=== PATIENT | female | born 1955 | race Caucasian/White ===

== ENCOUNTER 2024-10-30 09:48 | Emergency (ER) | payer MEDICARE, MEDICAID, SELFPAY ==
[2024-10-30 10:05] VITALS: BP 133/75; PULSE 87; RESP 16; TEMP 36.1; O2SAT 98; BMI 33.7
[2024-10-30] MEDS: PROPARACAINE 0.5% OPHTH SOL 1 DROPS EYE-BOTH (11:29)
[2024-10-30] MEDS: FLUORESCEIN 1 MG STRIP EYE-RIGHT (11:29)
--- NOTE | 2024-10-30 11:46 | PC.NURSE ---
Addendum entered by Jennifer Arellano R.N. 10/30/24 11:49: Pt uses corrective lens for vision (glasses) Original Note: Pt reports having hx of eye ulcers in the 's which she took eye drops for and they resolved. Pt thinks she has eye ulcers again. Pt reports she is new to the area and has new insurance so she does not have an established eye doctor. Pt reports eye surgeries and hx of vision issues; states last eye surgery was 2.5 years ago for cataracts and denies any complications. Pt states over the past couple of days she noticed a white dot on right iris and now state she has 2 white eye dots. Pt states she has not had any vision changes to the affected eye but states it has started to water/weep and is getting red. Pt states she did not want her condition to worsen so she came to the ER. Pt denies any trauma or using any eye drops as of recently
--- NOTE | 2024-10-30 12:08 | ED_ITS ---
HPI - Eye Problem <Yasmin Jimenez PA-C - Last Filed: 10/30/24 19:18> General Chief complaint: Eye Problems Stated complaint: Poss corneal ulser Time Seen by Provider: 10/30/24 10:58 Source: patient Mode of arrival: Wheelchair History of Present Illness HPI Narrative: Ms. Martini is a very pleasant 69-year-old female with a past medical history of right eye retinopathy, cataract, narrow angle glaucoma, ischemic CVA, fibromyalgia, HTN, HLD, hypothyroidism who presents to the emergency department for concern of right eye ulcer x 3 days. Patient states she just recently moved from [place] to [facility] here in [place]. She noticed her right eye started to feel ?scratchy? on Thursday but denies any foreign body or injury to the eye. On Thursday 1 of her caregivers noticed a s mall white spot on her right iris and today she noticed a 2nd white spot on her iris which prompted her emergency department arrival. States that she had a corneal ulcer on her left eye about 30 years ago that required her to use eyedrops every hour. She denies contact lens use but she does use glasses and reports that her right eye is her ?bad eye? and that she has very poor vision/no vision besides blur in this eye to begin with. Her left eye is the eye she uses for her vision. Reports that she has had procedures on her right eye for glaucoma in the past and that the eye does not always move correctly and the muscles around the eye are much weaker. She denies headache, fevers, chills, trauma to the eye. Related Data Previous Rx's Medication Instructions Recorded moxifloxacin 0.5 % eye drops See Rx Instructions .Route 10/30/24 (Vigamox) .COMPLEX 5 days #6 mL Review of Systems <Yasmin Jimenez PA-C - Last Filed: 10/30/24 19:18> Review of Systems ROS Unobtainable: All systems reviewed & are unremarkable except as noted in HPI and below Patient History <Yasmin Jimenez PA-C - Last Filed: 10/30/24 19:18> Social History Smoking Status: Never smoker Smoking Status: Never smoker Exam <Yasmin Jimenez PA-C - Last Filed: 10/30/24 19:18> Narrative Exam Narrative: GENERAL: 69 year old patient appears stated age. Well-developed patient, in no acute distress. HEAD: Atraumatic. Normocephalic. EYES: Right eye has two approximately 1mm circular white/oh lesions on iris 7:00 position. Minimal amount of erythema on bottom most cornea. No drainage from the eye or foreign body. Left pupil is 3mm reactive, right pupil is 2mm reactive. Left cornea clear with no erythema or lesions. Right IOP 13, left IOP 16. There is circular fluorescein uptake on right eye exam overlying both lesions described above. Right eye with very minimal exotropia resting at baseline, extraocular motions intact. CARDIOVASCULAR: Regular rate RESPIRATORY: ?Nonlabored respirations. ?Speaking in clear, full sentences. NEURO: AOx3. ?Clear speech. ?Some weakness of lower extremities baseline, uses wheelchair. SKIN: No rash or erythema of visible areas Initial Vital Signs Initial Vital Signs: Vital Signs Temperature 97.0 F L 10/30/24 10:05 Pulse Rate 87 10/30/24 10:05 Respiratory Rate 16 10/30/24 10:05 Blood Pressure 133/75 10/30/24 10:05 Pulse Oximetry 98 10/30/24 10:05 Oxygen Delivery Method Room Air 10/30/24 10:05 <Earnest Mendoza MD - Last Filed: 10/30/24 20:54> Initial Vital Signs Initial Vital Signs: Vital Signs Temperature 97.0 F L 10/30/24 10:05 Pulse Rate 87 10/30/24 10:05 Respiratory Rate 16 10/30/24 10:05 Blood Pressure 133/75 10/30/24 10:05 Pulse Oximetry 98 10/30/24 10:05 Oxygen Delivery Method Room Air 10/30/24 10:05 Course <Yasmin Jimenez PA-C - Last Filed: 10/30/24 19:18> Orders Ordered: Discontinued Medications Fluorescein Sodium (Fluorescein 1 Mg Strip) 1 mg EYE-RIGHT NOW ONE Stop: 10/30/24 11:01 Last Admin: 10/30/24 11:29 Dose: 1 mg Documented By: GEO Ofloxacin (Ofloxacin 0.3% Ophth Prepack) 1 bottle MISC DIRECTED ONE Stop: 10/30/24 15:37 Last Admin: 10/30/24 15:47 Dose: 1 bottle Documented By: GEO Proparacaine HCl (Proparacaine 0.5% Ophth Josefina) 1 drops EYE-BOTH NOW ONE Stop: 10/30/24 11:01 Last Admin: 10/30/24 11:29 Dose: 1 drop Documented By: GEO Consultations Consultation #1: Consulted [facility] food and beverage operations manager acds block [address] Viera. For Right corneal ulcer she recommends Moxifloxacin 1 drop Q2 hours while the patient is awake today, followed by outpatient ophthalmology follow up tomorrow with likely decrease to moxifloxacin q.i.d. Time: 14:39 Vital Signs Vital signs: Vital Signs - 8 hr 10/30/24 15:45 10/30/24 15:48 Temperature 98.4 F Pulse Rate 87 Respiratory Rate 18 Blood Pressure 105/58 L Pulse Oximetry 97 Oxygen Delivery Method Room Air <Earnest Mendoza MD - Last Filed: 10/30/24 20:54> Orders Ordered: Discontinued Medications Fluorescein Sodium (Fluorescein 1 Mg Strip) 1 mg EYE-RIGHT NOW ONE Stop: 10/30/24 11:01 Last Admin: 10/30/24 11:29 Dose: 1 mg Documented By: GEO Ofloxacin (Ofloxacin 0.3% Ophth Prepack) 1 bottle MISC DIRECTED ONE Stop: 10/30/24 15:37 Last Admin: 10/30/24 15:47 Dose: 1 bottle Documented By: GEO Proparacaine HCl (Proparacaine 0.5% Ophth Josefina) 1 drops EYE-BOTH NOW ONE Stop: 10/30/24 11:01 Last Admin: 10/30/24 11:29 Dose: 1 drop Documented By: GEO Vital Signs Vital signs: Vital Signs - 8 hr 10/30/24 15:45 10/30/24 15:48 Temperature 98.4 F Pulse Rate 87 Respiratory Rate 18 Blood Pressure 105/58 L Pulse Oximetry 97 Oxygen Delivery Method Room Air MDM - Eye Problem <Yasmin Jimenez PA-C - Last Filed: 10/30/24 19:18> Medical Records Attestation: I reviewed the patient's medical records. MDM Narrative Medical decision making narrative: 69-year-old female with a past medical history of right eye retinopathy, cataract, narrow angle glaucoma, ischemic CVA, fibromyalgia, HTN, HLD, hypothyroidism who presents to the emergency department for concern of right eye ulcer x 3 days. Differential diagnosis includes but is not limited to corneal abrasion, corneal ulcer, conjunctivitis, glaucoma, dendritic lesion, foreign body, etc. On exam patient is in no acute distress, nontoxic appearing, vital signs lucas ropriate. Her visual acuity is baseline for her which involves only blurred vision of the right eye. Right pressure 13, left pressure 16. Fluorescein eye exam reveals uptake of 2 small ulcers on right iris. Discussed case with the attending ED physician, we will consult Ophthalmology at [facility] as we do not have local acds block 1 operator on-call this time. [place] Dr. Viera acds block 1 operator recommends moxifloxacin every 2 hours while awake today followed by ophthalmology follow up tomorrow with likely decrease dose to q.i.d. Called [facility] assisted living, unfortunately they can not get patient's prescription until tomorrow. We do not have moxifloxacin at this hospital. Consulted pharmacy, we do have ofloxacin ophthalmic solution 0.3% here, informed to instill 1-2 drops in affected eye every 30 minutes while awake followed by every 4-6 hours at night for the first two days or until patient can rock picker and switch over to moxifloxacin/is evaluated by ophthalmology. Patient verbalized understanding of all information and is agreeable to the plan. Discussed strict ED return precautions. She is stable for discharge back to [facility], transfer coming to pick her up. Discharge Plan Departure Patient Disposition: Home Clinical Impression: Corneal ulcer of right eye Instructions: DI for Corneal Ulcer Activity Restrictions/Additional Instructions: Dear Vini, Thank you for coming to the emergency department. Today your physical exam is concerning for 2 small corneal ulcers on the right eye. I discussed with [facility] acds block 1 operator on-call Dr. Viera. Because you were not able to get the prescribed eyedrops today, and we do not c arry these eyedrops at this hospital, you have been provided with an alternative eyedrops to use today called Ofloxacin. Please use 1-2 drops in the right eye every 30 minutes while awake today and every 4-6 hours at night for the 1st 2 days. Beginning on day 3 you can apply 1-2 drops every hour while awake for 4-6 additional days. However you should be evaluated by an eye doctor tomorrow who will change prescribed drops as needed. Tomorrow you need to call to schedule an appointment with local acds block 1 operator [facility] Dr. Louis Vega or Dr. Jazmine Lala at [phone] for an appointment as soon as possible, ideally tomorrow Thursday. Eyedrops can be decreased to 4 times a day tomorrow or as advised by the eye doctor. Please return to the emergency department for any new or worsening symptoms or other concerns. Please follow up with your primary care doctor within the next 2-3 days for ER follow-up. (If you do not have a PCP you can call [phone]. ?to schedule an appointment with an [facility] Primary Care Provider) IF YOU DEVELOP ANY NEW OR WORSENING SYMPTOMS, RETURN TO THE ER! Please read the attached instructions, they highlight more specific treatments and interventions for you at home. Thank you for letting me participate in your care, Yasmin Jimenez PA-C Prescriptions: New moxifloxacin [Vigamox] 0.5 % drops See Rx Instructions .ROUTE .COMPLEX 5 Days Qty: 6 0RF Rx Instructions: 1 drp into right eye every 2 hours while awake on day 1, followed by four times daily on day 2 or until dose changed by acds block 1 operator. Referrals: Melita Vega MD [Physician] - (corneal ulcer right eye) Raman Lala MD [Physician] - (corneal ulcer right eye) Stand Alone Forms: Patient Portal/API/Survey ED Sign-out <Earnest Mendoza MD - Last Filed: 10/30/24 20:54> Cosign ED Attending Cosignature Attestation: I was immediately available in the department for consultation. This document ation has been reviewed and I agree with assessment and plan. Supervised by Earnest Mendoza MD
[2024-10-30 15:45] VITALS: BP 105/58; PULSE 87; RESP 18; O2SAT 97
--- NOTE | 2024-10-30 15:45 | PC.NURSE ---
Reassess; no change
[2024-10-30] MEDS: OFLOXACIN 0.3% OPHTH PREPACK 1 BOTTLE MISC (15:47)
[2024-10-30 15:48] VITALS: TEMP 36.9
--- NOTE | 2024-10-30 16:06 | PC.NURSE ---
Pt taken home by [facility] staff ([place])
== END 2024-10-30 16:07 | disposition home or self-care (01) ==
PROVIDERS: Emergency Provider Physician Assistant
DX: H16.001 Unspecified corneal ulcer, right eye (principal); Z86.73 Personal history of transient ischemic attack (TIA), and cerebral infarction without residual deficits
CPT/HCPCS: 99282

== ENCOUNTER 2024-11-01 22:20 | Emergency (ER) | payer MEDICARE, MEDICAID, SELFPAY ==
[2024-11-01 22:21] VITALS: BP 122/61; PULSE 74; RESP 18; TEMP 36.4; O2SAT 99; BMI 34.0
--- NOTE | 2024-11-01 22:21 | DI.RAD.S_ITS ---
PROCEDURE: XR HIP W PEL IF DONE LT 2V INDICATIONS: sat hard, pain, now nonweight bearing TECHNIQUE: 2 views of the hip were acquired. COMPARISON: None. FINDINGS AND IMPRESSION: No acute displaced fracture is identified. No dislocation. Suspect calcific tendinopathy at the greater trochanters. Bryv-te-mrfsecok hip, lumbosacral, and pubic symphysis arthritic changes. If there is high concern for occult injury, consider repeat radiography or cross-sectional imaging. Increased fecal loading. Dystrophic calcifications seen adjacent to the left femur on lateral view. Dictated by: Harpreet Henderson M.D. on 11/01/2024 at 23:01 Approved by: Harpreet Henderson M.D. on 11/01/2024 at 23:02
[2024-11-02 00:55] VITALS: BP 120/66; RESP 20; O2SAT 97
[2024-11-02 01:21] VITALS: BP 120/56; PULSE 76; RESP 17; O2SAT 98
--- NOTE | 2024-11-02 04:02 | ED_ITS ---
HPI - Extremity Problem General Chief complaint: Extremity Problem,Nontraumatic Stated complaint: Hip Pain Time Seen by Provider: 11/02/24 03:52 Source: patient and EMS Mode of arrival: EMS History of Present Illness HPI Narrative: Patient is a 69-year-old female with history of arthritis presenting today with left hip pain. She reports that she lives at [facility] but is independent she does have a wheelchair as needed does use a walker walker as needed she was sitting and twisted around today and felt pain in her left hip. She has no radiation down her leg she did not fall. She has no change in bowel or bladder habits. She reports that it really only hurts when she is weight-bearing. She took tramadol which is her normal arthritis pain and did not really seem to help. Related Data Allergies Allergy/AdvReac Type Severity Reaction Status Date / Time No Known Drug Allergies Allergy Verified 11/01/24 22:24 Patient History Social History Smoking Status: Never smoker Smoking Status: Never smoker Exam Initial Vital Signs Initial Vital Signs: Vital Signs Temperature 97.5 F L 11/01/24 22:21 Pulse Rate 74 11/01/24 22:21 Respiratory Rate 18 11/01/24 22:21 Blood Pressure 122/61 11/01/24 22:21 Pulse Oximetry 99 11/01/24 22:21 Oxygen Delivery Method Room Air 11/01/24 22:21 GENERAL: Patient sleeping easily arousable CARDIOVASCULAR: peripheral pulses in tact, cap refill <2 sec RESPIRATORY: No respiratory distress, speaks in full sentences without difficulty ABDOMEN: Soft, nontender, no guarding or rebound EXTREMITIES: Normal range of motion, no clubbing or edema. Neurovascularly intact Pelvis stable no hip pain with internal or external rotation NEUROLOGICAL: Cranial nerves II through XII grossly intact. Normal gait and speech. SKIN: Warm, dry, no petechiae, no rashes or lesions. Course Orders Ordered: ED Orders 11/01/24 22:21 XR hip w pel if done LT 2V Stat Vital Signs Vital signs: Vital Signs - 8 hr 11/01/24 22:21 11/02/24 00:55 11/02/24 01:21 Temperature 97.5 F L Pulse Rate 74 76 Respiratory Rate 18 20 17 Blood Pressure 122/61 120/66 120/56 L Pulse Oximetry 99 97 98 Oxygen Delivery Method Room Air Room Air Room Air MDM - Extremity (Nontraumatic) Imaging Data Extremity x-ray #1: Radiologist's Impression: PROCEDURE: XR HIP W PEL IF DONE LT 2V INDICATIONS: sat hard, pain, now nonweight bearing TECHNIQUE: 2 views of the hip were acquired. COMPARISON: None. FINDINGS AND IMPRESSION: No acute displaced fracture is identified. No dislocation. Suspect calcific tendinopathy at the greater trochanters. Azct-of-bdlasiaq hip, lumbosacral, and pubic symphysis arthritic changes. If there is high concern for occult injury, consider repeat radiography or cross-sectional imaging. Increased fecal loading. Dystrophic calcifications seen adjacent to the left femur on lateral view. Dictated by: Harpreet Henderson M.D. on 11/01/2024 at 23:01 [facility] Narrative Medical decision making narrative: Patient is a 69-year-old female with history of arthritis presenting today with left hip pain. She twisted and had worsening pain. She did not fall no traumatic injury. X-ray today is negative does show arthritis. She took tramadol earlier she has been sleeping in the ED. I am freely able to move it without any sort of pain. She has available resources at home such as a walker and wheelchair if she needs it. She has no real back pain signs of cauda equina or other symptoms Patient was able to use wheelchair and walker transfer herself to the restroom. This time no need for any further workup Discharge Plan Departure Patient Disposition: Home Clinical Impression: Arthritis Instructions: DI for Osteoarthritis Activity Restrictions/Additional Instructions: *You have been diagnosed with arthritis *What to do: At this time increase activity as tolerated. Use walker and wheelchair as needed *Continue to take medications as directed *Follow up with your primary care provider in 2-3 days or call [phone] *Return to ER if you should have increasing pain weakness loss of urine or any new, worsening or concerning symptoms Stand Alone Forms: Patient Portal/API/Survey
--- NOTE | 2024-11-02 06:16 | PC.NURSE ---
This nurse spoke to [employer] at [facility] and she reports one of the staff will be coming to get her adter shift change so after 06:30 this morning
[2024-11-02 06:40] VITALS: BP 137/66; PULSE 75; RESP 16; O2SAT 100
== END 2024-11-02 08:01 | disposition home or self-care (01) ==
PROVIDERS: Emergency Provider Emergency Medicine
DX: M16.12 Unilateral primary osteoarthritis, left hip (principal)
CPT/HCPCS: 73502; 99281; 99283

== ENCOUNTER → 2024-11-09 06:12 | Outpatient (ROUT) | payer MEDICARE, MEDICAID, SELFPAY ==
[2024-11-09 07:56] LABS: Hematocrit 38.9 % (36-46); Hemoglobin 13.7 g/dL (12.0-16.0); Mean Corpuscular HGB Conc 35.2 % (30-36); Mean Corpuscular Hemoglobin 30.6 PG (26-34); Mean Corpuscular Volume 87.1 fL (80-100); Platelet Count 356 X10^3/uL (150-400); Red Blood Cell Count 4.46 X10^6/uL (4.0-5.2); Red Cell Distribution Width 13.2 % (11.6-14.8); White Blood Cell Count 7.8 X10^3/uL (4.5-11.0)
[2024-11-09 08:09] LABS: Alanine Aminotransferase 20 IU/L (<35); Albumin 4.5 g/dL (3.5-5.0); Albumin Globulin Ratio 1.5 (1.0-2.8); Alkaline Phosphatase 233 U/L (38-126); Aspartate Aminotransferase 33 IU/L (14-36); Bilirubin Total 0.5 mg/dL (0.2-1.3); Blood Urea Nitrogen 24 mg/dL (7-17); Carbon Dioxide 26 mmol/L (22-32); Chloride 100 mmol/L (98-107); Cholesterol 132 mg/dL (140-199); Estimated Glomerular Filt Rate > 60 mL/min (>60); Glucose 96 mg/dL (80-110); HDL Cholesterol 62 mg/dL (40-60); HEMOLYSIS < 15 (0-50); LDL Cholesterol Calculated 53 mg/dL (<100); Magnesium 1.6 mg/dL (1.6-2.3); Potassium 4.5 mmol/L (3.4-5.1); Sodium 138 mmol/L (137-145); Total Protein 7.5 g/dL (6.3-8.2); Triglycerides 86 mg/dL (35-150)
[2024-11-09 08:37] LABS: Thyroid Stimulating Hormone 2.36 uIU/mL (0.47-4.68)
== END ==
PROVIDERS: Visit Provider Registered Nurse
DX: Z13.9 Encounter for screening, unspecified (principal)
CPT/HCPCS: 36415; 80053; 80061; 83735; 84443; 85027

== ENCOUNTER 2024-11-30 13:29 | Inpatient (IN) | payer MEDICARE, MEDICAID, SELFPAY ==
[2024-11-30] VITALS (24 sets, daily range): BP systolic 97–135; BP diastolic 53–72; PULSE 70–96; RESP 11–20; TEMP 36.7–37; O2SAT 94–97; BMI 32.1; BMI 31.6
--- NOTE | 2024-11-30 15:56 | DI.RAD.S_ITS ---
PROCEDURE: XR CHEST 1V INDICATIONS: altered mental status TECHNIQUE: One view of the chest was acquired. COMPARISON: None. FINDINGS: Surgical changes and devices: None. Lungs and pleura: Lungs are clear. No pleural effusions or pneumothorax. Mediastinum: Mediastinal contours appear normal. Heart size is normal. Bones and chest wall: No suspicious bony lesions. Overlying soft tissues appear unremarkable. IMPRESSION: No acute cardiopulmonary pathology. Dictated by: Riccardo Ramirez M.D. on 11/30/2024 at 16:19 Approved by: Riccardo Ramirez M.D. on 11/30/2024 at 16:20
--- NOTE | 2024-11-30 15:56 | EKG_ITS ---
[address] [address] Test Date: 2024-11-30 Pat Name: Anne Martini Department: [facility] Room: Gender: Female Entry Level Marketing Assistant: ERIN : [id number] Requested By: Order Number: [id number] Reading MD: Matias Cheung Measurements Intervals Orick Rate: 78 P: 31 WI: 166 QRS: 3 QRSD: 84 T: 47 QT: 358 QTc: 408 Interpretive Statements Normal sinus rhythm Minimal voltage criteria for LVH, may be normal variant ( R in aVL ) Nonspecific T wave abnormality Electronically Signed On 12-03-2024 18:28:28 PDT by Matias Cheung
[2024-11-30 16:09] LABS: Appearance Urine UA CLEAR; Bilirubin Urine UA NEGATIVE (NEGATIVE); Color Urine UA YELLOW; Glucose Urine UA NEGATIVE (Negative); Ketones Urine UA NEGATIVE (NEGATIVE); Leukocyte Esterase Urine UA NEGATIVE (NEGATIVE); Nitrite Urine UA NEGATIVE (Negative); Occult Blood Urine UA NEGATIVE (Negative); Protein Urine UA NEGATIVE (Negative)
[2024-11-30 16:12] LABS: Add Manual Diff / Slide Review NO; Basophils Absolute Auto 0 /uL (0-100); Basophils Percent Auto 0.4 % (0-2); Eosinophils Absolute Auto 0 /uL (0-450); Eosinophils Percent Auto 0.2 % (2-4); Hematocrit 37.2 % (36-46); Hemoglobin 13.2 g/dL (12.0-16.0); Lymphocytes Absolute Auto 1200 /uL (1100-4500); Lymphocytes Percent Auto 12.3 % (25-40); Mean Corpuscular HGB Conc 35.5 % (30-36); Mean Corpuscular Hemoglobin 30.6 PG (26-34); Mean Corpuscular Volume 86.1 fL (80-100); Monocytes Absolute Auto 600 /uL (0-900); Monocytes Percent Auto 6.7 % (3-14); Neutrophils Absolute Auto 7700 /uL (1500-7000); Neutrophils Percent Auto 80.4 % (50-75); Platelet Count 317 X10^3/uL (150-400); Red Blood Cell Count 4.32 X10^6/uL (4.0-5.2); Red Cell Distribution Width 13.2 % (11.6-14.8); White Blood Cell Count 9.6 X10^3/uL (4.5-11.0)
[2024-11-30 17:08] LABS: Alanine Aminotransferase 22 IU/L (<35); Albumin 4.3 g/dL (3.5-5.0); Albumin Globulin Ratio 1.2 (1.0-2.8); Alkaline Phosphatase 283 U/L (38-126); Aspartate Aminotransferase 66 IU/L (14-36); BUN Creatinine Ratio 25.6 (6-22); Bilirubin Total 0.5 mg/dL (0.2-1.3); Blood Urea Nitrogen 31 mg/dL (7-17); Calcium 13.1 mg/dL (8.4-10.2); Carbon Dioxide 28 mmol/L (22-32); Chloride 99 mmol/L (98-107); Estimated Glomerular Filt Rate 48 mL/min (>60); Globulin 3.6 g/dL (1.7-4.1); Glucose 103 mg/dL (80-110); Potassium 4.8 mmol/L (3.4-5.1); Sodium 134 mmol/L (137-145); Total Protein 7.9 g/dL (6.3-8.2)
[2024-11-30 17:11] LABS: HEMOLYSIS < 15 (0-50)
[2024-11-30] MEDS: SODIUM CHLORIDE 0.9% 1,000 ML 1000 ML IV (18:17)
--- NOTE | 2024-11-30 18:17 | ED.EXTPRO ---
HPI - Extremity Problem General Chief complaint: Extremity Problem,Nontraumatic Stated complaint: hip and back pain Time Seen by Provider: 11/30/24 18:11 Source: patient and RN notes reviewed Mode of arrival: Ambulatory Limitations: no limitations History of Present Illness HPI Narrative: 69-year-old female history of arthritis, hypertension, hypothyroidism, dyslipidemia, atrial fibrillation with a reported history of stroke on Plavix and aspirin presents with complaint of bilateral hip pain that is been present for some time with pain shooting down her hips and back weakness, difficulty moving. Patient states no trauma or injuries. She states she has had increasing back and hip pain has been going on for a little bit denies any new trauma or falls. She denies weakness she was able to lift her legs it is more leaning forward or trying to walk. Patient denies any headaches no fevers or chills, no chest pain or shortness of breath. She had some nausea overnight. She has been constipated but had a bowel movement the last day or 2 she relates this probably to being to her tramadol that she takes regularly for her hip and back pain. Denies any dysuria urgency or frequency she has not appreciate any tremor but does note she has been more confused. She states she has been on the phone with her who told her over the phone she sounded more confused as well. Patient ended up at [facility] about a month and a half ago had moved from [place] where she had been in rehab for a stroke and then in a facility there. Patient states she has had prior cataract surgery. No known drug allergies, denies tobacco, alcohol or recreational drugs. States he does not have a primary care locally currently resides at [facility]. Related Data Allergies Allergy/AdvReac Type Severity Reaction Status Date / Time No Known Drug Allergies Allergy Verified 11/01/24 22:24 Review of Systems Review of Systems ROS Unobtainable: All systems reviewed & are unremarkable except as noted in HPI and below Patient History Social History Smoking Status: Never smoker Smoking Status: Never smoker Exam Narrative Exam Narrative: GENERAL: Alert and oriented, female in mild distress. Patient seems slightly confused able to give most history but does sometimes get stuck on questions about her medications. HEENT: Head normocephalic, atraumatic, EOMI, pupils reactive, face symmetric, moist mucous membranes NECK: Supple, full range of motion CARDIOVASCULAR: Regular rate and rhythm without murmurs, rubs or gallops. RESPIRATORY: Breath sounds equal bilaterally, no wheezes rales or rhonchi. ABDOMEN: Soft, nontender. Normoactive bowel sounds all 4 quadrants. No guarding or rebound, rigidity, no mass : No CVA tenderness EXTREMITIES: Normal range of motion. Neurovascularly intact. 5/5 muscle strength patient is able to lift both legs without issue. No increase in pain with straight leg raise. 2+ pulses bilateral lower extremities. No warmth erythema, cyanosis or clubbing. NEUROLOGICAL: Cranial nerves II through XII grossly intact. Moving all extremities SKIN: Warm, dry, no petechiae, no rashes or lesions. Initial Vital Signs Initial Vital Signs: Vital Signs Temperature 98.6 F 11/30/24 13:35 Pulse Rate 96 H 11/30/24 13:35 Respiratory Rate 20 11/30/24 13:35 Blood Pressure 105/53 L 11/30/24 13:35 Pulse Oximetry 97 11/30/24 13:35 Oxygen Delivery Method Room Air 11/30/24 13:35 Course Orders Ordered: ED Orders 11/30/24 15:50 Urinalysis Screen (Dip Only) Stat 11/30/24 15:56 XR chest 1V Stat Complete Blood Count AUTO DIFF Stat EKG-12 Lead Stat 11/30/24 16:48 Comprehensive Metabolic Panel Stat MAG [Magnesium] Stat PHOS [Phosphorous] Stat 11/30/24 21:23 Ionized Calcium Stat TSH [Thyroid Stimulating Hormone] Stat Vitamin D 25 Hydroxy (D3) Stat 11/30/24 21:26 CT head/brain wo con Stat PTT Partial Thromboplastin Kvng Stat Prothrombin Time INR Stat Acetaminophen (Acetaminophen 325 Mg Tablet) 650 mg PO Q6H PRN PRN Reason: Fever/Mild Pain (1-3) Enoxaparin Sodium (Enoxaparin 40 Mg/0.4 Ml Syringe) 40 mg SUBCUT DAILY VIVEK Sodium Chloride (Normal Saline 0.9%) 1,000 mls @ 100 mls/hr IV CONT VIVEK Sodium Chloride (Normal Saline 0.45%) 1,000 mls @ 100 mls/hr IV CONT VIVEK Naloxone HCl (Naloxone 0.4 Mg/Ml Vial) 0.2 mg IV Q2MIN PRN PRN Reason: Opiate Reversal Ondansetron HCl (Ondansetron 4 Mg/2 Ml Inj) 4 mg IV Q4HR VIVEK Oxycodone HCl (Oxycodone Ir 5 Mg Tablet) 5 mg PO Q3H PRN PRN Reason: Pain, Moderate (4-6) Sennosides (Sennosides 8.6 Mg Tablet) 17.2 mg PO BEDTIME VIVEK Discontinued Medications Sodium Chloride (Normal Saline 0.9%) 1,000 mls @ 1,000 mls/hr IV BOLUS ONE Stop: 11/30/24 19:10 Last Infusion: 11/30/24 19:24 Dose: Infused Documented By: Admin: 11/30/24 18:17 Dose: 1,000 mls/hr Documented By: REYNA Oxycodone HCl (Oxycodone Ir 5 Mg Tablet) 5 mg PO NOW ONE Stop: 11/30/24 18:45 Last Admin: 11/30/24 19:03 Dose: 5 mg Documented By: Vital Signs Vital signs: Vital Signs - 8 hr 11/30/24 14:39 11/30/24 14:40 11/30/24 14:40 Pulse Rate 87 Respiratory Rate Blood Pressure 128/62 Pulse Oximetry 96 96 Oxygen Delivery Method 11/30/24 15:00 11/30/24 15:30 11/30/24 15:30 Pulse Rate 80 84 Respiratory Rate 11 L 12 Blood Pressure 111/54 L Pulse Oximetry 95 96 Oxygen Delivery Method 11/30/24 16:00 11/30/24 16:00 11/30/24 16:30 Pulse Rate 82 Respiratory Rate 11 L Blood Pressure 104/57 L 117/56 L Pulse Oximetry 96 Oxygen Delivery Method Room Air 11/30/24 16:30 11/30/24 17:00 11/30/24 17:01 Pulse Rate 78 82 Respiratory Rate 15 17 Blood Pressure 122/57 L Pulse Oximetry 95 96 Oxygen Delivery Method 11/30/24 17:01 11/30/24 17:30 11/30/24 17:30 Pulse Rate 81 83 Respiratory Rate 18 13 Blood Pressure 114/56 L Pulse Oximetry 96 96 Oxygen Delivery Method 11/30/24 18:00 11/30/24 18:00 11/30/24 18:30 Pulse Rate 83 Respiratory Rate 14 Blood Pressure 112/58 L 118/56 L Pulse Oximetry 95 Oxygen Delivery Method 11/30/24 18:30 11/30/24 19:00 11/30/24 19:00 Pulse Rate 79 72 Respiratory Rate 11 L 16 Blood Pressure 123/61 Pulse Oximetry 95 94 Oxygen Delivery Method 11/30/24 19:30 11/30/24 19:31 11/30/24 19:31 Pulse Rate 74 76 Respiratory Rate 20 19 Blood Pressure 97/55 L Pulse Oximetry 97 97 Oxygen Delivery Method 11/30/24 20:00 11/30/24 20:00 11/30/24 20:30 Pulse Rate 72 Respiratory Rate 12 Blood Pressure 104/53 L 120/60 Pulse Oximetry 94 Oxygen Delivery Method 11/30/24 20:30 Pulse Rate 75 Respiratory Rate 11 L Blood Pressure Pulse Oximetry 95 Oxygen Delivery Method Room Air MDM - Extremity (Nontraumatic) Lab Data 11/30/24 15:56 11/30/24 16:48 Labs: Lab Results 11/30/24 11/30/24 11/30/24 Range/Units 15:50 15:56 16:48 WBC 9.6 (4.5-11.0) X10^3/uL RBC 4.32 (4.0-5.2) X10^6/uL Hgb 13.2 (12.0-16.0) g/dL Hct 37.2 (36-46) % MCV 86.1 (80-100) fL MCH 30.6 (26-34) PG MCHC 35.5 (30-36) % RDW 13.2 (11.6-14.8) % Plt Count 317 (150-400) X10^3/uL Neut % (Auto) 80.4 H (50-75) % Lymph % (Auto) 12.3 L (25-40) % [place] % (Auto) 6.7 (3-14) % Eos % (Auto) 0.2 L (2-4) % Baso % (Auto) 0.4 (0-2) % Neut # (Auto) 7700 H (4886-1022) /uL Lymph # (Auto) 1200 (2392-0365) /uL [place] # (Auto) 600 (0-900) /uL Eos # (Auto) 0 (0-450) /uL Baso # (Auto) 0 (0-100) /uL Sodium 134 L (137-145) mmol/L Potassium 4.8 (3.4-5.1) mmol/L Chloride 99 (98-107) mmol/L Carbon Dioxide 28 (22-32) mmol/L BUN 31 H (7-17) mg/dL Creatinine 1.21 H (0.52-1.04) mg/dL Estimated GFR 48 L (>60) mL/min BUN/Creatinine Ratio 25.6 H (6-22) Glucose 103 (80-110) mg/dL Calcium 13.1 H* (8.4-10.2) mg/dL Phosphorus 3.6 (2.8-4.1) mg/dL Magnesium 1.8 (1.6-2.3) mg/dL Total Bilirubin 0.5 (0.2-1.3) mg/dL AST 66 H (14-36) IU/L ALT 22 (<35) IU/L Alkaline Phosphatase 283 H (38-126) U/L Total Protein 7.9 (6.3-8.2) g/dL Albumin 4.3 (3.5-5.0) g/dL Globulin 3.6 (1.7-4.1) g/dL Albumin/Globulin Ratio 1.2 (1.0-2.8) Urine Color Yellow Urine Appearance Clear Urine pH 6.0 (4.5-8.0) Ur Specific [place] 1.020 (1.000-1.035) Urine Protein Negative (Negative) Urine Glucose (UA) Negative (Negative) g/dL Urine Ketones Negative (NEGATIVE) Urine Occult Blood Negative (Negative) Urine Nitrate Negative (Negative) Urine Bilirubin Negative (NEGATIVE) Urine Urobilinogen 1.0 (0.2) E.U./dL Ur Leukocyte Esterase Negative (NEGATIVE) ECG Data Attestation EKG: I personally reviewed and interpreted this ECG as follows: Interpretation: Sinus rhythm rate of 78 ID 166 QRS 84 QTC of 408, no acute ST elevation or depression. MDM Narrative Medical decision making narrative: Labs show white count of 9.6 hemoglobin of 13 platelets of 312 predominance of neutrophils. Chemistry shows sodium 134 creatinine is 1.21 BUN 31 electrolytes are otherwise appropriate calcium is 13.1 from 11 in October, AST 66 but ALT bilirubin are normal. Alk-phos is 283. Intact PTH ordered at request of Dr. Cheung. Urine dip is negative. Chest x-ray shows no acute change Head CT shows no acute change. Patient does have an old hip x-ray from 11/01/2024 for left hip with no fracture no dislocation had calcific tendinopathy of greater trochanters. Patient received fluids. Did receive a dose of oral pain medication. Call to hospitalist [phone] for observation or admission for hypercalcemia and mild MERCY. Spoke with Dr. Carlson tele hospitalist [phone]: Asked for Mag and phos, TSH, ionized calcium, head CTs patient has had some mild confusion. Asked that we continue with fluids at 100 mL NS. Reviewed patient's findings and workup thus far prior visits in October and labs from October. Also reviewed patient's medication list. She accepts but we will wait for head CT result before putting up stairs. Discharge Plan Departure Patient Disposition: Admitted As Inpatient Clinical Impression: Hypercalcemia, MERCY (acute kidney injury) Admit Date/Time: 11/30/24 22:16 Admit Provider: Avis Carlson
[2024-11-30] MEDS: OXYCODONE IR 5 MG TABLET PO ×2 (19:03→23:31)
--- NOTE | 2024-11-30 19:51 | PC.NURSE ---
Pt incontinent of urine. Cleaned yovany area thoroughly with JOSE Beckett. Pirwick placed.
--- NOTE | 2024-11-30 21:26 | DI.CT.S_ITS ---
PROCEDURE: CT HEAD/BRAIN WO CON INDICATIONS: confusion TECHNIQUE: Noncontrast 4.5 mm thick angled axial sections acquired from the foramen magnum to the vertex, with coronal and sagittal reformats. For radiation dose reduction, the following was used: automated exposure control, adjustment of mA and/or kV according to patient size. COMPARISON: None. FINDINGS: Image quality: Diagnostic CSF spaces: Basal cisterns are patent. Lateral ventricles are symmetric. Volume: Vascular calcifications. Periventricular white matter disease is commonly seen with chronic microangiopathy. Volume loss is present. These findings are [id number] Brain: No intracranial hemorrhage. Hurtado-white differentiation is grossly maintained. Craniofacial structures: Calvarial hyperostosis. No significant paranasal sinus opacity. Left lens replacement. IMPRESSION: No acute intracranial pathology. Dictated by: Harpreet Henderson M.D. on 11/30/2024 at 22:06 Approved by: Harpreet Henderson M.D. on 11/30/2024 at 22:07
[2024-11-30 21:39] LABS: Magnesium 1.8 mg/dL (1.6-2.3); Phosphorous 3.6 mg/dL (2.8-4.1)
[2024-11-30 23:09] LABS: INR 1.1 (0.9-1.3); Prothrombin Time 12.7 SECONDS (9.4-12.5)
[2024-11-30 23:11] LABS: PTT Partial Thromboplastin Tim 30 SECONDS (25.1-36.5)
[2024-11-30] MEDS: SENNOSIDES 8.6 MG TABLET 17.2 MG PO (23:34)
[2024-11-30] MEDS: SODIUM CHLORIDE 0.45% 1,000 ML 100 ML IV (23:34)
[2024-11-30 23:51] LABS: Vitamin D 25 Hydroxy (D3) 32.9 ng/mL (30.0-100.0)
[2024-12-01 00:04] LABS: Thyroid Stimulating Hormone 2.35 uIU/mL (0.47-4.68)
[2024-12-01] MEDS: SODIUM CHLORIDE 0.9% 1,000 ML 100 ML IV ×2 (01:42→20:27)
[2024-12-01 03:00] VITALS: BP 128/74; PULSE 88; RESP 19; TEMP 36.4; O2SAT 94
--- NOTE | 2024-12-01 04:37 | PC.NURSE ---
Admit/NOC Shift Note- Patient arrived to room via stretcher from ER at 2300. Patient alert oriented with some confusion noted. Patient able to answer moast admit questions. Admit questions done, physical assessment done, Patient oriiented to bed and bed controls, room, lights, menu, call saenz/tv remote. Pastient agreed to call for assistance. bed alarm activated. Call saenz and phone within reach. will continue to monitor. `````````````````````````````````````````````````````````````````````````````````````````````````````````````````````````````````````````````````````````````````````````````````````````````````````````````````````````````````````````````````````````` `````````````````````````````````````````````````````````````````````````````````````````````````````````````````````````````````````````````````````````````````````````````````````````````````````````````````````````
[2024-12-01 06:12] LABS: Add Manual Diff / Slide Review NO; Basophils Absolute Auto 0 /uL (0-100); Basophils Percent Auto 0.5 % (0-2); Eosinophils Absolute Auto 0 /uL (0-450); Eosinophils Percent Auto 0.5 % (2-4); Hematocrit 34.5 % (36-46); Lymphocytes Absolute Auto 1400 /uL (1100-4500); Lymphocytes Percent Auto 18.3 % (25-40); Mean Corpuscular HGB Conc 34.7 % (30-36); Mean Corpuscular Volume 86.4 fL (80-100); Monocytes Absolute Auto 700 /uL (0-900); Monocytes Percent Auto 8.7 % (3-14); Neutrophils Absolute Auto 5500 /uL (1500-7000); Platelet Count 272 X10^3/uL (150-400); Red Blood Cell Count 3.99 X10^6/uL (4.0-5.2); Red Cell Distribution Width 12.9 % (11.6-14.8); White Blood Cell Count 7.6 X10^3/uL (4.5-11.0)
[2024-12-01 06:34] LABS: Alanine Aminotransferase 19 IU/L (<35); Albumin 3.8 g/dL (3.5-5.0); Albumin Globulin Ratio 1.2 (1.0-2.8); Alkaline Phosphatase 268 U/L (38-126); Aspartate Aminotransferase 56 IU/L (14-36); BUN Creatinine Ratio 22.8 (6-22); Bilirubin Total 0.6 mg/dL (0.2-1.3); Blood Urea Nitrogen 26 mg/dL (7-17); Calcium 12.5 mg/dL (8.4-10.2); Carbon Dioxide 28 mmol/L (22-32); Chloride 100 mmol/L (98-107); Estimated Glomerular Filt Rate 52 mL/min (>60); Globulin 3.3 g/dL (1.7-4.1); Glucose 83 mg/dL (80-110); HEMOLYSIS < 15 (0-50); Potassium 4.4 mmol/L (3.4-5.1); Sodium 135 mmol/L (137-145); Total Protein 7.1 g/dL (6.3-8.2)
--- NOTE | 2024-12-01 06:55 | PM.HP.1 ---
History of Present Illness History of Present Illness Date Patient Seen: 12/01/24 Chief complaint: hip and back pain Narrative: 69 y/o Female, with multiple chronic medical problems, including h/o stroke a year ago, and residing in [facility], on ASA , Plavix, PAF , Hypothyroidism, OA, DJD, Chronic Bilat Hip and Low back pain, patient using a walker or wheel chair for mobility, which has been progressively getting limited, sec to increasing discomfort in her hips and low back, over last 2 months, not getting relieved with Trammadol. Also has been taking muscle relaxants, also not effective in giving her relief. Also has been taking Calcium supplements. Her low back pain has been sharp, and radiating down her bilat LE . She had been unable to get out of her wheel chair sec to this discomfort. Denies parasthesias , no weakness of her bilat LE. No Bowel or bladder control problem. Also has noted to be more constipated over last 2-3 weeks than her baseline which is a BM once to twice per week. Denies abd pain, Vomiting, F/C, cough, SOB, SAWANT, light headedness or Syncope. No CP or cough. She has noted mild Nausea over a day. Some decrease in apatite also. She had been seen in ED on 11/01 also for bilat hip and low back pain. At that time had a Hip XR : Suspected Calcific Tendinopathy, No fracture or dislocation seen. She came to ED for an evaluation. In ED, VSS Labs remarkabkle for Scott;cium up at 13,1 ( was 11 on 11/01) Creat at 1,21/ BUN 31 ( was 0.8/24 on 11/09) K 4,.8 Alk P : 283 , AST 66, Mag 1.6, Phosphate, Vit D 3, PTH and TSH WNL She was noted s transiently confused in ED , and a CT head obtained : negative for acute changes. Given NS 1 L , and continued on NS at 100 mls per hour. Ionized calcium ordered ( send out) She was referred to Hospitalist leydi for admission. [facility] Medical History (Updated 12/01/24 @ 07:43 by Avis Carlson MD) Acquired hypothyroidism H/O: stroke Chronic hip pain, bilateral Social History Smoking Status: Never smoker Meds Home Medications and Allergies Home Medications Medication Instructions Recorded Confirmed Type acetaminophen 325 mg tablet 650 mg PO Q4H PRN Pain, Mild 12/01/24 12/01/24 History (Tylenol) atorvastatin 40 mg tablet 40 mg PO BEDTIME primary HTN 12/01/24 12/01/24 History buspirone 5 mg tablet 5 mg PO TID anxiety 12/01/24 12/01/24 History clopidogrel 75 mg tablet 75 mg PO DAILY afib 12/01/24 12/01/24 History gabapentin 100 mg capsule 300 mg PO TID NEUROPATHY/PAIN 12/01/24 12/01/24 History hydrochlorothiazide 12.5 mg tablet 12.5 mg PO DAILY primary HTN 12/01/24 12/01/24 History levothyroxine 25 mcg tablet 25 mcg PO DAILY hypothyroidism 12/01/24 12/01/24 History losartan 100 mg tablet 100 mg PO DAILY HTN 12/01/24 12/01/24 History magnesium hydroxide 400 mg/5 mL 30 ml PO DAILY PRN No BM in 3 days 12/01/24 12/01/24 History oral suspension (Milk of Magnesia) omeprazole 20 mg capsule,delayed 20 mg PO DAILY GERD 12/01/24 12/01/24 History release potassium chloride 20 mEq 40 meq PO DAILY supplement 12/01/24 12/01/24 History tablet,extended release(part/cryst) spironolactone 25 mg tablet 25 mg PO DAILY primary HTN 12/01/24 12/01/24 History tizanidine 4 mg tablet 8 mg PO Q8H PRN Spasms 12/01/24 12/01/24 History tramadol 50 mg PO Q4H PRN Pain, Moderate 12/01/24 12/01/24 History trazodone 50 mg tablet 50 mg PO BEDTIME 12/01/24 12/01/24 History venlafaxine 150 mg 150 mg PO DAILY depression 12/01/24 12/01/24 History capsule,extended release 24 hr venlafaxine 75 mg capsule,extended 75 mg PO DAILY depression 12/01/24 12/01/24 History release 24 hr Allergies Allergy/AdvReac Type Severity Reaction Status Date / Time No Known Drug Allergies Allergy Verified 11/01/24 22:24 Review of Systems Review of Systems ROS: Yes All systems reviewed with the patient and are negative except as otherwise documented Exam Vital Signs (past 8 hours): - 11/30/24 23:30 12/01/24 00:26 12/01/24 03:00 Temperature 98.1 F 97.6 F Pulse Rate 70 88 Respiratory Rate 18 19 Blood Pressure 135/72 128/74 Pulse Oximetry 95 94 Oxygen Delivery Method Room Air Oxygen Flow Rate 0 0 Oxygen Delivery Method Room Air Oxygen Flow Rate 0 Narrative Exam Narrative: Patient is laying in bed and does not appear in any distress, She recd Oxycodone in ED , and Dilaudid IV , with relief from her bilat hip pain for now. HEENT: AT, NC head, EOMI PERRL, non icteric sclerae Neck supple, no TMG , No adenopatghy Chest CTA, BS present bilat and equal. Normal Resp effort. No Rales/ Rhonchi or Wheezing Heart: RRR , no M/G/R Abd : Soft NT, ND, No HSM. No Flank tenderness bilat. BSS present and WNL Ext : No edema, No Cyanosis. No Calf tenderness builat. pp 2 + in Bilat LE Skin: warm and dry, no rash or bruising . MSK/ Neuro : A and O x 4 , Decreased ROM at bilat hips. No Weakness or sensory deficits.No tremor Psyche : Normal judgement and insight. Mood Normal. Objective Labs 12/01/24 06:00 12/01/24 06:00 Labs: Laboratory Results - last 24 hr 11/30/24 11/30/24 11/30/24 15:50 15:56 16:48 WBC 9.6 RBC 4.32 Hgb 13.2 Hct 37.2 MCV 86.1 MCH 30.6 MCHC 35.5 RDW 13.2 Plt Count 317 Neut % (Auto) 80.4 H Lymph % (Auto) 12.3 L [place] % (Auto) 6.7 Eos % (Auto) 0.2 L Baso % (Auto) 0.4 Neut # (Auto) 7700 H Lymph # (Auto) 1200 [place] # (Auto) 600 Eos # (Auto) 0 Baso # (Auto) 0 PT INR APTT Sodium 134 L Potassium 4.8 Chloride 99 Carbon Dioxide 28 BUN 31 H Creatinine 1.21 H Estimated GFR 48 L BUN/Creatinine Ratio 25.6 H Glucose 103 Calcium 13.1 H* Phosphorus 3.6 Magnesium 1.8 Total Bilirubin 0.5 AST 66 H ALT 22 Alkaline Phosphatase 283 H Total Protein 7.9 Albumin 4.3 Globulin 3.6 Albumin/Globulin Ratio 1.2 25-OH Vitamin D Total TSH Urine Color Yellow Urine Appearance Clear Urine pH 6.0 Ur Specific [place] 1.020 Urine Protein Negative Urine Glucose (UA) Negative Urine Ketones Negative Urine Occult Blood Negative Urine Nitrate Negative Urine Bilirubin Negative Urine Urobilinogen 1.0 Ur Leukocyte Esterase Negative 11/30/24 12/01/24 22:53 06:00 WBC 7.6 RBC 3.99 L Hgb 12.0 Hct 34.5 L MCV 86.4 MCH 30.0 MCHC 34.7 RDW 12.9 Plt Count 272 Neut % (Auto) 72.0 Lymph % (Auto) 18.3 L [place] % (Auto) 8.7 Eos % (Auto) 0.5 L Baso % (Auto) 0.5 Neut # (Auto) 5500 Lymph # (Auto) 1400 [place] # (Auto) 700 Eos # (Auto) 0 Baso # (Auto) 0 PT 12.7 H INR 1.1 APTT 30 Sodium 135 L Potassium 4.4 Chloride 100 Carbon Dioxide 28 BUN 26 H Creatinine 1.14 H Estimated GFR 52 L BUN/Creatinine Ratio 22.8 H Glucose 83 Calcium 12.5 H Phosphorus Magnesium Total Bilirubin 0.6 AST 56 H ALT 19 Alkaline Phosphatase 268 H Total Protein 7.1 Albumin 3.8 Globulin 3.3 Albumin/Globulin Ratio 1.2 25-OH Vitamin D Total 32.9 TSH 2.35 Urine Color Urine Appearance Urine pH Ur Specific [place] Urine Protein Urine Glucose (UA) Urine Ketones Urine Occult Blood Urine Nitrate Urine Bilirubin Urine Urobilinogen Ur Leukocyte Esterase Assessment & Plan Assessment and plan (1) Chronic hip pain, bilateral: Problem details: OA / DJD On going , some relief with Oxycodone and prn IV dilaudid ( 0,5 mg). PT/ OT consult ordered Consider MRI of Bilat Hips and low back Status: Acute (2) Acquired hypothyroidism: Problem details: TSH WNL Cont Levothyroxine at 25 mcg per day Status: Acute Time-Based Coding :: [TOTAL MINUTES] spent with patient and on the chart (including review of chart, obtaining history, exam, reviewing outside data, placing orders, documenting exam and treatment plan, and counseling patient) on [DATE]. Quality VTE Deep Vein Thrombosis/Pulmonary Embolism Present on Admission: No
[2024-12-01 08:00] VITALS: BP 134/76; PULSE 76; RESP 18; TEMP 36.4; O2SAT 94
[2024-12-01] MEDS: ENOXAPARIN 40 MG/0.4 ML SYRINGE SUBCUT (08:48)
[2024-12-01] MEDS: GABAPENTIN 100 MG CAPSULE 300 MG PO ×3 (08:48→20:25)
[2024-12-01] MEDS: VENLAFAXINE ER 75 MG CAP 225 MG PO (08:48)
[2024-12-01] MEDS: BUSPIRONE 5 MG TABLET PO ×3 (08:49→20:25)
[2024-12-01] MEDS: OXYCODONE IR 5 MG TABLET PO ×3 (09:07→20:25)
[2024-12-01 12:00] VITALS: RESP 18
--- NOTE | 2024-12-01 12:03 | DI.RAD.S_ITS ---
PROCEDURE: XR PELVIS 1-2V INDICATIONS: b/l hip pain TECHNIQUE: 1 view(s) of the pelvis acquired. COMPARISON: None. FINDINGS: Bones: No fractures or dislocations. No suspicious bony lesions. Nonuniform joint space narrowing and osteophytic lipping of the acetabuli. Soft tissues: Visualized bowel gas pattern is normal. No suspicious soft tissue calcifications. IMPRESSION: Mild bilateral hip osteoarthritis. Dictated by: Oseas Almazan M.D. on 12/01/2024 at 12:53 Approved by: Oseas Almazan M.D. on 12/01/2024 at 13:00
--- NOTE | 2024-12-01 13:28 | P.HP_ITS ---
History of Present Illness History of Present Illness Date Patient Seen: 12/01/24 Time Patient Seen: 13:28 Chief complaint: hip and back pain Narrative: Per overnight provider, 69 y/o Female, with multiple chronic medical problems, including h/o stroke a year ago, and residing in [facility], on ASA , Plavix, PAF , Hypothyroidism, OA, DJD, Chronic Bilat Hip and Low back pain, patient using a walker or wheel chair for mobility, which has been progressively getting limited, sec to increasing discomfort in her hips and low back, over last 2 months, not getting relieved with Trammadol. Also has been taking muscle relaxants, also not effective in giving her relief. Also has been taking Calcium supplements. Her low back pain has been sharp, and radiating down her bilat LE . She had been unable to get out of her wheel chair sec to this discomfort. Denies parasthesias , no weakness of her bilat LE. No Bowel or bladder control problem. Also has noted to be more constipated over last 2-3 weeks than her baseline which is a BM once to twice per week. Denies abd pain, Vomiting, F/C, cough, SOB, SAWANT, light headedness or Syncope. No CP or cough. She has noted mild Nausea over a day. Some decrease in apatite also. She had been seen in ED on 11/01 also for bilat hip and low back pain. At that time had a Hip XR : Suspected Calcific Tendinopathy, No fracture or dislocation seen. She came to ED for an evaluation. In ED, [facility] for Scott;cium up at 13,1 ( was 11 on 11/01) Creat at 1,21/ BUN 31 ( was 0.8/24 on 11/09) K 4,.8 Alk P : 283 , AST 66, Mag 1.6, Phosphate, Vit D 3, PTH and TSH WNL She was noted s transiently confused in ED , and a CT head obtained : negative for acute changes. Given NS 1 L , and continued on NS at 100 mls per hour. Ionized calcium ordered ( send out) She was referred to Hospitalist leydi for admission. In brief, 69 year old female admitted with hypercalcemia after presenting with weakness and increasing bilateral hip pain. Today she has more relief with opiate therapy, which she states her provider is hesitant to start. Repeated hip XR which showed mild osteoarthritis without occult fracture. Calcium improved slightly to 12.5, she takes HCTZ. PTH ordered but is send out and still pending. [facility] Medical History (Updated 12/01/24 @ 07:43 by Avis Carlson MD) Acquired hypothyroidism H/O: stroke Chronic hip pain, bilateral Social History Smoking Status: Never smoker Meds Home Medications and Allergies Home Medications Medication Instructions Recorded Confirmed Type acetaminophen 325 mg tablet 650 mg PO Q4H PRN Pain, Mild 12/01/24 12/01/24 History (Tylenol) atorvastatin 40 mg tablet 40 mg PO BEDTIME primary HTN 12/01/24 12/01/24 History buspirone 5 mg tablet 5 mg PO TID anxiety 12/01/24 12/01/24 History clopidogrel 75 mg tablet 75 mg PO DAILY afib 12/01/24 12/01/24 History gabapentin 100 mg capsule 300 mg PO TID NEUROPATHY/PAIN 12/01/24 12/01/24 History hydrochlorothiazide 12.5 mg tablet 12.5 mg PO DAILY primary HTN 12/01/24 12/01/24 History levothyroxine 25 mcg tablet 25 mcg PO DAILY hypothyroidism 12/01/24 12/01/24 History losartan 100 mg tablet 100 mg PO DAILY HTN 12/01/24 12/01/24 History magnesium hydroxide 400 mg/5 mL 30 ml PO DAILY PRN No BM in 3 days 12/01/24 12/01/24 History oral suspension (Milk of Magnesia) omeprazole 20 mg capsule,delayed 20 mg PO DAILY GERD 12/01/24 12/01/24 History release potassium chloride 20 mEq 40 meq PO DAILY supplement 12/01/24 12/01/24 History tablet,extended release(part/cryst) spironolactone 25 mg tablet 25 mg PO DAILY primary HTN 12/01/24 12/01/24 History tizanidine 4 mg tablet 8 mg PO Q8H PRN Spasms 12/01/24 12/01/24 History tramadol 50 mg PO Q4H PRN Pain, Moderate 12/01/24 12/01/24 History trazodone 50 mg tablet 50 mg PO BEDTIME 12/01/24 12/01/24 History venlafaxine 150 mg 150 mg PO DAILY depression 12/01/24 12/01/24 History capsule,extended release 24 hr venlafaxine 75 mg capsule,extended 75 mg PO DAILY depression 12/01/24 12/01/24 History release 24 hr Allergies Allergy/AdvReac Type Severity Reaction Status Date / Time No Known Drug Allergies Allergy Verified 11/01/24 22:24 Review of Systems Review of Systems Narrative: All other systems reviewed with the patient and are negative unless otherwise stated. Exam Vital Signs (past 8 hours): - 12/01/24 08:00 12/01/24 12:00 Temperature 97.6 F Pulse Rate 76 Respiratory Rate 18 18 Blood Pressure 134/76 Pulse Oximetry 94 Oxygen Flow Rate 0 Oxygen Delivery Method Room Air Oxygen Flow Rate 0 Narrative Exam Narrative: General:? Patient is well developed and well nourished, in no distress at this time. HEENT:? Normocephalic, atraumatic, extraocular muscles intact, oral pharynx is clear and mucous membranes are moist. Chest:? Normal AP diameter and contour without kyphoscoliosis, no tachypnea, equal chest rise bilaterally. Lungs:? CTA b/l no wheezing rhonchi or rales. Cardio:?RRR no m/r/g. Abdomen: S NT ND. Musculoskeletal:? Muscle strength and tone are equal within normal limits, no deformity. Bilateral hip tenderness with minimal palpation, more laterally. Extremities: trace b/l LE edema, No joint effusions. No cyanosis or clubbing. Objective ECG Impression: Normal sinus rhythm no evidence for acute ischemia Labs 12/01/24 06:00 12/01/24 06:00 Labs: Laboratory Results - last 24 hr 11/30/24 11/30/24 11/30/24 15:50 15:56 16:48 WBC 9.6 RBC 4.32 Hgb 13.2 Hct 37.2 MCV 86.1 MCH 30.6 MCHC 35.5 RDW 13.2 Plt Count 317 Neut % (Auto) 80.4 H Lymph % (Auto) 12.3 L [place] % (Auto) 6.7 Eos % (Auto) 0.2 L Baso % (Auto) 0.4 Neut # (Auto) 7700 H Lymph # (Auto) 1200 [place] # (Auto) 600 Eos # (Auto) 0 Baso # (Auto) 0 PT INR APTT Sodium 134 L Potassium 4.8 Chloride 99 Carbon Dioxide 28 BUN 31 H Creatinine 1.21 H Estimated GFR 48 L BUN/Creatinine Ratio 25.6 H Glucose 103 Calcium 13.1 H* Phosphorus 3.6 Magnesium 1.8 Total Bilirubin 0.5 AST 66 H ALT 22 Alkaline Phosphatase 283 H Total Protein 7.9 Albumin 4.3 Globulin 3.6 Albumin/Globulin Ratio 1.2 25-OH Vitamin D Total TSH Urine Color Yellow Urine Appearance Clear Urine pH 6.0 Ur Specific [place] 1.020 Urine Protein Negative Urine Glucose (UA) Negative Urine Ketones Negative Urine Occult Blood Negative Urine Nitrate Negative Urine Bilirubin Negative Urine Urobilinogen 1.0 Ur Leukocyte Esterase Negative 11/30/24 12/01/24 22:53 06:00 WBC 7.6 RBC 3.99 L Hgb 12.0 Hct 34.5 L MCV 86.4 MCH 30.0 MCHC 34.7 RDW 12.9 Plt Count 272 Neut % (Auto) 72.0 Lymph % (Auto) 18.3 L [place] % (Auto) 8.7 Eos % (Auto) 0.5 L Baso % (Auto) 0.5 Neut # (Auto) 5500 Lymph # (Auto) 1400 [place] # (Auto) 700 Eos # (Auto) 0 Baso # (Auto) 0 PT 12.7 H INR 1.1 APTT 30 Sodium 135 L Potassium 4.4 Chloride 100 Carbon Dioxide 28 BUN 26 H Creatinine 1.14 H Estimated GFR 52 L BUN/Creatinine Ratio 22.8 H Glucose 83 Calcium 12.5 H Phosphorus Magnesium Total Bilirubin 0.6 AST 56 H ALT 19 Alkaline Phosphatase 268 H Total Protein 7.1 Albumin 3.8 Globulin 3.3 Albumin/Globulin Ratio 1.2 25-OH Vitamin D Total 32.9 TSH 2.35 Urine Color Urine Appearance Urine pH Ur Specific [place] Urine Protein Urine Glucose (UA) Urine Ketones Urine Occult Blood Urine Nitrate Urine Bilirubin Urine Urobilinogen Ur Leukocyte Esterase Assessment & Plan Assessment & Plan narrative: 1. Acute metabolic encephalopathy, POA, improving - presumed secondary to hypercalcemia - continue therapies noted below for hypercalcemia 2. Hypercalcemia - Calcium of 13 on admission, previously elevated at 11 on prior ER visit for hip pain last month. No prior records are available for review - PTH sent, pending result as it is a send out - stop HCTZ, continue IV fluids with NS - consider zolendronic acid depending on trend, calcium levels after fluids and holding HCTZ. 3. History of prior stroke - continue home plavix - continue home atorvastatin 40 mg 4. HTN - hold HCTZ - continue home losartan - hold spironolactone for now. 5. Bilateral hip pain, chronic, POA - radiographs negative for fracture - continue pain control, will add oxycodone today - PT/OT 6. [facility] - continue IV fluids. baseline Cr not known but Cr elevated >0.3 from ER visit a few weeks ago. 7. Fibromyalgia - continue home venlafaxine, tramadol, gabapentin. Code: Full, surrogate is patient's POA, Michael DVT: Lovenox daily I have utilized all available immediate resources to obtain, update, or review the patient's current medications. Dispo: patient admitted under inpatient status. Unclear if will be able to discharge to [facility] or possible SNF, will have PT/OT evaluations. Additional history obtained via discussions with the overnight provider. These discussions contributed to the creation of the above assessment and plan. I have reviewed patient's presenting documentation, labs, and imaging personally. Time-Based Coding :: [TOTAL MINUTES] spent with patient and on the chart (including review of chart, obtaining history, exam, reviewing outside data, placing orders, documenting exam and treatment plan, and counseling patient) on [DATE]. Quality VTE Deep Vein Thrombosis/Pulmonary Embolism Present on Admission: No
--- NOTE | 2024-12-01 14:25 | PT.IIE ---
Current Diagnoses Hypothyroidism, unspecified (11/30/24) Other chronic pain (11/30/24) Pain in right hip (11/30/24) Pain in left hip (11/30/24) Medical History (Last Updated 12/01/24 @ 07:43 by Avis Carlson MD) Acquired hypothyroidism Chronic hip pain, bilateral H/O: stroke Physical Therapy Inpatient Evaluation/Re-Eval M1 PT/OT-IP Prior Functional Status Start: 12/01/24 14:33 Freq: NEEDED Status: Active Protocol: Document 12/01/24 14:36 [facility] (Rec: 12/01/24 15:09 [facility] [id number]) Medical Review Prior Functional Status Communication I Mobility and Gait Pt states prior able to us the FWW to move but lately due to increased back and hip pain needing use of the WC. Activities of Daily Living and IADL's Pt states needing assist for socks, toileting, and bathing needs due to increased back pain. Social History Living Arrangements Assisted Living Home Equipment Front Wheel Walker,Manual Wheelchair,Grab Bars Near Toilet Additional Social History Comment Pt has an adjustable bed. Pt states in the past two weeks due to her increased back and hip pain needign more assist with mobility and ADL needs. M2 PT-IP Current Condition Start: 12/01/24 14:35 Freq: NEEDED Status: Active Protocol: Document 12/01/24 14:25 [facility] (Rec: 12/01/24 15:19 DL [id number]) Physical Therapy Current Condition Current Condition Evaluation Date 12/01/24 Treatment Diagnosis encephalopathy, back/hip pain, impaired mobility/gait Onset Date 11/30/24 M3 PT-IP Subjective Start: 12/01/24 14:35 Freq: NEEDED Status: Active Protocol: Document 12/01/24 14:25 [facility] (Rec: 12/01/24 15:19 DL [id number]) Subjective Physical Therapy Visit Type Type Initial Evaluation Visit Start Time 13:45 Visit Stop Time 14:25 Notes 40 min Co-evaluation with Occupational Therapy for pt safety and to manage her pain. Number of AGRICULTURAL CHEMIST Visits 0 Physical Therapy Visit Comments Patient Comments She reports having small episodes of back/hip pain while in SNF rehab in the past but nothing as bad as this time. In the past it resolved quickly. She reports 8/10 back /hip area pain with activity this visit. 7/10 pain at rest. Patient Goals feel better and be able to return to walking with the FWW Therapy Pain Assessment Pain When Pain Assessed During Mobility Pain Present Pain Present Pain Reported Location bilateral LE Intensity 8 Scale Used Numeric (0 - 10) Description Aching,Tender,Tightness,With Movement Pain Behaviors Facial Grimacing,Guarding, Wincing Pain Management Techniques Modification of Treatment,Re- positioning M4 PT-IP Mobility and Gait Start: 12/01/24 14:35 Freq: NEEDED Status: Active Protocol: Document 12/01/24 14:25 [facility] (Rec: 12/01/24 15:19 DLM [id number]) PT-Bed Mobility Assessment Rolling Type of Rolling Log Rolling,Roll to Left Level of Assist Minimal Assistance,Moderate Assistance Supine to Sit Supine to Sit Moderate Assistance Sit to Supine Sit to Supine Moderate Assistance,Maximum Assistance Scooting Scooting to Edge of Bed Contact Guard Assistance, Minimal Assistance Scooting Up and Down in Bed Dependent PT-Transfer Assessment Sit to and From Stand Sit to and from Stand Minimal Assistance,Moderate Assistance,Use of Upper Extremities Equipment Transfer Assistive Device Gait Belt,Front Wheeled Walker Comments Mobility Comments Head of bed elevated during bed mobility to simulate how she moves in her apt. She reports increased back pain with all activity. She startles when the bed is adjusted by therapist. She does better when she adjusts the bed herself. Pt sat on edge of bed with good balance. She has increased back/hip pain with any movement of her LE's in sitting and with trunk flexion. Straight leg raise test in supine is negative. Gait Assessment Gait Gait Assistance Required: Contact Guard Assist,Minimum Assistance Distance (Feet) 2 Assistive Devices Assistive Device Gait Belt,Front Wheeled Walker Gait Deviations General Gait Pattern Decreased Stride Length Factors Limiting Gait Function Factors Limiting Gait Function Decreased Activity Tolerance, Decreased Strength,Limited Range of Motion,Pain,Poor Balance Comments Gait Comments Pt stood edge of bed with FWW and took side-steps up towards pillow. PT-Balance Assessment Sitting Balance and Reactions Static Sitting Balance Ability Good Dynamic Sitting Balance Ability Good Standing Balance and Reactions Static Standing Balance Ability Good Dynamic Standing Balance Ability Fair Device Used FWW M5 PT-IP Objective Assessments Start: 12/01/24 14:35 Freq: NEEDED Status: Active Protocol: Document 12/01/24 14:25 [facility] (Rec: 12/01/24 15:19 [facility] [id number]) Orientation Orientation/Cognition Level of Alertness Alert Orientation Name,Age,Birthday,Month,Date, Year,Day of Week,Place, Situation Safety Awareness Understands Safety Issues Comments slow mental processing, mild to moderate word finding difficulty, disorganized in providing information she appears anxious at times, did well with reassurance. Gross Range of Motion Upper Extremity ROM Assessment Within Functional Limits Lower Extremity ROM Assessment Within Functional Limits Impairments back pain with bilateral LE movements Strength Upper Extremity Strength Assessment Within Functional Limits Lower Extremity Strength Assessment Bilaterally Impaired Hip Right: hip flex 3+/5, knee ext 3+/5, DF 4-/5. Left: hip flex 4/5, knee ext Knee Right flex and extension 3+/5, left ext and flex 4/5 Ankle Right DF 4-/5 and Left 4/5 Comments Strength Comments pain with all resisted movements bilateral LE's Pt reports hx of left LE more effected by CVA than right. Coordination Assessment Gross Coordination Gross Coordination Impaired Assessment Coordination Comments bradykinetic generalized stiffness throughout Sensation Assessment Sensation Gross Sensation WNL Comments Sensation Comments no sensory changes reported by pt Muscle Tone Muscle Tone WNL No Comments Muscle Tone Comments generalized rigidity M6 PT-IP Treatment Start: 12/01/24 14:35 Freq: NEEDED Status: Active Protocol: Document 12/01/24 14:25 [facility] (Rec: 12/01/24 15:19 [facility] [id number]) Physical Therapy Treatment Education Education Provided Safety M7 PT-IP Assessment and Plan Start: 12/01/24 14:35 Freq: NEEDED Status: Active Protocol: Document 12/01/24 14:25 [facility] (Rec: 12/01/24 15:19 [facility] [id number]) PT Summary Assessment and Plan Potential Rehabilitation Potential Good Status of Condition at Evaluation Evolving Summary Impairments Pain,ROM,Strength,Balance, Coordination,Tone,Cognition, Bed Mobility,Transfers,Gait, Activity Tolerance Assessment Summary Anne is alert and resting flat in bed. She reports recent onset of increased low back and hip area pain. She was admitted with hypercalemia and metabolic encephalopathy. She continues to report 8/10 with all mobility and 7/10 pain at rest. Active movements of her UE's and LE's increase her back/hip area pain as well as trunk movements. She was able to sit up on edge of bed, stand with the FWW and take a few side-steps at edge of bed before asking to return to supine. Pt educated to log roll and use sidelying technique to manage her pain better with bed mobility. She has a complex hx of CVA's with extensive therapy to assist with her recovery. She is below her baseline of being able to ambulate with the FWW and transfer with the FWW in/ out of her wheelchair. Recommend SNF rehab at discharge to assist with her functional recovery. Her current pain appears to be more centered in her low back this visit than her hips. Goals Bed Mobility Goal Standby Assistance Transfer Goal Standby Assistance,Front Wheeled Walker Gait Goal Standby Assistance,Front Wheel Walker Gait Distance 50 feet Other Goals Independent propeling her wheelchair 100 feet on level surface Days to Meet Goals 10 Frequency of Treatment Frequency Of Treatment Once a Day Treatment Plan Physical Therapy Treatment Plan Bed Mobility Training,Transfer Training,Gait Training, Therapeutic Exercise,Balance Retraining,Post Op Education, Discharge Planning,Hot or Cold Pack,Neuromuscular Re-ed Other Recommendations and Next Treatment also treatment for back pain Focus Precautions Other Precautions back/hip pain interferes with all mobility Recommendations To Nursing Amount of Assist Needed 2 Person Assist Discharge Recommendations PT Discharge Recommendations SNF Rehab Transportation Needs at Discharge Wheelchair/Cabulance - PT assist 1-2P
--- NOTE | 2024-12-01 14:33 | OT.IP.EVAL ---
Current Diagnoses Hypothyroidism, unspecified (11/30/24) Other chronic pain (11/30/24) Pain in right hip (11/30/24) Pain in left hip (11/30/24) Past Medical History (Last Updated 12/01/24 @ 07:43 by Avis Carlson MD) Acquired hypothyroidism Chronic hip pain, bilateral H/O: stroke Occupational Therapy Inpatient Evaluation/Re-Eval M1 PT/OT-IP Prior Functional Status Start: 12/01/24 14:33 Freq: NEEDED Status: Active Protocol: Document 12/01/24 14:36 [facility] (Rec: 12/01/24 15:09 [facility] [id number]) Medical Review Prior Functional Status Communication I Mobility and Gait Pt states prior able to use the FWW to move but lately due to increased back and hip pain needing use of the WC. Activities of Daily Living and IADL's Pt states needing assist for socks, toileting, and bathing needs due to increased back and hip pain. Social History Living Arrangements Assisted Living Home Equipment Front Wheel Walker,Manual Wheelchair,Grab Bars Near Toilet Additional Social History Comment Pt has an adjustable bed. Pt states in the past two weeks due to her increased back and hip pain needing more assist with mobility and ADL needs. M2 OT-IP Current Condition Start: 12/01/24 14:33 Freq: Status: Active Protocol: Document 12/01/24 14:36 [facility] (Rec: 12/01/24 15:09 [facility] [id number]) Occupational Therapy Current Condition Current Condition Evaluation Date 12/01/24 Treatment Diagnosis Altered Mental Status, back and hip pain. Diagnosis Onset Date 11/30/24 M3 OT- IP Subjective and Pain Start: 12/01/24 14:33 Freq: Status: Active Protocol: Document 12/01/24 14:36 [facility] (Rec: 12/01/24 15:09 [facility] [id number]) OT- Subjective Occupational Therapy Visit Type Type Initial Evaluation Visit Start Time 13:45 Visit Stop Time 14:33 Occupational Therapy Visit Comments Patient Comments Pt agreed to try to get up. Pt needing lots of reassurance and encouragement. PT also present for therapy eval. Patient/Caregiver Goals TO get better and do rehab. OT Pain Assessment Pain When Pain Assessed During Mobility Pain Present Pain Present Pain Reported Location bilateral LE Intensity 8 Scale Used Numeric (0 - 10) M4 OT- IP ADL's Start: 12/01/24 14:33 Freq: Status: Active Protocol: Document 12/01/24 14:36 [facility] (Rec: 12/01/24 15:09 [facility] [id number]) OT [id number] Comments OT Self-Feeding Comments Encourage pt to have HOB up higher so able to get in a better position to eat. Pt get startled when trying to increased the HOB up. Had pt use the controls and able to get her HOB up, notified nursing to check on pt for her needs. OT ADL-Grooming Comments OT Grooming Comments NOt performed. OT ADL-Oral Care Comments Oral Care Comments NOt performed. OT ADL-Dressing General Eval Lower Body Dressing Ability Total Assistance Areas Needing Assistance Socks OT ADL-Toileting General Evaluation Toileting Ability Total Assistance Comments OT Toileting Comments USe of aguila at this time. OT ADL-Bathing Comments OT Bathing Comments NOt performed. M5 OT- IP IADL's Start: 12/01/24 14:33 Freq: Status: Active Protocol: Document 12/01/24 14:36 [facility] (Rec: 12/01/24 15:09 [facility] [id number]) OT-Instrumental Activities of Daily Living Home Safety Awareness Awareness of Need for Assistance at Home Good Awareness Home Safety Comments Pt is a bit confused and having difficulty to get her words out. Medication Management Medication Management Caregiver Administers Money Management Money Management Caregiver Provides Assistance Meal Preparation Meal Preparation Caregiver Provides Assist Group Exercise Class Instructor Group Exercise Class Instructor Caregiver Provides Assist M6 OT- IP Functional Cognition Start: 12/01/24 14:33 Freq: Status: Active Protocol: Document 12/01/24 14:36 [facility] (Rec: 12/01/24 15:09 [facility] [id number]) Cognitive Factors Limiting Selfcare Function Cognitive Ability Level of Alertness Alert,Confusional State Patient Orientation Name Attention Span Ability Capable of Focused Attention, Capable of Sustained Attention ,Unable to Sustain Attention Ability to Follow Commands Able to Follow One Step Commands with Increased Time, Able to Follow One Step Commands with Repetition Cognitive Comments Cognitive Assessment Comments Pt a bit anxious and needing simple concrete cues to follow . Pt startles when the HOB in raised up even after letting pt know it will be raised up to allow for better positioning for eating needs. Pt needing vc and tactile cues to assist her for all needs at this time. OT- Vision and Hearing OT- Hearing Assessment OT- Hearing Assessment WFL OT- Vision Assessment Visual Acuity Glasses All The Time Vision Assessment Comments Pt states just able to see with her right eye. 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 Pt's left eye drift outward. M7 OT- IP Mobility and Balance Start: 12/01/24 14:33 Freq: Status: Active Protocol: Document 12/01/24 14:36 [facility] (Rec: 12/01/24 15:09 [facility] [id number]) OT- Bed Mobility Assessment Supine to Sit Supine to Sit Assist Moderate Assistance,Head of Bed Elevated,Bedrails Sit to Supine Sit to Supine Assist Moderate Assistance,Head of Bed Elevated OT-Transfer Assessment Sit to and From Stand Sit to and from Stand Moderate Assistance,1 Person Assistance Transfers Transfer Ability Moderate Assistance,1 Person Assistance Technique Transfer Destination Bed Transfer Technique Stand Step Pivot Devices Transfer Assistive Devices Gait Belt,Front Wheeled Walker Comments Mobility Comments MODA to assist to roll and reach for the bed rail so able to get up to the edge of the bed. MODA X 1 to stand to the FWW and able to take a few steps to the head of bed and another person for safety and reassurance. OT- Balance Assessment Sitting Balance and Reactions Static Sitting Balance Ability Good Standing Balance and Reactions Static Standing Balance Ability Fair Dynamic Standing Balance Ability Fair M8 OT- IP Objective Assessments Start: 12/01/24 14:33 Freq: Status: Active Protocol: Document 12/01/24 14:36 [facility] (Rec: 12/01/24 15:09 [facility] [id number]) OT Gross Range of Motion Upper Extremity Range of Motion ROM Impairments Pt just able to get her arm up approx to 90 before having back pain OT Strength Comments Strength Comments NT due to back pain M9 OT- IP Assessment and Plan Start: 12/01/24 14:33 Freq: Status: Active Protocol: Document 12/01/24 14:36 [facility] (Rec: 12/01/24 15:09 [facility] [id number]) OT Summary Assessment and Plan Potential Rehabilitation Potential Fair Analytic Complexity at Evaluation Moderate Summary OT Impairments Pain,Range of Motion,Strength, Balance,Functional Cognition, Functional Mobility,Self- Feeding,Grooming,Dressing, Toileting,Bathing,Toilet Transfers,Shower Transfers, Activity Tolerance Progress Towards Goals Slow Progress due to Pain,Slow Progress due to Medical Issues,Slow Progress due to Cognition Assessment Summary Pt MOD complexity and main barriers are pain which limits her mobility, needing reassurance, encouragement and more assist for ADL and mobility needs. Pt will benefit from SLUMS when more appropriate. Pt to go to skilled rehab when medically stable. Goals Self-Feeding Goal Independent Grooming Goal Independent Dressing Goal Minimal Assistance Toileting Goal Standby Assistance Bathing Goal Minimal Assistance Toilet Transfer Goal Standby Assistance Shower Transfer Goal Contact Guard Assistance Days to Meet Goals 15 Frequency of Treatment Other frequency 5x/week Treatment Plan OT Treatment Plan ADL Training,Functional Cognition Training,Functional Mobility,Patient/Family Education,Discharge Planning Discharge Recommendations OT Discharge Recommendations SNF Rehab Transportation Needs at Discharge Wheelchair/Cabulance
--- NOTE | 2024-12-01 14:58 | CM.DANOTE ---
Patient is a 69 yo female who was admitted INPT Status on 11/30/24 for Encephalopathy/Pain mngmt/ and labs. Patient has MCR and [employer] for insurance and her PCP is facility provider. EMR was reviewed. Per MD, pt with hx of stroke and chronic back pain and admitted for acute encephalopathy and to have MRI and fluids and adjust her medications. PT/OT currently recommending SNF before return to [facility] pending progress. SW met bedside with pt and explained role and pt confirms that she moved from [place] about a year ago and initially was at [facility] and then transitioned to [facility]. Pt states she mostly uses FWW for mobility and then w/c for longer distances. Her PCP is Daxa Batres at the facility. Pt states her Sig Other Michael is her first DPOA and he lives in [place] and then her step Dtr who is her second POA. Pt states she has been working with facility to get in-house PT/OT but it has not yet started or been set up. Preference would be to return to her room at [facility] but aware that they will need to review to confirm they can accept her at d/c. Pt agreeable with backup of SNF referral and [facility] referral made and reviewing. PASRR done but will need MD signature for exempted hospital discharge for depression/anxiety. SW faxed H&P (PT/OT eval note not yet available) to [facility] and spoke to Mariama at [facility] and updated on possible d/c in 1-2 days and unsure if SNF vs return. She will review. Plan: SW to follow closely for further PT/OT in the AM to determine SNF vs return to [facility]. If pt ready for d/c over the weekend, [facility] acceptance could be a barrier as they typically do not have the staff to accept over the weekend. KARLIE Garcia Discharge Planning/Care Management CM Discharge Assessment Start: 12/01/24 14:56 Freq: Status: Active Protocol: Document 12/01/24 14:56 BF (Rec: 12/01/24 14:58 BF [id number]) Discharge Planning Assessment Assigned Field Evidence Technician KARLIE Millard DPOA/Assigned Designee Name sig other Michael Advance Directives? No Advance Directives on File Yes History Provided By Patient,Medical Record Has Patient been admitted in last 30 No days? Prior Living Arrangements Assisted Living Household Members none Type of transporation used prior to Relies on Others admit Facility Name Admitted From: [facility] Willing to Return to Facility? Yes Independent with ADL's Yes: somewhat Is patient alert and oriented? Yes Needs Assistance With Meal Prep,Managing Medications ,Home Chores / Shopping Caregiver for Another No DME Already Rented / Owned Wheelchair,FWW / Walker Patient/Family Preference Halfway Facility Comment SNF vs return to [facility] pending further PT/OT Barriers to Discharge No Discharge Plan [facility] Facility Community [facility] Physical Therapy,Occupational Therapy Transportation Arrangement Facility van Referrals Initiated Halfway If patient plan is SNF: Has PASSR been Yes completed? Medicare Choice List Provided Yes Medicare choice list reviewed on patient electronic tablet with SNF/HH Preference [facility] if SNF needed Has Agency SNF been contacted Yes Whiteboard Updated in Patient Room with Yes name and ext. # of Field Evidence Technician Review Status In Process Please Provide Date Initial DC 12/01/24 Assessment Was Performed Next Review Type Continued Stay Review
[2024-12-01 15:57] VITALS: RESP 18
--- NOTE | 2024-12-01 17:29 | PC.NURSE ---
Pt A/O w/ slight confusion that clears quickly. SL LAC & RAC intact/ patent Many stool this morning. Tele show NSR per [employer] Call light w/in reach, bed alarm on for pt safety. Continue w/ plan of care
[2024-12-01 18:33] LABS: Calcium Urine Random 42.2 mg/dL
[2024-12-01 19:15] VITALS: BP 123/78; PULSE 78; RESP 19; TEMP 36.4; O2SAT 96
[2024-12-01] MEDS: TRAZODONE 50 MG TABLET PO (20:25)
[2024-12-01] MEDS: ATORVASTATIN 20 MG TABLET 40 MG PO (20:25)
[2024-12-01 23:15] VITALS: BP 132/83; PULSE 81; RESP 17; TEMP 36.5; O2SAT 95
[2024-12-02] VITALS (7 sets, daily range): BP systolic 112–141; BP diastolic 60–87; PULSE 71–83; RESP 16–20; TEMP 36.4–36.9; O2SAT 95–100
[2024-12-02] MEDS: SODIUM CHLORIDE 0.9% 1,000 ML 100 ML IV ×2 (05:37→15:18)
[2024-12-02] MEDS: LEVOTHYROXINE 25 MCG TABLET PO (05:37)
[2024-12-02 07:31] LABS: Add Manual Diff / Slide Review NO; Basophils Absolute Auto 0 /uL (0-100); Basophils Percent Auto 0.6 % (0-2); Eosinophils Absolute Auto 100 /uL (0-450); Eosinophils Percent Auto 0.8 % (2-4); Hematocrit 34.4 % (36-46); Hemoglobin 12.1 g/dL (12.0-16.0); Lymphocytes Absolute Auto 1300 /uL (1100-4500); Lymphocytes Percent Auto 17.8 % (25-40); Mean Corpuscular HGB Conc 35.1 % (30-36); Mean Corpuscular Hemoglobin 30.1 PG (26-34); Mean Corpuscular Volume 85.8 fL (80-100); Monocytes Absolute Auto 600 /uL (0-900); Monocytes Percent Auto 8.5 % (3-14); Neutrophils Absolute Auto 5200 /uL (1500-7000); Neutrophils Percent Auto 72.3 % (50-75); Platelet Count 271 X10^3/uL (150-400); Red Blood Cell Count 4.01 X10^6/uL (4.0-5.2); Red Cell Distribution Width 13.1 % (11.6-14.8); White Blood Cell Count 7.2 X10^3/uL (4.5-11.0)
[2024-12-02 07:46] LABS: Alanine Aminotransferase 19 IU/L (<35); Albumin 3.8 g/dL (3.5-5.0); Albumin Globulin Ratio 1.2 (1.0-2.8); Alkaline Phosphatase 250 U/L (38-126); Aspartate Aminotransferase 49 IU/L (14-36); BUN Creatinine Ratio 20.8 (6-22); Bilirubin Total 0.7 mg/dL (0.2-1.3); Blood Urea Nitrogen 22 mg/dL (7-17); Calcium 12.6 mg/dL (8.4-10.2); Carbon Dioxide 27 mmol/L (22-32); Chloride 101 mmol/L (98-107); Estimated Glomerular Filt Rate 57 mL/min (>60); Globulin 3.2 g/dL (1.7-4.1); Glucose 88 mg/dL (80-110); HEMOLYSIS < 15 (0-50); Magnesium 1.7 mg/dL (1.6-2.3); Potassium 4.3 mmol/L (3.4-5.1); Sodium 135 mmol/L (137-145)
[2024-12-02 08:36] LABS: Parathyroid Hormone Int 19 pg/mL (15-65)
[2024-12-02] MEDS: ZOLEDRONIC ACID 4 MG in SODIUM CHLORIDE 0.9% 100 ML 315 MG IV (08:42)
[2024-12-02] MEDS: BUSPIRONE 5 MG TABLET PO ×3 (08:42→21:00)
[2024-12-02] MEDS: CLOPIDOGREL 75 MG TABLET PO (08:42)
[2024-12-02] MEDS: VENLAFAXINE ER 75 MG CAP 225 MG PO (08:42)
[2024-12-02] MEDS: ASPIRIN EC 81 MG TABLET PO (08:50)
[2024-12-02] MEDS: OXYCODONE IR 5 MG TABLET PO ×2 (08:51→15:18)
[2024-12-02] MEDS: GABAPENTIN 100 MG CAPSULE 300 MG PO ×3 (08:51→20:59)
[2024-12-02] MEDS: TIZANIDINE 4 MG TABLET 8 MG PO (08:51)
[2024-12-02] MEDS: ENOXAPARIN 40 MG/0.4 ML SYRINGE SUBCUT (08:52)
--- NOTE | 2024-12-02 11:54 | OT.IP.TRT ---
Current Diagnoses Hypothyroidism, unspecified (11/30/24) Other chronic pain (11/30/24) Pain in right hip (11/30/24) Pain in left hip (11/30/24) Occupational Therapy Treatment Note M2 OT-IP Current Condition Start: 12/01/24 14:33 Freq: Status: Active Protocol: Document 12/01/24 14:36 [facility] (Rec: 12/01/24 15:09 [facility] [id number]) Occupational Therapy Current Condition Current Condition Evaluation Date 12/01/24 Treatment Diagnosis Altered Mental Status, back and hip pain. Diagnosis Onset Date 11/30/24 M3 OT- IP Subjective and Pain Start: 12/01/24 14:33 Freq: Status: Active Protocol: Document 12/02/24 12:26 [facility] (Rec: 12/02/24 12:35 [facility] [id number]) OT- Subjective Occupational Therapy Visit Type Type Treatment Note Visit Start Time 11:54 Visit Stop Time 12:15 Occupational Therapy Visit Comments Patient Comments Pt agreed to get up and try to get to the recliner if possible. Patient/Caregiver Goals TO go back to [facility] versus [facility] pending on whether she is able to go back to [facility] after [facility]. Pt is fearful that she will lose her bed if she does not go back to [facility]. Notified CM of her concerns. OT Pain Assessment Pain When Pain Assessed At Rest Location Back Pain Behaviors Facial Grimacing,Holding Area M4 OT- IP ADL's Start: 12/01/24 14:33 Freq: Status: Active Protocol: Document 12/01/24 14:36 [facility] (Rec: 12/01/24 15:09 [facility] [id number]) OT [id number] Comments OT Self-Feeding Comments Encourage pt to have HOB up higher so able to get in a better position to eat. Pt get startled when trying to increased the HOB up. Had pt use the controls and able to get her HOB up, notified nursing to check on pt for her needs. OT ADL-Grooming Comments OT Grooming Comments NOt performed. OT ADL-Oral Care Comments Oral Care Comments NOt performed. OT ADL-Dressing General Eval Lower Body Dressing Ability Total Assistance Areas Needing Assistance Socks OT ADL-Toileting General Evaluation Toileting Ability Total Assistance Comments OT Toileting Comments USe of aguila at this time. OT ADL-Bathing Comments OT Bathing Comments NOt performed. M5 OT- IP IADL's Start: 12/01/24 14:33 Freq: Status: Active Protocol: Document 12/01/24 14:36 [facility] (Rec: 12/01/24 15:09 [facility] [id number]) OT-Instrumental Activities of Daily Living Home Safety Awareness Awareness of Need for Assistance at Home Good Awareness Home Safety Comments Pt is a bit confused and having difficulty to get her words out. Medication Management Medication Management Caregiver Administers Money Management Money Management Caregiver Provides Assistance Meal Preparation Meal Preparation Caregiver Provides Assist Edge Blacker Edge Blacker Caregiver Provides Assist M6 OT- IP Functional Cognition Start: 12/01/24 14:33 Freq: Status: Active Protocol: Document 12/02/24 12:26 [facility] (Rec: 12/02/24 12:35 [facility] [id number]) Cognitive Factors Limiting Selfcare Function Cognitive Ability Level of Alertness Alert,Confusional State Patient Orientation Name,Place Attention Span Ability Capable of Focused Attention, Capable of Sustained Attention Ability to Follow Commands Able to Follow One Step Commands with Increased Time, Able to Follow One Step Commands with Repetition Memory Description Short Term Impaired Cognitive Comments Cognitive Assessment Comments Pt has difficulty with comprehension. Pt under the impression that if she goes to skilled rehab that she will lose her bed at [facility]. Pt able to move a little faster today for bed mobility needs. Pt still needing increased time to follow commands and initiate her movements. M7 OT- IP Mobility and Balance Start: 12/01/24 14:33 Freq: Status: Active Protocol: Document 12/02/24 12:26 [facility] (Rec: 12/02/24 12:35 [facility] [id number]) OT- Bed Mobility Assessment Supine to Sit Supine to Sit Assist Moderate Assistance,Head of Bed Elevated,Bedrails Sit to Supine Sit to Supine Assist Maximum Assistance,1 Person Assistance Scooting Scooting to Edge of Bed Moderate Assistance OT-Transfer Assessment Sit to and From Stand Sit to and from Stand Moderate Assistance,Maximum Assistance,1 Person Assistance Technique Transfer Destination Bed Transfer Technique Stand Step Pivot Devices Transfer Assistive Devices Gait Belt,Front Wheeled Walker Comments Mobility Comments MODA to hold onto therapist hand to get her trunk upright and assist to scoot to the edge of the bed. MODA 1 to stand to the FWW, on second attempt MAX AX 1 with FWW and able to take a few side steps to the head of the bed. Pt lean on her heels and needing vc to keep her weight over her feet. MA AX 1-2 to help get back into bed. OT- Balance Assessment Sitting Balance and Reactions Static Sitting Balance Ability Good Standing Balance and Reactions Static Standing Balance Ability Fair Dynamic Standing Balance Ability Poor M8 OT- IP Objective Assessments Start: 12/01/24 14:33 Freq: Status: Active Protocol: Document 12/01/24 14:36 [facility] (Rec: 12/01/24 15:09 [facility] [id number]) OT Gross Range of Motion Upper Extremity Range of Motion ROM Impairments Pt just able to get her arm up approx to 90 before having back pain OT Strength Comments Strength Comments NT due to back pain M9 OT- IP Assessment and Plan Start: 12/01/24 14:33 Freq: Status: Active Protocol: Document 12/02/24 12:26 [facility] (Rec: 12/02/24 12:35 [facility] [id number]) OT Summary Assessment and Plan Potential Rehabilitation Potential Fair Analytic Complexity at Evaluation Moderate Summary OT Impairments Pain,Range of Motion,Strength, Balance,Functional Cognition, Functional Mobility,Self- Feeding,Grooming,Dressing, Toileting,Bathing,Toilet Transfers,Shower Transfers, Activity Tolerance Progress Towards Goals Progressing Toward Goals Assessment Summary Pt able to get to the edge of the bed with MODA X1 and stand with MOD/MAX x1 with fww and able to take a few step to the head of the bed. Pt able to participate and still needing some encouragement, but motivated to get better. Pt to go to skilled rehab when medically stable. Goals Self-Feeding Goal Independent Grooming Goal Independent Dressing Goal Minimal Assistance Toileting Goal Standby Assistance Bathing Goal Minimal Assistance Toilet Transfer Goal Standby Assistance Shower Transfer Goal Contact Guard Assistance Days to Meet Goals 15 Frequency of Treatment Other frequency 5x/week Treatment Plan OT Treatment Plan ADL Training,Functional Cognition Training,Functional Mobility,Patient/Family Education,Discharge Planning Discharge Recommendations OT Discharge Recommendations SNF Rehab Transportation Needs at Discharge Wheelchair/Cabulance
[2024-12-02 12:36] LABS: Ionized Calcium 7.1 mg/dL (4.5-5.6)
--- NOTE | 2024-12-02 14:00 | CM.DPNOTE ---
DCP Continued: Reviewed EMR and team rounds for pt?s medical status. Per hospitalist, pt will need a few more days due to high calcium levels. DCP connected with [facility] Admissions, pt is still under review - DCP sent most recent PT/OT evaluations via secure email. It is reported that pt can possibly be accepted on Thursday, 12/04. DCP entered room, introduced self and role. Pt concerned about room at [facility] if she gets transferred to [facility]. DCP explained SNF placement and communications with both [facility] and [facility]. Pt stated she is agreeable with SNF plans at this time, provided pamphlet for visual reminder of referral to [facility] (it is reported has some slight confusion but easily redirectable). PASRR initiated and will need MD signature for hospital exempt discharge. Plan: Anticipating dc to SNF when medically cleared, possibly Thursday, 12/04 via [facility] transport. CM Team will continue to follow for coordination of discharge plans. DENNY Bo
[2024-12-02] MEDS: MAGNESIUM CHLORIDE 64 MG TABLET 128 MG PO (15:14)
--- NOTE | 2024-12-02 15:30 | PT.IPTN ---
Current Diagnoses Hypothyroidism, unspecified (11/30/24) Other chronic pain (11/30/24) Pain in right hip (11/30/24) Pain in left hip (11/30/24) Physical Therapy Treatment Note M2 PT-IP Current Condition Start: 12/01/24 14:35 Freq: NEEDED Status: Active Protocol: Document 12/01/24 14:25 DLM (Rec: 12/01/24 15:19 DLM [id number]) Physical Therapy Current Condition Current Condition Evaluation Date 12/01/24 Treatment Diagnosis encephalopathy, back/hip pain, impaired mobility/gait Onset Date 11/30/24 M3 PT-IP Subjective Start: 12/01/24 14:35 Freq: NEEDED Status: Active Protocol: Document 12/02/24 15:30 AB (Rec: 12/02/24 17:17 AB [id number]) Subjective Physical Therapy Visit Type Type Treatment Note Visit Start Time 15:30 Visit Stop Time 16:10 Number of BANQUET BARTENDER Visits 0 Physical Therapy Visit Comments Patient Comments agreeable to do PT Therapy Pain Assessment Pain When Pain Assessed At Rest Pain Present Pain Present Pain Reported Location Back Intensity 3 Scale Used increases with movement Pain Management Techniques Distraction,Modification of Treatment,Re-positioning M4 PT-IP Mobility and Gait Start: 12/01/24 14:35 Freq: NEEDED Status: Active Protocol: Document 12/02/24 15:30 AB (Rec: 12/02/24 17:17 AB [id number]) PT-Bed Mobility Assessment Rolling Type of Rolling Log Rolling Level of Assist Maximal Assistance Supine to Sit Supine to Sit Maximum Assistance,Bedrails PT-Transfer Assessment Sit to and From Stand Sit to and from Stand Maximum Assistance,1 Person Assistance,Use of Upper Extremities Equipment Transfer Assistive Device Gait Belt,Front Wheeled Walker Orthotic/Prosthetic Devices or Brace: No Transfers Transfer Destination Chair Transfer Technique ambulated Transfer Ability Level of Assist Moderate Assistance,Maximum Assistance,1 Person Assistance ,Use of Upper Extremities Comments Mobility Comments pt in bed and agreeable to do PT. completed log roll supine to sit x 2 attempts max A and max cues. pt used bed rail to assist. sat on EOB SBA. pt needed increase time to complete all tasks. able to scoot to EOB with several attempts. sit to stand from EOB max A and max cues. pt ambulated in room ~ 15 ft using fWW mod to max A and max cues. pt with retrolean and cued to use UE on FWW for support. pt sat on chair. educated pt on techniques for sit<>stand and use of FWW for support during standing. completed sit to stand from chair max A and max cues. positioned pt on chair. call light and table placed within reach. Gait Assessment Gait Gait Assistance Required: Moderate Assistance,Maximum Assistance Distance (Feet) 15 Able to Maintain Weight Bearing Status Yes During Gait Assistive Devices Assistive Device Gait Belt,Front Wheeled Walker Orthotic/Prosthetic Devices or Brace: No Gait Deviations General Gait Pattern Ataxic,Decreased Stride Length ,Decreased Feet Clearance Factors Limiting Gait Function Factors Limiting Gait Function Decreased Activity Tolerance, Decreased Sensation,Decreased Strength,Difficulty Following Directions,Limited Range of Motion,Pain,Poor Balance,Poor Safety Awareness M5 PT-IP Objective Assessments Start: 12/01/24 14:35 Freq: NEEDED Status: Active Protocol: Document 12/01/24 14:25 DLM (Rec: 12/01/24 15:19 DLM [id number]) Orientation Orientation/Cognition Level of Alertness Alert Orientation Name,Age,Birthday,Month,Date, Year,Day of Week,Place, Situation Safety Awareness Understands Safety Issues Comments slow mental processing, mild to moderate word finding difficulty, disorganized in providing information she appears anxious at times, did well with reassurance. Gross Range of Motion Upper Extremity ROM Assessment Within Functional Limits Lower Extremity ROM Assessment Within Functional Limits Impairments back pain with bilateral LE movements Strength Upper Extremity Strength Assessment Within Functional Limits Lower Extremity Strength Assessment Bilaterally Impaired Hip Right: hip flex 3+/5, knee ext 3+/5, DF 4-/5. Left: hip flex 4/5, knee ext Knee Right flex and extension 3+/5, left ext and flex 4/5 Ankle Right DF 4-/5 and Left 4/5 Comments Strength Comments pain with all resisted movements bilateral LE's Pt reports hx of left LE more effected by CVA than right. Coordination Assessment Gross Coordination Gross Coordination Impaired Assessment Coordination Comments bradykinetic generalized stiffness throughout Sensation Assessment Sensation Gross Sensation WNL Comments Sensation Comments no sensory changes reported by pt Muscle Tone Muscle Tone WNL No Comments Muscle Tone Comments generalized rigidity M6 PT-IP Treatment Start: 12/01/24 14:35 Freq: NEEDED Status: Active Protocol: Document 12/02/24 15:30 AB (Rec: 12/02/24 17:17 AB [id number]) Physical Therapy Treatment Education Education Provided Precautions,Safety M7 PT-IP Assessment and Plan Start: 12/01/24 14:35 Freq: NEEDED Status: Active Protocol: Document 12/02/24 15:30 AB (Rec: 12/02/24 17:17 AB [id number]) PT Summary Assessment and Plan Potential Rehabilitation Potential Fair Summary Impairments Pain,ROM,Strength,Balance, Coordination,Sensation,Tone, Cognition,Bed Mobility, Transfers,Gait,Activity Tolerance Progress Towards Goals Slow Progress due to Pain,Slow Progress due to Activity Tolerance Assessment Summary pt requiring max A with mobility using FWW and has decrease activity tolerance affecting mobility level. pt will benefit from SNF rehab to improve strength and function . Goals Bed Mobility Goal Standby Assistance Transfer Goal Standby Assistance,Front Wheeled Walker Gait Goal Standby Assistance,Front Wheel Walker Gait Distance 50 feet Other Goals Independent propeling her wheelchair 100 feet on level surface Days to Meet Goals 10 Frequency of Treatment Frequency Of Treatment Once a Day Treatment Plan Physical Therapy Treatment Plan Bed Mobility Training,Transfer Training,Gait Training, Therapeutic Exercise,Balance Retraining,Post Op Education, Discharge Planning,Hot or Cold Pack,Neuromuscular Re-ed Recommendations To Nursing Amount of Assist Needed 2 Person Assist Discharge Recommendations PT Discharge Recommendations SNF Rehab Transportation Needs at Discharge Wheelchair/Cabulance - PT assist 1-2P
--- NOTE | 2024-12-02 15:59 | PM.PN.1 ---
Subjective Subjective Interval history: 69 F admitted with hypercalcemia. Calcium increased today despite fluids and holding HCTZ. Corrected calcium is >13 as well given low albumin. She remains weak. Exam Vital Signs (past 8 hours): - 12/02/24 08:00 12/02/24 12:00 Temperature 97.7 F 97.6 F Pulse Rate 82 80 Respiratory Rate 18 Blood Pressure 130/82 130/82 Pulse Oximetry 97 Oxygen Flow Rate 0 Oxygen Delivery Method Room Air Oxygen Flow Rate 0 Narrative Exam Narrative: General:? Patient is well developed and well nourished, in no distress at this time. HEENT:? Normocephalic, atraumatic, extraocular muscles intact, oral pharynx is clear and mucous membranes are moist. Chest:? Normal AP diameter and contour without kyphoscoliosis, no tachypnea, equal chest rise bilaterally. Lungs:? CTA b/l no wheezing rhonchi or rales. Cardio:?RRR no m/r/g. Abdomen: S NT ND. Musculoskeletal:? Muscle strength and tone are equal within normal limits, no deformity. Bilateral hip tenderness with minimal palpation, more laterally. Extremities: trace b/l LE edema, No joint effusions. No cyanosis or clubbing. Objective Labs 12/02/24 06:40 12/02/24 06:40 Labs: Laboratory Results - last 24 hr 11/30/24 11/30/24 11/30/24 15:50 20:18 22:53 WBC RBC Hgb Hct MCV MCH MCHC RDW Plt Count Neut % (Auto) Lymph % (Auto) [place] % (Auto) Eos % (Auto) Baso % (Auto) Neut # (Auto) Lymph # (Auto) [place] # (Auto) Eos # (Auto) Baso # (Auto) Sodium Potassium Chloride Carbon Dioxide BUN Creatinine Estimated GFR BUN/Creatinine Ratio Glucose Calcium Ionized Calcium Raiza 7.1 H Magnesium Total Bilirubin AST ALT Alkaline Phosphatase Total Protein Albumin Globulin Albumin/Globulin Ratio PTH Intact 19 Ur Random Calcium 42.2 12/02/24 06:40 WBC 7.2 RBC 4.01 Hgb 12.1 Hct 34.4 L MCV 85.8 MCH 30.1 MCHC 35.1 RDW 13.1 Plt Count 271 Neut % (Auto) 72.3 Lymph % (Auto) 17.8 L [place] % (Auto) 8.5 Eos % (Auto) 0.8 L Baso % (Auto) 0.6 Neut # (Auto) 5200 Lymph # (Auto) 1300 [place] # (Auto) 600 Eos # (Auto) 100 Baso # (Auto) 0 Sodium 135 L Potassium 4.3 Chloride 101 Carbon Dioxide 27 BUN 22 H Creatinine 1.06 H Estimated GFR 57 L BUN/Creatinine Ratio 20.8 Glucose 88 Calcium 12.6 H Ionized Calcium Raiza Magnesium 1.7 Total Bilirubin 0.7 AST 49 H ALT 19 Alkaline Phosphatase 250 H Total Protein 7.0 Albumin 3.8 Globulin 3.2 Albumin/Globulin Ratio 1.2 PTH Intact Ur Random Calcium [facility] Medical History (Updated 12/01/24 @ 07:43 by Avis Carlson MD) Acquired hypothyroidism H/O: stroke Chronic hip pain, bilateral Social History household members: none Smoking Status: Never smoker Assessment & Plan Assessment & Plan narrative: 1. Acute metabolic encephalopathy, POA, improving - presumed secondary to hypercalcemia - continue therapies noted below for hypercalcemia 2. Hypercalcemia, POA, unkcnown chronicity presumed acute - Calcium of 13 on admission, previously elevated at 11 on prior ER visit for hip pain last month. No prior records are available for review - PTH is low-normal at 19. - Will send PTHrp with lab draw tomorrow, 10/15 vit D is low normal at 32. Will send 25 vit D as well tomorrow. If all normal then SPEP,UPEP and free light chain assay. - stopped HCTZ, continue IV fluids with NS. Still no improvement today with calcium of 12.6, corrected 13.1 with low albumin - Gave Zolendronic acid, 4mg today 12/02 - given stability and Ca <14, will not give calcitonin at this time. - will need follow up with PCP or endocrine referral after discharge for hypercalcemia management in the post acute setting. 3. History of prior stroke - continue home plavix - continue home atorvastatin 40 mg 4. HTN - hold HCTZ - continue home losartan - hold spironolactone for now. - She is normotensive today. 5. Bilateral hip pain, chronic, POA - radiographs negative for fracture - continue pain control, will add oxycodone today - PT/OT 6. [facility] - continue IV fluids. baseline Cr not known but Cr elevated >0.3 from ER visit a few weeks ago. Continues to improve today with IV fluids. 7. Fibromyalgia - continue home venlafaxine, tramadol, gabapentin. Code: Full, surrogate is patient's Michael BROWN DVT: Lovenox daily I have utilized all available immediate resources to obtain, update, or review the patient's current medications. Dispo: patient admitted under inpatient status. Likely SNF once calcium is improved based on therapy recommendations thus far. Additional history obtained via discussions with the overnight provider. These discussions contributed to the creation of the above assessment and plan. I have reviewed patient's presenting documentation, labs, and imaging personally. Time-Based Coding :: [TOTAL MINUTES] spent with patient and on the chart (including review of chart, obtaining history, exam, reviewing outside data, placing orders, documenting exam and treatment plan, and counseling patient) on [DATE]. Quality VTE Deep Vein Thrombosis/Pulmonary Embolism Present on Admission: No
[2024-12-02] MEDS: ATORVASTATIN 20 MG TABLET 40 MG PO (20:59)
[2024-12-02] MEDS: TRAZODONE 50 MG TABLET PO (21:00)
[2024-12-02] MEDS: TRAMADOL 50 MG TABLET PO (21:00)
--- NOTE | 2024-12-02 22:09 | PC.NURSE ---
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 RN explained the importance to avoid bed sores and complications associated with refusing [id number]. Patient verbalized understanding but did not want to be moved or bothered.
[2024-12-03 03:00] VITALS: BP 139/75; PULSE 78; RESP 18; TEMP 36.8; O2SAT 95
[2024-12-03] MEDS: ACETAMINOPHEN 325 MG TABLET 650 MG PO ×2 (06:11→20:39)
[2024-12-03] MEDS: LEVOTHYROXINE 25 MCG TABLET PO (06:11)
[2024-12-03 06:41] LABS: Add Manual Diff / Slide Review NO; Basophils Absolute Auto 0 /uL (0-100); Basophils Percent Auto 0.4 % (0-2); Eosinophils Absolute Auto 100 /uL (0-450); Hematocrit 31.5 % (36-46); Hemoglobin 11.3 g/dL (12.0-16.0); Lymphocytes Absolute Auto 900 /uL (1100-4500); Lymphocytes Percent Auto 12.9 % (25-40); Mean Corpuscular HGB Conc 35.8 % (30-36); Mean Corpuscular Hemoglobin 30.5 PG (26-34); Mean Corpuscular Volume 85.3 fL (80-100); Monocytes Absolute Auto 400 /uL (0-900); Monocytes Percent Auto 6.8 % (3-14); Neutrophils Absolute Auto 5200 /uL (1500-7000); Neutrophils Percent Auto 78.9 % (50-75); Platelet Count 252 X10^3/uL (150-400); Red Cell Distribution Width 13.2 % (11.6-14.8); White Blood Cell Count 6.6 X10^3/uL (4.5-11.0)
[2024-12-03 06:53] LABS: Alanine Aminotransferase 18 IU/L (<35); Albumin 3.4 g/dL (3.5-5.0); Albumin Globulin Ratio 1.1 (1.0-2.8); Alkaline Phosphatase 230 U/L (38-126); Aspartate Aminotransferase 41 IU/L (14-36); BUN Creatinine Ratio 18.4 (6-22); Bilirubin Total 0.5 mg/dL (0.2-1.3); Blood Urea Nitrogen 21 mg/dL (7-17); Calcium 11.5 mg/dL (8.4-10.2); Carbon Dioxide 25 mmol/L (22-32); Chloride 106 mmol/L (98-107); Estimated Glomerular Filt Rate 52 mL/min (>60); Globulin 3.1 g/dL (1.7-4.1); Glucose 95 mg/dL (80-110); HEMOLYSIS < 15 (0-50); Magnesium 1.7 mg/dL (1.6-2.3); Sodium 136 mmol/L (137-145); Total Protein 6.5 g/dL (6.3-8.2)
[2024-12-03 07:07] LABS: Vitamin D 25 Hydroxy (D3) 34.4 ng/mL (30.0-100.0)
[2024-12-03 08:00] VITALS: BP 134/75; PULSE 80; RESP 15; TEMP 37.1; O2SAT 93
[2024-12-03] MEDS: VENLAFAXINE ER 75 MG CAP 225 MG PO (08:26)
[2024-12-03] MEDS: ENOXAPARIN 40 MG/0.4 ML SYRINGE SUBCUT (08:26)
[2024-12-03] MEDS: GABAPENTIN 100 MG CAPSULE 300 MG PO ×3 (08:26→20:39)
[2024-12-03] MEDS: ASPIRIN EC 81 MG TABLET PO (08:27)
[2024-12-03] MEDS: CLOPIDOGREL 75 MG TABLET PO (08:27)
[2024-12-03] MEDS: OXYCODONE IR 5 MG TABLET PO ×2 (08:27→20:38)
[2024-12-03] MEDS: BUSPIRONE 5 MG TABLET PO ×3 (08:27→20:39)
--- NOTE | 2024-12-03 10:00 | PT.IPTN ---
Current Diagnoses Hypothyroidism, unspecified (11/30/24) Other chronic pain (11/30/24) Pain in right hip (11/30/24) Pain in left hip (11/30/24) Physical Therapy Treatment Note M2 PT-IP Current Condition Start: 12/01/24 14:35 Freq: NEEDED Status: Active Protocol: Document 12/01/24 14:25 DLM (Rec: 12/01/24 15:19 DLM [id number]) Physical Therapy Current Condition Current Condition Evaluation Date 12/01/24 Treatment Diagnosis encephalopathy, back/hip pain, impaired mobility/gait Onset Date 11/30/24 M3 PT-IP Subjective Start: 12/01/24 14:35 Freq: NEEDED Status: Active Protocol: Document 12/03/24 10:00 AB (Rec: 12/03/24 12:26 AB [id number]) Subjective Physical Therapy Visit Type Type Treatment Note Visit Start Time 10:00 Visit Stop Time 10:25 Number of TAP AND DIE MAKER TECHNICIAN Visits 0 Physical Therapy Visit Comments Patient Comments agreeable to do PT Therapy Pain Assessment Pain When Pain Assessed During Mobility Location Back Scale Used pain scale not stated Pain Management Techniques Distraction,Modification of Treatment,Re-positioning, Timing of Activity with Medications M4 PT-IP Mobility and Gait Start: 12/01/24 14:35 Freq: NEEDED Status: Active Protocol: Document 12/03/24 10:00 AB (Rec: 12/03/24 12:26 AB [id number]) PT-Bed Mobility Assessment Supine to Sit Supine to Sit Maximum Assistance,1 Person Assistance,Head of Bed Elevated,Bedrails PT-Transfer Assessment Sit to and From Stand Sit to and from Stand Maximum Assistance,1 Person Assistance,Use of Upper Extremities Equipment Transfer Assistive Device Gait Belt,Front Wheeled Walker Orthotic/Prosthetic Devices or Brace: No Transfers Transfer Destination Chair Transfer Technique ambulated Transfer Ability Level of Assist Moderate Assistance,Maximum Assistance,1 Person Assistance ,Use of Upper Extremities Comments Mobility Comments pt in bed and agreed to do PT. supine to sit max A and max cues for log roll bed mobility . sit to stand max A and max cues. increase retrolean and cued to correct and use FWW for support. pt ambulated in room using fWW ~ 12 ft mod to max A and max cues. pt sat on chair. pt needed to be cleaned up and brief change. NAC in room. pt completed sit to stand from chair max A and max cues. able to maintain standing using fWW for support mod to max A needed. NAC assist pt with hygiene care and brief change. pt sat back on chair. positioned pt on the chair. NAC needing to put purewick and clean up with pt . Left pt with NAC. Gait Assessment Gait Gait Assistance Required: Moderate Assistance,Maximum Assistance,1 Person Assist Distance (Feet) 12 Able to Maintain Weight Bearing Status Yes During Gait Assistive Devices Assistive Device Gait Belt,Front Wheeled Walker Orthotic/Prosthetic Devices or Brace: No Gait Deviations General Gait Pattern Decreased Stride Length, Decreased Feet Clearance,Step- to Gait Factors Limiting Gait Function Factors Limiting Gait Function Abnormal Tonal Influences, Decreased Strength,Limited Range of Motion,Pain,Poor Balance,Poor Safety Awareness M5 PT-IP Objective Assessments Start: 12/01/24 14:35 Freq: NEEDED Status: Active Protocol: Document 12/01/24 14:25 DLM (Rec: 12/01/24 15:19 DLM [id number]) Orientation Orientation/Cognition Level of Alertness Alert Orientation Name,Age,Birthday,Month,Date, Year,Day of Week,Place, Situation Safety Awareness Understands Safety Issues Comments slow mental processing, mild to moderate word finding difficulty, disorganized in providing information she appears anxious at times, did well with reassurance. Gross Range of Motion Upper Extremity ROM Assessment Within Functional Limits Lower Extremity ROM Assessment Within Functional Limits Impairments back pain with bilateral LE movements Strength Upper Extremity Strength Assessment Within Functional Limits Lower Extremity Strength Assessment Bilaterally Impaired Hip Right: hip flex 3+/5, knee ext 3+/5, DF 4-/5. Left: hip flex 4/5, knee ext Knee Right flex and extension 3+/5, left ext and flex 4/5 Ankle Right DF 4-/5 and Left 4/5 Comments Strength Comments pain with all resisted movements bilateral LE's Pt reports hx of left LE more effected by CVA than right. Coordination Assessment Gross Coordination Gross Coordination Impaired Assessment Coordination Comments bradykinetic generalized stiffness throughout Sensation Assessment Sensation Gross Sensation WNL Comments Sensation Comments no sensory changes reported by pt Muscle Tone Muscle Tone WNL No Comments Muscle Tone Comments generalized rigidity M6 PT-IP Treatment Start: 12/01/24 14:35 Freq: NEEDED Status: Active Protocol: Document 12/03/24 10:00 AB (Rec: 12/03/24 12:26 AB [id number]) Physical Therapy Treatment Education Education Provided Safety M7 PT-IP Assessment and Plan Start: 12/01/24 14:35 Freq: NEEDED Status: Active Protocol: Document 12/03/24 10:00 AB (Rec: 12/03/24 12:26 AB [id number]) PT Summary Assessment and Plan Potential Rehabilitation Potential Fair Summary Impairments Pain,ROM,Strength,Balance, Coordination,Sensation,Tone, Cognition,Bed Mobility, Transfers,Gait,Activity Tolerance Progress Towards Goals Slow Progress due to Pain,Slow Progress due to Medical Issues,Slow Progress due to Activity Tolerance Assessment Summary pt improving slowly with mobility and able to ambulate ~ 12 ft today using FWW mod to max A and max cues. pt continues to have unsteady gait and will require SNF rehab to improve overall mobility. Goals Bed Mobility Goal Standby Assistance Transfer Goal Standby Assistance,Front Wheeled Walker Gait Goal Standby Assistance,Front Wheel Walker Gait Distance 50 feet Other Goals Independent propeling her wheelchair 100 feet on level surface Days to Meet Goals 10 Frequency of Treatment Frequency Of Treatment Once a Day Treatment Plan Physical Therapy Treatment Plan Bed Mobility Training,Transfer Training,Gait Training, Therapeutic Exercise,Balance Retraining,Post Op Education, Discharge Planning,Hot or Cold Pack,Neuromuscular Re-ed Recommendations To Nursing Amount of Assist Needed 2 Person Assist Discharge Recommendations PT Discharge Recommendations SNF Rehab Transportation Needs at Discharge Wheelchair/Cabulance - PT assist 1-2P
[2024-12-03 12:00] VITALS: BP 120/93; PULSE 84; RESP 15; TEMP 36.9; O2SAT 98
[2024-12-03] MEDS: SODIUM CHLORIDE 0.9% 1,000 ML 100 ML IV ×2 (12:03→20:43)
--- NOTE | 2024-12-03 13:09 | PM.PN.1 ---
Subjective Subjective Interval history: 69 F admitted with hypercalcemia. Calcium improving today down to 11.5, remains on IV fluids for today. Still feels weak and her brain feels foggy. Exam Vital Signs (past 8 hours): - 12/03/24 07:35 12/03/24 08:00 Temperature 98.7 F Pulse Rate 80 Respiratory Rate 15 Blood Pressure 134/75 Pulse Oximetry 93 Oxygen Delivery Method Room Air Oxygen Delivery Method Room Air Oxygen Flow Rate 0 Narrative Exam Narrative: General:? Patient is well developed and well nourished, in no distress at this time. HEENT:? Normocephalic, atraumatic, extraocular muscles intact, oral pharynx is clear and mucous membranes are moist. Chest:? Normal AP diameter and contour without kyphoscoliosis, no tachypnea, equal chest rise bilaterally. Lungs:? CTA b/l no wheezing rhonchi or rales. Cardio:?RRR no m/r/g. Abdomen: S NT ND. Musculoskeletal:? Muscle strength and tone are equal within normal limits, no deformity. Bilateral hip tenderness with minimal palpation, more laterally. Extremities: trace b/l LE edema, No joint effusions. No cyanosis or clubbing. Objective Labs 12/03/24 06:20 12/03/24 06:20 Labs: Laboratory Results - last 24 hr 12/03/24 06:20 WBC 6.6 RBC 3.70 L Hgb 11.3 L Hct 31.5 L MCV 85.3 MCH 30.5 MCHC 35.8 RDW 13.2 Plt Count 252 Neut % (Auto) 78.9 H Lymph % (Auto) 12.9 L [place] % (Auto) 6.8 Eos % (Auto) 1.0 L Baso % (Auto) 0.4 Neut # (Auto) 5200 Lymph # (Auto) 900 L [place] # (Auto) 400 Eos # (Auto) 100 Baso # (Auto) 0 Sodium 136 L Potassium 4.0 Chloride 106 Carbon Dioxide 25 BUN 21 H Creatinine 1.14 H Estimated GFR 52 L BUN/Creatinine Ratio 18.4 Glucose 95 Calcium 11.5 H Magnesium 1.7 Total Bilirubin 0.5 AST 41 H ALT 18 Alkaline Phosphatase 230 H Total Protein 6.5 Albumin 3.4 L Globulin 3.1 Albumin/Globulin Ratio 1.1 25-OH Vitamin D Total 34.4 [facility] Medical History (Updated 12/01/24 @ 07:43 by Avis Carlson MD) Acquired hypothyroidism H/O: stroke Chronic hip pain, bilateral Social History household members: none Smoking Status: Never smoker Assessment & Plan Assessment & Plan narrative: 1. Acute metabolic encephalopathy, POA, improving - presumed secondary to hypercalcemia - continue therapies noted below for hypercalcemia 2. Hypercalcemia, POA, unkcnown chronicity presumed acute - Calcium of 13 on admission, previously elevated at 11 on prior ER visit for hip pain last month. No prior records are available for review - PTH is low-normal at 19. - Sent PTHrp today, 25 vit D is low normal at 32. Sent 1,25 vit D as well. If all normal then SPEP,UPEP and free light chain assay. - stopped HCTZ, continue IV fluids with NS today, if further improvement from 11.5 tomorrow can likely stop IV fluids. - Gave Zolendronic acid, 4mg on 12/02 - given stability and Ca <14, will not give calcitonin at this time. - will need follow up with PCP or endocrine referral after discharge for hypercalcemia management in the post acute setting. 3. History of prior stroke - continue home plavix - continue home atorvastatin 40 mg 4. HTN - hold HCTZ - continue home losartan - hold spironolactone for now. - She is normotensive today. 5. Bilateral hip pain, chronic, POA - radiographs negative for fracture - continue pain control, will add oxycodone today - PT/OT 6. [facility] - continue IV fluids. baseline Cr not known but Cr elevated >0.3 from ER visit a few weeks ago. Continues to improve today with IV fluids. 7. Fibromyalgia - continue home venlafaxine, tramadol, gabapentin. Code: Full, surrogate is patient's POA, Michael DVT: Lovenox daily I have utilized all available immediate resources to obtain, update, or review the patient's current medications. Dispo: patient admitted under inpatient status. Likely SNF once calcium is improved based on therapy recommendations thus far. Additional history obtained via discussions with the overnight provider. These discussions contributed to the creation of the above assessment and plan. I have reviewed patient's presenting documentation, labs, and imaging personally. Time-Based Coding :: [TOTAL MINUTES] spent with patient and on the chart (including review of chart, obtaining history, exam, reviewing outside data, placing orders, documenting exam and treatment plan, and counseling patient) on [DATE]. Quality VTE Deep Vein Thrombosis/Pulmonary Embolism Present on Admission: No
--- NOTE | 2024-12-03 13:42 | PC.NURSE ---
Assumed patient care at @ 1300. [facility] nurse called at 1340 for update on patient and plan for d/c. Informed of no set date of d/c as of yet, but pending for Calcium levels to improve to baseline. This nurse did ask how patient's mentation is at the facility on most days and facility nurse states patient is A&Ox3. Per previous nurse's reported to this nurse that she believes patient has baseline dementia per her visitor.
[2024-12-03 16:00] VITALS: BP 139/76; PULSE 74; RESP 18; TEMP 37.2; O2SAT 96
[2024-12-03 20:00] VITALS: BP 135/84; PULSE 68; RESP 18; TEMP 36.9; O2SAT 96
[2024-12-03] MEDS: SENNOSIDES 8.6 MG TABLET 17.2 MG PO (20:38)
[2024-12-03] MEDS: ATORVASTATIN 20 MG TABLET 40 MG PO (20:38)
[2024-12-03] MEDS: TRAZODONE 50 MG TABLET PO (20:39)
[2024-12-03] MEDS: TRAMADOL 50 MG TABLET PO (20:39)
[2024-12-04] VITALS: BP 118/67; PULSE 71; RESP 16; TEMP 36.6; O2SAT 96
[2024-12-04 04:00] VITALS: BP 123/61; PULSE 69; RESP 18; TEMP 36.2; O2SAT 97
[2024-12-04] MEDS: ACETAMINOPHEN 325 MG TABLET 650 MG PO (05:33)
[2024-12-04] MEDS: LEVOTHYROXINE 25 MCG TABLET PO (05:33)
[2024-12-04] MEDS: OXYCODONE IR 5 MG TABLET PO ×3 (05:37→12:33)
[2024-12-04 06:06] LABS: Add Manual Diff / Slide Review NO; Basophils Absolute Auto 0 /uL (0-100); Basophils Percent Auto 0.5 % (0-2); Eosinophils Absolute Auto 100 /uL (0-450); Eosinophils Percent Auto 0.9 % (2-4); Hematocrit 29.4 % (36-46); Hemoglobin 10.6 g/dL (12.0-16.0); Lymphocytes Absolute Auto 1100 /uL (1100-4500); Lymphocytes Percent Auto 17.9 % (25-40); Mean Corpuscular Hemoglobin 30.8 PG (26-34); Mean Corpuscular Volume 85.7 fL (80-100); Monocytes Absolute Auto 500 /uL (0-900); Monocytes Percent Auto 8.1 % (3-14); Neutrophils Absolute Auto 4400 /uL (1500-7000); Neutrophils Percent Auto 72.6 % (50-75); Platelet Count 212 X10^3/uL (150-400); Red Blood Cell Count 3.43 X10^6/uL (4.0-5.2); Red Cell Distribution Width 13.2 % (11.6-14.8); White Blood Cell Count 6.1 X10^3/uL (4.5-11.0)
[2024-12-04] MEDS: SODIUM CHLORIDE 0.9% 1,000 ML 100 ML IV (06:16)
[2024-12-04 06:18] LABS: Albumin 3.2 g/dL (3.5-5.0); Albumin Globulin Ratio 1.1 (1.0-2.8); Alkaline Phosphatase 207 U/L (38-126); BUN Creatinine Ratio 17.9 (6-22); Bilirubin Total 0.5 mg/dL (0.2-1.3); Blood Urea Nitrogen 21 mg/dL (7-17); Calcium 9.8 mg/dL (8.4-10.2); Carbon Dioxide 22 mmol/L (22-32); Chloride 107 mmol/L (98-107); Estimated Glomerular Filt Rate 50 mL/min (>60); Globulin 2.9 g/dL (1.7-4.1); Glucose 88 mg/dL (80-110); HEMOLYSIS < 15 (0-50); Magnesium 1.6 mg/dL (1.6-2.3); Potassium 3.6 mmol/L (3.4-5.1); Sodium 137 mmol/L (137-145); Total Protein 6.1 g/dL (6.3-8.2)
[2024-12-04 06:19] LABS: Alanine Aminotransferase 22 IU/L (<35); Aspartate Aminotransferase 44 IU/L (14-36)
[2024-12-04 08:00] VITALS: BP 121/95; PULSE 61; RESP 12; TEMP 36.3; O2SAT 98
[2024-12-04] MEDS: ENOXAPARIN 40 MG/0.4 ML SYRINGE SUBCUT (08:35)
[2024-12-04] MEDS: GABAPENTIN 100 MG CAPSULE 300 MG PO (08:35)
[2024-12-04] MEDS: CLOPIDOGREL 75 MG TABLET PO (08:35)
[2024-12-04] MEDS: VENLAFAXINE ER 75 MG CAP 225 MG PO (08:35)
[2024-12-04] MEDS: BUSPIRONE 5 MG TABLET PO (08:35)
[2024-12-04] MEDS: ASPIRIN EC 81 MG TABLET PO (08:35)
[2024-12-04] MEDS: MAGNESIUM CHLORIDE 64 MG TABLET 128 MG PO (09:47)
--- NOTE | 2024-12-04 10:41 | P.DS_ITS ---
History of Present Illness History of Present Illness Date Patient Seen: 12/04/24 Chief complaint: hip and back pain Narrative: Per overnight provider, 69 y/o Female, with multiple chronic medical problems, including h/o stroke a year ago, and residing in [facility], on ASA , Plavix, PAF , Hypothyroidism, OA, DJD, Chronic Bilat Hip and Low back pain, patient using a walker or wheel chair for mobility, which has been progressively getting limited, sec to increasing discomfort in her hips and low back, over last 2 months, not getting relieved with Trammadol. Also has been taking muscle relaxants, also not effective in giving her relief. Also has been taking Calcium supplements. Her low back pain has been sharp, and radiating down her bilat LE . She had been unable to get out of her wheel chair sec to this discomfort. Denies parasthesias , no weakness of her bilat LE. No Bowel or bladder control problem. Also has noted to be more constipated over last 2-3 weeks than her baseline which is a BM once to twice per week. Denies abd pain, Vomiting, F/C, cough, SOB, SAWANT, light headedness or Syncope. No CP or cough. She has noted mild Nausea over a day. Some decrease in apatite also. She had been seen in ED on 11/01 also for bilat hip and low back pain. At that time had a Hip XR : Suspected Calcific Tendinopathy, No fracture or dislocation seen. She came to ED for an evaluation. In ED, [facility]kle for Scott;cium up at 13,1 ( was 11 on 11/01) Creat at 1,21/ BUN 31 ( was 0.8/24 on 11/09) K 4,.8 Alk P : 283 , AST 66, Mag 1.6, Phosphate, Vit D 3, PTH and TSH WNL She was noted s transiently confused in ED , and a CT head obtained : negative for acute changes. Given NS 1 L , and continued on NS at 100 mls per hour. Ionized calcium ordered ( send out) She was referred to Hospitalist leydi for admission. In brief, 69 year old female admitted with hypercalcemia after presenting with weakness and increasing bilateral hip pain. Today she has more relief with opiate therapy, which she states her provider is hesitant to start. Repeated hip XR which showed mild osteoarthritis without occult fracture. Calcium improved slightly to 12.5, she takes HCTZ. PTH ordered but is send out and still pending. Discharge Providers Provider Date of admission: 11/30/24 22:16 Discharge Date: 12/04/24 Consults: 11/30/24 22:25 Consult to Occupational Therapy Evaluate & Treat Comment: Physician Instructions: Evaluate and treat Consult to Physical Therapy Evaluate & Treat Comment: Physician Instructions: Evaluate and Treat Discharge provider: Matias Cheung DO Summary Hospital Course Discharge Diagnosis: 1. Acute metabolic encephalopathy, POA, improving - presumed secondary to hypercalcemia - continue therapies noted below for hypercalcemia 2. Hypercalcemia, POA, unkcnown chronicity presumed acute - Calcium of 13 on admission, previously elevated at 11 on prior ER visit for hip pain last month. No prior records are available for review. But now improved to normal at the time of discharge. - PTH is low-normal at 19. - 25 vit D is low normal at 32. Sent 1,25 vit D as well as PTHrp which are pending at the time of discharge. If all normal then SPEP,UPEP and free light chain assay. - stopped HCTZ, continued IV fluids until normal. - Gave Zolendronic acid, 4mg on 12/02 - given stability and Ca <14, did not give calcitonin. - will need follow up with PCP or endocrine referral after discharge for hypercalcemia management in the post acute setting. 3. History of prior stroke - continue home plavix - continue home atorvastatin 40 mg 4. HTN - hold HCTZ - continue home losartan - hold spironolactone for now. - She is normotensive today. 5. Bilateral hip pain, chronic, POA - radiographs negative for fracture - continue pain control, will add oxycodone today - PT/OT 6. MERCY - continue IV fluids. baseline Cr not known but Cr elevated >0.3 from ER visit a few weeks ago. Continues to improve today with IV fluids. 7. Fibromyalgia - continue home venlafaxine, tramadol, gabapentin. Code: Full, surrogate is patient's POA, Michael DVT: Lovenox daily I have utilized all available immediate resources to obtain, update, or review the patient's current medications. Dispo: patient admitted under inpatient status. Likely SNF once calcium is improved based on therapy recommendations thus far. Additional history obtained via discussions with the overnight provider. These discussions contributed to the creation of the above assessment and plan. I have reviewed patient's presenting documentation, labs, and imaging personally. Hospital Course: This is a 69-year-old female with past medical history of prior stroke, hypertension, fibromyalgia who was admitted with an acute metabolic encephalopathy likely secondary to elevated calcium level at 13 on admission. Patient is taking a hydrochlorothiazide and appeared slightly dehydrated with an elevated creatinine compared to baseline. She was started on IV fluids without significant improvement at , and was given a dose of zoledronic acid on December 02. Two days after this her calcium had improved to normal. Her IV fluids have been stopped. She was seen by therapies and recommended for senior living facility for ongoing PT and OT due to her deconditioning. With regards to her hypercalcemia evaluation, her PTH was appropriately low normal, and her vitamin-D was also low normal at 32. Still pending at the time of discharge her PTH RP and 125 vitamin-D levels. Should these also be unremarkable next step in her evaluation should include an SPEP, UPEP, and urine free light chain assay. Recommend continued outpatient follow-up with primary care and or endocrinology referral for hypercalcemia. It very well may be that her calcium was due to dehydration and HCTZ use as well and took some time to finally start to improve, though she is still pending the above workup for her high calcium levels. Given no acute stroke symptoms and improvement in her symptoms with correction of her calcium, MRI was not pursued, and the patient is already on secondary prophylaxis with clopidogrel and atorvastatin therapy for her prior stroke and MRI would not change her acute management. She did complain of continued hip pain during the course of her admission, which has been ongoing for quite some time. She was started on oxycodone with improvement in her symptoms. Recommend continued outpatient follow-up for her chronic bilateral hip pain and ongoing PT/OT. Radiographs were obtained and showed mild bilateral osteoporosis, and no acute fractures. She was transferred to senior living facility once her calcium level improved to normal, on December 04, 2024. Some of her blood pressure medications were held and she remained normotensive during her say so these are recommended to continue to be held at senior living facility (HCTZ and spironolactone), but if hypertensive she can resume these except for the thiazide. Time Spent with Patient Time spent: Greater than 30 minutes Exam Vital Signs (past 8 hours): - 12/04/24 04:00 12/04/24 08:00 Temperature 97.2 F L 97.4 F L Pulse Rate 69 61 Respiratory Rate 18 12 Blood Pressure 123/61 121/95 H Pulse Oximetry 97 98 Oxygen Delivery Method Room Air Oxygen Flow Rate 0 Narrative Exam Narrative: General:? Patient is well developed and well nourished, in no distress at this time. HEENT:? Normocephalic, atraumatic, extraocular muscles intact, oral pharynx is clear and mucous membranes are moist. Chest:? Normal AP diameter and contour without kyphoscoliosis, no tachypnea, equal chest rise bilaterally. Lungs:? CTA b/l no wheezing rhonchi or rales. Cardio:?RRR no m/r/g. Abdomen: S NT ND. Musculoskeletal:? Muscle strength and tone are equal within normal limits, no deformity. Bilateral hip tenderness with minimal palpation, more laterally. Extremities: trace b/l LE edema, No joint effusions. No cyanosis or clubbing. Objective Labs 12/04/24 05:40 12/04/24 05:40 Labs: Laboratory Results - last 24 hr 12/04/24 05:40 WBC 6.1 RBC 3.43 L Hgb 10.6 L Hct 29.4 L MCV 85.7 MCH 30.8 MCHC 36.0 RDW 13.2 Plt Count 212 Neut % (Auto) 72.6 Lymph % (Auto) 17.9 L Bureau % (Auto) 8.1 Eos % (Auto) 0.9 L Baso % (Auto) 0.5 Neut # (Auto) 4400 Lymph # (Auto) 1100 Bureau # (Auto) 500 Eos # (Auto) 100 Baso # (Auto) 0 Sodium 137 Potassium 3.6 Chloride 107 Carbon Dioxide 22 BUN 21 H Creatinine 1.17 H Estimated GFR 50 L BUN/Creatinine Ratio 17.9 Glucose 88 Calcium 9.8 Magnesium 1.6 Total Bilirubin 0.5 AST 44 H ALT 22 Alkaline Phosphatase 207 H Total Protein 6.1 L Albumin 3.2 L Globulin 2.9 Albumin/Globulin Ratio 1.1 [facility] Medical History (Updated 12/01/24 @ 07:43 by Avis Carlson MD) Acquired hypothyroidism H/O: stroke Chronic hip pain, bilateral Social History household members: none Smoking Status: Never smoker Discharge Plan Discharge Plan Patient Disposition: SNF Transfer to: [facility] Provider Discharge Comment: 69 F admitted with hypercalcemia, which is now improved after Zolendronic Acid. Recommend continued outpatient hypercalcemia evaluation, repeat lab testing in a couple of weeks. Discharge orders & Medications Prescriptions: New acetaminophen 325 mg Tablet 650 mg PO Q6H PRN (Reason: Fever/Mild Pain (1-3)) Qty: 30 0RF venlafaxine 75 mg Capsule,Extended Release 24hr 225 mg PO DAILY Qty: 30 0RF tramadol 50 mg Tablet 50 mg PO QID PRN (Reason: Pain, Moderate (4-6)) 7 Days Qty: 20 0RF oxycodone 5 mg Tablet 5 mg PO Q3H PRN (Reason: Pain, Moderate (4-6)) 7 Days Qty: 20 0RF Continued buspirone 5 mg tablet 5 mg PO TID Patient Comments: [NO ORIGINAL SIG] magnesium hydroxide [Milk of Magnesia] 400 mg/5 mL suspension 30 ml PO DAILY PRN (Reason: No BM in 3 days) gabapentin 100 mg capsule 300 mg PO TID Patient Comments: [NO ORIGINAL SIG] losartan 100 mg tablet 100 mg PO DAILY clopidogrel 75 mg tablet 75 mg PO DAILY omeprazole 20 mg capsule,delayed release(DR/EC) 20 mg PO DAILY levothyroxine 25 mcg tablet 25 mcg PO DAILY trazodone 50 mg tablet 50 mg PO BEDTIME atorvastatin 40 mg tablet 40 mg PO BEDTIME tizanidine 4 mg tablet 8 mg PO Q8H PRN (Reason: Spasms) Patient Comments: [NO ORIGINAL SIG] acetaminophen [Tylenol] 325 mg Tablet 650 mg PO Q4H PRN (Reason: Pain, Mild) Discontinued potassium chloride 20 mEq tablet,ER particles/crystals 40 meq PO DAILY venlafaxine 150 mg capsule,extended release 24hr 150 mg PO DAILY venlafaxine 75 mg capsule,extended release 24hr 75 mg PO DAILY spironolactone 25 mg tablet 25 mg PO DAILY hydrochlorothiazide 12.5 mg tablet 12.5 mg PO DAILY tramadol 50 mg PO Q4H PRN (Reason: Pain, Moderate) Discharge Health Status Multidrug resistant organism: No MDRO Precautions: [place] Diet/Activity/Treatments Diet: Diet as Tolerated and Regular Liquid consistency: Normal/Thin Food texture: Regular Diet comment: No garlic per patient Activity: As tolerated [facility] Reason for rehabilitation: Recovery r/t decondition Rehab type: Physical therapy and Occupational therapy Visit Report/Discharge Packet Stand Alone Forms: Patient Portal/API Quality VTE Deep Vein Thrombosis/Pulmonary Embolism Present on Admission: No
--- NOTE | 2024-12-04 11:44 | PC.NURSE ---
Called report to Martina RAMOS at [facility] and answered all questions. Belongings all packed up and Pt ready for discharge with [facility] personnel when they arrive.
--- NOTE | 2024-12-04 12:50 | PC.NURSE ---
Pt out via her personal w/c by [facility] personnel with all belongings.
--- NOTE | 2024-12-04 15:06 | CM.DPNOTE ---
DC Note Discharge to [facility], patient remains aware and agreeable. 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 Coordinating with February at , updated clinical and SNF orders, hospital exempt PASRR all emailed. Faxed [facility] exempted PASRR to Dianna Figueroa, PASRR coordinator. IMM provided. JW
[2024-12-10 11:08] LABS: 1,25-Dihydroxy, Vitamin D-2 <10 pg/mL (.)
== END 2024-12-04 12:51 | DRG 640 ==
LOC: ED 22:15 → AC 22:17
PROVIDERS: Emergency Medicine; Internal Medicine; Admitting Provider Hospitalist; Emergency Provider Emergency Medicine; Referring Provider Emergency Medicine; Visit Provider Hospitalist
DX: E83.52 Hypercalcemia (principal); G93.41 Metabolic encephalopathy; N17.9 Acute kidney failure, unspecified; M16.0 Bilateral primary osteoarthritis of hip; E03.9 Hypothyroidism, unspecified; I10 Essential (primary) hypertension; M79.7 Fibromyalgia; E86.0 Dehydration; T50.2X5A Adverse effect of carbonic-anhydrase inhibitors, benzothiadiazides and other diuretics, initial encounter; Z86.73 Personal history of transient ischemic attack (TIA), and cerebral infarction without residual deficits; Z79.02 Long term (current) use of antithrombotics/antiplatelets; Z79.890 Hormone replacement therapy
CPT/HCPCS: 36415; 70450; 71045; 72170; 80053; 81003; 82306; 82330; 82340; 82397; 82652; 83735; 83970; 84100; 84443; 85025; 85610; 85730; 93005; 96360; 97116; 97162; 97166; 97530; 99284; 99285; J1650; J3489; J7050

== ENCOUNTER 2024-12-07 00:39 | Observation (INO) | payer MEDICARE, MEDICAID, SELFPAY ==
[2024-11-30 23:16] VITALS: BMI 31.6
[2024-12-07] VITALS (15 sets, daily range): BP systolic 97–154; BP diastolic 53–81; PULSE 68–85; RESP 10–26; TEMP 36.3–36.9; O2SAT 93–97; BMI 33.6
--- NOTE | 2024-12-07 00:48 | EKG_ITS ---
[address] [address] Test Date: 2024-12-07 Pat Name: Anne Martini Department: [facility] Room: Gender: Female Manager Action: : 1955 Requested By: Order Number: [id number] Reading MD: Mario Stiles MD Measurements Intervals [place] Rate: 80 P: 15 OH: 158 QRS: -5 QRSD: 72 T: 244 QT: 400 QTc: 461 Interpretive Statements Normal sinus rhythm Inferior infarct , age undetermined Cannot rule out Anterior infarct , age undetermined Electronically Signed On 12-07-2024 7:49:36 PDT by Mario Stiles MD
--- NOTE | 2024-12-07 00:48 | ED.CHESTPAIN ---
HPI - Chest Pain General Chief Complaint: Chest Pain Stated Complaint: CP Time Seen by Provider: 12/07/24 00:48 History of Present Illness HPI narrative: 69-year-old female with a past medical history of arthritis, hypertension, hypothyroidism, high dyslipidemia, CVA comes into the ED from home for evaluation of chest pain. Patient is from assisted living facility at [facility], she states that she was sleeping and the chest pain woke her up, patient did receive aspirin prior to arrival by facility. At time of evaluation patient not complaining of any chest pain denies any shortness of breath headache visual disturbances fever chills nausea vomiting abdominal pain or any other GI/ symptoms time. 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 Nonpleuritic in nature. Related Data Home Medications Medication Instructions Recorded Confirmed acetaminophen 325 mg tablet 650 mg PO Q4H PRN Pain, Mild 12/01/24 12/01/24 (Tylenol) atorvastatin 40 mg tablet 40 mg PO BEDTIME primary HTN 12/01/24 12/01/24 buspirone 5 mg tablet 5 mg PO TID anxiety 12/01/24 12/01/24 clopidogrel 75 mg tablet 75 mg PO DAILY afib 12/01/24 12/01/24 gabapentin 100 mg capsule 300 mg PO TID NEUROPATHY/PAIN 12/01/24 12/01/24 levothyroxine 25 mcg tablet 25 mcg PO DAILY hypothyroidism 12/01/24 12/01/24 losartan 100 mg tablet 100 mg PO DAILY HTN 12/01/24 12/01/24 magnesium hydroxide 400 mg/5 mL 30 ml PO DAILY PRN No BM in 3 days 12/01/24 12/01/24 oral suspension (Milk of Magnesia) omeprazole 20 mg capsule,delayed 20 mg PO DAILY GERD 12/01/24 12/01/24 release tizanidine 4 mg tablet 8 mg PO Q8H PRN Spasms 12/01/24 12/01/24 trazodone 50 mg tablet 50 mg PO BEDTIME 12/01/24 12/01/24 Previous Rx's Medication Instructions Recorded acetaminophen 325 mg tablet 650 mg (2 x 325 mg) PO Q6H PRN 12/04/24 Fever/Mild Pain (1-3) #30 tabs oxycodone 5 mg tablet 5 mg PO Q3H PRN Pain, Moderate 12/04/24 (4-6) 7 days #20 tabs tramadol 50 mg tablet 50 mg PO QID PRN Pain, Moderate 12/04/24 (4-6) 7 days #20 tabs venlafaxine 75 mg capsule,extended 225 mg (3 x 75 mg) PO DAILY #30 12/04/24 release 24 hr caps Allergies Allergy/AdvReac Type Severity Reaction Status Date / Time No Known Drug Allergies Allergy Verified 11/01/24 22:24 Review of Systems Review of Systems Narrative: General: Denies fever, chills, weight loss HEENT: Denies headache, eye drainage, eye irritation, head trauma, sore throat, voice change Cardiovascular: Positive chest pain, denies palpitations, tachycardia Respiratory: Denies any shortness of breath, cough, wheeze, stridor GI/: Denies any abdominal pain, nausea, vomiting, diarrhea, bright red blood per rectum, melanotic stools, urinary frequency, urinary retention, dysuria, hematuria MSK: Denies any joint pain, muscle pains, swelling Skin: Denies any rashes, lesions, discoloration Neuro: Denies any headache, lightheadedness, dizziness, fainting, weakness Psych: Denies SI/HI Patient History Medical History (Updated 12/07/24 @ 01:59 by Matias Duarte DO) Acquired hypothyroidism H/O: stroke Chronic hip pain, bilateral Social History household members: none Smoking Status: Never smoker Smoking Status: Never smoker Exam Narrative Exam Narrative: General: Cooperative, comfortable, well-developed, not in acute distress HEENT: Normocephalic, atraumatic, PERRLA, normal sclera, eyelids normal, Neck: Active full range of motion, atraumatic Chest: Normal to inspection, negative crepitus, no overlying erythema ecchymosis Respiratory: Normal respiratory effort, not in acute respiratory distress, clear to auscultation bilaterally negative cough, wheeze, tachypnea, rhonchi, rales Cardiology: Regular rate rhythm negative gallop, murmur, rubs GI/: Normal to inspection, soft, nonrigid, no tenderness to palpation, exam deferred MSK: Full range of active range of motion of all 4 extremities, atraumatic Skin: No rashes lesions noted Neuro: Alert awake oriented x3, moves all 4 extremities spontaneously, cranial nerves intact, able to answer all questions appropriately follows commands appropriately Psych: Cooperative, negative suicidal or homicidal ideations Initial Vital Signs Initial Vital Signs: Vital Signs Pulse Rate 85 12/07/24 00:42 Pulse Oximetry 95 12/07/24 00:42 Course Orders Ordered: ED Orders 12/07/24 00:43 EKG-12 Lead Stat 12/07/24 00:48 Complete Blood Count AUTO DIFF Stat Comprehensive Metabolic Panel Stat Lipase Stat MAG [Magnesium] Stat NT-proBNP (BNP-Adult 18+) Stat PT [Prothrombin Time INR] Stat PTT Partial Thromboplastin Kvng Stat Troponin & CK Cardiac Panel Stat 12/07/24 00:56 CXR [XR chest 1V] Stat 12/07/24 02:23 EKG-12 Lead Stat 12/07/24 02:30 Troponin I Stat Ondansetron HCl (Ondansetron 4 Mg/2 Ml Inj) 4 mg IV NOW PRN PRN Reason: Nausea And Vomiting Ondansetron HCl (Ondansetron 4 Mg Odt) 4 mg PO NOW PRN PRN Reason: Nausea And Vomiting Discontinued Medications Oxycodone HCl (Oxycodone Ir 5 Mg Tablet) 5 mg PO NOW ONE Stop: 12/07/24 01:32 Last Admin: 12/07/24 01:35 Dose: 5 mg Documented By: MR Vital Signs Vital signs: Vital Signs - 8 hr 12/07/24 00:42 12/07/24 00:43 12/07/24 00:43 Temperature Pulse Rate 85 84 Respiratory Rate Blood Pressure 124/58 L Pulse Oximetry 95 95 Oxygen Delivery Method 12/07/24 00:50 12/07/24 01:00 12/07/24 01:00 Temperature 97.7 F Pulse Rate 83 77 Respiratory Rate 18 14 Blood Pressure 124/58 L 110/53 L Pulse Oximetry 93 94 Oxygen Delivery Method Room Air 12/07/24 01:30 12/07/24 01:30 12/07/24 02:00 Temperature Pulse Rate 85 Respiratory Rate 22 Blood Pressure 113/58 L 108/53 L Pulse Oximetry 95 Oxygen Delivery Method 12/07/24 02:00 Temperature Pulse Rate 71 Respiratory Rate 20 Blood Pressure Pulse Oximetry 93 Oxygen Delivery Method MDM - Chest Pain Differential Diagnosis Differential diagnosis: Likely st elevation myocardial infarction, costochondritis, chest pain and other (Electrolyte abnormality, pneumonia,) Lab Data 12/07/24 00:48 12/07/24 00:48 Labs: Lab Results 12/07/24 12/07/24 Range/Units 00:48 02:30 WBC 7.9 (4.5-11.0) X10^3/uL RBC 3.61 L (4.0-5.2) X10^6/uL Hgb 11.0 L (12.0-16.0) g/dL Hct 30.4 L (36-46) % MCV 84.1 (80-100) fL MCH 30.4 (26-34) PG MCHC 36.2 H (30-36) % RDW 13.1 (11.6-14.8) % Plt Count 245 (150-400) X10^3/uL Neut % (Auto) 71.7 (50-75) % Lymph % (Auto) 18.7 L (25-40) % [place] % (Auto) 7.7 (3-14) % Eos % (Auto) 1.1 L (2-4) % Baso % (Auto) 0.8 (0-2) % Neut # (Auto) 5700 (5237-8655) /uL Lymph # (Auto) 1500 (8876-6264) /uL [place] # (Auto) 600 (0-900) /uL Eos # (Auto) 100 (0-450) /uL Baso # (Auto) 100 (0-100) /uL RBC Morphology See below Rouleaux 2+ H PT 12.8 H (9.4-12.5) SECONDS INR 1.1 (0.9-1.3) APTT 28 (25.1-36.5) SECONDS Sodium 135 L (137-145) mmol/L Potassium 3.9 (3.4-5.1) mmol/L Chloride 105 (98-107) mmol/L Carbon Dioxide 23 (22-32) mmol/L BUN 15 (7-17) mg/dL Creatinine 1.04 (0.52-1.04) mg/dL Estimated GFR 58 L (>60) mL/min BUN/Creatinine Ratio 14.4 (6-22) Glucose 105 (80-110) mg/dL Calcium 8.5 (8.4-10.2) mg/dL Magnesium 1.6 (1.6-2.3) mg/dL Total Bilirubin 0.5 (0.2-1.3) mg/dL AST 68 H (14-36) IU/L ALT 35 H (<35) IU/L Alkaline Phosphatase 220 H (38-126) U/L Total Creatine Kinase 193 H (30-135) U/L Troponin I < 0.012 < 0.012 (0.01-0.034) ng/mL NT-Pro-B Natriuret Pep 2070 H (<125) pg/mL Total Protein 6.5 (6.3-8.2) g/dL Albumin 3.3 L (3.5-5.0) g/dL Globulin 3.2 (1.7-4.1) g/dL Albumin/Globulin Ratio 1.0 (1.0-2.8) Lipase 62 (23-300) U/L Imaging Data Chest x-ray: Radiologist's Impression: [address] [address] XRay Report Signed Patient: Anne Martini MR#: [id number] : 1955 Acct:[id number] Age/Sex: 69 / F Date of Service: 12/07/24 Loc: ED Accession Number: [id number] Procedure: XR chest 1V Ordering Provider: Matias Duarte D.O. PROCEDURE: XR CHEST 1V INDICATIONS: chest pain TECHNIQUE: One view of the chest was acquired. COMPARISON: [facility], , XR CHEST 1V, 11/30/2024, 15:53. FINDINGS: Surgical changes and devices: None. Lungs and pleura: Lungs are clear. No pleural effusions or pneumothorax. Mediastinum: Mediastinal contours appear normal. Heart size is normal. Bones and chest wall: No suspicious bony lesions. Overlying soft tissues appear unremarkable. IMPRESSION: No acute cardiopulmonary abnormality is seen. ECG Data Interpretation: EKG interpreted ED physician sinus 80 beats per minute QTC 461 normal axis deviation nonspecific ST changes no STEMI Repeat EKG interpreted by ED physician sinus 77 beats per minute QTC [address] changes no STEMI MDM Narrative Medical decision making narrative: 69-year-old female with a past medical history of hyperlipidemia hypertension stroke hypothyroidism presenting to the emergency department from assisted living ([facility] for substernal chest pain. States it woke her up from sleep just prior to arrival. Patient did receive aspirin prior to arrival. Patient at time of evaluation not complaining of any chest pain shortness of breath. 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 Patient had EKG initially upon arrival without any ischemic changes. Lab work imaging performed here. Patient with chest x-ray without any acute cardiopulmonary abnormalities, lab work without any leukocytosis, Chem panel unremarkable, patient noted to have chronically elevated alk-phos at baseline. As well as elevated LFTs. Patient with mildly elevated BNP at 2070 however patient not requiring any supplemental oxygen x-ray without any pleural effusion no shortness of breath. Patient with EKG and troponin negative x2, Patient with heart score 4. Therefore will require admission for stress test echo, patient understands and agrees with this plan. The patient's management plan was discussed Dr. Carlson, who agrees to admit the patient to their service and assumes care of this patient at this time. Full admission orders will be placed by the primary team. She is requesting repeat troponin, we will place order and to have patient NPO at this time given the fact that patient will require NPO status 4 hours prior to stress test. Discharge Plan Departure Patient Disposition: Admitted as Observation Clinical Impression: Chest pain Admit Date/Time: 12/07/24 04:31
--- NOTE | 2024-12-07 00:56 | DI.RAD.S_ITS ---
PROCEDURE: XR CHEST 1V INDICATIONS: chest pain TECHNIQUE: One view of the chest was acquired. COMPARISON: [facility], CR, XR CHEST 1V, 11/30/2024, 15:53. FINDINGS: Surgical changes and devices: None. Lungs and pleura: Lungs are clear. No pleural effusions or pneumothorax. Mediastinum: Mediastinal contours appear normal. Heart size is normal. Bones and chest wall: No suspicious bony lesions. Overlying soft tissues appear unremarkable. IMPRESSION: No acute cardiopulmonary abnormality is seen. Approved by: Nupur Wilson M.D.,Ph.D. on 12/07/2024 at 1:49
[2024-12-07 01:03] LABS: Basophils Absolute Auto 100 /uL (0-100); Basophils Percent Auto 0.8 % (0-2); Eosinophils Absolute Auto 100 /uL (0-450); Eosinophils Percent Auto 1.1 % (2-4); Hematocrit 30.4 % (36-46); Lymphocytes Absolute Auto 1500 /uL (1100-4500); Lymphocytes Percent Auto 18.7 % (25-40); Mean Corpuscular HGB Conc 36.2 % (30-36); Mean Corpuscular Hemoglobin 30.4 PG (26-34); Mean Corpuscular Volume 84.1 fL (80-100); Monocytes Absolute Auto 600 /uL (0-900); Monocytes Percent Auto 7.7 % (3-14); Neutrophils Absolute Auto 5700 /uL (1500-7000); Neutrophils Percent Auto 71.7 % (50-75); Platelet Count 245 X10^3/uL (150-400); Red Blood Cell Count 3.61 X10^6/uL (4.0-5.2); Red Cell Distribution Width 13.1 % (11.6-14.8); White Blood Cell Count 7.9 X10^3/uL (4.5-11.0)
[2024-12-07 01:04] LABS: INR 1.1 (0.9-1.3); Prothrombin Time 12.8 SECONDS (9.4-12.5)
[2024-12-07 01:07] LABS: PTT Partial Thromboplastin Tim 28 SECONDS (25.1-36.5)
[2024-12-07 01:08] LABS: Alanine Aminotransferase 35 IU/L (<35); Albumin 3.3 g/dL (3.5-5.0); Alkaline Phosphatase 220 U/L (38-126); Aspartate Aminotransferase 68 IU/L (14-36); BUN Creatinine Ratio 14.4 (6-22); Bilirubin Total 0.5 mg/dL (0.2-1.3); Blood Urea Nitrogen 15 mg/dL (7-17); Calcium 8.5 mg/dL (8.4-10.2); Carbon Dioxide 23 mmol/L (22-32); Chloride 105 mmol/L (98-107); Creatine Kinase 193 U/L (30-135); Estimated Glomerular Filt Rate 58 mL/min (>60); Globulin 3.2 g/dL (1.7-4.1); Glucose 105 mg/dL (80-110); HEMOLYSIS 34 (0-50); Lipase 62 U/L (23-300); Potassium 3.9 mmol/L (3.4-5.1); Sodium 135 mmol/L (137-145); Total Protein 6.5 g/dL (6.3-8.2)
[2024-12-07 01:09] LABS: Magnesium 1.6 mg/dL (1.6-2.3)
[2024-12-07 01:18] LABS: NT-proBNP (BNP-Adult 18+) 2070 pg/mL (<125)
[2024-12-07 01:20] LABS: Troponin I < 0.012 ng/mL (0.01-0.034)
[2024-12-07 01:33] LABS: Add Manual Diff / Slide Review SLIDE REVIEW
[2024-12-07 01:35] LABS: Rouleaux 2+
[2024-12-07] MEDS: OXYCODONE IR 5 MG TABLET PO ×4 (01:35→23:11)
--- NOTE | 2024-12-07 02:38 | EKG_ITS ---
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
--- NOTE | 2024-12-07 02:52 | PC.NURSE ---
Patient no longer having chest pain
--- NOTE | 2024-12-07 02:53 | PC.NURSE ---
changed patients brief and placed a pur wick to obtain a urine sample
[2024-12-07 02:59] LABS: Troponin I < 0.012 ng/mL (0.01-0.034)
[2024-12-07 05:02] LABS: Ictotest Urine Negative (Negative)
[2024-12-07 05:03] LABS: Bacteria Urine Moderate (10-30); Culture Indicated Urine Specimen Cultured; RBC Urine None Seen (0-5/HPF); Squamous Epithelial Cell Urine 1-5 /HPF (0-5/HPF); Urine Volume 10mL (spun); WBC Urine 30-100/HPF (0-5/HPF)
[2024-12-07 05:09] LABS: Troponin I < 0.012 ng/mL (0.01-0.034)
[2024-12-07] MEDS: OXYCODONE/ACETAMINOPHEN 5/325 TABLET 1 TAB PO ×2 (05:49→09:34)
--- NOTE | 2024-12-07 07:38 | DI.ECHO.S_ITS ---
[place] [place] [facility] : : [address] : : [place] : : [id number] : : Phone: [phone] Echocardiogram Report + + :Name: ESTELA PAUL Study Date: 12/07/2024 Height: 69 in : :Hospital ReadingLocation: Weight: 228 lb : : Gender: Female BSA: 2.2 m2 : :: 1955 Age: 69 yrs BP: 151/81 mmHg: :Reason For Study: CHEST PAIN : :Ordering Physician: DILLON, : :HOWARD HOYOS Performed By: Tiffanie Glass : :Referring: HOWARD CARRANZAMD : + + Interpretation Summary 1) Normal left ventricular thickness, size, wall motion, and systolic function (EF 55-60%). 2) Mildly enlarged right ventricle with normal function. 3) No significant valvular abnormalities. 4) No prior Echo available for comparison. Procedure: A two-dimensional transthoracic echocardiogram with color flow and Doppler was performed. The study quality was technically adequate. There is no prior echocardiogram noted for this patient. The patient was in sinus rhythm with heart rates between 66-75 bpm during the exam. Left Ventricle: The left ventricle is normal in size and wall thickness. The ejection fraction is estimated to be 55-60%. Left ventricular systolic function appears normal without focal wall motion abnormalities. Diastolic parameters suggest a relaxation abnormality of the left ventricle, consistent with probable normal filling pressures. Right Ventricle: The right ventricle is mildly dilated. The right ventricular systolic function is normal. Atria: The left atrial size is normal. Right atrial size is normal. There is no Doppler evidence for an interatrial shunt. Mitral Valve: The mitral valve leaflets appear to open well. There is no mitral regurgitation noted. Aortic Valve: The aortic valve is trileaflet. The aortic valve opens well. There is no aortic valve stenosis. No aortic regurgitation is present. Tricuspid Valve: The tricuspid valve leaflets are thin and pliable. There is mild tricuspid regurgitation. The right ventricular systolic pressure is estimated to be at least 29 mmHg based on an estimated right atrial pressure of 3 mm Hg. Pulmonic Valve: The pulmonic valve leaflets are thin and pliable; valve motion is normal. There is trace pulmonic regurgitation. Great Vessels: The aortic root is normal size. The dimensions of the ascending aorta are normal. The IVC is of normal diameter and collapses greater than 50% with a sniff. This suggests a low right atrial pressure of 3 mm Hg. Pericardium/ Pleura There is no pericardial effusion. There is no pleural effusion. MMode/2D Measurements & Calculations LVIDd: 4.9 cm LVOT diam: 2.0 cm LVIDs: 3.2 cm Ao root diam: 3.4 cm FS: 35.1 % asc Aorta Diam: 3.4 cm EPSS: 0.77 cm Ao Arch Diam (Prox Trans): 3.0 cm IVSd: 0.67 cm LVPWd: 0.82 cm LV castellanos. diameter/BSA (cm/m^2): 2.2 LV sys. diameter/BSA (cm/m^2): 1.5 LA A2 area: 21.4 cm2 RA long axis: 5.7 cm LA A4 area: 20.4 cm2 RA area: 19.1 cm2 LA length (vol): 5.5 cm RA vol: 54.5 ml LA vol: 68.1 ml RA : 24.9 ml/m2 LA vol index: 31.2 ml/m2 IVC diam: 1.1 cm RVD1 (basal): 4.3 cm TAPSE: 2.4 cm Doppler Measurements & Calculations Ao V2 max: 139.0 cm/sec LVOT Max Wiliam: 97.9 cm/sec Ao V2 mean: 96.7 cm/sec LV V1 max P.8 mmHg Ao max P.7 mmHg LV V1 VTI: 20.0 cm Ao mean P.2 mmHg ROHAN(I,D): 2.3 cm2 Ao V2 VTI: 27.4 cm ROHAN(V,D): 2.3 cm2 sev ratio: 0.73 ROHAN indexed to BSA (cm^2/m^2): 1.1 MV E max wiliam: 61.0 cm/sec TR max wiliam: 258.5 cm/sec MV A max wiliam: 101.2 cm/sec TR max P.7 mmHg MV E/A: 0.60 PA V2 max: 91.2 cm/sec Med Peak E' Wiliam: 8.6 cm/sec PA V2 mean: 64.1 cm/sec E/E' med: 7.1 PA mean P.9 mmHg Lat Peak E' Wiliam: 11.6 cm/sec PA pr(Accel): 26.3 mmHg E/E' lat: 5.2 E/e' average: 6.2 MV dec time: 0.24 sec SV(LVOT): 64.3 ml Reading Physician:12:35 PM
[2024-12-07 08:25] LABS: Add Manual Diff / Slide Review NO; Basophils Absolute Auto 0 /uL (0-100); Basophils Percent Auto 0.5 % (0-2); Eosinophils Absolute Auto 100 /uL (0-450); Eosinophils Percent Auto 1.3 % (2-4); Hematocrit 29.7 % (36-46); Hemoglobin 10.6 g/dL (12.0-16.0); Lymphocytes Absolute Auto 1400 /uL (1100-4500); Lymphocytes Percent Auto 19.7 % (25-40); Mean Corpuscular HGB Conc 35.6 % (30-36); Mean Corpuscular Hemoglobin 30.1 PG (26-34); Mean Corpuscular Volume 84.4 fL (80-100); Monocytes Absolute Auto 600 /uL (0-900); Monocytes Percent Auto 8.6 % (3-14); Neutrophils Absolute Auto 5100 /uL (1500-7000); Neutrophils Percent Auto 69.9 % (50-75); Platelet Count 219 X10^3/uL (150-400); Red Blood Cell Count 3.52 X10^6/uL (4.0-5.2); Red Cell Distribution Width 13.6 % (11.6-14.8); White Blood Cell Count 7.3 X10^3/uL (4.5-11.0)
[2024-12-07] MEDS: HEPARIN 5,000 UNIT/ML VIAL 5000 UNIT SUBCUT ×2 (08:37→21:32)
[2024-12-07 08:38] LABS: BUN Creatinine Ratio 13.8 (6-22); Blood Urea Nitrogen 15 mg/dL (7-17); Calcium 8.7 mg/dL (8.4-10.2); Carbon Dioxide 24 mmol/L (22-32); Chloride 105 mmol/L (98-107); Estimated Glomerular Filt Rate 55 mL/min (>60); Glucose 86 mg/dL (80-110); HEMOLYSIS < 15 (0-50); Potassium 3.8 mmol/L (3.4-5.1); Sodium 136 mmol/L (137-145)
[2024-12-07] MEDS: SODIUM CHLORIDE 0.45% 1,000 ML 75 ML IV ×2 (08:39→21:31)
[2024-12-07] MEDS: MAGNESIUM HYDROXIDE 30 ML UDC PO (11:56)
[2024-12-07] MEDS: BUSPIRONE 5 MG TABLET PO ×2 (14:21→20:05)
[2024-12-07] MEDS: GABAPENTIN 100 MG CAPSULE 300 MG PO ×2 (14:21→20:06)
--- NOTE | 2024-12-07 18:47 | PM.HP.1 ---
History of Present Illness History of Present Illness Date Patient Seen: 12/07/24 Time Patient Seen: 09:50 Chief complaint: CP Narrative: Chief complaint: Substernal chest pain with no other significant symptoms specifically no shortness a breath diaphoresis referred pain dizziness anxiety or nausea History of present illness: 69-year-old female with a past medical history of arthritis, hypertension, hypothyroidism, high dyslipidemia, CVA comes into the ED from home for evaluation of chest pain. Patient is from assisted living facility at [facility], she states that she was sleeping and the chest pain woke her up, patient did receive aspirin prior to arrival by facility. At time of evaluation patient not complaining of any chest pain denies any shortness of breath headache visual disturbances fever chills nausea vomiting abdominal pain or any other GI/ symptoms time. 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 Nonpleuritic in nature. Patient woke up in the middle of the night with midsternal chest pain does have significant GERD. In the emergency department EKG and troponins were negative echocardiogram was unremarkable Atypical chest pain will rule out myocardial ischemia with pharmacologic nuclear medicine stress test Review of systems: No headache diplopia blurred vision No shortness a breath cough No abdominal pain nausea vomiting new line no urinary symptoms The paresthesia paresis Physical exam: Elderly female in no acute distress HEENT unremarkable Neck no carotid bruits no JVD Heart rate and rhythm regular no murmurs Lungs clear from apices to bases Abdomen nondistended bowel sounds present nontender Extremities no cyanosis clubbing edema Neurologic nonfocal alert and oriented [facility] Medical History (Updated 12/07/24 @ 01:59 by Matias Duarte DO) Acquired hypothyroidism H/O: stroke Chronic hip pain, bilateral Social History household members: none Smoking Status: Never smoker Meds Home Medications and Allergies Home Medications Medication Instructions Recorded Confirmed Type atorvastatin 40 mg tablet 40 mg PO BEDTIME primary HTN 12/01/24 12/07/24 History buspirone 5 mg tablet 5 mg PO TID anxiety 12/01/24 12/07/24 History clopidogrel 75 mg tablet 75 mg PO DAILY afib 12/01/24 12/07/24 History gabapentin 100 mg capsule 300 mg PO TID NEUROPATHY/PAIN 12/01/24 12/07/24 History levothyroxine 25 mcg tablet 25 mcg PO DAILY hypothyroidism 12/01/24 12/07/24 History losartan 100 mg tablet 100 mg PO DAILY HTN 12/01/24 12/07/24 History magnesium hydroxide 400 mg/5 mL 30 ml PO DAILY PRN No BM in 3 days 12/01/24 12/07/24 History oral suspension (Milk of Magnesia) omeprazole 20 mg capsule,delayed 20 mg PO DAILY GERD 12/01/24 12/07/24 History release tizanidine 4 mg tablet 8 mg PO Q8H PRN Spasms 12/01/24 12/07/24 History trazodone 50 mg tablet 50 mg PO BEDTIME 12/01/24 12/07/24 History acetaminophen 325 mg tablet 650 mg (2 x 325 mg) PO Q6H PRN 12/04/24 12/07/24 Rx Fever/Mild Pain (1-3) #30 tabs oxycodone 5 mg tablet 5 mg PO Q3H PRN Pain, Moderate 12/04/24 12/07/24 Rx (4-6) 7 days #20 tabs venlafaxine 75 mg capsule,extended 225 mg PO DAILY Depression 12/07/24 12/07/24 History release 24 hr Allergies Allergy/AdvReac Type Severity Reaction Status Date / Time No Known Drug Allergies Allergy Verified 11/01/24 22:24 Exam Vital Signs (past 8 hours): - 12/07/24 12:00 12/07/24 16:00 Temperature 97.3 F L 98 F Pulse Rate 77 72 Respiratory Rate 12 18 Blood Pressure 117/72 136/70 Pulse Oximetry 96 95 Oxygen Delivery Method Room Air Objective Labs 12/07/24 08:16 12/07/24 08:16 Labs: Laboratory Results - last 24 hr 12/07/24 12/07/24 12/07/24 00:48 02:30 04:30 WBC 7.9 RBC 3.61 L Hgb 11.0 L Hct 30.4 L MCV 84.1 MCH 30.4 MCHC 36.2 H RDW 13.1 Plt Count 245 Neut % (Auto) 71.7 Lymph % (Auto) 18.7 L [place] % (Auto) 7.7 Eos % (Auto) 1.1 L Baso % (Auto) 0.8 Neut # (Auto) 5700 Lymph # (Auto) 1500 [place] # (Auto) 600 Eos # (Auto) 100 Baso # (Auto) 100 RBC Morphology See below Rouleaux 2+ H PT 12.8 H INR 1.1 APTT 28 Sodium 135 L Potassium 3.9 Chloride 105 Carbon Dioxide 23 BUN 15 Creatinine 1.04 Estimated GFR 58 L BUN/Creatinine Ratio 14.4 Glucose 105 Calcium 8.5 Magnesium 1.6 Total Bilirubin 0.5 AST 68 H ALT 35 H Alkaline Phosphatase 220 H Total Creatine Kinase 193 H Troponin I < 0.012 < 0.012 NT-Pro-B Natriuret Pep 2070 H Total Protein 6.5 Albumin 3.3 L Globulin 3.2 Albumin/Globulin Ratio 1.0 Lipase 62 Ur Bilirubin Confirm Negative Urine RBC None seen Urine WBC 30-100/hpf H Ur Squamous Epith Cells 1-5 /hpf Urine Bacteria Moderate (10-30) H Ur Culture Indicated? Specimen cultured Vol Urine Centrifuged 10ml (spun) 12/07/24 12/07/24 04:38 08:16 WBC 7.3 RBC 3.52 L Hgb 10.6 L Hct 29.7 L MCV 84.4 MCH 30.1 MCHC 35.6 RDW 13.6 Plt Count 219 Neut % (Auto) 69.9 Lymph % (Auto) 19.7 L [place] % (Auto) 8.6 Eos % (Auto) 1.3 L Baso % (Auto) 0.5 Neut # (Auto) 5100 Lymph # (Auto) 1400 [place] # (Auto) 600 Eos # (Auto) 100 Baso # (Auto) 0 RBC Morphology Rouleaux PT INR APTT Sodium 136 L Potassium 3.8 Chloride 105 Carbon Dioxide 24 BUN 15 Creatinine 1.09 H Estimated GFR 55 L BUN/Creatinine Ratio 13.8 Glucose 86 Calcium 8.7 Magnesium Total Bilirubin AST ALT Alkaline Phosphatase Total Creatine Kinase Troponin I < 0.012 NT-Pro-B Natriuret Pep Total Protein Albumin Globulin Albumin/Globulin Ratio Lipase Ur Bilirubin Confirm Urine RBC Urine WBC Ur Squamous Epith Cells Urine Bacteria Ur Culture Indicated? Vol Urine Centrifuged Assessment & Plan Assessment & Plan narrative: Atypical chest pain and highly suggestive of nocturnal gastroesophageal reflux however we will rule out with stress testing -cardiac monitoring -anti-reflux measures DVT prophylaxis Lovenox Full code blue I spent 55 minutes at least 50% of this time was with the patient Time-Based Coding :: I spent 55 minutes at least 50% of this time was with the patient and on the chart (including review of chart, obtaining history, exam, reviewing outside data, placing orders, documenting exam and treatment plan, and counseling patient) . Quality VTE Deep Vein Thrombosis/Pulmonary Embolism Present on Admission: No
[2024-12-07] MEDS: TIZANIDINE 4 MG TABLET 8 MG PO (20:05)
[2024-12-07] MEDS: ACETAMINOPHEN 325 MG TABLET 650 MG PO (20:06)
[2024-12-07] MEDS: TRAZODONE 50 MG TABLET PO (21:31)
[2024-12-07] MEDS: ATORVASTATIN 20 MG TABLET 40 MG PO (21:31)
[2024-12-08] VITALS: BP 136/61; PULSE 77; RESP 18; TEMP 36.2; O2SAT 96
[2024-12-08] MEDS: ACETAMINOPHEN 325 MG TABLET 650 MG PO ×3 (04:51→23:12)
[2024-12-08] MEDS: OXYCODONE IR 5 MG TABLET PO ×3 (04:52→11:12)
[2024-12-08] MEDS: LEVOTHYROXINE 25 MCG TABLET PO (05:51)
[2024-12-08] MEDS: PANTOPRAZOLE DR 20 MG TABLET PO (05:51)
[2024-12-08 08:00] VITALS: BP 158/68; PULSE 68; RESP 17; TEMP 36.6; O2SAT 96
[2024-12-08] MEDS: VENLAFAXINE ER 75 MG CAP 225 MG PO (08:13)
[2024-12-08] MEDS: LOSARTAN 50 MG TABLET 100 MG PO (08:13)
[2024-12-08] MEDS: CLOPIDOGREL 75 MG TABLET PO (08:13)
[2024-12-08] MEDS: GABAPENTIN 100 MG CAPSULE 300 MG PO ×3 (08:13→20:25)
[2024-12-08] MEDS: HEPARIN 5,000 UNIT/ML VIAL 5000 UNIT SUBCUT ×2 (08:13→20:25)
[2024-12-08] MEDS: BUSPIRONE 5 MG TABLET PO ×3 (08:13→20:25)
[2024-12-08] MEDS: SODIUM CHLORIDE 0.9% FLUSH 10 ML IV ×2 (08:20→20:26)
[2024-12-08 12:00] VITALS: BP 144/64; PULSE 82; RESP 14; TEMP 35.9; O2SAT 96
--- NOTE | 2024-12-08 13:58 | CM.DANOTE ---
Initial DCP Assessment Visit Note Reviewed EMR and team rounds for pt's medical status and updates. FLATBED DRIVER went to meet pt in the room, however she was found to be working with PT at the time of this assessment. Pt resides modified independently at [facility]. She does have a DPOA identified: Kamaljit Correa . Once she's medically cleared for d/c, [facility] will send their facility van to transport her back, likely 12/08. Payor: Francesca PCP: Dr. Ribera Pt is a 69 year-old F who presented to the ED from [facility] with complaints of chest pain that actually was strong enough to wake her up from sleep. Pt was otherwise nonsymptomatic, did not require O2, and was no longer experiencing pain once she arrived to the ED. Decision was made to admit her to [facility] for further heart monitoring, ECHO, and stress test. Stress test is currently pending results being read, but if no abnormalities, pt will return to [facility] later this afternoon. DCP will continue to monitor and assist with any further evolving needs, as well as assist in coordination of her return transport. Discharge Planning/Care Management CM Discharge Assessment Start: 12/08/24 13:56 Freq: Status: Active Protocol: Document 12/08/24 13:56 DPL (Rec: 12/08/24 13:58 DPL [id number]) Discharge Planning Assessment Assigned Gravel Wheeler KARLIE Damon Advance Directives? No Advance Directives on File Yes History Provided By Medical Record Expected Length of Stay 2 Has Patient been admitted in last 30 No days? Prior Living Arrangements Assisted Living Household Members none Type of transporation used prior to Relies on Others admit Facility Name Admitted From: [facility] Willing to Return to Facility? Yes Independent with ADL's No: modified ind w/walker or wheelchair Is patient alert and oriented? Yes Needs Assistance With Bathing,Meal Prep,Managing Medications,Home Chores / Shopping Caregiver for Another No DME Already Rented / Owned Bath Bench,Wheelchair,Elevated Toilet Seat,FWW / Walker Comment Return to [facility] Barriers to Discharge No Discharge Plan Assisted Living Facility Transportation Arrangement Facility van Referrals Initiated None needed If patient plan is SNF: Has PASSR been Yes completed? Whiteboard Updated in Patient Room with Yes name and ext. # of Gravel Wheeler Review Status In Process Please Provide Date Initial DC 12/08/24 Assessment Was Performed
[2024-12-08] MEDS: OXYCODONE IR 10 MG TABLET PO ×4 (14:07→23:12)
[2024-12-08 16:00] VITALS: BP 141/60; PULSE 79; RESP 18; TEMP 36.1; O2SAT 97
--- NOTE | 2024-12-08 17:39 | DI.NM.S_ITS ---
DATE OF SERVICE: 12/08/2024 PHARMACY PHARMACOLOGICAL PERFUSION STUDY INDICATIONS: Chest pain with underlying hypertension, hyperlipidemia, history of CVA. RADIOPHARMACEUTICAL: 27.5 millicurie technetium-99m Myoview IV was injected at stress and 12.6 millicurie technetium-99m Myoview IV was injected at rest. CARDIAC STRESS: The patient underwent IV Lexiscan perfusion study under the supervision of an attending staff using standard Lexiscan as per protocol. The patient remained hemodynamically stable. Resting blood pressure 130/80. Baseline rhythm sinus. During stress no convincing ischemic changes. The patient has baseline nonspecific ST-T changes. No significant arrhythmias. No chest pain. Had minimal dyspnea during Lexiscan infusion. RAW DATA: There is a significant large breast shadow engulfing the entire heart. There is a gut shadow encroaching the inferior border of the heart as well. The patient's weight is 228 pounds. GATED STUDY: Resting LV ejection fraction 73% and stress LV ejection fraction 76% without any obvious wall motion abnormalities. Resting end- diastolic volume 90 mL. TID ratio 0.86 which is within normal limits. Lung/heart ratio 0.28, which is within normal limits. MYOCARDIAL PERFUSION SCAN: Please note this patient does not have any prone images. Stress supine and resting supine images were compared to each other. There appears to be predominantly fixed moderate size, moderately decreased perfusion of base to mid inferior wall extending into the distal inferolateral wall without any significant reversible ischemia. The stress supine pictures appear little bit better than resting supine images. No significant reversible ischemia. CONCLUSION: 1. No obvious reversible ischemia. 2. Predominantly fixed base to mid inferior wall defect extending into the distal inferolateral wall. On raw data, there is increased subdiaphragmatic activity and gut shadow encroaching the inferior border of the heart. On top of that, the patient has large breast shadow engulfing the entire heart. The patient's weight is 228 pounds. On gated study, preserved left ventricular function without any significant wall motion abnormalities. Hence, likely dealing with tissue attenuation artifact, however, cannot rule out nontransmural DE in those segments for sure. There is no prone images. In the absence of ischemia, preserved left ventricular function, no anginal discomfort or arrhythmias, overall not a high risk myocardial perfusion scan. Correlate clinically. Findings were reported to the hospitalist team. Anne Martini - YULIANA/raymon/PRISCILLA doc#: [id number]/job#: [id number] dd: 12/08/2024 16:51:00 dt: 12/08/2024 17:27:00 DICTATING /JORGE TO: Juan Sanders MD COPIES MNE: KEVIN;
[2024-12-08 20:00] VITALS: BP 128/58; PULSE 82; RESP 18; TEMP 36.6; O2SAT 98
[2024-12-08] MEDS: TRAZODONE 50 MG TABLET PO (20:25)
[2024-12-08] MEDS: ATORVASTATIN 20 MG TABLET 40 MG PO (20:25)
[2024-12-08] MEDS: TIZANIDINE 4 MG TABLET 8 MG PO (20:28)
[2024-12-09] VITALS: BP 98/46; PULSE 77; RESP 18; TEMP 36.6; O2SAT 95
[2024-12-09] MEDS: OXYCODONE IR 10 MG TABLET PO ×2 (04:43→08:16)
[2024-12-09] MEDS: ACETAMINOPHEN 325 MG TABLET 650 MG PO (04:44)
[2024-12-09] MEDS: PANTOPRAZOLE DR 20 MG TABLET PO (04:45)
[2024-12-09] MEDS: LEVOTHYROXINE 25 MCG TABLET PO (04:45)
[2024-12-09 05:00] VITALS: BP 102/69; PULSE 89; RESP 18; TEMP 36.3; O2SAT 98
--- NOTE | 2024-12-09 07:20 | PM.PN.1 ---
Subjective Subjective Date Patient Seen: 12/08/24 Time Patient Seen: 17:00 Interval history: [address] [address] History & Physical Report Patient: Anne Martini MR#: [id number] : 1955 Acct:[id number] Age/Sex: 69 / F Admit Date: 12/07/24 Provider: Edd Joshi MD History of Present Illness History of Present Illness Date Patient Seen: 12/07/24 Time Patient Seen: 09:50 Chief complaint: CP Narrative: Chief complaint: Substernal chest pain with no other significant symptoms specifically no shortness a breath diaphoresis referred pain dizziness anxiety or nausea History of present illness: 69-year-old female with a past medical history of arthritis, hypertension, hypothyroidism, high dyslipidemia, CVA comes into the ED from home for evaluation of chest pain. Patient is from assisted living facility at [facility], she states that she was sleeping and the chest pain woke her up, patient did receive aspirin prior to arrival by facility. At time of evaluation patient not complaining of any chest pain denies any shortness of breath headache visual disturbances fever chills nausea vomiting abdominal pain or any other GI/ symptoms time. 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 Nonpleuritic in nature. Patient woke up in the middle of the night with midsternal chest pain does have significant GERD. In the emergency department EKG and troponins were negative echocardiogram was unremarkable Atypical chest pain will rule out myocardial ischemia with pharmacologic nuclear medicine stress test Review of systems: No headache diplopia blurred vision No shortness a breath cough No abdominal pain nausea vomiting new line no urinary symptoms The paresthesia paresis Physical exam: Elderly female in no acute distress HEENT unremarkable Neck no carotid bruits no JVD Heart rate and rhythm regular no murmurs Lungs clear from apices to bases Abdomen nondistended bowel sounds present nontender Extremities no cyanosis clubbing edema Neurologic nonfocal alert and oriented Assessment & Plan Atypical chest pain and highly suggestive of nocturnal gastroesophageal reflux however we will rule out with stress testing -echocardiogram and stress testing unremarkable -anti-reflux measures DVT prophylaxis Lovenox Full code blue Time-Based Coding I spent 35 minutes at least 50% of this time was with the patient Exam Vital Signs (past 8 hours): - 12/09/24 00:00 12/09/24 05:00 Temperature 97.9 F 97.4 F L Pulse Rate 77 89 Respiratory Rate 18 18 Blood Pressure 98/46 L 102/69 Pulse Oximetry 95 98 Oxygen Flow Rate 0 0 Oxygen Delivery Method Room Air Oxygen Flow Rate 0 Objective Labs 12/07/24 08:16 12/07/24 08:16 [facility] Medical History (Updated 12/07/24 @ 01:59 by Matias Duarte DO) Acquired hypothyroidism H/O: stroke Chronic hip pain, bilateral Social History household members: none Smoking Status: Never smoker Assessment & Plan Time-Based Coding :: [TOTAL MINUTES] spent with patient and on the chart (including review of chart, obtaining history, exam, reviewing outside data, placing orders, documenting exam and treatment plan, and counseling patient) on [DATE]. Quality VTE Deep Vein Thrombosis/Pulmonary Embolism Present on Admission: No
--- NOTE | 2024-12-09 07:30 | P.DS_ITS ---
History of Present Illness History of Present Illness Chief complaint: CP Narrative: Chief complaint: Substernal chest pain with no other significant symptoms specifically no shortness a breath diaphoresis referred pain dizziness anxiety or nausea History of present illness: 69-year-old female with a past medical history of arthritis, hypertension, hypothyroidism, high dyslipidemia, CVA comes into the ED from home for evaluation of chest pain. Patient is from assisted living facility at [facility], she states that she was sleeping and the chest pain woke her up, patient did receive aspirin prior to arrival by facility. At time of evaluation patient not complaining of any chest pain denies any shortness of breath headache visual disturbances fever chills nausea vomiting abdominal pain or any other GI/ symptoms time. 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 Nonpleuritic in nature. Patient woke up in the middle of the night with midsternal chest pain does have significant GERD. In the emergency department EKG and troponins were negative echocardiogram was unremarkable Atypical chest pain will rule out myocardial ischemia with pharmacologic nuclear medicine stress test Review of systems: No headache diplopia blurred vision No shortness a breath cough No abdominal pain nausea vomiting new line no urinary symptoms The paresthesia paresis Physical exam: Elderly female in no acute distress HEENT unremarkable Neck no carotid bruits no JVD Heart rate and rhythm regular no murmurs Lungs clear from apices to bases Abdomen nondistended bowel sounds present nontender Extremities no cyanosis clubbing edema Neurologic nonfocal alert and oriented Discharge Providers Provider Date of admission: 12/07/24 04:31 Discharge Date: 12/09/24 Discharge provider: Edd Joshi MD Exam Vital Signs (past 8 hours): - 12/09/24 00:00 12/09/24 05:00 Temperature 97.9 F 97.4 F L Pulse Rate 77 89 Respiratory Rate 18 18 Blood Pressure 98/46 L 102/69 Pulse Oximetry 95 98 Oxygen Flow Rate 0 0 Oxygen Delivery Method Room Air Oxygen Flow Rate 0 Objective Labs 12/07/24 08:16 12/07/24 08:16 [facility] Medical History (Updated 12/07/24 @ 01:59 by Matias Duarte DO) Acquired hypothyroidism H/O: stroke Chronic hip pain, bilateral Social History household members: none Smoking Status: Never smoker Discharge Plan Discharge Plan Patient Disposition: Home Discharge orders & Medications Prescriptions: Continued venlafaxine 75 mg capsule,extended release 24hr 225 mg PO DAILY buspirone 5 mg tablet 5 mg PO TID Patient Comments: [NO ORIGINAL SIG] magnesium hydroxide [Milk of Magnesia] 400 mg/5 mL suspension 30 ml PO DAILY PRN (Reason: No BM in 3 days) gabapentin 100 mg capsule 300 mg PO TID Patient Comments: [NO ORIGINAL SIG] losartan 100 mg tablet 100 mg PO DAILY clopidogrel 75 mg tablet 75 mg PO DAILY omeprazole 20 mg capsule,delayed release(DR/EC) 20 mg PO DAILY levothyroxine 25 mcg tablet 25 mcg PO DAILY trazodone 50 mg tablet 50 mg PO BEDTIME atorvastatin 40 mg tablet 40 mg PO BEDTIME tizanidine 4 mg tablet 8 mg PO Q8H PRN (Reason: Spasms) Patient Comments: [NO ORIGINAL SIG] acetaminophen 325 mg Tablet 650 mg PO Q6H PRN (Reason: Fever/Mild Pain (1-3)) Qty: 30 0RF oxycodone 5 mg Tablet 5 mg PO Q3H PRN (Reason: Pain, Moderate (4-6)) 7 Days Qty: 20 0RF Visit Report/Discharge Packet Stand Alone Forms: Patient Portal/API, Stroke Signs & Symptoms Discharge Data Attending Provider: Avis Carlson Admit Date/Time: 12/07/24 04:31 Quality VTE Deep Vein Thrombosis/Pulmonary Embolism Present on Admission: No
--- NOTE | 2024-12-09 07:32 | PM.DS.1 ---
History of Present Illness History of Present Illness Date Patient Seen: 12/09/24 Time Patient Seen: 07:32 Date of Onset of Symptoms: 12/06/24 Chief complaint: CP Narrative: Admission diagnosis: Chest pain Discharge diagnosis: Chest pain with unremarkable echocardiogram and nonacute nuclear medicine stress test suspect gastroesophageal reflux Chief complaint: Substernal chest pain with no other significant symptoms specifically no shortness a breath diaphoresis referred pain dizziness anxiety or nausea History of present illness: 69-year-old female with a past medical history of arthritis, hypertension, hypothyroidism, high dyslipidemia, CVA comes into the ED from home for evaluation of chest pain. Patient is from assisted living facility at [facility], she states that she was sleeping and the chest pain woke her up, patient did receive aspirin prior to arrival by facility. At time of evaluation patient not complaining of any chest pain denies any shortness of breath headache visual disturbances fever chills nausea vomiting abdominal pain or any other GI/ symptoms time. 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 Nonpleuritic in nature. Patient woke up in the middle of the night with midsternal chest pain does have significant GERD. In the emergency department EKG and troponins were negative echocardiogram was unremarkable Atypical chest pain will rule out myocardial ischemia with pharmacologic nuclear medicine stress test Review of systems: No headache diplopia blurred vision No shortness a breath cough No abdominal pain nausea vomiting new line no urinary symptoms The paresthesia paresis Physical exam: Elderly female in no acute distress HEENT unremarkable Neck no carotid bruits no JVD Heart rate and rhythm regular no murmurs Lungs clear from apices to bases Abdomen nondistended bowel sounds present nontender Extremities no cyanosis clubbing edema Neurologic nonfocal alert and oriented Assessment & Plan Atypical chest pain and highly suggestive of nocturnal gastroesophageal reflux however we will rule out with stress testing -echocardiogram and stress testing unremarkable -anti-reflux measures -discharged home DVT prophylaxis Lovenox Full code blue Time-Based Coding I spent 35 minutes at least 50% of this time was with the patient Discharge Providers Provider Date of admission: 12/07/24 04:31 Discharge Date: 12/09/24 Discharge provider: Edd Joshi MD Exam Vital Signs (past 8 hours): - 12/09/24 00:00 12/09/24 05:00 Temperature 97.9 F 97.4 F L Pulse Rate 77 89 Respiratory Rate 18 18 Blood Pressure 98/46 L 102/69 Pulse Oximetry 95 98 Oxygen Flow Rate 0 0 Oxygen Delivery Method Room Air Oxygen Flow Rate 0 Objective Labs 12/07/24 08:16 12/07/24 08:16 PFSH Medical History (Updated 12/07/24 @ 01:59 by Matias Duarte DO) Acquired hypothyroidism H/O: stroke Chronic hip pain, bilateral Social History household members: none Smoking Status: Never smoker Discharge Plan Discharge Plan Patient Disposition: Home Discharge orders & Medications Prescriptions: Continued venlafaxine 75 mg capsule,extended release 24hr 225 mg PO DAILY buspirone 5 mg tablet 5 mg PO TID Patient Comments: [NO ORIGINAL SIG] magnesium hydroxide [Milk of Magnesia] 400 mg/5 mL suspension 30 ml PO DAILY PRN (Reason: No BM in 3 days) gabapentin 100 mg capsule 300 mg PO TID Patient Comments: [NO ORIGINAL SIG] losartan 100 mg tablet 100 mg PO DAILY clopidogrel 75 mg tablet 75 mg PO DAILY omeprazole 20 mg capsule,delayed release(DR/EC) 20 mg PO DAILY levothyroxine 25 mcg tablet 25 mcg PO DAILY trazodone 50 mg tablet 50 mg PO BEDTIME atorvastatin 40 mg tablet 40 mg PO BEDTIME tizanidine 4 mg tablet 8 mg PO Q8H PRN (Reason: Spasms) Patient Comments: [NO ORIGINAL SIG] acetaminophen 325 mg Tablet 650 mg PO Q6H PRN (Reason: Fever/Mild Pain (1-3)) Qty: 30 0RF oxycodone 5 mg Tablet 5 mg PO Q3H PRN (Reason: Pain, Moderate (4-6)) 7 Days Qty: 20 0RF Visit Report/Discharge Packet Stand Alone Forms: Patient Portal/API, Stroke Signs & Symptoms Discharge Data Attending Provider: Avis Carlson Admit Date/Time: 12/07/24 04:31 Quality VTE Deep Vein Thrombosis/Pulmonary Embolism Present on Admission: No
[2024-12-09 08:14] VITALS: BP 102/69; PULSE 89
[2024-12-09] MEDS: LOSARTAN 50 MG TABLET 100 MG PO (08:14)
[2024-12-09] MEDS: VENLAFAXINE ER 75 MG CAP 225 MG PO (08:15)
[2024-12-09] MEDS: HEPARIN 5,000 UNIT/ML VIAL 5000 UNIT SUBCUT (08:16)
[2024-12-09] MEDS: CLOPIDOGREL 75 MG TABLET PO (08:17)
[2024-12-09] MEDS: BUSPIRONE 5 MG TABLET PO (08:17)
[2024-12-09] MEDS: GABAPENTIN 100 MG CAPSULE 300 MG PO (08:18)
[2024-12-09] MEDS: SODIUM CHLORIDE 0.9% FLUSH 10 ML IV (08:18)
--- NOTE | 2024-12-09 09:12 | CM.DPNOTE ---
DCP Discharge SNF Per MD, pt's Echo results returned and pt stable for discharge back to SNF today. SW spoke to admissions at [facility] and they confirm they can still accept pt back today with transport around [id number] and no PASRR needed. SW met bedside with pt and RN and updated on above and pt remains agreeable to d/c plan and provided number to call report to RN. 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 Plan: Patient to d/c back to [facility] today via facility van around 0930 before safe return to [facility]. KARLIE Garcia
[2024-12-09 10:12] VITALS: BP 109/52; PULSE 91; RESP 16
== END 2024-12-09 10:15 ==
LOC: ED 03:09 → AC 04:32
PROVIDERS: Admitting Provider Hospitalist; Emergency Provider Student in an Organized Health Care Education/Training Program; Referring Provider Student in an Organized Health Care Education/Training Program; Visit Provider Hospitalist
DX: R07.9 Chest pain, unspecified (principal); I10 Essential (primary) hypertension; E78.5 Hyperlipidemia, unspecified; E03.9 Hypothyroidism, unspecified; Z86.73 Personal history of transient ischemic attack (TIA), and cerebral infarction without residual deficits; K21.9 Gastro-esophageal reflux disease without esophagitis
CPT/HCPCS: 71045; 78452; 80048; 80053; 81003; 81015; 82550; 83690; 83735; 83880; 84484; 85025; 85610; 85730; 87077; 87086; 87186; 93005; 93010; 93017; 93306; 96360; 96361; 96372; 99283; 99284; G0378; A9502; J1644; J2785; J7050

== ENCOUNTER 2025-01-12 07:20 | Emergency (ER) | payer MEDICARE, MEDICAID, SELFPAY ==
[2024-12-07 05:32] VITALS: BMI 33.6
[2025-01-12] VITALS (7 sets, daily range): BP systolic 117–145; BP diastolic 70–78; PULSE 82–107; RESP 14–16; TEMP 36.7–36.9; O2SAT 94–97; BMI 29.9
--- NOTE | 2025-01-12 08:04 | ED.BACK ---
HPI - Back Pain/Injury General Chief Complaint: Back Pain/Injury Stated Complaint: back pain Time Seen by Provider: 01/12/25 07:49 Source: patient History of Present Illness HPI Narrative: Patient brought here from [facility] across the street. Complains 2 weeks of constant mid back pain and low back pain. Does not radiate to the legs. No numbness tingling or weakness of the legs or feet. No saddle paresthesia. No changes in urination. No known injury or trauma. No prior history of back surgery or MRI or therapy. However, patient states her joints have been hurting more since her primary care has been weaning her off of oxycodone for the past 2 weeks. Patient recalls reaching for something 2 weeks ago had pain since then. Related Data Home Medications Medication Instructions Recorded Confirmed atorvastatin 40 mg tablet 40 mg PO BEDTIME primary HTN 12/01/24 12/07/24 buspirone 5 mg tablet 5 mg PO TID anxiety 12/01/24 12/07/24 clopidogrel 75 mg tablet 75 mg PO DAILY afib 12/01/24 12/07/24 gabapentin 100 mg capsule 300 mg PO TID NEUROPATHY/PAIN 12/01/24 12/07/24 levothyroxine 25 mcg tablet 25 mcg PO DAILY hypothyroidism 12/01/24 12/07/24 losartan 100 mg tablet 100 mg PO DAILY HTN 12/01/24 12/07/24 magnesium hydroxide 400 mg/5 mL 30 ml PO DAILY PRN No BM in 3 days 12/01/24 12/07/24 oral suspension (Milk of Magnesia) omeprazole 20 mg capsule,delayed 20 mg PO DAILY GERD 12/01/24 12/07/24 release tizanidine 4 mg tablet 8 mg PO Q8H PRN Spasms 12/01/24 12/07/24 trazodone 50 mg tablet 50 mg PO BEDTIME 12/01/24 12/07/24 venlafaxine 75 mg capsule,extended 225 mg PO DAILY Depression 12/07/24 12/07/24 release 24 hr Previous Rx's Medication Instructions Recorded acetaminophen 325 mg tablet 650 mg (2 x 325 mg) PO Q6H PRN 12/04/24 Fever/Mild Pain (1-3) #30 tabs baclofen 20 mg tablet 20 mg PO TID PRN pain (scale score 01/12/25 4-6) #20 tabs Allergies Allergy/AdvReac Type Severity Reaction Status Date / Time No Known Drug Allergies Allergy Verified 01/12/25 07:49 Review of Systems Review of Systems Narrative: GENERAL: Negative chills, fatigue, malaise, fever, sweats. HEENT: Negative sinus pain, ear pain, sore throat RESPIRATORY: Negative dyspnea, cough CARDIOVASCULAR: Negative chest pain, palpitations GASTROINTESTINAL: Negative vomiting, nausea, abdominal pain : Negative dysuria, frequency, hematuria MUSCULOSKELETAL: Positive back, muscle or bony pain SKIN: Negative rash, skin lesions NEUROLOGIC: Negative weakness, numbness ROS Unobtainable: All systems reviewed & are unremarkable except as noted in HPI and below Patient History Medical History (Updated 01/13/25 @ 11:31 by Ra Betts MD) Acquired hypothyroidism H/O: stroke Chronic hip pain, bilateral Social History household members: none Smoking Status: Never smoker Exam Narrative Exam Narrative: GENERAL: in no distress, not toxic not dyspneic HEAD: Normocephalic. EYES: Pupils equal round CARDIOVASCULAR: Regular rate and rhythm RESPIRATORY: Clear to auscultation. Breath sounds equal bilaterally. No wheezes, rales, or rhonchi. GASTROINTESTINAL: Abdomen soft, non-tender EXTREMITIES: No gross deformities. BACK: No flank tenderness. There is mild midline tenderness at the junction of thoracic spine and lumbar spine. Around T12 L1-L2. No step-off. No rash. Increased pain with leaning forward and back and trying to twist left and right. Also pain with side bending left and right. No pain with bilateral straight leg raises. NEURO: AOx4. Clear speech, light touch intact to bilateral feet and legs. Strong bilateral patellar reflexes. Strong bilateral ankle flexion and extension. SKIN: Warm and dry PSYCH: Not anxious, is cooperative Initial Vital Signs Initial Vital Signs: Vital Signs Pulse Rate 107 H 01/12/25 07:39 Blood Pressure 145/70 H 01/12/25 07:39 Pulse Oximetry 94 01/12/25 07:39 Course Orders Ordered: Discontinued Medications Ketorolac Tromethamine (Ketorolac 30 Mg/Ml Vial) 30 mg IM NOW ONE Stop: 01/12/25 08:04 Last Admin: 01/12/25 08:07 Dose: 30 mg Documented By: GEO Vital Signs Vital signs: Vital Signs - 8 hr 01/12/25 07:42 Temperature 98.4 F Pulse Rate 95 H Respiratory Rate 14 Blood Pressure 145/70 H Pulse Oximetry 94 Oxygen Delivery Method Room Air MDM - Back Pain/Injury Imaging Data Extremity x-ray #1: Radiologist's Impression: [address] [address] XRay Report Signed Patient: Anne Martini MR#: [id number] : 1955 Acct:[id number] Age/Sex: 69 / F Date of Service: 01/12/25 Loc: ED Accession Number: [id number] Procedure: XR thoracic spine 3V Ordering Provider: Ra Betts MD PROCEDURE: XR THORACIC SPINE 3V INDICATIONS: Pain TECHNIQUE: 3 views of the thoracic spine were acquired. COMPARISON: None. FINDINGS: Diffuse osseous demineralization. Twelve thoracic rib-bearing vertebrae. The vertebral body heights are preserved. Mildly exaggerated thoracic kyphosis. Mild multilevel intervertebral disc height loss. Anterior longitudinal ligament calcification at the midthoracic spine. Right upper quadrant surgical clips. Visualized chest and abdomen otherwise within normal limits. IMPRESSION: No acute radiographic abnormality of the thoracic spine. Dictated by: Nathaniel Neff M.D. on 01/12/2025 at 9:00 Approved by: Nathaniel Neff M.D. on 01/12/2025 at 9:01 Extremity x-ray #2: Radiologist's Impression: [address] [address] XRay Report Signed Patient: Anne Martini MR#: [id number] : 1955 Acct:[id number] Age/Sex: 69 / F Date of Service: 01/12/25 Loc: ED Accession Number: [id number] Procedure: XR lumbar spine 2-3V Ordering Provider: Ra Betts MD PROCEDURE: XR LUMBAR SPINE 2-3V INDICATIONS: Pain TECHNIQUE: 3 views of the lumbar spine were acquired. COMPARISON: None. FINDINGS: Diffuse osseous demineralization. Five non rib-bearing lumbar vertebrae. Age-indeterminate L1 superior endplate compression fracture with up to 10% height loss. No retropulsion. The other vertebral body heights are preserved. Mild intervertebral disc height loss at L4-L5. The other intervertebral disc heights are preserved. Multilevel hypertrophy of the spinous processes with moderate-severe facet arthropathy. Mild bilateral sacroiliac osteoarthritis, more conspicuous on the left side. Faint aortic vascular calcifications. IMPRESSION: 1. Age-indeterminate L1 superior endplate compression fracture with up to 10% height loss. 2. Multilevel lumbar osteoarthrosis with hypertrophy of the spinous processes and facet arthropathy, which can be seen with Baastrup's disease. Dictated by: Nathaniel Neff M.D. on 01/12/2025 at 8:58 Approved by: Nathaniel Neff M.D. on 01/12/2025 at 9:00 [facility] Narrative Medical decision making narrative: Patient brought here from [facility] across the street. Complains 2 weeks of constant mid back pain and low back pain. Does not radiate to the legs. No numbness tingling or weakness of the legs or feet. No saddle paresthesia. No changes in urination. No known injury or trauma. No prior history of back surgery or MRI or therapy. However, patient states her joints have been hurting more since her primary care has been weaning her off of oxycodone for the past 2 weeks., patient does recall reaching for something 2 weeks ago and having back pain since then. After history and exam, no blood work indicated this time. No urinary complaints. X-ray of thoracic and lumbar spine ordered. No CT or MRI indicated this time. No trauma and no neuro deficits. [facility] Medical records reviewed: No recent visit for this complaint Differential considered: Includes but not limited to compression fracture arthritis back strain Imaging studies independently reviewed: X-ray thoracic spine and lumbar spine, there is age indeterminate L1 superior endplate compression fracture 10% height loss. Consultations: None indicated this time. Re-evaluations: 9:43 a.m. Updated patient results. Pain is controlled. Prescription for baclofen will be provided as patient is being weaned off of oxycodone from her primary care. Age of the L1 compression fracture uncertain at this time. However will need outpatient MRI physical therapy and spine referral by primary care. She agrees with this. Pain is controlled. Precautions reviewed. She desires discharge home. No neuro deficits. Discussion: Appropriate for discharge home. No neuro deficits. Exam is reassuring. Appropriate for outpatient follow up with primary care for referral for physical therapy and ortho spine. Return precautions reviewed. Patient desires discharge home. Diagnosis: L1 compression fracture Discharge Plan Departure Patient Disposition: Home Clinical Impression: Compression fracture Instructions: Vertebral Compression Fracture Activity Restrictions/Additional Instructions: The x-rays do show compression fracture of lumbar vertebrae 1. At the endplate, however it is uncertain when this occurred whether recent or old. You will need to follow up with the family doctor for referral for physical therapy and spine specialty services for evaluation and treatment. Prescription for baclofen will be provided for you. Return if worse if any questions or concerns, you may need to schedule outpatient MRI of your back. With your family doctor Prescriptions: New baclofen 20 mg tablet 20 mg PO TID PRN (Reason: pain (scale score 4-6)) Qty: 20 0RF No Action venlafaxine 75 mg capsule,extended release 24hr 225 mg PO DAILY buspirone 5 mg tablet 5 mg PO TID Patient Comments: [NO ORIGINAL SIG] magnesium hydroxide [Milk of Magnesia] 400 mg/5 mL suspension 30 ml PO DAILY PRN (Reason: No BM in 3 days) gabapentin 100 mg capsule 300 mg PO TID Patient Comments: [NO ORIGINAL SIG] losartan 100 mg tablet 100 mg PO DAILY clopidogrel 75 mg tablet 75 mg PO DAILY omeprazole 20 mg capsule,delayed release(DR/EC) 20 mg PO DAILY levothyroxine 25 mcg tablet 25 mcg PO DAILY trazodone 50 mg tablet 50 mg PO BEDTIME atorvastatin 40 mg tablet 40 mg PO BEDTIME tizanidine 4 mg tablet 8 mg PO Q8H PRN (Reason: Spasms) Patient Comments: [NO ORIGINAL SIG] acetaminophen 325 mg Tablet 650 mg PO Q6H PRN (Reason: Fever/Mild Pain (1-3)) Qty: 30 0RF Stand Alone Forms: Patient Portal/API/Survey
[2025-01-12] MEDS: KETOROLAC 30 MG/ML VIAL IM (08:07)
== END 2025-01-12 10:00 | disposition home or self-care (01) ==
PROVIDERS: Emergency Provider Emergency Medicine
DX: S32.019A Unspecified fracture of first lumbar vertebra, initial encounter for closed fracture (principal)
CPT/HCPCS: 72072; 72100; 96372; 99283; J1885

== ENCOUNTER 2025-01-13 08:53 | Inpatient (IN) | payer MEDICARE, MEDICAID, SELFPAY ==
[2024-12-07 05:32] VITALS: BMI 33.6
[2025-01-13] VITALS (11 sets, daily range): BP systolic 123–170; BP diastolic 59–88; PULSE 82–97; RESP 12–21; TEMP 36.2–37.1; O2SAT 94–98; BMI 32.1; BMI 30.9
--- NOTE | 2025-01-13 08:59 | EKG_ITS ---
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
--- NOTE | 2025-01-13 09:06 | ED_ITS ---
HPI - Altered Mental Status General Chief Complaint: Neuro Symptoms/Deficit Stated Complaint: Dizziness Time Seen by Provider: 01/13/25 08:58 History of Present Illness HPI narrative: Blood sugar 103 by EMS. Patient brought in by ambulance from [facility] across the street. For complaints of dizziness and confusion/altered mental status. Patient seen here yesterday by me for back pain. She does recall being here for that. She recalls going to bed last night without any difficulties. However this morning she awoke with symptoms of confusion. She does have history of stroke in the past. Patient yesterday had no complaints of any fever chills urinary complaints. Continues today without any of these complaints either. No fall or injury. Related Data Home Medications Medication Instructions Recorded Confirmed atorvastatin 40 mg tablet 40 mg PO BEDTIME primary HTN 12/01/24 01/13/25 buspirone 5 mg tablet 5 mg PO TID anxiety 12/01/24 01/13/25 clopidogrel 75 mg tablet 75 mg PO DAILY afib 12/01/24 01/13/25 gabapentin 100 mg capsule 300 mg PO TID NEUROPATHY/PAIN 12/01/24 01/13/25 levothyroxine 25 mcg tablet 25 mcg PO DAILY hypothyroidism 12/01/24 01/13/25 losartan 100 mg tablet 100 mg PO DAILY HTN 12/01/24 01/13/25 magnesium hydroxide 400 mg/5 mL 30 ml PO DAILY PRN No BM in 3 days 12/01/24 01/13/25 oral suspension (Milk of Magnesia) omeprazole 20 mg capsule,delayed 20 mg PO DAILY GERD 12/01/24 01/13/25 release tizanidine 4 mg tablet 8 mg PO Q8H PRN Spasms 12/01/24 01/13/25 trazodone 50 mg tablet 50 mg PO BEDTIME 12/01/24 01/13/25 venlafaxine 75 mg capsule,extended 225 mg PO DAILY Depression 12/07/24 01/13/25 release 24 hr ondansetron 4 mg disintegrating 2 mg PO Q6-8H PRN Nausea And 01/13/25 01/13/25 tablet Vomiting pregabalin 50 mg capsule 50 mg PO 3XD 01/13/25 01/13/25 Previous Rx's Medication Instructions Recorded acetaminophen 325 mg tablet 650 mg (2 x 325 mg) PO Q6H PRN 12/04/24 Fever/Mild Pain (1-3) #30 tabs baclofen 20 mg tablet 20 mg PO TID PRN pain (scale score 01/12/25 4-6) #20 tabs Allergies Allergy/AdvReac Type Severity Reaction Status Date / Time No Known Drug Allergies Allergy Verified 01/12/25 07:49 Review of Systems Review of Systems Narrative: GENERAL: Negative chills, fatigue, malaise, fever, sweats. HEENT: Negative sinus pain, ear pain, sore throat RESPIRATORY: Negative dyspnea, cough CARDIOVASCULAR: Negative chest pain, palpitations GASTROINTESTINAL: Negative vomiting, nausea, abdominal pain : Negative dysuria, frequency, hematuria MUSCULOSKELETAL: Negative muscle or bony pain SKIN: Negative rash, skin lesions NEUROLOGIC: Negative weakness, numbness, positive confusion ROS Unobtainable: All systems reviewed & are unremarkable except as noted in HPI and below Patient History Medical History Acquired hypothyroidism H/O: stroke Chronic hip pain, bilateral Social History household members: none Smoking Status: Never smoker alcohol intake: current Exam Narrative Exam Narrative: GENERAL: in no distress, not toxic not dyspneic HEAD: Normocephalic. EYES: Pupils equal round ENT: Mucous membranes moist. NECK: Trachea midline. No carotid bruit CARDIOVASCULAR: Regular rate and rhythm RESPIRATORY: Clear to auscultation. Breath sounds equal bilaterally. No wheezes, rales, or rhonchi. GASTROINTESTINAL: Abdomen soft, non-tender EXTREMITIES: No gross deformities. BACK: No flank tenderness. NEURO: AOx3. Clear speech, no facial droop light touch intact bilateral face hands legs and feet. Negative pronator drift. Elevate each leg without drift. Fast exam is negative. SKIN: Warm and dry PSYCH: Not anxious, is cooperative Initial Vital Signs Initial Vital Signs: Vital Signs Temperature 98.7 F 01/13/25 09:00 Pulse Rate 95 H 01/13/25 09:00 Respiratory Rate 12 01/13/25 09:00 Blood Pressure 143/67 H 01/13/25 09:00 Pulse Oximetry 94 01/13/25 09:00 Oxygen Delivery Method Room Air 01/13/25 09:00 Course Orders Ordered: Acetaminophen (Acetaminophen 325 Mg Tablet) 650 mg PO Q6H PRN PRN Reason: Fever/Mild Pain (1-3) Last Admin: 01/18/25 02:19 Dose: 650 mg Documented By: Admin: 01/17/25 20:12 Dose: 650 mg Documented By: Admin: 01/17/25 08:51 Dose: 650 mg Documented By: Admin: 01/16/25 21:28 Dose: 650 mg Documented By: Admin: 01/16/25 11:44 Dose: 650 mg Documented By: Admin: 01/16/25 05:46 Dose: 650 mg Documented By: Admin: 01/15/25 23:35 Dose: 650 mg Documented By: MM Atorvastatin Calcium (Atorvastatin 20 Mg Tablet) 40 mg PO BEDTIME COUNTS INCLUDE 234 BEDS AT [facility] Last Admin: 01/17/25 20:12 Dose: 40 mg Documented By: Admin: 01/16/25 21:01 Dose: 40 mg Documented By: Admin: 01/15/25 22:27 Dose: Not Given Documented By: Admin: 01/14/25 20:40 Dose: 40 mg Documented By: Baclofen (Baclofen 10 Mg Tablet) 20 mg PO TID PRN PRN Reason: pain (scale score 4-6) Last Admin: 01/17/25 10:52 Dose: 20 mg Documented By: Admin: 01/14/25 20:40 Dose: 20 mg Documented By: Buspirone HCl (Buspirone 5 Mg Tablet) 5 mg PO TID COUNTS INCLUDE 234 BEDS AT [facility] Last Admin: 01/17/25 20:12 Dose: 5 mg Documented By: Admin: 01/17/25 15:19 Dose: 5 mg Documented By: Admin: 01/17/25 08:50 Dose: 5 mg Documented By: Admin: 01/16/25 21:02 Dose: 5 mg Documented By: Admin: 01/16/25 15:15 Dose: 5 mg Documented By: Admin: 01/16/25 09:20 Dose: 5 mg Documented By: REYNA Clopidogrel Bisulfate (Clopidogrel 75 Mg Tablet) 75 mg PO DAILY COUNTS INCLUDE 234 BEDS AT THE [facility] Last Admin: 01/17/25 08:51 Dose: 75 mg Documented By: Admin: 01/16/25 08:01 Dose: 75 mg Documented By: Admin: 01/15/25 10:02 Dose: 75 mg Documented By: REYNA Heparin Sodium (Porcine) (Heparin 5,000 Unit/Ml Vial) 5,000 unit SUBCUT BID VIVEK Last Admin: 01/17/25 20:13 Dose: 5,000 unit Documented By: Admin: 01/17/25 08:52 Dose: 5,000 unit Documented By: Admin: 01/16/25 21:02 Dose: 5,000 unit Documented By: Admin: 01/16/25 08:02 Dose: 5,000 unit Documented By: Admin: 01/15/25 22:20 Dose: 5,000 unit Documented By: Admin: 01/15/25 10:02 Dose: 5,000 unit Documented By: Admin: 01/14/25 20:39 Dose: 5,000 unit Documented By: Admin: 01/14/25 09:18 Dose: 5,000 unit Documented By: Admin: 01/13/25 20:28 Dose: 5,000 unit Documented By: HOLLI Sodium Chloride (Normal Saline 0.9%) 1,000 mls @ 70 mls/hr IV CONT COUNTS INCLUDE 234 BEDS AT THE [facility] Last Admin: 01/18/25 05:00 Dose: 70 mls/hr Documented By: Infusion: 01/18/25 05:00 Dose: Infused Documented By: Admin: 01/17/25 15:19 Dose: 70 mls/hr Documented By: Infusion: 01/17/25 15:15 Dose: Infused Documented By: Admin: 01/17/25 00:50 Dose: 70 mls/hr Documented By: Infusion: 01/17/25 00:50 Dose: Infused Documented By: Admin: 01/16/25 11:11 Dose: 70 mls/hr Documented By: Infusion: 01/16/25 11:03 Dose: Infused Documented By: Admin: 01/15/25 20:45 Dose: 70 mls/hr Documented By: Infusion: 01/15/25 17:55 Dose: Infused Documented By: Infusion: 01/15/25 17:30 Dose: 70 mls/hr Documented By: Admin: 01/15/25 07:47 Dose: 100 mls/hr Documented By: Infusion: 01/14/25 17:28 Dose: Infused Documented By: Admin: 01/14/25 07:28 Dose: 100 mls/hr Documented By: Infusion: 01/14/25 07:28 Dose: Infused Documented By: Admin: 01/13/25 22:15 Dose: 100 mls/hr Documented By: Infusion: 01/13/25 22:15 Dose: Infused Documented By: Admin: 01/13/25 14:33 Dose: 100 mls/hr Documented By: TATIANA Ceftriaxone Sodium 1,000 mg/ (Sodium Chloride) 100 mls @ 200 mls/hr IV Q24H COUNTS INCLUDE 234 BEDS AT THE [facility] Stop: 01/18/25 10:29 Last Infusion: 01/17/25 10:31 Dose: Infused Documented By: Admin: 01/17/25 09:38 Dose: 200 mls/hr Documented By: Infusion: 01/16/25 09:50 Dose: Infused Documented By: Admin: 01/16/25 09:20 Dose: 200 mls/hr Documented By: Infusion: 01/15/25 10:30 Dose: Infused Documented By: Admin: 01/15/25 09:57 Dose: 200 mls/hr Documented By: REYNA Levothyroxine Sodium (Levothyroxine 25 Mcg Tablet) 25 mcg PO DAILY COUNTS INCLUDE 234 BEDS AT [facility] Last Admin: 01/17/25 08:51 Dose: 25 mcg Documented By: Admin: 01/16/25 08:02 Dose: 25 mcg Documented By: Admin: 01/15/25 10:15 Dose: 25 mcg Documented By: REYNA Magnesium Hydroxide (Magnesium Hydroxide 30 Ml Udc) 30 ml PO DAILY PRN PRN Reason: No BM in 3 days Naloxone HCl (Naloxone 0.4 Mg/Ml Vial) 0.2 mg IV Q2MIN PRN PRN Reason: Opiate Reversal Last Admin: 01/15/25 16:38 Dose: 0.2 mg Documented By: CARMEN Ondansetron HCl (Ondansetron 4 Mg Odt) 4 mg SL Q6HR PRN PRN Reason: Nausea Ondansetron HCl (Ondansetron 4 Mg/2 Ml Inj) 4 mg IV Q6HR PRN PRN Reason: Nausea And Vomiting Last Admin: 01/15/25 12:55 Dose: 4 mg Documented By: REYNA Pantoprazole Sodium (Pantoprazole Dr 20 Mg Tablet) 20 mg PO 0700 COUNTS INCLUDE 234 BEDS AT [facility] Last Admin: 01/18/25 06:03 Dose: 20 mg Documented By: Admin: 01/17/25 05:58 Dose: 20 mg Documented By: Admin: 01/16/25 05:47 Dose: 20 mg Documented By: Admin: 01/15/25 06:18 Dose: 20 mg Documented By: MS Pregabalin (Pregabalin 50 Mg Capsule) 50 mg PO TID COUNTS INCLUDE 234 BEDS AT [facility] Last Admin: 01/17/25 20:12 Dose: 50 mg Documented By: Admin: 01/17/25 15:19 Dose: 50 mg Documented By: Admin: 01/17/25 08:51 Dose: 50 mg Documented By: Admin: 01/16/25 21:02 Dose: 50 mg Documented By: Admin: 01/16/25 15:15 Dose: 50 mg Documented By: Admin: 01/16/25 08:02 Dose: 50 mg Documented By: Admin: 01/15/25 22:27 Dose: Not Given Documented By: Admin: 01/15/25 16:45 Dose: 50 mg Documented By: Admin: 01/15/25 10:02 Dose: 50 mg Documented By: Admin: 01/14/25 20:41 Dose: 50 mg Documented By: MS Sennosides (Sennosides 8.6 Mg Tablet) 8.6 mg PO BID COUNTS INCLUDE 234 BEDS AT [facility] Last Admin: 01/17/25 20:12 Dose: 8.6 mg Documented By: Admin: 01/17/25 08:51 Dose: 8.6 mg Documented By: Admin: 01/16/25 21:02 Dose: 8.6 mg Documented By: Admin: 01/16/25 08:02 Dose: 8.6 mg Documented By: Admin: 01/15/25 22:27 Dose: Not Given Documented By: Admin: 01/15/25 10:02 Dose: 8.6 mg Documented By: Admin: 01/14/25 20:41 Dose: 8.6 mg Documented By: MS Tizanidine HCl (Tizanidine 4 Mg Tablet) 8 mg PO Q8H PRN PRN Reason: Spasms Last Admin: 01/17/25 22:43 Dose: 8 mg Documented By: Admin: 01/16/25 22:12 Dose: 8 mg Documented By: Admin: 01/14/25 20:40 Dose: 8 mg Documented By: Trazodone HCl (Trazodone 50 Mg Tablet) 50 mg PO BEDTIME COUNTS INCLUDE 234 BEDS AT [facility] Last Admin: 01/17/25 20:12 Dose: 50 mg Documented By: Admin: 01/16/25 21:02 Dose: 50 mg Documented By: Admin: 01/15/25 22:27 Dose: Not Given Documented By: Admin: 01/14/25 20:40 Dose: 50 mg Documented By: Venlafaxine HCl (Venlafaxine Er 75 Mg Cap) 225 mg PO DAILY COUNTS INCLUDE 234 BEDS AT [facility] Last Admin: 01/17/25 08:50 Dose: 225 mg Documented By: Admin: 01/16/25 08:02 Dose: 225 mg Documented By: Admin: 01/15/25 09:58 Dose: 225 mg Documented By: REYNA Vitamin D (Cholecalciferol (Vitamin D3) 1,000 Unit Tablet) 2,000 unit PO DAILY COUNTS INCLUDE 234 BEDS AT [facility] Last Admin: 01/17/25 08:50 Dose: 2,000 unit Documented By: Admin: 01/16/25 08:01 Dose: 2,000 unit Documented By: Admin: 01/15/25 10:02 Dose: 2,000 unit Documented By: Admin: 01/14/25 16:40 Dose: 2,000 unit Documented By: CARMEN Discontinued Medications Acetaminophen (Acetaminophen 325 Mg Tablet) 650 mg PO Q6H PRN PRN Reason: Fever/Mild Pain (1-3) Last Admin: 01/14/25 16:41 Dose: 650 mg Documented By: CARMEN Buspirone HCl (Buspirone 5 Mg Tablet) 5 mg PO TID COUNTS INCLUDE 234 BEDS AT [facility] Last Admin: 01/15/25 16:12 Dose: Not Given Documented By: Admin: 01/15/25 10:02 Dose: 5 mg Documented By: Admin: 01/14/25 20:41 Dose: 5 mg Documented By: Calcitonin Monroe (Calcitonin,Monroe 400 Units/2 Ml Mdv) 380 units SUBCUT NOW ONE Stop: 01/15/25 09:03 Last Admin: 01/15/25 10:15 Dose: 380 units Documented By: REYNA Sodium Chloride (Normal Saline 0.9%) 500 mls @ 1,000 mls/hr IV BOLUS ONE Stop: 01/13/25 09:34 Last Admin: 01/13/25 11:58 Dose: 1,000 mls/hr Documented By: DEBBIE Sodium Chloride (Normal Saline 0.9%) 1,000 mls @ 1,000 mls/hr IV BOLUS ONE Stop: 01/13/25 10:48 Last Infusion: 01/13/25 11:56 Dose: Infused Documented By: Infusion: 01/13/25 10:54 Dose: 1,000 mls/hr Documented By: Infusion: 01/13/25 10:00 Dose: 0 mls/hr Documented By: Admin: 01/13/25 10:00 Dose: 1,000 mls/hr Documented By: DEBBIE Pamidronate Disodium 60 mg/ (Sodium Chloride) 1,020 mls @ 500 mls/hr IV NOW ONE Stop: 01/14/25 18:31 Last Infusion: 01/14/25 17:34 Dose: 250 mls/hr Documented By: Admin: 01/14/25 16:42 Dose: 500 mls/hr Documented By: CARMEN Losartan Potassium (Losartan 50 Mg Tablet) 100 mg PO DAILY VIVEK Olanzapine (Olanzapine 10 Mg Vial) 10 mg IM NOW ONE Stop: 01/13/25 22:31 Last Admin: 01/13/25 23:15 Dose: 10 mg Documented By: Ondansetron HCl (Ondansetron 4 Mg Odt) 2 mg PO Q6H PRN PRN Reason: Nausea And Vomiting Last Admin: 01/15/25 09:38 Dose: 2 mg Documented By: REYNA Oxycodone HCl (Oxycodone Ir 5 Mg Tablet) 5 mg PO Q4HR PRN PRN Reason: Pain, Moderate (4-6) Last Admin: 01/15/25 10:15 Dose: 5 mg Documented By: Admin: 01/14/25 20:40 Dose: 5 mg Documented By: Oxycodone/Acetaminophen (Oxycodone/Acetaminophen 5/325 Tablet) 1 tab PO NOW ONE Stop: 01/13/25 22:56 Last Admin: 01/13/25 23:15 Dose: 1 tab Documented By: Vital Signs Vital signs: Vital Signs - 8 hr 01/13/25 09:00 01/13/25 09:00 01/13/25 09:30 Temperature 98.7 F Pulse Rate 95 H 97 H Respiratory Rate 12 16 Blood Pressure 143/67 H 135/59 L Pulse Oximetry 94 96 Oxygen Delivery Method Room Air 01/13/25 09:30 Temperature Pulse Rate 94 H Respiratory Rate 21 Blood Pressure Pulse Oximetry 96 Oxygen Delivery Method Room Air MDM - Altered Mental Status Lab Data 01/16/25 05:30 01/18/25 06:20 Labs: Lab Results 01/13/25 Range/Units 09:11 WBC 7.3 (4.5-11.0) X10^3/uL RBC 3.84 L (4.0-5.2) X10^6/uL Hgb 11.5 L (12.0-16.0) g/dL Hct 33.4 L (36-46) % MCV 86.9 (80-100) fL MCH 29.9 (26-34) PG MCHC 34.3 (30-36) % RDW 15.1 H (11.6-14.8) % Plt Count 211 (150-400) X10^3/uL Neut % (Auto) 66.2 (50-75) % Lymph % (Auto) 26.0 (25-40) % [place] % (Auto) 5.9 (3-14) % Eos % (Auto) 1.3 L (2-4) % Baso % (Auto) 0.6 (0-2) % Neut # (Auto) 4800 (7273-5394) /uL Lymph # (Auto) 1900 (6687-5577) /uL [place] # (Auto) 400 (0-900) /uL Eos # (Auto) 100 (0-450) /uL Baso # (Auto) 0 (0-100) /uL PT 12.4 (9.4-12.5) SECONDS INR 1.1 (0.9-1.3) APTT 32 (25.1-36.5) SECONDS Sodium 138 (137-145) mmol/L Potassium 5.2 H (3.4-5.1) mmol/L Chloride 104 (98-107) mmol/L Carbon Dioxide 22 (22-32) mmol/L BUN 47 H (7-17) mg/dL Creatinine 2.32 H (0.52-1.04) mg/dL Estimated GFR 22 L (>60) mL/min BUN/Creatinine Ratio 20.3 (6-22) Glucose 138 H (70-99) mg/dL Calcium 13.3 H* (8.4-10.2) mg/dL Total Bilirubin 0.7 (0.2-1.3) mg/dL AST 73 H (14-36) IU/L ALT 31 (<35) IU/L Alkaline Phosphatase 324 H (38-126) U/L Total Creatine Kinase 136 H (30-135) U/L Troponin I 0.036 H (0.01-0.034) ng/mL Total Protein 8.5 H (6.3-8.2) g/dL Albumin 4.4 (3.5-5.0) g/dL Globulin 4.1 (1.7-4.1) g/dL Albumin/Globulin Ratio 1.1 (1.0-2.8) Imaging Data MR brain stroke protocol: Radiologist's Impression: [address] [address] Magnetic Resonance Report Signed Patient: Anne Martini MR#: [id number] : 1955 Acct:[id number] Age/Sex: 69 / F Date of Service: 01/13/25 Loc: ED Accession Number: [id number] Procedure: MR stroke Ordering Provider: Ra Betts MD PROCEDURE: MR STROKE Pre- and post-contrast brain MRI, non-contrast brain MR angiogram, pre- and postcontrast neck MR angiogram INDICATIONS: Expressive aphasia. TECHNIQUE: Brain: Noncontrast axial T1 spin echo, axial T2 fast spin echo, sagittal and axial FLAIR, coronal T2 fast spin echo, axial gradient echo, axial diffusion and ADC through the brain. After the administration of contrast, axial 3D VIBE of the cranial vasculature and brain. Brain MRA: Non-contrast 3-D time of flight MR angiogram, with multiple xaipntj-cpbmcifgk-kwbwijkyxv (MIP) reformats performed. Neck MRA: Axial and sagittal TruFISP through the neck. Coronal dynamic MR angiogram during administration of contrast in the arterial and venous phases, with 3- dimenstional zkntmmf-ztmorzvyp-lyoombznmi (MIP) reformats constructed from subtraction images. COMPARISON: [facility], CT, CT HEAD/BRAIN WO CON, 01/13/2025, 9:56. FINDINGS: Image quality: Excellent. BRAIN: CSF spaces: Ventricles are normal in size and shape. Basal cisterns are patent. No extra-axial fluid collections. Brain: No intracranial bleeds or mass effects. Hurtado-white matter interface is normal. Diffusion weighted images show no acute infarct. Age-related volume loss and mild, age-appropriate small-vessel ischemic change. Brainstem appears normal. Normal intravascular flow voids are present. No abnormal intracranial enhancement. Skull and face: Calvarial marrow signal is normal. Orbits appear normal. Sinuses: Sinuses and mastoids are clear. BRAIN MR ANGIOGRAM: Anterior circulation: Intracranial internal carotid arteries are normal in size and enhancement. The flow within the paired anterior cerebral arteries is normal and symmetric. The flow within the middle cerebral arteries is normal and symmetric. The anterior communicating artery is seen. No stenoses, occlusions, or aneurysms. Posterior circulation: Normal variant diminutive distal right vertebral artery. Dominant widely patent left vertebral artery. They join to form a normal caliber basilar artery. The flow within the posterior cerebral arteries is normal and symmetric. No stenoses, occlusions, or aneurysms. NECK MR ANGIOGRAM: Carotids: Great vessels demonstrate a conventional anatomy as they arise from the aortic arch. The origins of the common carotid arteries appear patent. Question moderate multifocal proximal left common carotid artery stenotic disease. Right common carotid is widely patent. The bifurcation regions appear normal bilaterally. The internal carotid arteries demonstrate normal course and caliber. Posterior circulation: The origins of the vertebral arteries appear patent. Normal variant diminutive V4 segment of right vertebral artery. Left vertebral artery widely patent. They give rise to a normal caliber basilar artery. Miscellaneous: Subclavian arteries appear patent. Pre-contrast images through the neck show no soft tissue abnormalities. IMPRESSION: BRAIN MRI: 1. No acute intracranial abnormality. 2. Age-related volume loss and mild, age-appropriate small-vessel ischemic change. BRAIN MR ANGIOGRAM: Unremarkable NECK MR ANGIOGRAM: Question multifocal moderate proximal left common carotid stenotic disease. Otherwise negative, with widely patent internal carotids. Dictated by: Geo Rodriguez M.D. on 01/13/2025 at 10:54 Approved by: Geo Rodriguez M.D. on 01/13/2025 at 11:01 CT scan - head: Radiologist's Impression: [address] [address] [address] Scan Report Signed Patient: Anne Martini MR#: [id number] : 1955 Acct:[id number] Age/Sex: 69 / F Date of Service: 01/13/25 Loc: ED Accession Number: [id number] Procedure: CT head/brain wo con Ordering Provider: Ra Betts MD PROCEDURE: CT HEAD/BRAIN WO CON INDICATIONS: Altered mental status TECHNIQUE: Noncontrast 4.5 mm thick angled axial sections acquired from the foramen magnum to the vertex, with coronal and sagittal reformats. For radiation dose reduction, the following was used: automated exposure control, adjustment of mA and/or kV according to patient size. COMPARISON: [facility], CT, CT HEAD/BRAIN WO CON, 11/30/2024, 21:35. FINDINGS: Image quality: Diagnostic. CSF spaces: Basal cisterns are patent. No extra-axial fluid collections. The ventricles are symmetric in size and shape. Brain: No acute intracranial hemorrhage or mass effect. There is cerebral volume loss, with resultant ventricular and sulcal prominence. There are periventricular and deep white matter chronic small vessel ischemic changes. There is intracranial internal carotid artery atherosclerosis. Skull and face: Calvarium and visualized facial bones appear intact, without suspicious lesions. Sinuses: Visualized sinuses and mastoids are clear. IMPRESSION: No acute intracranial pathology. Approved by: Alfonso Villareal M.D. on 01/13/2025 at 10:07 [facility] Narrative Medical decision making narrative: Blood sugar 103 by EMS. Patient brought in by ambulance from [facility] across the street. For complaints of dizziness and confusion/altered mental status. Patient seen here yesterday by me for back pain. She does recall being here for that. She recalls going to bed last night without any difficulties. However this morning she awoke with symptoms of confusion. She does have history of stroke in the past. Patient yesterday had no complaints of any fever chills urinary complaints. Continues today without any of these complaints either. No fall or injury. After history and exam, CBC CMP EKG CT head CT angio head and neck [facility] Medical records reviewed: No recent visits for this complaint Differential considered: Includes but not limited to stroke TIA UTI dehydration Lab Test results independently reviewed as above. Pertinent findings: WBC 7.3 hemoglobin 11.5 INR 1.1 sodium 138 potassium 5.2 BUN 47 creatinine 2.32 GFR 22 glucose 138 calcium 13.3 troponin 0.036 likely due to renal function/clearance. Patient denies any chest pain. Independently reviewed EKG sinus rhythm rate [address] elevation or depression Imaging studies independently reviewed: CT head no acute finding MRI stroke protocol no acute finding Consultations: 11:[address] Manley, hospitalist, who will admit patient Re-evaluations: 11:45 a.m.. Patient doing well. No new issues. Reviewed with patient results and agrees for admission. Discussion: Appropriate for admission for acute kidney injury. Symptoms likely due to dehydration. Possibly new medication baclofen causing symptoms as well. Diagnosis: Acute kidney injury Discharge Plan Departure Patient Disposition: Admitted As Inpatient Clinical Impression: [facility] (acute kidney injury), Hypercalcemia Admit Date/Time: 01/13/25 11:28 Admit Provider: Jc Manley
--- NOTE | 2025-01-13 09:08 | DI.ECHO.S_ITS ---
[facility]+ [facility] : : [address] : : [place] : : [id number] : : Phone: [phone] Echocardiogram Report + + :Name: ESTELA PAUL Study Date: 01/13/2025 Height: 69 in : :Hospital ReadingLocation: Weight: 228 lb : : Gender: Female BSA: 2.2 m2 : :: 1955 Age: 69 yrs BP: 141/63 mmHg: :Reason For Study: STROKE : :Ordering Physician: ZAHEER, : :SCOT Performed By: Pranav Saha : :Referring: SCOT SCHWAB : + + Interpretation Summary The left ventricle is normal in size. No obvious LV thrombus. The ejection fraction is estimated to be 55-60%. There are no obvious focal wall motion abnormalities noted but poor endocardial definition reduces the sensitivity for the detection of such. There is no significant valvular heart disease. Procedure: A two-dimensional transthoracic echocardiogram with color flow and Doppler was performed in limited views only. A contrast injection of Definity was performed to improve assessment of LV function. The study quality was technically difficult. Comparison is made with the echocardiogram of 12/07/2024. The patient was in normal sinus rhythm during the exam. Left Ventricle: The left ventricle is normal in size. Left ventricular wall thickness is mildly increased. The ejection fraction is estimated to be 55- 60%. There are no obvious focal wall motion abnormalities noted but poor endocardial definition reduces the sensitivity for the detection of such. Mitral Valve: The mitral valve leaflets appear normal. There is no evidence of stenosis, fluttering, or prolapse. There is no mitral regurgitation noted. Aortic Valve: The aortic valve is trileaflet. The aortic valve opens well. No aortic regurgitation is present. Tricuspid Valve: The tricuspid valve is not well visualized. There is mild tricuspid regurgitation. Pulmonic Valve: The pulmonic valve is not well visualized. There is no pulmonic valvular regurgitation. There is no significant valvular heart disease. Great Vessels: The IVC is of normal diameter and collapses greater than 50% with a sniff. This suggests a low right atrial pressure of 3 mm Hg. MMode/2D Measurements & Calculations LVIDd: 3.9 cm LVIDs: 2.6 cm FS: 32.6 % IVSd: 1.1 cm LVPWd: 1.1 cm LV castellanos. diameter/BSA (cm/m^2): 1.8 LV sys. diameter/BSA (cm/m^2): 1.2 Doppler Measurements & Calculations TR max levon: 217.9 cm/sec TR max P.0 mmHg Reading Physician:01:27 PM
--- NOTE | 2025-01-13 09:10 | PC.NURSE ---
PT requires repeated stimulation to answer questions. She has expressive aphasia, bilateral hand ataxia, right sided vision deficit pt states My right eye is my bad eye. Pt unable to repeat words back for dysarthria exam.
[2025-01-13 09:27] LABS: INR 1.1 (0.9-1.3); Prothrombin Time 12.4 SECONDS (9.4-12.5)
[2025-01-13 09:29] LABS: PTT Partial Thromboplastin Tim 32 SECONDS (25.1-36.5)
[2025-01-13 09:30] LABS: Add Manual Diff / Slide Review NO; Basophils Absolute Auto 0 /uL (0-100); Basophils Percent Auto 0.6 % (0-2); Eosinophils Absolute Auto 100 /uL (0-450); Eosinophils Percent Auto 1.3 % (2-4); Hematocrit 33.4 % (36-46); Hemoglobin 11.5 g/dL (12.0-16.0); Lymphocytes Absolute Auto 1900 /uL (1100-4500); Mean Corpuscular HGB Conc 34.3 % (30-36); Mean Corpuscular Hemoglobin 29.9 PG (26-34); Mean Corpuscular Volume 86.9 fL (80-100); Monocytes Absolute Auto 400 /uL (0-900); Monocytes Percent Auto 5.9 % (3-14); Neutrophils Absolute Auto 4800 /uL (1500-7000); Neutrophils Percent Auto 66.2 % (50-75); Platelet Count 211 X10^3/uL (150-400); Red Blood Cell Count 3.84 X10^6/uL (4.0-5.2); Red Cell Distribution Width 15.1 % (11.6-14.8); White Blood Cell Count 7.3 X10^3/uL (4.5-11.0)
[2025-01-13 09:31] LABS: Alanine Aminotransferase 31 IU/L (<35); Albumin 4.4 g/dL (3.5-5.0); Albumin Globulin Ratio 1.1 (1.0-2.8); Alkaline Phosphatase 324 U/L (38-126); Aspartate Aminotransferase 73 IU/L (14-36); BUN Creatinine Ratio 20.3 (6-22); Bilirubin Total 0.7 mg/dL (0.2-1.3); Blood Urea Nitrogen 47 mg/dL (7-17); Carbon Dioxide 22 mmol/L (22-32); Chloride 104 mmol/L (98-107); Creatine Kinase 136 U/L (30-135); Estimated Glomerular Filt Rate 22 mL/min (>60); Globulin 4.1 g/dL (1.7-4.1); Glucose 138 mg/dL (70-99); Potassium 5.2 mmol/L (3.4-5.1); Sodium 138 mmol/L (137-145); Total Protein 8.5 g/dL (6.3-8.2)
[2025-01-13 09:33] LABS: HEMOLYSIS 86 (0-50)
[2025-01-13 09:35] LABS: Calcium 13.3 mg/dL (8.4-10.2)
[2025-01-13 09:43] LABS: Troponin I 0.036 ng/mL (0.01-0.034)
[2025-01-13] MEDS: SODIUM CHLORIDE 0.9% 1,000 ML 1000 ML IV (10:00)
--- NOTE | 2025-01-13 10:11 | DI.MRI.S_ITS ---
PROCEDURE: MR STROKE Pre- and post-contrast brain MRI, non-contrast brain MR angiogram, pre- and postcontrast neck MR angiogram INDICATIONS: Expressive aphasia. TECHNIQUE: Brain: Noncontrast axial T1 spin echo, axial T2 fast spin echo, sagittal and axial FLAIR, coronal T2 fast spin echo, axial gradient echo, axial diffusion and ADC through the brain. After the administration of contrast, axial 3D VIBE of the cranial vasculature and brain. Brain MRA: Non-contrast 3-D time of flight MR angiogram, with multiple bgesdeh-nicetxeno-jujytqbifn (MIP) reformats performed. Neck MRA: Axial and sagittal TruFISP through the neck. Coronal dynamic MR angiogram during administration of contrast in the arterial and venous phases, with 3-dimenstional vajmniy-dqvoghdgv-ckppjjpjny (MIP) reformats constructed from subtraction images. COMPARISON: [facility], CT, CT HEAD/BRAIN WO CON, 01/13/2025, 9:56. FINDINGS: Image quality: Excellent. BRAIN: CSF spaces: Ventricles are normal in size and shape. Basal cisterns are patent. No extra-axial fluid collections. Brain: No intracranial bleeds or mass effects. Hurtado-white matter interface is normal. Diffusion weighted images show no acute infarct. Age-related volume loss and mild, age-appropriate small-vessel ischemic change. Brainstem appears normal. Normal intravascular flow voids are present. No abnormal intracranial enhancement. Skull and face: Calvarial marrow signal is normal. Orbits appear normal. Sinuses: Sinuses and mastoids are clear. BRAIN MR ANGIOGRAM: Anterior circulation: Intracranial internal carotid arteries are normal in size and enhancement. The flow within the paired anterior cerebral arteries is normal and symmetric. The flow within the middle cerebral arteries is normal and symmetric. The anterior communicating artery is seen. No stenoses, occlusions, or aneurysms. Posterior circulation: Normal variant diminutive distal right vertebral artery. Dominant widely patent left vertebral artery. They join to form a normal caliber basilar artery. The flow within the posterior cerebral arteries is normal and symmetric. No stenoses, occlusions, or aneurysms. NECK MR ANGIOGRAM: Carotids: Great vessels demonstrate a conventional anatomy as they arise from the aortic arch. The origins of the common carotid arteries appear patent. Question moderate multifocal proximal left common carotid artery stenotic disease. Right common carotid is widely patent. The bifurcation regions appear normal bilaterally. The internal carotid arteries demonstrate normal course and caliber. Posterior circulation: The origins of the vertebral arteries appear patent. Normal variant diminutive V4 segment of right vertebral artery. Left vertebral artery widely patent. They give rise to a normal caliber basilar artery. Miscellaneous: Subclavian arteries appear patent. Pre-contrast images through the neck show no soft tissue abnormalities. IMPRESSION: BRAIN MRI: 1. No acute intracranial abnormality. 2. Age-related volume loss and mild, age-appropriate small-vessel ischemic change. BRAIN MR ANGIOGRAM: Unremarkable NECK MR ANGIOGRAM: Question multifocal moderate proximal left common carotid stenotic disease. Otherwise negative, with widely patent internal carotids. Dictated by: Geo Rodriguez M.D. on 01/13/2025 at 10:54 Approved by: Geo Rodriguez M.D. on 01/13/2025 at 11:01
[2025-01-13] MEDS: SODIUM CHLORIDE 0.9% 500 ML 1000 ML IV (11:58)
--- NOTE | 2025-01-13 12:41 | PM.HP.1 ---
History of Present Illness History of Present Illness Date Patient Seen: 01/13/25 Time Patient Seen: 12:00 Chief complaint: Dizziness Narrative: The patient is a 69-year-old female with history of arthritis, hypertension, hypothyroidism, dyslipidemia, and remote CVA who was recently discharged from the hospital after being evaluated for chest pain. She stays at [facility] and now presents with altered level of consciousness and weakness. She was seen yesterday in the emergency department for back pain. She notes that she has been on a oxycodone taper at her facility over the last 2 weeks. She was treated for pain and ultimately discharged with a diagnosis of possible compression fracture of the L1 vertebral body. She re-presented today and was found to be volume depleted, encephalopathic, and have a calcium of 13. The patient is comfortable, denies any pain, but really does not report any history of vomiting, anorexia, or diarrhea. No recent fevers, or chills. Her pain is improved today. Her ability to provide additional history is very limited due to her encephalopathy. She also has MERCY, mild hyperkalemia, and a mild elevation of her troponin. [facility] Medical History Acquired hypothyroidism H/O: stroke Chronic hip pain, bilateral Social History household members: none Smoking Status: Never smoker alcohol intake: current Meds Home Medications and Allergies Home Medications Medication Instructions Recorded Confirmed Type atorvastatin 40 mg tablet 40 mg PO BEDTIME primary HTN 12/01/24 01/13/25 History buspirone 5 mg tablet 5 mg PO TID anxiety 12/01/24 01/13/25 History clopidogrel 75 mg tablet 75 mg PO DAILY afib 12/01/24 01/13/25 History gabapentin 100 mg capsule 300 mg PO TID NEUROPATHY/PAIN 12/01/24 01/13/25 History levothyroxine 25 mcg tablet 25 mcg PO DAILY hypothyroidism 12/01/24 01/13/25 History losartan 100 mg tablet 100 mg PO DAILY HTN 12/01/24 01/13/25 History magnesium hydroxide 400 mg/5 mL 30 ml PO DAILY PRN No BM in 3 days 12/01/24 01/13/25 History oral suspension (Milk of Magnesia) omeprazole 20 mg capsule,delayed 20 mg PO DAILY GERD 12/01/24 01/13/25 History release tizanidine 4 mg tablet 8 mg PO Q8H PRN Spasms 12/01/24 01/13/25 History trazodone 50 mg tablet 50 mg PO BEDTIME 12/01/24 01/13/25 History acetaminophen 325 mg tablet 650 mg (2 x 325 mg) PO Q6H PRN 12/04/24 01/13/25 Rx Fever/Mild Pain (1-3) #30 tabs venlafaxine 75 mg capsule,extended 225 mg PO DAILY Depression 12/07/24 01/13/25 History release 24 hr baclofen 20 mg tablet 20 mg PO TID PRN pain (scale score 01/12/25 01/13/25 Rx 4-6) #20 tabs ondansetron 4 mg disintegrating 2 mg PO Q6-8H PRN Nausea And 01/13/25 01/13/25 History tablet Vomiting pregabalin 50 mg capsule 50 mg PO 3XD 01/13/25 01/13/25 History Allergies Allergy/AdvReac Type Severity Reaction Status Date / Time No Known Drug Allergies Allergy Verified 01/12/25 07:49 Review of Systems Review of Systems Narrative: All else reviewed and otherwise unremarkable except as noted in the history and physical. Exam Vital Signs (past 8 hours): - 01/13/25 09:00 01/13/25 09:00 01/13/25 09:30 Temperature 98.7 F Pulse Rate 95 H 97 H Respiratory Rate 12 16 Blood Pressure 143/67 H 135/59 L Pulse Oximetry 94 96 Oxygen Delivery Method Room Air 01/13/25 09:30 01/13/25 10:38 01/13/25 10:40 Temperature Pulse Rate 94 H 96 H Respiratory Rate 21 Blood Pressure 141/63 H Pulse Oximetry 96 96 Oxygen Delivery Method Room Air 01/13/25 10:40 01/13/25 11:00 01/13/25 11:00 Temperature Pulse Rate 91 H 82 Respiratory Rate Blood Pressure 123/63 Pulse Oximetry 95 97 Oxygen Delivery Method 01/13/25 11:30 01/13/25 11:31 01/13/25 11:31 Temperature Pulse Rate 84 83 Respiratory Rate 12 12 Blood Pressure 148/65 H Pulse Oximetry 98 98 Oxygen Delivery Method 01/13/25 12:00 01/13/25 12:00 Temperature Pulse Rate 82 Respiratory Rate Blood Pressure 166/71 H Pulse Oximetry 97 Oxygen Delivery Method Oxygen Delivery Method Room Air Narrative Exam Narrative: NAD, alert and oriented person and place, fluent but slow speech, calm. She was slow to answer questions. Normocephalic skull, EOMI, anicteric sclera, symmetric pupils. Oropharynx unremarkable, no droop. Her oropharynx is quite dry. Neck supple, midline trachea, no adenopathy. Lungs clear, normal rate and effort. Heart regular, no murmur gallop or rub. Abdomen is soft, non distended and non tender. Extremities are free of edema. Skin is free of rash or lesions. Joints are not swollen or deformed. Judgment appears to be normal. Objective Imaging MRI - head: Radiologist's impression: 1. No acute intracranial abnormality. 2. Age-related volume loss and mild, age-appropriate small-vessel ischemic change. BRAIN MR ANGIOGRAM: Unremarkable NECK MR ANGIOGRAM: Question multifocal moderate proximal left common carotid stenotic disease. Otherwise negative, with widely patent internal carotids. CT scan - head: Radiologist's impression: No acute intracranial pathology. Labs 01/13/25 09:11 01/13/25 09:11 Labs: Laboratory Results - last 24 hr 01/13/25 09:11 WBC 7.3 RBC 3.84 L Hgb 11.5 L Hct 33.4 L MCV 86.9 MCH 29.9 MCHC 34.3 RDW 15.1 H Plt Count 211 Neut % (Auto) 66.2 Lymph % (Auto) 26.0 [place] % (Auto) 5.9 Eos % (Auto) 1.3 L Baso % (Auto) 0.6 Neut # (Auto) 4800 Lymph # (Auto) 1900 [place] # (Auto) 400 Eos # (Auto) 100 Baso # (Auto) 0 PT 12.4 INR 1.1 APTT 32 Sodium 138 Potassium 5.2 H Chloride 104 Carbon Dioxide 22 BUN 47 H Creatinine 2.32 H Estimated GFR 22 L BUN/Creatinine Ratio 20.3 Glucose 138 H Calcium 13.3 H* Total Bilirubin 0.7 AST 73 H ALT 31 Alkaline Phosphatase 324 H Total Creatine Kinase 136 H Troponin I 0.036 H Total Protein 8.5 H Albumin 4.4 Globulin 4.1 Albumin/Globulin Ratio 1.1 Assessment & Plan Assessment & Plan narrative: 1. Volume depletion, present on admission and active. 2. Hypercalcemia, likely related to volume depletion. Present on admission and active. 3. Acute kidney injury likely related to volume depletion, present on admission and active. 4. Hyperkalemia, present on admission and active. 5. Elevated troponin consistent with demand ischemia, present on admission and active. A stress test on November of 2024 was read as low risk with no reversible ischemia and a fixed base defect which may be artifact. Echo on the same date reveals normal LV 6. EF with 55-60% function and no wall motion abnormalities. 7. Hypertension, present on admission and active. 8. L1 compression fracture, present on admission and active. 9. Chronic pain, present on admission and active. 10. Hyperlipidemia, present on admission and active. Plan: -IV fluids with saline 100 per hour. -monitor potassium and renal function with q.6 hours BNP. -monitor calcium with IV fluid resuscitation. Patient may require diuresis or other treatment measures if this fails to improve fairly rapidly with her volume repletion. -monitor mental status. -trend troponin. Monitor for symptoms of chest pain or dyspnea. Anticipate 2 midnights in the hospital, supports inpatient status. She has critical hypercalcemia, MERCY, and hyperkalemia. ISAI is 11/17/2027 if calcium corrects mental status normalizes. She was from [facility]. Time-Based Coding :: 40 min spent with patient and on the chart (including review of chart, obtaining history, exam, reviewing outside data, placing orders, documenting exam and treatment plan, and counseling patient) on 01/13. Quality VTE Deep Vein Thrombosis/Pulmonary Embolism Present on Admission: No MIPS - Admit The patient?s Advance Care plan is not present because I confirmed today that the patient does not wish or was not able to name a surrogate decision maker or provide an Advance Care Plan.: Yes MIPS - Meds 'Current medications' to include all prescriptions, [id number]-[id number] products, herbals, cannabis/cannabidiol products, and vitamin/mineral/dietary (nutritional) supplements. I have utilized all available resources to obtain, update, or review the patient?s current medications. [If Yes, STOP here]: Yes
[2025-01-13] MEDS: SODIUM CHLORIDE 0.9% 1,000 ML 100 ML IV ×2 (14:33→22:15)
[2025-01-13 15:01] LABS: BUN Creatinine Ratio 19.9 (6-22); Blood Urea Nitrogen 44 mg/dL (7-17); Carbon Dioxide 22 mmol/L (22-32); Chloride 107 mmol/L (98-107); Estimated Glomerular Filt Rate 23 mL/min (>60); Glucose 98 mg/dL (70-99); Sodium 141 mmol/L (137-145)
[2025-01-13 15:13] LABS: Troponin I 0.023 ng/mL (0.01-0.034)
[2025-01-13 15:15] LABS: HEMOLYSIS 91 (0-50)
[2025-01-13 15:17] LABS: Potassium 5.3 mmol/L (3.4-5.1)
--- NOTE | 2025-01-13 15:24 | PC.NURSE ---
Patient has been incontinent in brief x2, she has foul smelling urine. We will be getting a u/a for patient and have placed a purewick for her. She is alert and oriented x2, otherwise confused. She came into the ER yesterday and has recently had back pain, today she was more confused so they admitted her to room 207. Her calcium level has decreased to 13.0 from 13.3. She is asleep now, she can become restless and kick her blankets off of herself but she has not tried to get out of bed.
[2025-01-13] MEDS: HEPARIN 5,000 UNIT/ML VIAL 5000 UNIT SUBCUT (20:28)
[2025-01-13 21:15] LABS: Appearance Urine UA CLOUDY; Bilirubin Urine UA NEGATIVE (NEGATIVE); Color Urine UA YELLOW; Glucose Urine UA NEGATIVE (Negative); Ketones Urine UA NEGATIVE (NEGATIVE); Leukocyte Esterase Urine UA 2+ (NEGATIVE); Nitrite Urine UA POSITIVE (Negative); Occult Blood Urine UA 1+ (Negative); Protein Urine UA 2+ (Negative); Urobilinogen Urine UA 0.2 E.U./dL (0.2)
[2025-01-13 21:19] LABS: pH Urine UA 5.5 (4.5-8.0)
[2025-01-13 21:23] LABS: Bacteria Urine Many (>30); Culture Indicated Urine Specimen Cultured; RBC Urine 0-1/HPF (0-5/HPF); Squamous Epithelial Cell Urine 1-5 /HPF (0-5/HPF); Urine Volume 10mL (spun); WBC Urine 30-100/HPF (0-5/HPF)
[2025-01-13 21:52] LABS: Alanine Aminotransferase 26 IU/L (<35); Albumin 3.9 g/dL (3.5-5.0); Albumin Globulin Ratio 1.2 (1.0-2.8); Alkaline Phosphatase 318 U/L (38-126); Aspartate Aminotransferase 61 IU/L (14-36); Bilirubin Total 0.5 mg/dL (0.2-1.3); Blood Urea Nitrogen 41 mg/dL (7-17); Carbon Dioxide 23 mmol/L (22-32); Chloride 109 mmol/L (98-107); Estimated Glomerular Filt Rate 24 mL/min (>60); Globulin 3.2 g/dL (1.7-4.1); Glucose 90 mg/dL (70-99); HEMOLYSIS < 15 (0-50); Potassium 4.5 mmol/L (3.4-5.1); Sodium 142 mmol/L (137-145); Total Protein 7.1 g/dL (6.3-8.2)
[2025-01-13] MEDS: OXYCODONE/ACETAMINOPHEN 5/325 TABLET 1 TAB PO (23:15)
[2025-01-13] MEDS: OLANZapine 10 MG VIAL IM (23:15)
[2025-01-14 03:00] VITALS: BP 150/72; PULSE 80; RESP 16; TEMP 36.3; O2SAT 98
[2025-01-14 06:17] LABS: Add Manual Diff / Slide Review NO; Alanine Aminotransferase 25 IU/L (<35); Albumin 3.7 g/dL (3.5-5.0); Albumin Globulin Ratio 1.2 (1.0-2.8); Alkaline Phosphatase 280 U/L (38-126); Aspartate Aminotransferase 53 IU/L (14-36); BUN Creatinine Ratio 18.4 (6-22); Basophils Absolute Auto 0 /uL (0-100); Basophils Percent Auto 0.5 % (0-2); Bilirubin Total 0.4 mg/dL (0.2-1.3); Blood Urea Nitrogen 41 mg/dL (7-17); Carbon Dioxide 21 mmol/L (22-32); Chloride 111 mmol/L (98-107); Eosinophils Absolute Auto 100 /uL (0-450); Eosinophils Percent Auto 1.2 % (2-4); Estimated Glomerular Filt Rate 23 mL/min (>60); Globulin 3.1 g/dL (1.7-4.1); Glucose 79 mg/dL (70-99); HEMOLYSIS < 15 (0-50); Hemoglobin 9.8 g/dL (12.0-16.0); Lymphocytes Absolute Auto 2100 /uL (1100-4500); Lymphocytes Percent Auto 34.1 % (25-40); Mean Corpuscular HGB Conc 34.9 % (30-36); Monocytes Absolute Auto 500 /uL (0-900); Monocytes Percent Auto 7.6 % (3-14); Neutrophils Absolute Auto 3400 /uL (1500-7000); Neutrophils Percent Auto 56.6 % (50-75); Platelet Count 176 X10^3/uL (150-400); Potassium 4.6 mmol/L (3.4-5.1); Red Blood Cell Count 3.26 X10^6/uL (4.0-5.2); Red Cell Distribution Width 15.3 % (11.6-14.8); Sodium 141 mmol/L (137-145); Total Protein 6.8 g/dL (6.3-8.2); White Blood Cell Count 6.1 X10^3/uL (4.5-11.0)
[2025-01-14 06:42] LABS: Calcium 13.2 mg/dL (8.4-10.2)
[2025-01-14] MEDS: SODIUM CHLORIDE 0.9% 1,000 ML 100 ML IV (07:28)
[2025-01-14 09:00] VITALS: BP 143/78; PULSE 89; RESP 16; TEMP 36.8; O2SAT 99
[2025-01-14] MEDS: HEPARIN 5,000 UNIT/ML VIAL 5000 UNIT SUBCUT ×2 (09:18→20:39)
[2025-01-14 13:00] VITALS: BP 143/70; PULSE 85; RESP 21; TEMP 36.7; O2SAT 98
--- NOTE | 2025-01-14 16:27 | CM.DPNOTE ---
DCP note brief [employer] reviewed EMR unable to complete comprehensive DCP assessment today due to triaging needs. Per chart, pt lives at [facility]. per chart, pt more confused than her baseline. per provider in morning rounds, changing some meds. admitted with hypercalcemia, MERCY, hyperkalemia. CM team to complete DCP assessment/coordinate with SONIA as able/needed. per chart review, anticipate return to [facility]/transport with facility when medically stable. KARLIE Lambert
[2025-01-14] MEDS: CHOLECALCIFEROL (VITAMIN D3) 1,000 UNIT TABLET 2000 UNIT PO (16:40)
[2025-01-14] MEDS: ACETAMINOPHEN 325 MG TABLET 650 MG PO (16:41)
[2025-01-14] MEDS: PAMIDRONATE DISODIUM 60 MG in SODIUM CHLORIDE 0.9% 1,000 ML 500 MG IV (16:42)
[2025-01-14 17:00] VITALS: BP 110/64; PULSE 80; RESP 17; TEMP 36.7; O2SAT 99
--- NOTE | 2025-01-14 17:32 | PC.NURSE ---
Day shift: IV Pamidronate Disodium ordered form 500 ml/hr. Pt complains of mild pain at this IV site. Slowed to 250 mls/hr and no complaints of pain. Dr Baig aware and is ok with the rate. Will continue to monitor.
--- NOTE | 2025-01-14 17:46 | P.PN_ITS ---
Subjective Subjective Interval history: 69-year-old female with history of arthritis, hypertension, hypothyroidism, dyslipidemia, and remote CVA who was recently discharged from the hospital after being evaluated for chest pain. reports she was very confused earlier in the day but about 3 hours ago began to have some clearing of her mentation. However she still has intermittent confusion such as not knowing her birthday 20 minutes ago. She does get somewhat tangential during my conversation. They note she had been on oxycodone for pain previously, as she reportedly has had bad back pain for about 1 month. It occurred when she twisted after a near fall. X-rays were done in the emergency department on January 12 and revealed an age indeterminate L1 superior endplate compression fracture with up to 10% height loss. There is no retropulsion. They state that her nurse practitioner that follows her at [facility] stopped the oxycodone due to concerns that she would ?get addicted?. She has been subsequently on an alternative medication but has been an ongoing significant discomfort since that time. Exam Vital Signs (past 8 hours): - 01/13/25 11:00 01/13/25 11:00 01/13/25 11:30 Temperature Pulse Rate 82 84 Respiratory Rate 12 Blood Pressure 123/63 Pulse Oximetry 97 98 Oxygen Flow Rate 01/13/25 11:31 01/13/25 11:31 01/13/25 12:00 Temperature Pulse Rate 83 Respiratory Rate 12 Blood Pressure 148/65 H 166/71 H Pulse Oximetry 98 Oxygen Flow Rate 01/13/25 12:00 01/13/25 12:30 Temperature 97.1 F L Pulse Rate 82 91 H Respiratory Rate 14 Blood Pressure 165/88 H Pulse Oximetry 97 98 Oxygen Flow Rate 0 Oxygen Delivery Method Room Air Oxygen Flow Rate 0 Narrative Exam Narrative: GEN: Middle-aged female, Alert and oriented x 2-3, NAD HEENT:NC, Face symmetric CHEST: Respiratory excursions symmetric, CTAB CV: RRR, no M/R/G ABD: Soft, NT/ND, obese, BT present in all 4 quadrants, body habitus limits exam EXTR: warm, well perfused, no C/C/E SKIN: warm and dry, no rash NEURO: Alert and oriented x 2-3, nonfocal with the exception of her right eye appearing to have ptosis Objective Labs 01/14/25 05:30 01/14/25 05:30 Labs: Laboratory Results - last 24 hr 01/13/25 01/13/25 09:11 14:20 WBC 7.3 RBC 3.84 L Hgb 11.5 L Hct 33.4 L MCV 86.9 MCH 29.9 MCHC 34.3 RDW 15.1 H Plt Count 211 Neut % (Auto) 66.2 Lymph % (Auto) 26.0 [place] % (Auto) 5.9 Eos % (Auto) 1.3 L Baso % (Auto) 0.6 Neut # (Auto) 4800 Lymph # (Auto) 1900 [place] # (Auto) 400 Eos # (Auto) 100 Baso # (Auto) 0 PT 12.4 INR 1.1 APTT 32 Sodium 138 141 Potassium 5.2 H 5.3 H Chloride 104 107 Carbon Dioxide 22 22 BUN 47 H 44 H Creatinine 2.32 H 2.21 H Estimated GFR 22 L 23 L BUN/Creatinine Ratio 20.3 19.9 Glucose 138 H 98 Calcium 13.3 H* 13.0 H* Total Bilirubin 0.7 AST 73 H ALT 31 Alkaline Phosphatase 324 H Total Creatine Kinase 136 H Troponin I 0.036 H 0.023 Total Protein 8.5 H Albumin 4.4 Globulin 4.1 Albumin/Globulin Ratio 1.1 PFSH Medical History Acquired hypothyroidism H/O: stroke Chronic hip pain, bilateral Social History household members: none Smoking Status: Never smoker alcohol intake: current Assessment & Plan Assessment & Plan narrative: 1. Hypercalcemia In reviewing her previous records, she did have hypercalcemia back in November. She underwent workup which did reveal a borderline low 25 hydroxy vitamin-D level at 32, and a low 1, 25 dihydroxy vitamin-D. Her PTH and PTHrP were within normal limits. Hydration has not resulted in any significant improvement of her hypercalcemia. We will saline lock her fluids. We will give IV pamidronate. Will start vitamin-D replacement. Her albumin level is within normal limits as is her total protein. Will send an SPEP and a UPEP for completeness. 2. Volume depletion Suspect this is less likely to be the etiology of her hypercalcemia, as she did have hypercalcemia in November as well. Will DC IV fluids. 3. Acute kidney injury Unclear etiology over all. She has had increased pain with her vertebral fracture. Will hold her losartan. Creatinine was 1.09 on December 07 and is up to 2.32 on admission. It is 2.23 today. We will continue to monitor. 4. Hyperkalemia Resolved today. 5. Elevated troponin consistent with demand ischemia, Mild bump up to 0.036 which rapidly resolved on follow-up troponin checks. 6. Hypertension Blood pressures have been somewhat hypertensive but this evening are normalizing. We are holding losartan due to her MERCY. Will monitor. 7. L1 compression fracture Will add back oxycodone for pain. Will ensure she has bowel regimen as well. 8. Hyperlipidemia Chronic and stable Code status Full Prophylaxis On heparin Disposition Possible discharge tomorrow if her calcium level has normalized Time-Based Coding :: [TOTAL MINUTES] spent with patient and on the chart (including review of chart, obtaining history, exam, reviewing outside data, placing orders, documenting exam and treatment plan, and counseling patient) on [DATE]. Quality VTE Deep Vein Thrombosis/Pulmonary Embolism Present on Admission: No
[2025-01-14 20:00] VITALS: BP 127/71; PULSE 72; RESP 19; TEMP 36.7; O2SAT 99
[2025-01-14] MEDS: TRAZODONE 50 MG TABLET PO (20:40)
[2025-01-14] MEDS: TIZANIDINE 4 MG TABLET 8 MG PO (20:40)
[2025-01-14] MEDS: OXYCODONE IR 5 MG TABLET PO (20:40)
[2025-01-14] MEDS: ATORVASTATIN 20 MG TABLET 40 MG PO (20:40)
[2025-01-14] MEDS: BACLOFEN 10 MG TABLET 20 MG PO (20:40)
[2025-01-14] MEDS: SENNOSIDES 8.6 MG TABLET PO (20:41)
[2025-01-14] MEDS: BUSPIRONE 5 MG TABLET PO (20:41)
[2025-01-14] MEDS: PREGABALIN 50 MG CAPSULE PO (20:41)
[2025-01-15] VITALS: BP 130/76; PULSE 72; RESP 19; TEMP 36.7; O2SAT 96
[2025-01-15 04:00] VITALS: BP 130/78; PULSE 74; RESP 19; TEMP 37; O2SAT 96
[2025-01-15 05:33] LABS: Alanine Aminotransferase 23 IU/L (<35); Albumin 3.6 g/dL (3.5-5.0); Albumin Globulin Ratio 1.2 (1.0-2.8); Alkaline Phosphatase 262 U/L (38-126); Aspartate Aminotransferase 51 IU/L (14-36); BUN Creatinine Ratio 17.5 (6-22); Bilirubin Total 0.4 mg/dL (0.2-1.3); Blood Urea Nitrogen 40 mg/dL (7-17); Carbon Dioxide 21 mmol/L (22-32); Chloride 112 mmol/L (98-107); Estimated Glomerular Filt Rate 22 mL/min (>60); Globulin 3.1 g/dL (1.7-4.1); Glucose 88 mg/dL (70-99); HEMOLYSIS < 15 (0-50); Potassium 4.5 mmol/L (3.4-5.1); Sodium 142 mmol/L (137-145); Total Protein 6.7 g/dL (6.3-8.2)
[2025-01-15 05:38] LABS: Calcium 13.9 mg/dL (8.4-10.2)
[2025-01-15 05:42] LABS: Hematocrit 27.9 % (36-46); Hemoglobin 9.5 g/dL (12.0-16.0); Mean Corpuscular HGB Conc 34.1 % (30-36); Mean Corpuscular Hemoglobin 29.7 PG (26-34); Platelet Count 175 X10^3/uL (150-400); White Blood Cell Count 5.9 X10^3/uL (4.5-11.0)
[2025-01-15 05:43] LABS: Add Manual Diff / Slide Review YES
[2025-01-15 06:13] LABS: Neutrophils Absolute Manual 3245 /uL (3000-5900); Nucleated Red Blood Cells 2 #/Diff; Total Cells Counted 100
[2025-01-15 06:14] LABS: RBC Morphology Normal Morphology
[2025-01-15] MEDS: PANTOPRAZOLE DR 20 MG TABLET PO (06:18)
[2025-01-15] MEDS: SODIUM CHLORIDE 0.9% 1,000 ML 100 ML IV (07:47)
[2025-01-15] MEDS: ONDANSETRON 4 MG ODT 2 MG PO (09:38)
[2025-01-15] MEDS: cefTRIAXone 1,000 MG in SODIUM CHLORIDE 0.9% 100 ML 200 MG IV (09:57)
[2025-01-15] MEDS: VENLAFAXINE ER 75 MG CAP 225 MG PO (09:58)
[2025-01-15 10:00] VITALS: BP 154/80; PULSE 86; RESP 23; TEMP 36.6; O2SAT 97
[2025-01-15] MEDS: CLOPIDOGREL 75 MG TABLET PO (10:02)
[2025-01-15] MEDS: PREGABALIN 50 MG CAPSULE PO ×2 (10:02→16:45)
[2025-01-15] MEDS: BUSPIRONE 5 MG TABLET PO (10:02)
[2025-01-15] MEDS: HEPARIN 5,000 UNIT/ML VIAL 5000 UNIT SUBCUT ×2 (10:02→22:20)
[2025-01-15] MEDS: SENNOSIDES 8.6 MG TABLET PO (10:02)
[2025-01-15] MEDS: CHOLECALCIFEROL (VITAMIN D3) 1,000 UNIT TABLET 2000 UNIT PO (10:02)
[2025-01-15] MEDS: CALCITONIN,SALMON 400 UNITS/2 ML MDV 380 UNITS SUBCUT (10:15)
[2025-01-15] MEDS: LEVOTHYROXINE 25 MCG TABLET PO (10:15)
[2025-01-15] MEDS: OXYCODONE IR 5 MG TABLET PO (10:15)
--- NOTE | 2025-01-15 12:00 | PT.IIE ---
Current Diagnoses Volume depletion, unspecified (01/13/25) Medical History (Last Reviewed 01/13/25 @ 13:44 by Jc Manley MD) Acquired hypothyroidism Chronic hip pain, bilateral H/O: stroke Physical Therapy Inpatient Evaluation/Re-Eval M1 PT/OT-IP Prior Functional Status Start: 01/15/25 10:47 Freq: NEEDED Status: Active Protocol: Document 01/15/25 11:15 MB (Rec: 01/15/25 12:00 MB Desktop) Medical Review Prior Functional Status Medical History Reviewed Yes Communication Unsure baseline communication, pt presents with confusion today and states that she is usually clearer at [facility] Mobility and Gait Mod I to light assistance with rollator at [facility] with recent fall and L1 compression fracture and increased pain Activities of Daily Living and IADL's Assistance for ADLs like showering per and he states that she could get up and go to the BR by herself at [facility] before fall and L1 compression fracture and pain (this was seen on x-ray ) Social History Household Members none Living Arrangements Assisted Living Number of Floors (Floors) One Floor Number of Stairs To Enter/Railing? Accessible entrance Home Equipment Four Wheel Walker Additional Social History Comment Accessible living including BR in [facility], adjustable bed M2 PT-IP Current Condition Start: 01/15/25 10:47 Freq: NEEDED Status: Active Protocol: Document 01/15/25 11:15 MB (Rec: 01/15/25 12:00 MB Desktop) Physical Therapy Current Condition Current Condition Evaluation Date 01/15/25 Treatment Diagnosis Increased Ca2+, N/V, confusion M3 PT-IP Subjective Start: 01/15/25 10:47 Freq: NEEDED Status: Active Protocol: Document 01/15/25 11:15 MB (Rec: 01/15/25 12:00 MB Desktop) Subjective Physical Therapy Visit Type Type Initial Evaluation Visit Start Time 11:15 Visit Stop Time 11:48 Number of DESIGN DIRECTOR Visits 0 Physical Therapy Visit Comments Patient Comments What are we doing? Why? pt con't to ask during evaluation Therapy Pain Assessment Pain When Pain Assessed At Rest Pain Present Pain Present Pain Reported Location Back Scale Used Unable to give a number M4 PT-IP Mobility and Gait Start: 01/15/25 10:47 Freq: NEEDED Status: Active Protocol: Document 01/15/25 11:15 MB (Rec: 01/15/25 12:00 MB Desktop) PT-Bed Mobility Assessment Rolling Type of Rolling Roll to Right Level of Assist Minimal Assistance,1 Person Assistance Supine to Sit Supine to Sit Minimal Assistance,1 Person Assistance,Head of Bed Elevated,Bedrails Scooting Scooting to Edge of Bed Maximum Assistance PT-Transfer Assessment Sit to and From Stand Sit to and from Stand Maximum Assistance,2 Person Assistance,Use of Upper Extremities Equipment Transfer Assistive Device Gait Belt,Front Wheeled Walker Orthotic/Prosthetic Devices or Brace: No Transfers Transfer Destination Chair Transfer Technique Scooting steps Transfer Ability Level of Assist Maximum Assistance,2 Person Assistance,Use of Upper Extremities Comments Mobility Comments BP and HR in RUE: supine 159/ 82, 91; sitting EOB 160/71, 111 Gait Assessment Gait Gait Assistance Required: Maximum Assistance,2 Person Assist Distance (Feet) 1 Assistive Devices Assistive Device Gait Belt,Front Wheeled Walker Gait Deviations General Gait Pattern Antalgic,Decreased Stride Length,Decreased Feet Clearance,Flexed Trunk,Lateral Trunk Lean,Step-to Gait,Wide Based Gait Factors Limiting Gait Function Factors Limiting Gait Function Abnormal Tonal Influences, Decreased Activity Tolerance, Decreased Sensation,Decreased Strength,Difficulty Following Directions,Incoordination, Limited Range of Motion,Pain, Poor Balance,Poor Safety Awareness PT-Balance Assessment Sitting Balance and Reactions Static Sitting Balance Ability Poor Dynamic Sitting Balance Ability Poor Standing Balance and Reactions Static Standing Balance Ability Poor Dynamic Standing Balance Ability Poor Device Used RW M5 PT-IP Objective Assessments Start: 01/15/25 10:47 Freq: NEEDED Status: Active Protocol: Document 01/15/25 11:15 MB (Rec: 01/15/25 12:00 MB Desktop) Orientation Orientation/Cognition Level of Alertness Confusional State Orientation Name Safety Awareness Decreased Safety Awareness Memory Description Short Term Impaired,Long-Term Impaired Gross Range of Motion Upper Extremity ROM Impairments Unable to follow commands and functionally weak left sales representative girls' apparel today Lower Extremity ROM Impairments Unable to follow commands, left lean today and functionally weak on the left when observed, reports old CVA affected right side Strength Upper Extremity Strength Assessment Bilaterally Impaired Lower Extremity Strength Assessment Bilaterally Impaired Comments Strength Comments Weak B and unable follow commands some tone changes in right ankle noted in supine with some clonic type movement Coordination Assessment Gross Coordination Gross Coordination Impaired Sensation Assessment Comments Sensation Comments Unable to test M6 PT-IP Treatment Start: 01/15/25 10:47 Freq: NEEDED Status: Active Protocol: Document 01/15/25 11:15 MB (Rec: 01/15/25 12:00 MB Desktop) Physical Therapy Treatment Other Treatments Other Treatment Performed Max A to manage emesis bag and dependent to wash up and change gown, left lateral lean with sitting in chair with back supported today and when sitting EOB without back support with up to max A to maintain sitting balance M7 PT-IP Assessment and Plan Start: 01/15/25 10:47 Freq: NEEDED Status: Active Protocol: Document 01/15/25 11:15 MB (Rec: 01/15/25 12:00 MB Desktop) PT Summary Assessment and Plan Potential Rehabilitation Potential Fair Status of Condition at Evaluation Unstable Summary Impairments Pain,ROM,Strength,Balance, Coordination,Sensation,Tone, Cognition,Bed Mobility, Transfers,Gait,Activity Tolerance Assessment Summary Pt is a 69 y/o female presenting to hospital with increased Ca2+, N/V and confusion. Ca2+ is increasing slightly as of early a.m. and Hgb is mildly decreasing. Pt is feeling okay at rest in bed and nsg clears to try orthostatic and chair mobility today given two days in bed and hopes to improve cognition , skin care and GI motility. Pt with increasing confusion with question asking and mobility and noteable L sales representative girls' apparel weakness today. She is hypertensive and once up to chair, has projectile vomiting that is brown and liquidy. PT speaks with nsg about IV anti -emetic. She will require mechanical lift to get back to bed. reports that previous stroke affected right side and so will want to further assess left extremities when pt tolerates therapy better. Currently recommend SNF before return to [facility]. Goals Bed Mobility Goal Standby Assistance Transfer Goal Contact Guard Assistance Gait Goal Contact Guard Assistance Gait Distance 50 Days to Meet Goals 5 Frequency of Treatment Frequency Of Treatment Once a Day Treatment Plan Physical Therapy Treatment Plan Bed Mobility Training,Transfer Training,Gait Training, Therapeutic Exercise,Balance Retraining,Discharge Planning, Hot or Cold Pack,Neuromuscular Re-ed,Coordination Retraining ,Manual Therapy Precautions Other Precautions Fall risk, vomiting Recommendations To Nursing Amount of Assist Needed Mechanical Lift Discharge Recommendations PT Discharge Recommendations SNF Rehab Transportation Needs at Discharge Wheelchair/Cabulance - PT assist x2
[2025-01-15] MEDS: ONDANSETRON 4 MG/2 ML INJ IV (12:55)
[2025-01-15 15:00] VITALS: BP 139/70; PULSE 67; RESP 15; TEMP 36.2; O2SAT 97
--- NOTE | 2025-01-15 16:26 | CM.DANOTE ---
Initial DCP Assessment Note Pt is a 69 yo female, resident of [facility] in [place], admitted INPT for management of Hypercalcemia, Volume depletion, Acute kidney injury. Recent fall and compreesion fx per notes. PCP: Facility senior medical transcriptionist Payer: [employer] Reviewed chart, pt discussed in multidisciplinary rounds this morning. ISAI 01/16. Patient lives at [facility] where staff assist with most ADLs due to patient's dementia. Therapies recommending SNF stay before return to [facility]. Discuss with spouse/DPOA Tuesday 01/16. Plan: Discharge back to [facility] vs SNF stay dpendeing on patient's functional progress, discussion with spouse, and availability of SNF bed/acceptance. CM team will plan to follow clinical course closely. KARLIE Elder Discharge Planning/Care Management CM Discharge Assessment Start: 01/15/25 16:24 Freq: Status: Active Protocol: Document 01/15/25 16:24 SHYLA (Rec: 01/15/25 16:26 SHYLA Desktop) Discharge Planning Assessment Assigned Ground Support Equipment Assembler KARLIE Mcgarry DPJUAN/Assigned Designee Name QUYEN Banks Contact Information [phone] Advance Directives? No Advance Directives on File Yes History Provided By Family Member,Medical Record Has Patient been admitted in last 30 No days? Prior Living Arrangements Assisted Living Household Members none Type of transporation used prior to Relies on Others admit Independent with ADL's No Is patient alert and oriented? No Needs Assistance With Bathing,Grooming,Meal Prep, Toileting,Managing Medications ,Home Chores / Shopping Barriers to Discharge Yes Comment PT=SNF Transportation Arrangement [place] likely Additional Comment MARY vs SNF depending on progress in mobility status If patient plan is SNF: Has PASSR been Yes completed?
[2025-01-15] MEDS: NALOXONE 0.4 MG/ML VIAL 0.2 MG IV (16:38)
[2025-01-15 16:55] LABS: Hematocrit 32.2 % (36-46); Hemoglobin 10.9 g/dL (12.0-16.0); Mean Corpuscular HGB Conc 33.9 % (30-36); Mean Corpuscular Hemoglobin 29.5 PG (26-34); Mean Corpuscular Volume 87.1 fL (80-100); Platelet Count 153 X10^3/uL (150-400); Red Blood Cell Count 3.69 X10^6/uL (4.0-5.2); Red Cell Distribution Width 15.1 % (11.6-14.8); White Blood Cell Count 7.3 X10^3/uL (4.5-11.0)
[2025-01-15 16:58] LABS: BUN Creatinine Ratio 18.2 (6-22); Blood Urea Nitrogen 37 mg/dL (7-17); Calcium 12.6 mg/dL (8.4-10.2); Carbon Dioxide 19 mmol/L (22-32); Chloride 116 mmol/L (98-107); Estimated Glomerular Filt Rate 26 mL/min (>60); Glucose 114 mg/dL (70-99); HEMOLYSIS 30 (0-50); Potassium 4.8 mmol/L (3.4-5.1); Sodium 146 mmol/L (137-145)
[2025-01-15 17:08] LABS: Add Manual Diff / Slide Review YES
[2025-01-15 17:10] LABS: Neutrophils Absolute Manual 5256 /uL (3000-5900); Nucleated Red Blood Cells 1 #/Diff; Total Cells Counted 100
[2025-01-15 17:12] LABS: Acanthocytes 1+; Ovalocytes 1+; Rouleaux 1+
--- NOTE | 2025-01-15 17:12 | P.PN_ITS ---
Subjective Subjective Interval history: 69-year-old female with history of arthritis, hypertension, hypothyroidism, dyslipidemia, and remote CVA who was recently discharged from the hospital after being evaluated for chest pain. Patient's spouse reports that she is much more confused and agitated today. The only change we made since yesterday was the addition of oxycodone. He did not tell me this yesterday but does report today that when she takes oxycodone she does get confused. He states it is typically like she is ?drunk. He notes she has been very perseverative today. He states he was treated for most of the day than were herself out and has been sleeping for the last several hours. She did receive 1 oxycodone last evening at 8:40 p.m.. He states she slept for 10 hours. She got another oxycodone at 10:15 this morning. Her calcium level this morning was up to 13.9 despite receiving pamidronate yesterday and ongoing IV fluids. I did order calcitonin 380 mg subQ. Currently, patient is somnolent, but breathing regularly and comfortably. Exam Vital Signs (past 8 hours): - 01/15/25 10:00 01/15/25 15:00 Temperature 97.8 F 97.2 F L Pulse Rate 86 67 Respiratory Rate 23 15 Blood Pressure 154/80 H 139/70 Pulse Oximetry 97 97 Oxygen Flow Rate 0 0 Oxygen Delivery Method Room Air Oxygen Flow Rate 0 Narrative Exam Narrative: GEN: Middle-aged female, somnolent NAD HEENT:NC, Face symmetric CHEST: Respiratory excursions symmetric, diminished but CTAB CV: RRR, no M/R/G ABD: Soft, NT/ND, obese, BT present in all 4 quadrants, body habitus limits exam EXTR: warm, well perfused, no C/C/E SKIN: warm and dry, no rash NEURO: As above Objective Labs 01/15/25 16:40 01/15/25 16:40 Labs: Laboratory Results - last 24 hr 01/15/25 01/15/25 04:50 16:40 WBC 5.9 7.3 RBC 3.20 L 3.69 L Hgb 9.5 L 10.9 L Hct 27.9 L 32.2 L MCV 87.0 87.1 MCH 29.7 29.5 MCHC 34.1 33.9 RDW 15.0 H 15.1 H Plt Count 175 153 Neut % (Auto) Not Reportable Not Reportable Lymph % (Auto) Not Reportable Not Reportable [place] % (Auto) Not Reportable Not Reportable Eos % (Auto) Not Reportable Not Reportable Baso % (Auto) Not Reportable Not Reportable Lymph # (Auto) Not Reportable Not Reportable [place] # (Auto) Not Reportable Not Reportable Baso # (Auto) Not Reportable Not Reportable Total Counted 100 Seg Neutrophils % 47.0 Band Neutrophils % 8.0 H Lymphocytes % (Manual) 37.0 Monocytes % (Manual) 8.0 Neutrophils # (Manual) 3245 Nucleated RBCs 2 H RBC Morphology Normal morphology Sodium 142 146 H Potassium 4.5 4.8 Chloride 112 H 116 H Carbon Dioxide 21 L 19 L BUN 40 H 37 H Creatinine 2.29 H 2.03 H Estimated GFR 22 L 26 L BUN/Creatinine Ratio 17.5 18.2 Glucose 88 114 H Calcium 13.9 H* 12.6 H Ionized Calcium Raiza Cancelled Total Bilirubin 0.4 AST 51 H ALT 23 Alkaline Phosphatase 262 H Total Protein 6.7 Albumin 3.6 Globulin 3.1 Albumin/Globulin Ratio 1.2 PFSH Medical History Acquired hypothyroidism H/O: stroke Chronic hip pain, bilateral Social History household members: none Smoking Status: Never smoker alcohol intake: current Assessment & Plan Assessment & Plan narrative: 1. Hypercalcemia Patient had similar issue in November of this year. She underwent workup which did reveal a borderline low 25 hydroxy vitamin-D level at 32, and a low 1, 25 dihydroxy vitamin-D. Her PTH and PTHrP were within normal limits. Incidentally, her alkaline phosphatase has been elevated dating back since October of this year. It has been in the 230s to 280s. Continue vitamin-D replacement due to her low vitamin-D level. Calcitonin given this morning as noted. Plan to repeat calcium level this afternoon and consider furosemide if it remains high. 2. Volume depletion Suspect this is less likely to be the etiology of her hypercalcemia, as she did have hypercalcemia in November as well. Will reduce IV fluids to 70 mL/hour. She is appearing to be a bit volume overloaded but given her confusion she is not taking in anything orally. 3. Acute kidney injury Unclear etiology over all. She has had increased pain with her vertebral fracture. Losartan has been held. Creatinine was 1.09 on December 07 and is up to 2.32 on admission. I it remains elevated and actually increased at 2.29 today. We will continue to monitor. 4. Hyperkalemia Potassium is 4.5. 5. Elevated troponin consistent with demand ischemia, Mild bump up to 0.036 which rapidly resolved on follow-up troponin checks. 6. Hypertension Blood pressures have been fairly normotensive since yesterday 7. L1 compression fracture Given her increased confusion today, will DC the oxycodone. As noted, her spouse had failed to mention that she does get confused on oxycodone. 8. Hyperlipidemia Chronic and stable Code status Full Prophylaxis On heparin Disposition Given her worsening delirium, she will remain inpatient until she is significantly cleared. Time-Based Coding :: [TOTAL MINUTES] spent with patient and on the chart (including review of chart, obtaining history, exam, reviewing outside data, placing orders, documenting exam and treatment plan, and counseling patient) on [DATE]. Quality VTE Deep Vein Thrombosis/Pulmonary Embolism Present on Admission: No
--- NOTE | 2025-01-15 18:53 | PC.NURSE ---
Day shift: This afternoon this RN went into patient's room and her color looked more pale, hands were mottled and she was not responding to voice. Her eyes fluttered open with a sternal rub. Vitals remained stable. Notified MD Muñoz. She ordered narcan for patient, thinking that due to patient's poor kidney function she may be not clearing the oxycodone. Narcan given by RACHEL Reddy. Patient became more alert and awake. Labs drawn, calcium level improved since this AM. Will continue to monitor.
[2025-01-15 20:24] VITALS: BP 124/68; PULSE 61; RESP 19; TEMP 36.1; O2SAT 94
[2025-01-15] MEDS: SODIUM CHLORIDE 0.9% 1,000 ML 70 ML IV (20:45)
[2025-01-15] MEDS: ACETAMINOPHEN 325 MG TABLET 650 MG PO (23:35)
[2025-01-16] VITALS: BP 130/72; PULSE 80; RESP 19; TEMP 36.1; O2SAT 96
[2025-01-16 04:00] VITALS: BP 130/72; PULSE 80; RESP 19; TEMP 36.7; O2SAT 96
[2025-01-16] MEDS: ACETAMINOPHEN 325 MG TABLET 650 MG PO ×3 (05:46→21:28)
[2025-01-16] MEDS: PANTOPRAZOLE DR 20 MG TABLET PO (05:47)
[2025-01-16 06:14] LABS: Hematocrit 34.4 % (36-46); Hemoglobin 11.6 g/dL (12.0-16.0); Mean Corpuscular HGB Conc 33.6 % (30-36); Mean Corpuscular Hemoglobin 29.1 PG (26-34); Mean Corpuscular Volume 86.7 fL (80-100); Platelet Count 154 X10^3/uL (150-400); Red Blood Cell Count 3.97 X10^6/uL (4.0-5.2); Red Cell Distribution Width 15.6 % (11.6-14.8); White Blood Cell Count 6.3 X10^3/uL (4.5-11.0)
[2025-01-16 06:21] LABS: Alanine Aminotransferase 28 IU/L (<35); Albumin 4.1 g/dL (3.5-5.0); Albumin Globulin Ratio 1.2 (1.0-2.8); Alkaline Phosphatase 315 U/L (38-126); Aspartate Aminotransferase 74 IU/L (14-36); BUN Creatinine Ratio 18.1 (6-22); Bilirubin Total 0.5 mg/dL (0.2-1.3); Blood Urea Nitrogen 39 mg/dL (7-17); Calcium 12.2 mg/dL (8.4-10.2); Carbon Dioxide 20 mmol/L (22-32); Chloride 111 mmol/L (98-107); Estimated Glomerular Filt Rate 24 mL/min (>60); Globulin 3.5 g/dL (1.7-4.1); Glucose 84 mg/dL (70-99); HEMOLYSIS < 15 (0-50); Potassium 4.9 mmol/L (3.4-5.1); Sodium 142 mmol/L (137-145); Total Protein 7.6 g/dL (6.3-8.2)
[2025-01-16 06:26] LABS: Add Manual Diff / Slide Review YES
[2025-01-16 06:32] LABS: Anisocytosis 1+; Neutrophils Absolute Manual 4095 /uL (3000-5900); Nucleated Red Blood Cells 3 #/Diff; Total Cells Counted 100
[2025-01-16 08:00] VITALS: BP 151/90; PULSE 98; RESP 21; TEMP 36.2; O2SAT 72
[2025-01-16] MEDS: CHOLECALCIFEROL (VITAMIN D3) 1,000 UNIT TABLET 2000 UNIT PO (08:01)
[2025-01-16] MEDS: CLOPIDOGREL 75 MG TABLET PO (08:01)
[2025-01-16] MEDS: HEPARIN 5,000 UNIT/ML VIAL 5000 UNIT SUBCUT ×2 (08:02→21:02)
[2025-01-16] MEDS: SENNOSIDES 8.6 MG TABLET PO ×2 (08:02→21:02)
[2025-01-16] MEDS: VENLAFAXINE ER 75 MG CAP 225 MG PO (08:02)
[2025-01-16] MEDS: PREGABALIN 50 MG CAPSULE PO ×3 (08:02→21:02)
[2025-01-16] MEDS: LEVOTHYROXINE 25 MCG TABLET PO (08:02)
[2025-01-16] MEDS: cefTRIAXone 1,000 MG in SODIUM CHLORIDE 0.9% 100 ML 200 MG IV (09:20)
[2025-01-16] MEDS: BUSPIRONE 5 MG TABLET PO ×3 (09:20→21:02)
--- NOTE | 2025-01-16 11:08 | PT.IPTN ---
Current Diagnoses Volume depletion, unspecified (01/13/25) Physical Therapy Treatment Note M2 PT-IP Current Condition Start: 01/15/25 10:47 Freq: NEEDED Status: Active Protocol: Document 01/15/25 11:15 MB (Rec: 01/15/25 12:00 MB Desktop) Physical Therapy Current Condition Current Condition Evaluation Date 01/15/25 Treatment Diagnosis Increased Ca2+, N/V, confusion M3 PT-IP Subjective Start: 01/15/25 10:47 Freq: NEEDED Status: Active Protocol: Document 01/16/25 10:48 MB (Rec: 01/16/25 11:08 MB Desktop) Subjective Physical Therapy Visit Type Type Treatment Note Visit Start Time 10:48 Visit Stop Time 11:02 Number of SALVAGE WORKER Visits 0 Physical Therapy Visit Comments Patient Comments I'm answering questions today . states pt has not had vomiting since last night. Pt is more alert today and conversant. Therapy Pain Assessment Pain When Pain Assessed At Rest Pain Present Pain Present Denied Pain M4 PT-IP Mobility and Gait Start: 01/15/25 10:47 Freq: NEEDED Status: Active Protocol: Document 01/16/25 10:48 MB (Rec: 01/16/25 11:08 MB Desktop) PT-Bed Mobility Assessment Rolling Type of Rolling Roll to Right Level of Assist Moderate Assistance,1 Person Assistance Supine to Sit Supine to Sit Moderate Assistance,1 Person Assistance,Head of Bed Elevated,Bedrails PT-Transfer Assessment Sit to and From Stand Sit to and from Stand Moderate Assistance,2 Person Assistance,Use of Upper Extremities Equipment Transfer Assistive Device Gait Belt,Front Wheeled Walker Orthotic/Prosthetic Devices or Brace: No Transfers Transfer Destination Chair Transfer Technique Scooting steps, better upright today Transfer Ability Level of Assist Moderate Assistance,Maximum Assistance,2 Person Assistance ,Use of Upper Extremities Comments Mobility Comments Two person assistance at gait belt and to move walker, PT stands in front and provides max A to help with upright posture and second person provides mod A, cues for picking up feet and reaching back for chair Gait Assessment Gait Gait Assistance Required: Moderate Assistance,Maximum Assistance,2 Person Assist Distance (Feet) 1 Assistive Devices Assistive Device Gait Belt,Front Wheeled Walker Gait Deviations General Gait Pattern Antalgic,Decreased Stride Length,Decreased Feet Clearance,Flexed Trunk,Lateral Trunk Lean,Step-to Gait,Wide Based Gait Factors Limiting Gait Function Factors Limiting Gait Function Abnormal Tonal Influences, Decreased Activity Tolerance, Decreased Sensation,Decreased Strength,Difficulty Following Directions,Incoordination, Limited Range of Motion,Pain, Poor Balance,Poor Safety Awareness Comments Gait Comments See comments above, slightly better than last date PT-Balance Assessment Sitting Balance and Reactions Static Sitting Balance Ability Fair Dynamic Sitting Balance Ability Poor Standing Balance and Reactions Static Standing Balance Ability Poor Dynamic Standing Balance Ability Poor Device Used RW and gait belt M5 PT-IP Objective Assessments Start: 01/15/25 10:47 Freq: NEEDED Status: Active Protocol: Document 01/16/25 10:48 MB (Rec: 01/16/25 11:08 MB Desktop) Strength Comments Strength Comments Better use of left hand, which is her dominant hand, today M6 PT-IP Treatment Start: 01/15/25 10:47 Freq: NEEDED Status: Active Protocol: Document 01/15/25 11:15 MB (Rec: 01/15/25 12:00 MB Desktop) Physical Therapy Treatment Other Treatments Other Treatment Performed Max A to manage emesis bag and dependent to wash up and change gown, left lateral lean with sitting in chair with back supported today and when sitting EOB without back support with up to max A to maintain sitting balance M7 PT-IP Assessment and Plan Start: 01/15/25 10:47 Freq: NEEDED Status: Active Protocol: Document 01/16/25 10:48 MB (Rec: 01/16/25 11:08 MB Desktop) PT Summary Assessment and Plan Potential Rehabilitation Potential Fair Status of Condition at Evaluation Evolving Summary Impairments Pain,ROM,Strength,Balance, Coordination,Sensation,Tone, Cognition,Bed Mobility, Transfers,Gait,Activity Tolerance Progress Towards Goals Slow Progress due to Activity Tolerance,Slow Progress - Other Assessment Summary Slowly progressing with bed mobility, transfers and stepping today. Pt's mentation is improved today and she does not have projectile vomiting after mobility. Goals Bed Mobility Goal Standby Assistance Transfer Goal Contact Guard Assistance,Front Wheeled Walker,Four Wheeled Walker Gait Goal Contact Guard Assistance,Front Wheel Walker,Four Wheel Walker Gait Distance 50 Days to Meet Goals 5 Frequency of Treatment Frequency Of Treatment Once a Day Treatment Plan Physical Therapy Treatment Plan Bed Mobility Training,Transfer Training,Gait Training, Therapeutic Exercise,Balance Retraining,Discharge Planning, Hot or Cold Pack,Neuromuscular Re-ed,Coordination Retraining ,Manual Therapy Precautions Other Precautions Fall risk, L1 compression fracture, likely sub acute Recommendations To Nursing Amount of Assist Needed Mechanical Lift Discharge Recommendations PT Discharge Recommendations SNF Rehab Transportation Needs at Discharge Wheelchair/Cabulance - PT assist x2
[2025-01-16] MEDS: SODIUM CHLORIDE 0.9% 1,000 ML 70 ML IV (11:11)
--- NOTE | 2025-01-16 11:16 | OT.IP.EVAL ---
Current Diagnoses Volume depletion, unspecified (01/13/25) Past Medical History (Last Reviewed 01/13/25 @ 13:44 by Jc Manley MD) Acquired hypothyroidism Chronic hip pain, bilateral H/O: stroke Occupational Therapy Inpatient Evaluation/Re-Eval M1 PT/OT-IP Prior Functional Status Start: 01/15/25 10:47 Freq: NEEDED Status: Active Protocol: Document 01/16/25 11:20 CGR (Rec: 01/16/25 11:43 CGR Desktop) Medical Review Prior Functional Status Medical History Reviewed Yes Communication Pt is an effective verbal communicator but appears slightly confused. Mobility and Gait Mod I to light assistance with rollator at [facility] with recent fall and L1 compression fracture and increased pain Activities of Daily Living and IADL's Assistance for ADLs like showering per and he states that she could get up and go to the BR by herself at [facility] before fall and L1 compression fracture and pain (this was seen on x-ray ) Social History Household Members none Living Arrangements Assisted Living Number of Floors (Floors) One Floor Number of Stairs To Enter/Railing? Accessible entrance Home Equipment Four Wheel Walker Additional Social History Comment Accessible living including BR in [facility], adjustable bed M2 OT-IP Current Condition Start: 01/16/25 11:19 Freq: Status: Active Protocol: Document 01/16/25 11:20 CGR (Rec: 01/16/25 11:43 CGR Desktop) Occupational Therapy Current Condition Current Condition Evaluation Date 01/16/25 Treatment Diagnosis AMS, E coli UTI, recent fall with likely L1 compression fx. Diagnosis Onset Date 01/13/25 M3 OT- IP Subjective and Pain Start: 01/16/25 11:19 Freq: Status: Active Protocol: Document 01/16/25 11:20 CGR (Rec: 01/16/25 11:43 CGR Desktop) OT- Subjective Occupational Therapy Visit Type Type Initial Evaluation Visit Start Time 10:40 Visit Stop Time 11:16 Notes Pt and spouse in room with MD when OT entered. OT Pain Assessment Pain When Pain Assessed During Mobility Pain Present Pain Present Pain Reported Location Back Scale Used did not rate Management Techniques Distraction,Modification of Treatment,Re-positioning M4 OT- IP ADL's Start: 01/16/25 11:19 Freq: Status: Active Protocol: Document 01/16/25 11:20 CGR (Rec: 01/16/25 11:43 CGR Desktop) OT FBT-[id number] Comments OT Self-Feeding Comments not meal time OT ADL-Grooming General Evaluation Grooming Ability Standby Assistance Areas Needing Assistance Face Washing Comments OT Grooming Comments seated in chair OT ADL-Oral Care General Eval Oral Care Ability Standby Assistance Areas of Assistance Brushing Teeth Comments Oral Care Comments seated in chair with vc to initiate then pt perseverates on it. OT ADL-Dressing General Eval Lower Body Dressing Ability Total Assistance Areas Needing Assistance Socks OT ADL-Toileting General Evaluation Toileting Ability Total Assistance Comments OT Toileting Comments Pt with yovany wick OT ADL-Bathing Comments OT Bathing Comments not performed M5 OT- IP IADL's Start: 01/16/25 11:19 Freq: Status: Active Protocol: Document 01/16/25 11:20 CGR (Rec: 01/16/25 11:43 CGR Desktop) OT-Instrumental Activities of Daily Living Deficits IADL Deficits Identified Deficits Home Safety Awareness Awareness of Need for Assistance at Home Decreased Awareness Ability to Problem Solve Emergency Unable to Problem Solve Situations Medication Management Medication Management Caregiver Administers Money Management Money Management Caregiver Provides Assistance Meal Preparation Meal Preparation Caregiver Provides Assist Quality Assurance Inspector Quality Assurance Inspector Caregiver Provides Assist M6 OT- IP Functional Cognition Start: 01/16/25 11:19 Freq: Status: Active Protocol: Document 01/16/25 11:20 CGR (Rec: 01/16/25 11:43 CGR Desktop) Cognitive Factors Limiting Selfcare Function Cognitive Ability Level of Alertness Alert Patient Orientation Name Attention Span Ability Capable of Focused Attention, Capable of Sustained Attention Ability to Follow Commands Able to Follow One Step Commands with Increased Time, Able to Follow One Step Commands with Repetition Cognitive Comments Cognitive Assessment Comments Pt has a dx of dementia nd lives at [facility] because of her dementia. She is able to carry on a conversation and makes sarcastic humorous remarks. OT- Vision and Hearing OT- Vision Assessment Visual Acuity WFL Visual Attentiveness WFL Vision Assessment Comments Pts occular pursuits are delayed with testing M7 OT- IP Mobility and Balance Start: 01/16/25 11:19 Freq: Status: Active Protocol: Document 01/16/25 11:20 CGR (Rec: 01/16/25 11:43 CGR Desktop) OT- Bed Mobility Assessment Supine to Sit Supine to Sit Assist Moderate Assistance,Head of Bed Elevated,Bedrails Scooting Scooting to Edge of Bed Moderate Assistance,Maximum Assistance,Head of Bed Elevated,Bedrails OT-Transfer Assessment Sit to and From Stand Sit to and from Stand Moderate Assistance,Maximum Assistance,2 Person Assistance Transfers Transfer Ability Moderate Assistance,Maximum Assistance,2 Person Assistance Technique Transfer Destination Bed,Chair Transfer Technique Stand Step Pivot Devices Transfer Assistive Devices Gait Belt,Front Wheeled Walker Comments Mobility Comments Pt with poor balance requiring assist with forward balance in standing. OT- Gait Assessment Comments Gait Ability Comments did not occur OT- Balance Assessment Sitting Balance and Reactions Static Sitting Balance Ability Fair Dynamic Sitting Balance Ability Fair M8 OT- IP Objective Assessments Start: 01/16/25 11:19 Freq: Status: Active Protocol: Document 01/16/25 11:20 CGR (Rec: 01/16/25 11:43 CGR Desktop) OT Gross Range of Motion Upper Extremity Range of Motion Assessment Within Functional Limits OT Strength Upper Extremity Strength Assessment Bilaterally Impaired Comments Strength Comments B shlds 3+/5 arms and hands 4+/5 OT- Coordination Assessment Upper Extremity Finger to Nose Test Right UE Impaired Finger Tapping Test Within Functional Limits Comments Coordination Comments Pt states that her L hand is her good hand. 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 She implies that this is new. Edema Edema Absent M9 OT- IP Assessment and Plan Start: 01/16/25 11:19 Freq: Status: Active Protocol: Document 01/16/25 11:20 CGR (Rec: 01/16/25 11:43 CGR Desktop) OT Summary Assessment and Plan Potential Rehabilitation Potential Good Analytic Complexity at Evaluation High Summary OT Impairments Strength,Balance,Coordination, Sensation,Functional Cognition ,Functional Mobility,Grooming, Dressing,Toileting,Bathing, Toilet Transfers,Shower Transfers,Activity Tolerance Progress Towards Goals Slow Progress due to Cognition Assessment Summary Pt presents as a high complexity evaluation s/p admit for UTI and AMS. Pt has a recent fall with possible L1 compression fx. Pt was agreeable and participatory in todays session but still needed 2 person assist for transfer d/t shakiness per patient report. Pt will continue to benefit from therapy services and current recommendation is SNF prior to return to [facility] depending on her progress while hospitalized. Goals Self-Feeding Goal Independent Grooming Goal Independent Dressing Goal Minimal Assistance Toileting Goal Independent Bathing Goal Minimal Assistance Toilet Transfer Goal Independent Shower Transfer Goal Minimal Assistance Days to Meet Goals 15 Frequency of Treatment Other frequency 5x a week Treatment Plan OT Treatment Plan ADL Training,Functional Cognition Training,Functional Mobility,Patient/Family Education,Discharge Planning Other Treatment Recommendations and Next ADLs seated at [facility] Treatment Focus transfer Discharge Recommendations OT Discharge Recommendations SNF Rehab Transportation Needs at Discharge Wheelchair/Cabulance
--- NOTE | 2025-01-16 11:49 | PM.PN.1 ---
Subjective Subjective Interval history: 69-year-old female with history of arthritis, hypertension, hypothyroidism, dyslipidemia, and remote CVA who was recently discharged from the hospital after being evaluated for chest pain. She was admitted for hypercalcemia and encephalopathy. She is much more alert today, talkative and oriented. She feels largely back to normal, but her brain is a bit foggy to her. She had oxycodone stopped yesterday as well as was given pamindronate, after zolendronic acid was given during a prior admission. Exam Vital Signs (past 8 hours): - 01/16/25 04:00 01/16/25 08:00 Temperature 98.0 F 97.1 F L Pulse Rate 80 98 H Respiratory Rate 19 21 Blood Pressure 130/72 151/90 H Pulse Oximetry 96 72 L Oxygen Flow Rate 0 Oxygen Delivery Method Room Air Oxygen Flow Rate 0 Narrative Exam Narrative: General:? Patient is well developed and well nourished, in no distress at this time. HEENT:? Normocephalic, atraumatic, extraocular muscles intact, oral pharynx is clear and mucous membranes are moist. Chest:? Normal AP diameter and contour without kyphoscoliosis, no tachypnea, equal chest rise bilaterally. Lungs:? CTA b/l no wheezing rhonchi or rales. Cardio:?RRR no m/r/g. Abdomen: S NT ND. Musculoskeletal:? Muscle strength and tone are equal within normal limits, no deformity. Bilateral hip tenderness with minimal palpation, more laterally. Extremities: trace b/l LE edema, No joint effusions. No cyanosis or clubbing. Objective Labs 01/16/25 05:30 01/16/25 05:30 Labs: Laboratory Results - last 24 hr 01/15/25 01/15/25 01/16/25 04:50 16:40 05:30 WBC 7.3 6.3 RBC 3.69 L 3.97 L Hgb 10.9 L 11.6 L Hct 32.2 L 34.4 L MCV 87.1 86.7 MCH 29.5 29.1 MCHC 33.9 33.6 RDW 15.1 H 15.6 H Plt Count 153 154 Neut % (Auto) Not Reportable Not Reportable Lymph % (Auto) Not Reportable Not Reportable Faulkner % (Auto) Not Reportable Not Reportable Eos % (Auto) Not Reportable Not Reportable Baso % (Auto) Not Reportable Not Reportable Lymph # (Auto) Not Reportable Not Reportable Faulkner # (Auto) Not Reportable Not Reportable Baso # (Auto) Not Reportable Not Reportable Total Counted 100 100 Seg Neutrophils % 69.0 55.0 Band Neutrophils % 3.0 10.0 H Lymphocytes % (Manual) 22.0 L 26.0 Monocytes % (Manual) 5.0 7.0 Basophils % (Manual) 1.0 1.0 Metamyelocytes % 1.0 H Neutrophils # (Manual) [phone] Nucleated RBCs 1 H 3 H RBC Morphology See below See below Anisocytosis 1+ H Ovalocytes 1+ H Acanthocytes (Spur) 1+ H Rouleaux 1+ H Sodium 146 H 142 Potassium 4.8 4.9 Chloride 116 H 111 H Carbon Dioxide 19 L 20 L BUN 37 H 39 H Creatinine 2.03 H 2.15 H Estimated GFR 26 L 24 L BUN/Creatinine Ratio 18.2 18.1 Glucose 114 H 84 Calcium 12.6 H 12.2 H Ionized Calcium Raiza Cancelled Total Bilirubin 0.5 AST 74 H ALT 28 Alkaline Phosphatase 315 H Total Protein 7.6 Albumin 4.1 Globulin 3.5 Albumin/Globulin Ratio 1.2 PFSH Medical History Acquired hypothyroidism H/O: stroke Chronic hip pain, bilateral Social History household members: none Smoking Status: Never smoker alcohol intake: current Assessment & Plan Assessment & Plan narrative: 1. Hypercalcemia, recurrent, POA - Zolendronic acid given 12/02 - Pamindronate given 01/15, can consider repeat dosing after 1 week if calcium remains elevated. - continue IV fluids today - SPEP/UPEP pending at this time. - She underwent workup which did reveal a borderline low 25 hydroxy vitamin-D level at 32, and a low 1, 25 dihydroxy vitamin-D. Her PTH and PTHrP were within normal limits. Incidentally, her alkaline phosphatase has been elevated dating back since October of this year. It has been in the 230s to 280s. Continue vitamin-D replacement due to her low vitamin-D level. Calcitonin given this morning as noted. 2. Volume depletion Suspect this is less likely to be the etiology of her hypercalcemia, as she did have hypercalcemia in November as well. Will continue reduced fluids at 70 cc per hour today. 3. Acute kidney injury Unclear etiology over all. She has had increased pain with her vertebral fracture. Losartan has been held. Creatinine was 1.09 on December 07 and is up to 2.32 on admission. I it remains elevated and actually increased at 2.15 today. We will continue to monitor. - overall concern for myeloma, pending SPEP and UPEP as noted above. 4. Hyperkalemia, improved Potassium is 4.9 today. 5. Elevated troponin consistent with demand ischemia, Mild bump up to 0.036 which rapidly resolved on follow-up troponin checks. 6. Hypertension Blood pressures have been fairly normotensive since yesterday 7. L1 compression fracture Given her increased confusion today, will DC the oxycodone. As noted, her spouse had failed to mention that she does get confused on oxycodone. 8. Hyperlipidemia Chronic and stable Code status Full Prophylaxis On heparin Disposition Pending PT/OT recommendations, [facility] vs SNF pending above evaluation. Time-Based Coding :: [TOTAL MINUTES] spent with patient and on the chart (including review of chart, obtaining history, exam, reviewing outside data, placing orders, documenting exam and treatment plan, and counseling patient) on [DATE]. Quality VTE Deep Vein Thrombosis/Pulmonary Embolism Present on Admission: No
[2025-01-16 12:00] VITALS: BP 147/85; PULSE 70; RESP 21; TEMP 36.4; O2SAT 98
--- NOTE | 2025-01-16 13:04 | CM.DPNOTE ---
DCP note SILVERSMITH APPRENTICE revieweed EMR PT/OT continue to rec SNF. per provider, potentially stable to dc to SNF as soon as tomorrow. SILVERSMITH APPRENTICE updated Mariama, curriculum director as bharath ([phone]). preference is for pt to dc to SNF prior to return to [facility]. SILVERSMITH APPRENTICE entered room and introduced self and role. 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 agreeable to SNF at , has been there recently. SILVERSMITH APPRENTICE answered questions to best of ability. CC Joceline sent clincials to Shannan from . per Shannan, can accept pt. SILVERSMITH APPRENTICE completed PASRR, hospitalist signed. P: dc to when medically stable. transort pending. will continue to follow as needed for DCP coordination KARLIE Lambert
[2025-01-16 16:00] VITALS: BP 144/74; PULSE 66; RESP 18; TEMP 36.3; O2SAT 98
[2025-01-16 20:00] VITALS: BP 134/74; PULSE 67; RESP 17; TEMP 36.2; O2SAT 98
[2025-01-16] MEDS: ATORVASTATIN 20 MG TABLET 40 MG PO (21:01)
[2025-01-16] MEDS: TRAZODONE 50 MG TABLET PO (21:02)
[2025-01-16] MEDS: TIZANIDINE 4 MG TABLET 8 MG PO (22:12)
[2025-01-17] VITALS (7 sets, daily range): BP systolic 95–154; BP diastolic 44–100; PULSE 60–88; RESP 15–21; TEMP 36.2–36.8; O2SAT 95–99
[2025-01-17] MEDS: SODIUM CHLORIDE 0.9% 1,000 ML 70 ML IV ×2 (00:50→15:19)
[2025-01-17] MEDS: PANTOPRAZOLE DR 20 MG TABLET PO (05:58)
[2025-01-17 07:49] LABS: BUN Creatinine Ratio 17.9 (6-22); Blood Urea Nitrogen 33 mg/dL (7-17); Calcium 10.8 mg/dL (8.4-10.2); Carbon Dioxide 18 mmol/L (22-32); Chloride 110 mmol/L (98-107); Estimated Glomerular Filt Rate 29 mL/min (>60); Glucose 76 mg/dL (70-99); HEMOLYSIS 43 (0-50); Potassium 4.5 mmol/L (3.4-5.1); Sodium 137 mmol/L (137-145)
[2025-01-17] MEDS: CHOLECALCIFEROL (VITAMIN D3) 1,000 UNIT TABLET 2000 UNIT PO (08:50)
[2025-01-17] MEDS: VENLAFAXINE ER 75 MG CAP 225 MG PO (08:50)
[2025-01-17] MEDS: BUSPIRONE 5 MG TABLET PO ×3 (08:50→20:12)
[2025-01-17] MEDS: PREGABALIN 50 MG CAPSULE PO ×3 (08:51→20:12)
[2025-01-17] MEDS: CLOPIDOGREL 75 MG TABLET PO (08:51)
[2025-01-17] MEDS: ACETAMINOPHEN 325 MG TABLET 650 MG PO ×2 (08:51→20:12)
[2025-01-17] MEDS: SENNOSIDES 8.6 MG TABLET PO ×2 (08:51→20:12)
[2025-01-17] MEDS: LEVOTHYROXINE 25 MCG TABLET PO (08:51)
[2025-01-17] MEDS: HEPARIN 5,000 UNIT/ML VIAL 5000 UNIT SUBCUT ×2 (08:52→20:13)
[2025-01-17] MEDS: cefTRIAXone 1,000 MG in SODIUM CHLORIDE 0.9% 100 ML 200 MG IV (09:38)
--- NOTE | 2025-01-17 10:27 | PT.IPTN ---
Current Diagnoses Volume depletion, unspecified (01/13/25) Physical Therapy Treatment Note M2 PT-IP Current Condition Start: 01/15/25 10:47 Freq: NEEDED Status: Active Protocol: Document 01/15/25 11:15 MB (Rec: 01/15/25 12:00 MB Desktop) Physical Therapy Current Condition Current Condition Evaluation Date 01/15/25 Treatment Diagnosis Increased Ca2+, N/V, confusion M3 PT-IP Subjective Start: 01/15/25 10:47 Freq: NEEDED Status: Active Protocol: Document 01/17/25 10:27 AB (Rec: 01/17/25 11:55 AB [id number]) Subjective Physical Therapy Visit Type Type Treatment Note Visit Start Time 10:27 Visit Stop Time 11:02 Number of BOTTOM SAW OPERATOR Visits 0 Physical Therapy Visit Comments Patient Comments agreeable to do PT Therapy Pain Assessment Pain When Pain Assessed At Rest Pain Present Pain Present Pain Reported Location Back Intensity 6 Scale Used Numeric (0 - 10) Pain Management Techniques Distraction,Modification of Treatment,Re-positioning, Timing of Activity with Medications M4 PT-IP Mobility and Gait Start: 01/15/25 10:47 Freq: NEEDED Status: Active Protocol: Document 01/17/25 10:27 AB (Rec: 01/17/25 11:55 AB [id number]) PT-Bed Mobility Assessment Rolling Type of Rolling Log Rolling Level of Assist Maximal Assistance,2 Person Assistance Supine to Sit Supine to Sit Maximum Assistance,2 Person Assistance,Bedrails Scooting Scooting to Edge of Bed Maximum Assistance PT-Transfer Assessment Sit to and From Stand Sit to and from Stand Moderate Assistance,Maximum Assistance,2 Person Assistance ,Use of Upper Extremities Equipment Transfer Assistive Device Gait Belt,Front Wheeled Walker Orthotic/Prosthetic Devices or Brace: No Transfers Transfer Destination Chair Transfer Technique Stand Step Pivot Transfer Ability Level of Assist Moderate Assistance,Maximum Assistance,2 Person Assistance ,Use of Upper Extremities Comments Mobility Comments pt supine in bed and agreeable to do PT. BP in supine: 135/ 72 completed supine to sit log roll max A x 2 and max cues. able to sit on EOB min A with increase posterior leaning requiring frequent cues and repositioning to correct. max A for scooting to EOB. c/o slight dizziness. BP : 125/57. pt rested and BP rechecked: 122/70. completed sit to stand mod A x2 to max A x 2 and max cues and step transfer to chair using FWW. required x 2 attempts to transfer. pt unable to maintain standing to transfer on first standing attempt. cued to use UE on fWW for support and B quads activation in standing. BP after transfers: 107/63. pt rested. BP rechecked: 126/66. pt wants to ambulate. sit to stand from the chair mod A x 2 to max A x 2 and attempted to ambulate but only marched in place x 4 max A x 2. pt sat back on chair and stated that her knees feels about to buckle and cannot walk. positioned pt on the chair. left pt with OT. Gait Assessment Comments Gait Comments only completed marching in place max A x 2 M5 PT-IP Objective Assessments Start: 01/15/25 10:47 Freq: NEEDED Status: Active Protocol: Document 01/16/25 10:48 MB (Rec: 01/16/25 11:08 MB Desktop) Strength Comments Strength Comments Better use of left hand, which is her dominant hand, today M6 PT-IP Treatment Start: 01/15/25 10:47 Freq: NEEDED Status: Active Protocol: Document 01/17/25 10:27 AB (Rec: 01/17/25 11:55 AB [id number]) Physical Therapy Treatment Education Education Provided Safety M7 PT-IP Assessment and Plan Start: 01/15/25 10:47 Freq: NEEDED Status: Active Protocol: Document 01/17/25 10:27 AB (Rec: 01/17/25 11:55 AB [id number]) PT Summary Assessment and Plan Potential Rehabilitation Potential Fair Summary Impairments Pain,ROM,Strength,Balance, Coordination,Sensation,Tone, Cognition,Bed Mobility, Transfers,Gait,Activity Tolerance Progress Towards Goals Slow Progress due to Medical Issues,Slow Progress due to Activity Tolerance Assessment Summary pt requiring mod A x 2 to max A x 2 with mobility using FWW and will benefit from SNF rehab to improve overall strength and mobility. Goals Bed Mobility Goal Standby Assistance Transfer Goal Contact Guard Assistance,Front Wheeled Walker,Four Wheeled Walker Gait Goal Contact Guard Assistance,Front Wheel Walker,Four Wheel Walker Gait Distance 50 Days to Meet Goals 5 Frequency of Treatment Frequency Of Treatment Once a Day Treatment Plan Physical Therapy Treatment Plan Bed Mobility Training,Transfer Training,Gait Training, Therapeutic Exercise,Balance Retraining,Discharge Planning, Hot or Cold Pack,Neuromuscular Re-ed,Coordination Retraining ,Manual Therapy Precautions Lumbar Precautions Log Roll,No Twisting,Limit Bending,Lifting Restriction of 10 lbs Other Precautions fall Recommendations To Nursing Amount of Assist Needed Mechanical Lift Discharge Recommendations PT Discharge Recommendations SNF Rehab Transportation Needs at Discharge Wheelchair/Cabulance - PT assist 2
[2025-01-17] MEDS: BACLOFEN 10 MG TABLET 20 MG PO (10:52)
--- NOTE | 2025-01-17 11:07 | OT.IP.TRT ---
Current Diagnoses Volume depletion, unspecified (01/13/25) Occupational Therapy Treatment Note M2 OT-IP Current Condition Start: 01/16/25 11:19 Freq: Status: Active Protocol: Document 01/16/25 11:20 CGR (Rec: 01/16/25 11:43 CGR Desktop) Occupational Therapy Current Condition Current Condition Evaluation Date 01/16/25 Treatment Diagnosis AMS, E coli UTI, recent fall with likely L1 compression fx. Diagnosis Onset Date 01/13/25 M3 OT- IP Subjective and Pain Start: 01/16/25 11:19 Freq: Status: Active Protocol: Document 01/17/25 11:38 CCC (Rec: 01/17/25 11:48 CCC Desktop) OT- Subjective Occupational Therapy Visit Type Type Treatment Note Visit Start Time 10:33 Visit Stop Time 11:07 Occupational Therapy Visit Comments Patient Comments Pt agreed to get up and do oral care and grooming needs. Patient/Caregiver Goals TO get better. OT Pain Assessment Pain When Pain Assessed During Mobility Pain Present Pain Present Pain Reported Location Back Pain Behaviors Facial Grimacing,Holding Area, Wincing M4 OT- IP ADL's Start: 01/16/25 11:19 Freq: Status: Active Protocol: Document 01/17/25 11:38 CCC (Rec: 01/17/25 11:48 CCC Desktop) OT ASX-[id number]-[id number] Comments OT Self-Feeding Comments not meal time OT ADL-Grooming General Evaluation Grooming Ability Standby Assistance Comments OT Grooming Comments seated in chair OT ADL-Oral Care General Eval Oral Care Ability Standby Assistance Areas of Assistance Brushing Teeth Comments Oral Care Comments Able to do while seated in the recliner OT ADL-Dressing General Eval Lower Body Dressing Ability Total Assistance Areas Needing Assistance Socks OT ADL-Toileting General Evaluation Toileting Ability Total Assistance Comments OT Toileting Comments Purewick, otherwise safer to use giorgio lift onto the BSC for now. OT ADL-Bathing Comments OT Bathing Comments Sponge bath more appropriate M5 OT- IP IADL's Start: 01/16/25 11:19 Freq: Status: Active Protocol: Document 01/16/25 11:20 CGR (Rec: 01/16/25 11:43 CGR Desktop) OT-Instrumental Activities of Daily Living Deficits IADL Deficits Identified Deficits Home Safety Awareness Awareness of Need for Assistance at Home Decreased Awareness Ability to Problem Solve Emergency Unable to Problem Solve Situations Medication Management Medication Management Caregiver Administers Money Management Money Management Caregiver Provides Assistance Meal Preparation Meal Preparation Caregiver Provides Assist Contact Lens Fitter Contact Lens Fitter Caregiver Provides Assist M6 OT- IP Functional Cognition Start: 01/16/25 11:19 Freq: Status: Active Protocol: Document 01/17/25 11:38 CCC (Rec: 01/17/25 11:48 [facility] Desktop) Cognitive Factors Limiting Selfcare Function Cognitive Comments Cognitive Assessment Comments Pt able to follow commands for mobility and ADL needs. Pt needing vc for encouragement initially. M7 OT- IP Mobility and Balance Start: 01/16/25 11:19 Freq: Status: Active Protocol: Document 01/17/25 11:38 [facility] (Rec: 01/17/25 11:48 [facility] Desktop) OT- Bed Mobility Assessment Supine to Sit Supine to Sit Assist Maximum Assistance,2 Person Assistance Scooting Scooting to Edge of Bed Maximum Assistance,1 Person Assistance OT-Transfer Assessment Sit to and From Stand Sit to and from Stand Moderate Assistance,Maximum Assistance,2 Person Assistance Transfers Transfer Ability Moderate Assistance,Maximum Assistance,2 Person Assistance Technique Transfer Destination Bed,Chair Transfer Technique Stand Step Pivot Devices Transfer Assistive Devices Gait Belt,Front Wheeled Walker Comments Mobility Comments MAXA X 2 for log rolling in the bed. Pt needing assist for balance and to help guide the FWW. Pt states legs feeling like they will buckle and needing vc to tighten her legs and push down on the FWW with her hands. Attempted to take a few steps with chair follow and pt unable to do at this time. Educated pt to work on BLE exercises in the recliner and also to work on squeezing her bottom to help strengthen her muscles to assist with standing for ADL and mobility needs. BP supine 135/72 , sitting 125 /57, 122/70, and after standing 107/63 , 126/66. Nursing aware. OT- Balance Assessment Sitting Balance and Reactions Static Sitting Balance Ability Fair Dynamic Sitting Balance Ability Fair Standing Balance and Reactions Static Standing Balance Ability Poor Dynamic Standing Balance Ability Poor Comments Other Balance Tests/Deviations/Treatment Pt tends to sit in posterior : tilt and needing cues to lean forwards. M8 OT- IP Objective Assessments Start: 01/16/25 11:19 Freq: Status: Active Protocol: Document 01/16/25 11:20 CGR (Rec: 01/16/25 11:43 CGR Desktop) OT Gross Range of Motion Upper Extremity Range of Motion Assessment Within Functional Limits OT Strength Upper Extremity Strength Assessment Bilaterally Impaired Comments Strength Comments B shlds 3+/5 arms and hands 4+/5 OT- Coordination Assessment Upper Extremity Finger to Nose Test Right UE Impaired Finger Tapping Test Within Functional Limits Comments Coordination Comments Pt states that her L hand is her good hand. 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 She implies that this is new. Edema Edema Absent M9 OT- IP Assessment and Plan Start: 01/16/25 11:19 Freq: Status: Active Protocol: Document 01/17/25 11:38 [facility] (Rec: 01/17/25 11:48 [facility] Desktop) OT Summary Assessment and Plan Potential Rehabilitation Potential Good Analytic Complexity at Evaluation High Summary OT Impairments Strength,Balance,Coordination, Sensation,Functional Cognition ,Functional Mobility,Grooming, Dressing,Toileting,Bathing, Toilet Transfers,Shower Transfers,Activity Tolerance Progress Towards Goals Slow Progress due to Pain,Slow Progress due to Medical Issues,Slow Progress due to Activity Tolerance,Slow Progress due to Cognition Assessment Summary Pt needing two person assist for transfers at this time. However due to fear of her legs buckling may be safer to have a third person to assist or use of giorgio lift. Pt to go to skilled rehab when medically stable. Goals Self-Feeding Goal Independent Grooming Goal Independent Dressing Goal Minimal Assistance Toileting Goal Independent Bathing Goal Minimal Assistance Toilet Transfer Goal Independent Shower Transfer Goal Minimal Assistance Days to Meet Goals 25 Frequency of Treatment Other frequency 5x a week Treatment Plan OT Treatment Plan ADL Training,Functional Cognition Training,Functional Mobility,Patient/Family Education,Discharge Planning Other Treatment Recommendations and Next ADLs seated at [facility], [facility] Treatment Focus transfer Discharge Recommendations OT Discharge Recommendations SNF Rehab Transportation Needs at Discharge Wheelchair/Cabulance
--- NOTE | 2025-01-17 12:05 | CM.DPNOTE ---
Addendum entered by KARLIE Lambert 01/17/25 13:05: Andrew from portal help line/information systems KINDLY agreed to come to floor and assist pt in setting up portal. [employer]ER updated pt/partner. pt very appreciative on the portal assistance. Partner reports will attempt to get copy of DPOA paperwork for our [facility] records. SL Original Note: DCP note [employer] INCIDENT HAND[employer]ER reviewed EMR per provider, want to keep pt another day. pt had either vivid dream/hallucination overnight, want to see labs improve a bit more before dc to [facility]. CYBER INCIDENT HANDLER updated Shannan at . time pending for tomorrow (01/18). [employer] INCIDENT HAND[employer]ER updated pt and partner in room. continue pref for dc to [facility] prior to return to [facility]. CYBER INCIDENT HANDLER answered questions to best of ability. Pt had questions about the portal. CYBER INCIDENT HANDLER provided print out information/lvm with portal help line to inquire if their team has the ability/would be willing to come up to floor and assist pt with portal creation/questions. 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 CY[employer] INCIDENT HANDLER updated RN. P: anticipate dc to [facility] prior to return to [facility] when medically stable, transport time pending. will continue to follow for DCP coordination KARLIE Lambert
--- NOTE | 2025-01-17 13:04 | PM.PN.1 ---
Subjective Subjective Interval history: 69-year-old female with history of arthritis, hypertension, hypothyroidism, dyslipidemia, and remote CVA who was recently discharged from the hospital after being evaluated for chest pain. She was admitted for hypercalcemia and encephalopathy. She is much more alert today, talkative and oriented. Overnight she felt like she was having visual hallucinations and agitated. She feels largely back to normal this morning otherwise. She had oxycodone stopped as well as was given pamindronate, after zolendronic acid was given during a prior admission. Calcium is improving today as is her renal function. Exam Vital Signs (past 8 hours): - 01/17/25 08:00 01/17/25 12:00 Temperature 97.9 F 97.7 F Pulse Rate 73 71 Respiratory Rate 18 21 Blood Pressure 126/78 135/100 H Pulse Oximetry 99 99 Oxygen Delivery Method Room Air Oxygen Flow Rate 0 Narrative Exam Narrative: General:? Patient is well developed and well nourished, in no distress at this time. HEENT:? Normocephalic, atraumatic, extraocular muscles intact, oral pharynx is clear and mucous membranes are moist. Chest:? Normal AP diameter and contour without kyphoscoliosis, no tachypnea, equal chest rise bilaterally. Lungs:? CTA b/l no wheezing rhonchi or rales. Cardio:?RRR no m/r/g. Abdomen: S NT ND. Musculoskeletal:? Muscle strength and tone are equal within normal limits, no deformity. Bilateral hip tenderness with minimal palpation, more laterally. Extremities: trace b/l LE edema, No joint effusions. No cyanosis or clubbing. Objective Labs 01/16/25 05:30 01/17/25 07:11 Labs: Laboratory Results - last 24 hr 01/17/25 07:11 Sodium 137 Potassium 4.5 Chloride 110 H Carbon Dioxide 18 L BUN 33 H Creatinine 1.84 H Estimated GFR 29 L BUN/Creatinine Ratio 17.9 Glucose 76 Calcium 10.8 H COUNTS INCLUDE 234 BEDS AT THE [facility] Medical History Acquired hypothyroidism H/O: stroke Chronic hip pain, bilateral Social History household members: none Smoking Status: Never smoker alcohol intake: current Assessment & Plan Assessment & Plan narrative: 1. Hypercalcemia, recurrent, POA - Zolendronic acid given 12/02 - Pamindronate given 01/15, can consider repeat dosing after 1 week if calcium remains elevated. - continue IV fluids today with improvement in renal function and calcium level - SPEP/UPEP pending at this time, some level of concern for multiple myeloma with compression fracture, renal dysfunction, and elevated calcium levels. - She underwent workup which did reveal a borderline low 25 hydroxy vitamin-D level at 32, and a low 1, 25 dihydroxy vitamin-D. Her PTH and PTHrP were within normal limits. Incidentally, her alkaline phosphatase has been elevated dating back since October of this year. It has been in the 230s to 280s. Continue vitamin-D replacement due to her low vitamin-D level. Calcitonin given this morning as noted. 2. Volume depletion Suspect this is less likely to be the etiology of her hypercalcemia, as she did have hypercalcemia in November as well. Will continue reduced fluids at 70 cc per hour today. 3. Acute kidney injury Unclear etiology over all. She has had increased pain with her vertebral fracture. Losartan has been held. Creatinine was 1.09 on December 07 and is up to 2.32 on admission. I it remains elevated and but improving today at 1.84. - overall concern for myeloma, pending SPEP and UPEP as noted above. 4. Hyperkalemia, improved Potassium is 4.9 today. 5. Elevated troponin consistent with demand ischemia, Mild bump up to 0.036 which rapidly resolved on follow-up troponin checks. 6. Hypertension Blood pressures have been fairly normotensive since yesterday 7. L1 compression fracture Given her increased confusion, stopped the oxycodone. As noted, her spouse had failed to mention that she does get confused on oxycodone. 8. Hyperlipidemia Chronic and stable Code status Full Prophylaxis On heparin Disposition Pending PT/OT recommendations, NURSING HOME vs SNF pending above evaluation. Time-Based Coding :: [TOTAL MINUTES] spent with patient and on the chart (including review of chart, obtaining history, exam, reviewing outside data, placing orders, documenting exam and treatment plan, and counseling patient) on [DATE]. Quality VTE Deep Vein Thrombosis/Pulmonary Embolism Present on Admission: No
[2025-01-17] MEDS: TRAZODONE 50 MG TABLET PO (20:12)
[2025-01-17] MEDS: ATORVASTATIN 20 MG TABLET 40 MG PO (20:12)
[2025-01-17] MEDS: TIZANIDINE 4 MG TABLET 8 MG PO (22:43)
[2025-01-18] MEDS: ACETAMINOPHEN 325 MG TABLET 650 MG PO ×2 (02:19→09:26)
[2025-01-18 04:00] VITALS: BP 111/63; PULSE 58; RESP 12; TEMP 36.4; O2SAT 94
[2025-01-18] MEDS: SODIUM CHLORIDE 0.9% 1,000 ML 70 ML IV (05:00)
[2025-01-18] MEDS: PANTOPRAZOLE DR 20 MG TABLET PO (06:03)
[2025-01-18 06:50] LABS: Blood Urea Nitrogen 31 mg/dL (7-17); Calcium 10.2 mg/dL (8.4-10.2); Carbon Dioxide 16 mmol/L (22-32); Chloride 111 mmol/L (98-107); Estimated Glomerular Filt Rate 27 mL/min (>60); Glucose 104 mg/dL (70-99); HEMOLYSIS < 15 (0-50); Potassium 4.1 mmol/L (3.4-5.1); Sodium 138 mmol/L (137-145)
--- NOTE | 2025-01-18 08:03 | PM.DS.1 ---
History of Present Illness History of Present Illness Date Patient Seen: 01/18/25 Time Patient Seen: 09:15 Chief complaint: Dizziness Narrative: The patient is a 69-year-old female with history of arthritis, hypertension, hypothyroidism, dyslipidemia, and remote CVA who was recently discharged from the hospital after being evaluated for chest pain. She stays at [facility] and now presents with altered level of consciousness and weakness. She was seen yesterday in the emergency department for back pain. She notes that she has been on a oxycodone taper at her facility over the last 2 weeks. She was treated for pain and ultimately discharged with a diagnosis of possible compression fracture of the L1 vertebral body. She re-presented today and was found to be volume depleted, encephalopathic, and have a calcium of 13. The patient is comfortable, denies any pain, but really does not report any history of vomiting, anorexia, or diarrhea. No recent fevers, or chills. Her pain is improved today. Her ability to provide additional history is very limited due to her encephalopathy. She also has MERCY, mild hyperkalemia, and a mild elevation of her troponin. Discharge Providers Provider Date of admission: 01/13/25 11:28 Discharge Date: 01/18/25 Consults: 01/15/25 09:17 Consult to Occupational Therapy Evaluate & Treat Comment: Physician Instructions: Evaluate and treat Consult to Physical Therapy Evaluate & Treat Comment: Physician Instructions: Evaluate and Treat Discharge provider: Matias Cheung DO Summary Hospital Course Discharge Diagnosis: 1. Hypercalcemia, recurrent, POA, improving 2. Acute metabolic encephalopathy, improving. likely with toxic encephalopathy 3. Acute kidney injury, POA, improved 4. Hyperkalemia, improved 5. Myocardial injury, POA 6. Hypertension, chronic 7. L1 compression fracture, POA 8. Hyperlipidemia, chronic Hospital Course: This is a 69 year old female with recent history of hypercalcemia who was admitted with an acute metabolic encephalopathy likely due to recurrent hypercalcemia and MERCY. Also noted were an elevated troponin without evidence of ACS on admission, which improved quickly. She was previously admitted for hypercalcemia, received Zometa on 12/02. Pamindronate was given this admission on 01/14, and recommend continued BMP every other week or so to monitor calcium in the future and her renal function. She may need additional doses in the future. After administration of pamindronate her calcium level improved again, as did her encephalopathy. After discharge, but before completion of this note, her SPEP and UPEP returned as not consistent with multiple myeloma which was of concern given renal dysfunction and L1 compression fracture, elevated alk phos. Recommend referrals to nephrology at the time of discharge given her continued elevated creatinine which improved but only to about 1.9 at the time of discharge. Additionally consider referral to endocrinology for further hypercalcemia evaluation as well. She is also on a number of medications which can lead to encephalopathy, and she continued to report seeing things very early in the morning which was not noted by staff overnight. It was unclear if these were hallucinations or vivid dreams but suspect vivid dreams overnight possibly due to a number of her medications. After risk / benefit discussions and chronic conditions patient did not wish to trial to change any of these medications at this time. She was transferred to SNF for ongoing therapies after therapy evaluations here in the hospital. Time Spent with Patient Time spent: Greater than 30 minutes Exam Vital Signs (past 8 hours): - 01/18/25 04:00 Temperature 97.5 F L Pulse Rate 58 L Respiratory Rate 12 Blood Pressure 111/63 Pulse Oximetry 94 Oxygen Flow Rate 0 Oxygen Delivery Method Room Air Oxygen Flow Rate 0 Narrative Exam Narrative: General:? Patient is well developed and well nourished, in no distress at this time. HEENT:? Normocephalic, atraumatic, extraocular muscles intact, oral pharynx is clear and mucous membranes are moist. Chest:? Normal AP diameter and contour without kyphoscoliosis, no tachypnea, equal chest rise bilaterally. Lungs:? CTA b/l no wheezing rhonchi or rales. Cardio:?RRR no m/r/g. Abdomen: S NT ND. Musculoskeletal:? Muscle strength and tone are equal within normal limits, no deformity. Bilateral hip tenderness with minimal palpation, more laterally. Extremities: trace b/l LE edema, No joint effusions. No cyanosis or clubbing. Objective Labs 01/16/25 05:30 01/18/25 06:20 Labs: Laboratory Results - last 24 hr 01/18/25 06:20 Sodium 138 Potassium 4.1 Chloride 111 H Carbon Dioxide 16 L BUN 31 H Creatinine 1.94 H Estimated GFR 27 L BUN/Creatinine Ratio 16.0 Glucose 104 H Calcium 10.2 [facility] Medical History Acquired hypothyroidism H/O: stroke Chronic hip pain, bilateral Social History household members: none Smoking Status: Never smoker alcohol intake: current Discharge Plan Discharge Plan Patient Disposition: SNF Transfer to: [facility] and Healthcare Provider Discharge Comment: 69 F admitted with encephalopathy due to recurrent hypercalcemia and MERCY. High concern for multiple myeloma, SPEP and UPEP currently pending. Received pamindronate in the hospital, may need another dose in 4-6 weeks. Recommended weekly BMP to follow calcium levels and creatinine for now. Please follow up SPEP and UPEP results. Please note, patient is experiencing what is suspected to be vivid dreams in the overnight hours. She reports them as hallucinations in the morning but not noted by overnight staff. These are likely medication related, we attempted to discuss discontinuation of some of these medications but due to her other chronic conditions such as anxiety decision was made not to discontinue at this time. If SPEP/UPEP are positive for myeloma, recommend urgent heme/onc referral. Discharge orders & Medications Prescriptions: Continued venlafaxine 75 mg capsule,extended release 24hr 225 mg PO DAILY baclofen 20 mg tablet 20 mg PO TID PRN (Reason: pain (scale score 4-6)) Qty: 20 0RF ondansetron 4 mg tablet,disintegrating 2 mg PO Q6-8H PRN (Reason: Nausea And Vomiting) pregabalin 50 mg capsule 50 mg PO 3XD buspirone 5 mg tablet 5 mg PO TID Patient Comments: [NO ORIGINAL SIG] magnesium hydroxide [Milk of Magnesia] 400 mg/5 mL suspension 30 ml PO DAILY PRN (Reason: No BM in 3 days) gabapentin 100 mg capsule 300 mg PO TID Patient Comments: [NO ORIGINAL SIG] losartan 100 mg tablet 100 mg PO DAILY clopidogrel 75 mg tablet 75 mg PO DAILY omeprazole 20 mg capsule,delayed release(DR/EC) 20 mg PO DAILY levothyroxine 25 mcg tablet 25 mcg PO DAILY trazodone 50 mg tablet 50 mg PO BEDTIME atorvastatin 40 mg tablet 40 mg PO BEDTIME tizanidine 4 mg tablet 8 mg PO Q8H PRN (Reason: Spasms) Patient Comments: [NO ORIGINAL SIG] acetaminophen 325 mg Tablet 650 mg PO Q6H PRN (Reason: Fever/Mild Pain (1-3)) Qty: 30 0RF Discharge Health Status Multidrug resistant organism: No MDRO Precautions: [place] Diet/Activity/Treatments Diet: Diet as Tolerated and Regular Liquid consistency: Normal/Thin Food texture: Regular Diet comment: No restrictions Activity: As tolerated, no restrictions Special Rehabilitation Services Reason for rehabilitation: Recovery r/t decondition Rehab type: Physical therapy and Occupational therapy Visit Report/Discharge Packet Stand Alone Forms: Patient Portal/API Quality VTE Deep Vein Thrombosis/Pulmonary Embolism Present on Admission: No
[2025-01-18] MEDS: CLOPIDOGREL 75 MG TABLET PO (09:26)
[2025-01-18] MEDS: LEVOTHYROXINE 25 MCG TABLET PO (09:26)
[2025-01-18] MEDS: BUSPIRONE 5 MG TABLET PO (09:26)
[2025-01-18] MEDS: VENLAFAXINE ER 75 MG CAP 225 MG PO (09:26)
[2025-01-18] MEDS: SENNOSIDES 8.6 MG TABLET PO (09:26)
[2025-01-18] MEDS: PREGABALIN 50 MG CAPSULE PO (09:26)
[2025-01-18] MEDS: CHOLECALCIFEROL (VITAMIN D3) 1,000 UNIT TABLET 2000 UNIT PO (09:26)
[2025-01-18] MEDS: HEPARIN 5,000 UNIT/ML VIAL 5000 UNIT SUBCUT (09:27)
--- NOTE | 2025-01-18 11:32 | CM.DPNOTE ---
DC Note Patient has been discharged to [facility] and patient/SO remain agreeable to this plan. PEDRITO Car, is assisting with this coordination. Patient is to be picked up at 2pm. PABLO, RN and provider aware. RN to call report. Joceline has emailed Shannan at with discharge SNF packet. Faxed Dianna Figueroa, [facility] qa consultant, a copy of the hospital exempt [facility]. Plan: Discharge to [facility] SNF via queenie betancourt. SHYLA
[2025-01-18 12:36] LABS: Alpha-1 Globulin, Ur 4.1 % (.); Beta Globulin, Ur 32.9 % (.); Gamma Globulin, Ur 26.4 % (.); M-Spike % Not Observed % (Not Observed); Urine Total Protein 8.3 mg/dL (Not Estab.)
--- NOTE | 2025-01-18 13:05 | PT.IPTN ---
Current Diagnoses Volume depletion, unspecified (01/13/25) Physical Therapy Treatment Note M2 PT-IP Current Condition Start: 01/15/25 10:47 Freq: NEEDED Status: Active Protocol: Document 01/15/25 11:15 MB (Rec: 01/15/25 12:00 MB Desktop) Physical Therapy Current Condition Current Condition Evaluation Date 01/15/25 Treatment Diagnosis Increased Ca2+, N/V, confusion M3 PT-IP Subjective Start: 01/15/25 10:47 Freq: NEEDED Status: Active Protocol: Document 01/18/25 13:05 AB (Rec: 01/18/25 13:50 AB [id number]) Subjective Physical Therapy Visit Type Type Treatment Note Visit Start Time 13:05 Visit Stop Time 13:40 Number of CLINICAL APPLICATIONS MANAGER Visits 0 Physical Therapy Visit Comments Patient Comments agreeable to do PT M4 PT-IP Mobility and Gait Start: 01/15/25 10:47 Freq: NEEDED Status: Active Protocol: Document 01/18/25 13:05 AB (Rec: 01/18/25 13:50 AB [id number]) PT-Bed Mobility Assessment Rolling Type of Rolling Log Rolling Level of Assist Maximal Assistance,1 Person Assistance,2 Person Assistance Supine to Sit Supine to Sit Maximum Assistance,1 Person Assistance,2 Person Assistance ,Head of Bed Elevated,Bedrails PT-Transfer Assessment Sit to and From Stand Sit to and from Stand Moderate Assistance,Maximum Assistance,2 Person Assistance ,Use of Upper Extremities Equipment Transfer Assistive Device Gait Belt,Front Wheeled Walker Orthotic/Prosthetic Devices or Brace: No Transfers Transfer Destination Chair Transfer Technique Stand Step Pivot Transfer Ability Level of Assist Moderate Assistance,Maximum Assistance,2 Person Assistance ,Use of Upper Extremities Comments Mobility Comments pt in bed and agreeable to do PT. supine to sit log roll max A x 1-2 and max cues. pt able to sit on EOB min A initially but able to sit SBA to CGA with occasionally repositioning and cues after repositioned on EOB. pt able to maintain sitting balance on EOB with better trunk control . still tends to have increase retrolean. c/o dizziness. BP: 117/63. sit to stand mod A x 2 to max A x 1 and max cues. unable to transfer on first attempt but able to stand using FWW for support max A x 2 and max cues . sit to stand again mod A x 2 to max A x 2 and max cues and step transfer to chair using FWW mod x 2 to max x 2. pt rested. agreed to ambulate . sit to stand from chair mod x 2 to max x2 and ambulated using FWW ~ 2ft mod x 2 to max x2. positioned pt on the chair. call light and table placed within reach. Left pt with OT. Gait Assessment Gait Gait Assistance Required: Moderate Assistance,Maximum Assistance,2 Person Assist Distance (Feet) 2 Able to Maintain Weight Bearing Status Yes During Gait Assistive Devices Assistive Device Gait Belt,Front Wheeled Walker Orthotic/Prosthetic Devices or Brace: No Gait Deviations General Gait Pattern Decreased Stride Length, Decreased Feet Clearance,Step- to Gait Factors Limiting Gait Function Factors Limiting Gait Function Decreased Activity Tolerance, Decreased Sensation,Decreased Strength,Limited Range of Motion,Poor Balance,Poor Safety Awareness M5 PT-IP Objective Assessments Start: 01/15/25 10:47 Freq: NEEDED Status: Active Protocol: Document 01/16/25 10:48 MB (Rec: 01/16/25 11:08 MB Desktop) Strength Comments Strength Comments Better use of left hand, which is her dominant hand, today M6 PT-IP Treatment Start: 01/15/25 10:47 Freq: NEEDED Status: Active Protocol: Document 01/18/25 13:05 AB (Rec: 01/18/25 13:50 AB [id number]) Physical Therapy Treatment Education Education Provided Safety M7 PT-IP Assessment and Plan Start: 01/15/25 10:47 Freq: NEEDED Status: Active Protocol: Document 01/18/25 13:05 AB (Rec: 01/18/25 13:50 AB [id number]) PT Summary Assessment and Plan Summary Impairments Pain,ROM,Strength,Balance, Coordination,Sensation,Tone, Cognition,Bed Mobility, Transfers,Gait,Activity Tolerance Progress Towards Goals Slow Progress due to Medical Issues,Slow Progress due to Activity Tolerance Assessment Summary pt progressing slowly with mobility and able to ambulate ~ 2 ft using FWW mod A x 2 to max A x2. pt is motivated. pt will benefit from SNF rehab . Goals Bed Mobility Goal Standby Assistance Transfer Goal Contact Guard Assistance,Front Wheeled Walker,Four Wheeled Walker Gait Goal Contact Guard Assistance,Front Wheel Walker,Four Wheel Walker Gait Distance 50 Days to Meet Goals 5 Frequency of Treatment Frequency Of Treatment Once a Day Treatment Plan Physical Therapy Treatment Plan Bed Mobility Training,Transfer Training,Gait Training, Therapeutic Exercise,Balance Retraining,Discharge Planning, Hot or Cold Pack,Neuromuscular Re-ed,Coordination Retraining ,Manual Therapy Precautions Lumbar Precautions Log Roll,No Twisting,Limit Bending,Lifting Restriction of 10 lbs Other Precautions falls Recommendations To Nursing Amount of Assist Needed 2 Person Assist Discharge Recommendations PT Discharge Recommendations SNF Rehab Transportation Needs at Discharge Wheelchair/Cabulance - PT assist 2
--- NOTE | 2025-01-18 13:54 | OT.IP.TRT ---
Current Diagnoses Volume depletion, unspecified (01/13/25) Occupational Therapy Treatment Note M2 OT-IP Current Condition Start: 01/16/25 11:19 Freq: Status: Active Protocol: Document 01/16/25 11:20 CGR (Rec: 01/16/25 11:43 CGR Desktop) Occupational Therapy Current Condition Current Condition Evaluation Date 01/16/25 Treatment Diagnosis AMS, E coli UTI, recent fall with likely L1 compression fx. Diagnosis Onset Date 01/13/25 M3 OT- IP Subjective and Pain Start: 01/16/25 11:19 Freq: Status: Active Protocol: Document 01/18/25 13:49 CCC (Rec: 01/18/25 13:53 CCC Desktop) OT- Subjective Occupational Therapy Visit Type Type Treatment Note Visit Start Time 13:10 Visit Stop Time 13:24 Occupational Therapy Visit Comments Patient Comments Pt agreed to get up to the recliner. Patient/Caregiver Goals To get better. OT Pain Assessment Pain When Pain Assessed During Mobility Pain Present Pain Present Pain Reported Location Back Pain Behaviors Facial Grimacing M4 OT- IP ADL's Start: 01/16/25 11:19 Freq: Status: Active Protocol: Document 01/18/25 13:49 CCC (Rec: 01/18/25 13:53 CCC Desktop) OT [id number] Comments OT Self-Feeding Comments not meal time OT ADL-Grooming Comments OT Grooming Comments Pt states did earlier. OT ADL-Oral Care Comments Oral Care Comments Pt states did earlier OT ADL-Dressing General Eval Lower Body Dressing Ability Total Assistance Areas Needing Assistance Socks OT ADL-Toileting General Evaluation Toileting Ability Total Assistance Comments OT Toileting Comments Purewick in place. OT ADL-Bathing Comments OT Bathing Comments Not performed. M5 OT- IP IADL's Start: 01/16/25 11:19 Freq: Status: Active Protocol: Document 01/16/25 11:20 CGR (Rec: 01/16/25 11:43 CGR Desktop) OT-Instrumental Activities of Daily Living Deficits IADL Deficits Identified Deficits Home Safety Awareness Awareness of Need for Assistance at Home Decreased Awareness Ability to Problem Solve Emergency Unable to Problem Solve Situations Medication Management Medication Management Caregiver Administers Money Management Money Management Caregiver Provides Assistance Meal Preparation Meal Preparation Caregiver Provides Assist Weigher Alloy Weigher Alloy Caregiver Provides Assist M6 OT- IP Functional Cognition Start: 01/16/25 11:19 Freq: Status: Active Protocol: Document 01/18/25 13:49 [facility] (Rec: 01/18/25 13:53 [facility] Desktop) Cognitive Factors Limiting Selfcare Function Cognitive Ability Memory Description Short Term Impaired Cognitive Comments Cognitive Assessment Comments Pt needing vc for safety , positioning for her trunk, midline , hands, and feet prior to standing up. M7 OT- IP Mobility and Balance Start: 01/16/25 11:19 Freq: Status: Active Protocol: Document 01/18/25 13:49 [facility] (Rec: 01/18/25 13:53 [facility] Desktop) OT- Bed Mobility Assessment Supine to Sit Supine to Sit Assist Maximum Assistance,1 Person Assistance,2 Person Assistance Scooting Scooting to Edge of Bed Maximum Assistance,1 Person Assistance OT-Transfer Assessment Sit to and From Stand Sit to and from Stand Moderate Assistance,Maximum Assistance,2 Person Assistance Transfers Transfer Ability Moderate Assistance,Maximum Assistance,2 Person Assistance Technique Transfer Destination Bed,Chair Transfer Technique Stand Step Pivot Devices Transfer Assistive Devices Gait Belt,Front Wheeled Walker Comments Mobility Comments Pt able to come to stand with MOD/MAXA X2 to the FWW and transfer to the recliner with assist for balance and to guide the FWW. Pt a bit more steady on her legs today. Pt also able to walk 2 feet with the FWW and MODA/MAX x 2. OT- Balance Assessment Sitting Balance and Reactions Static Sitting Balance Ability Fair Dynamic Sitting Balance Ability Fair Standing Balance and Reactions Static Standing Balance Ability Poor Dynamic Standing Balance Ability Poor Comments Other Balance Tests/Deviations/Treatment Pt doing a little better to : sit to midline after cues and assist. M8 OT- IP Objective Assessments Start: 01/16/25 11:19 Freq: Status: Active Protocol: Document 01/16/25 11:20 CGR (Rec: 01/16/25 11:43 CGR Desktop) OT Gross Range of Motion Upper Extremity Range of Motion Assessment Within Functional Limits OT Strength Upper Extremity Strength Assessment Bilaterally Impaired Comments Strength Comments B shlds 3+/5 arms and hands 4+/5 OT- Coordination Assessment Upper Extremity Finger to Nose Test Right UE Impaired Finger Tapping Test Within Functional Limits Comments Coordination Comments Pt states that her L hand is her good hand. 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 She implies that this is new. Edema Edema Left hand swollen noted 01/17/25 M9 OT- IP Assessment and Plan Start: 01/16/25 11:19 Freq: Status: Active Protocol: Document 01/17/25 11:38 [facility] (Rec: 01/17/25 11:48 [facility] Desktop) OT Summary Assessment and Plan Potential Rehabilitation Potential Good Analytic Complexity at Evaluation High Summary OT Impairments Strength,Balance,Coordination, Sensation,Functional Cognition ,Functional Mobility,Grooming, Dressing,Toileting,Bathing, Toilet Transfers,Shower Transfers,Activity Tolerance Progress Towards Goals Slow Progress due to Pain,Slow Progress due to Medical Issues,Slow Progress due to Activity Tolerance,Slow Progress due to Cognition Assessment Summary Pt needing two person assist for transfers at this time. However due to fear of her legs buckling may be safer to have a third person to assist or use of giorgio lift. Pt to go to skilled rehab when medically stable. Goals Self-Feeding Goal Independent Grooming Goal Independent Dressing Goal Minimal Assistance Toileting Goal Independent Bathing Goal Minimal Assistance Toilet Transfer Goal Independent Shower Transfer Goal Minimal Assistance Days to Meet Goals 25 Frequency of Treatment Other frequency 5x a week Treatment Plan OT Treatment Plan ADL Training,Functional Cognition Training,Functional Mobility,Patient/Family Education,Discharge Planning Other Treatment Recommendations and Next ADLs seated at [facility], [facility] transfer Discharge Recommendations OT Discharge Recommendations SNF Rehab Transportation Needs at Discharge Wheelchair/Cabulance
[2025-01-18 14:12] LABS: Albumin 2.8 g/dL (2.9-4.4); Alpha-1-Globulin 0.3 g/dL (0.0-0.4); Globulin Total 3.2 g/dL (2.2-3.9)
--- NOTE | 2025-01-18 14:16 | PC.NURSE ---
pt left via w/c with and facility transport. report given to [employer]- no further questions.
[2025-01-21 00:10] LABS: Chenodeoxycholic Acids 4.6 umol/L (.); Deoxycholic Acids 6.3 umol/L (.); Total Bile Acids 12 umol/L (.)
== END 2025-01-18 14:18 | DRG 640 ==
LOC: ED 11:07 → AC 11:28
PROVIDERS: Family Medicine; Internal Medicine; Admitting Provider Hospitalist; Emergency Provider Emergency Medicine; Referring Provider Emergency Medicine; Visit Provider Hospitalist
DX: E83.52 Hypercalcemia (principal); G93.41 Metabolic encephalopathy; I24.89 Other forms of acute ischemic heart disease; N17.9 Acute kidney failure, unspecified; E86.9 Volume depletion, unspecified; E03.9 Hypothyroidism, unspecified; Z86.73 Personal history of transient ischemic attack (TIA), and cerebral infarction without residual deficits; Z79.02 Long term (current) use of antithrombotics/antiplatelets; Z79.890 Hormone replacement therapy; E78.5 Hyperlipidemia, unspecified; E87.5 Hyperkalemia; I10 Essential (primary) hypertension; M19.90 Unspecified osteoarthritis, unspecified site; M48.56XD Collapsed vertebra, not elsewhere classified, lumbar region, subsequent encounter for fracture with routine healing
CPT/HCPCS: 36415; 70450; 70544; 70549; 70553; 80048; 80053; 81001; 82542; 82550; 84155; 84156; 84165; 84166; 84484; 85007; 85025; 85610; 85730; 87077; 87086; 87186; 93005; 93010; 93307; 96360; 97162; 97167; 97530; 97535; 99285; A9579; J0630; J0696; J1644; J2310; J2359; J2405; J2430

== ENCOUNTER 2025-01-19 20:20 | Inpatient (IN) | payer MEDICARE, MEDICAID, SELFPAY ==
[2025-01-13 12:27] VITALS: BMI 30.9
[2025-01-19] VITALS (8 sets, daily range): BP systolic 142–165; BP diastolic 65–78; PULSE 73–86; RESP 11–14; TEMP 36.8; O2SAT 97–98; BMI 34.0
--- NOTE | 2025-01-19 20:28 | EKG_ITS ---
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
--- NOTE | 2025-01-19 21:03 | DI.RAD.S_ITS ---
PROCEDURE: XR CHEST 1V INDICATIONS: altered mental status TECHNIQUE: One view of the chest was acquired. COMPARISON: [facility], CR, XR CHEST 1V, 12/07/2024, 0:58. FINDINGS: Surgical changes and devices: None. Lungs and pleura: Mild pulmonary vascular congestion. No pleural effusions or pneumothorax. Mediastinum: Mediastinal contours appear normal. Heart size is mildly enlarged. Bones and chest wall: No suspicious bony lesions. Overlying soft tissues appear unremarkable. IMPRESSION: Mild congestion. No definite focal infiltrate, pleural effusion or pneumothorax. Dictated by: Riccardo Ramirez M.D. on 01/19/2025 at 21:32 Approved by: Riccardo Ramirez M.D. on 01/19/2025 at 21:32
--- NOTE | 2025-01-19 21:44 | ED_ITS ---
HPI - Altered Mental Status General Chief Complaint: Altered Mental Status Stated Complaint: AMS Time Seen by Provider: 01/19/25 21:31 Source: EMS Mode of arrival: EMS History of Present Illness HPI narrative: 69-year-old female patient history of arthritis hypertension hypothyroidism dyslipidemia and remote CVA for which patient was recently discharged today with encephalopathy due to recurrent hypercalcemia and MERCY. Patient was noted at alf facility to be slow in her speech and chopping food while she was eating and unable to sit upright feeling too weak and fatigued. Other than what is stated 14 point review of system is negative. Related Data Home Medications Medication Instructions Recorded Confirmed atorvastatin 40 mg tablet 40 mg PO BEDTIME primary HTN 12/01/24 01/13/25 buspirone 5 mg tablet 5 mg PO TID anxiety 12/01/24 01/13/25 clopidogrel 75 mg tablet 75 mg PO DAILY afib 12/01/24 01/13/25 gabapentin 100 mg capsule 300 mg PO TID NEUROPATHY/PAIN 12/01/24 01/13/25 levothyroxine 25 mcg tablet 25 mcg PO DAILY hypothyroidism 12/01/24 01/13/25 losartan 100 mg tablet 100 mg PO DAILY HTN 12/01/24 01/13/25 magnesium hydroxide 400 mg/5 mL 30 ml PO DAILY PRN No BM in 3 days 12/01/24 01/13/25 oral suspension (Milk of Magnesia) omeprazole 20 mg capsule,delayed 20 mg PO DAILY GERD 12/01/24 01/13/25 release tizanidine 4 mg tablet 8 mg PO Q8H PRN Spasms 12/01/24 01/13/25 trazodone 50 mg tablet 50 mg PO BEDTIME 12/01/24 01/13/25 venlafaxine 75 mg capsule,extended 225 mg PO DAILY Depression 12/07/24 01/13/25 release 24 hr ondansetron 4 mg disintegrating 2 mg PO Q6-8H PRN Nausea And 01/13/25 01/13/25 tablet Vomiting pregabalin 50 mg capsule 50 mg PO 3XD 01/13/25 01/13/25 Previous Rx's Medication Instructions Recorded acetaminophen 325 mg tablet 650 mg (2 x 325 mg) PO Q6H PRN 12/04/24 Fever/Mild Pain (1-3) #30 tabs baclofen 20 mg tablet 20 mg PO TID PRN pain (scale score 01/12/25 4-6) #20 tabs Allergies Allergy/AdvReac Type Severity Reaction Status Date / Time No Known Drug Allergies Allergy Verified 01/12/25 07:49 Review of Systems Review of Systems ROS Unobtainable: Unobtainable due to mental status/LOC Patient History Medical History Acquired hypothyroidism H/O: stroke Chronic hip pain, bilateral Social History household members: none Smoking Status: Never smoker alcohol intake: current Smoking Status: Never smoker Exam Narrative Exam Narrative: GENERAL: [69] year old patient appears stated age. Well-developed patient, in mild distress. HEAD: Atraumatic. Normocephalic. EYES: Pupils equal round and reactive. Extraocular motions intact. No scleral icterus. No injection or drainage. ENT: Nose without bleeding, purulent drainage. Throat without erythema, tonsillar hypertrophy or exudate. Airway patent. NECK: Trachea midline. Non tender CARDIOVASCULAR: Regular rate and rhythm without murmurs, gallops, or rubs. RESPIRATORY: Diminished breath sounds. No wheezes, rales, or rhonchi. GASTROINTESTINAL: Abdomen soft, non-tender, nondistended. EXTREMITIES: Trace edema BACK: Nontender without deformity or crepitance. No flank tenderness. NEURO: AOx1. SKIN: No rash or erythema of visible areas Initial Vital Signs Initial Vital Signs: Vital Signs Temperature 98.3 F 01/19/25 20:50 Pulse Rate 79 01/19/25 20:50 Respiratory Rate 14 01/19/25 20:50 Blood Pressure 149/76 H 01/19/25 20:50 Pulse Oximetry 98 01/19/25 20:50 Oxygen Delivery Method Room Air 01/19/25 20:50 Course Orders Ordered: ED Orders 01/19/25 20:10 Blood Culture Stat 01/19/25 20:23 EKG-12 Lead Stat 01/19/25 21:03 XR chest 1V Stat Urine Drug Screen, Rapid Stat 01/19/25 21:29 Ammonia (NH3) Stat Complete Blood Count AUTO DIFF Stat Comprehensive Metabolic Panel Stat Lactate (Lactic Acid) Stat Procalcitonin Stat Troponin I Stat 01/19/25 21:50 CT abdomen pelvis wo con Stat CT head/brain wo con Stat Vital Signs Vital signs: Vital Signs - 8 hr 01/19/25 20:50 Temperature 98.3 F Pulse Rate 79 Respiratory Rate 14 Blood Pressure 149/76 H Pulse Oximetry 98 Oxygen Delivery Method Room Air MDM - Altered Mental Status Lab Data 01/19/25 21:29 01/19/25 21:29 Labs: Lab Results 01/19/25 Range/Units 21:29 WBC 7.4 (4.5-11.0) X10^3/uL RBC 3.08 L (4.0-5.2) X10^6/uL Hgb 9.3 L (12.0-16.0) g/dL Hct 26.4 L (36-46) % MCV 85.8 (80-100) fL MCH 30.2 (26-34) PG MCHC 35.2 (30-36) % RDW 15.8 H (11.6-14.8) % Plt Count 143 L (150-400) X10^3/uL Neut % (Auto) Not Reportable Lymph % (Auto) Not Reportable [place] % (Auto) Not Reportable Eos % (Auto) Not Reportable Baso % (Auto) Not Reportable Lymph # (Auto) Not Reportable [place] # (Auto) Not Reportable Baso # (Auto) Not Reportable Total Counted 100 Seg Neutrophils % 72.0 H (38-70) % Band Neutrophils % 1.0 L (3-7) % Lymphocytes % (Manual) 23.0 L (25-45) % Monocytes % (Manual) 4.0 (2-11) % Neutrophils # (Manual) 5402 (2533-0432) /uL Nucleated RBCs 1 H ( - 0) #/Diff RBC Morphology Normal morphology Sodium 144 (137-145) mmol/L Potassium 3.8 (3.4-5.1) mmol/L Chloride 116 H (98-107) mmol/L Carbon Dioxide 18 L (22-32) mmol/L BUN 28 H (7-17) mg/dL Creatinine 2.11 H (0.52-1.04) mg/dL Estimated GFR 25 L (>60) mL/min BUN/Creatinine Ratio 13.3 (6-22) Glucose 125 H (70-99) mg/dL Lactate 1.5 (0.7-2.1) mmol/L Calcium 10.4 H (8.4-10.2) mg/dL Total Bilirubin 0.5 (0.2-1.3) mg/dL AST 90 H (14-36) IU/L ALT 30 (<35) IU/L Alkaline Phosphatase 297 H (38-126) U/L Ammonia < 9 L (9-30) umol/L Troponin I 0.012 (0.01-0.034) ng/mL Total Protein 6.8 (6.3-8.2) g/dL Albumin 3.6 (3.5-5.0) g/dL Globulin 3.2 (1.7-4.1) g/dL Albumin/Globulin Ratio 1.1 (1.0-2.8) Procalcitonin 0.502 H (<0.5) ng/mL Point of Care Testing Glucose POC 122 Imaging Data Chest x-ray: Radiologist's Impression: [address] [address] XRay Report Signed Patient: Anne Martini MR#: [id number] : 1955 Acct:[id number] Age/Sex: 69 / F Date of Service: 01/19/25 Loc: ED Accession Number: [id number] Procedure: XR chest 1V Ordering Provider: Mario Alex D.O. PROCEDURE: XR CHEST 1V INDICATIONS: altered mental status TECHNIQUE: One view of the chest was acquired. COMPARISON: [facility], , XR CHEST 1V, 12/07/2024, 0:58. FINDINGS: Surgical changes and devices: None. Lungs and pleura: Mild pulmonary vascular congestion. No pleural effusions or pneumothorax. Mediastinum: Mediastinal contours appear normal. Heart size is mildly enlarged. Bones and chest wall: No suspicious bony lesions. Overlying soft tissues appear unremarkable. IMPRESSION: Mild congestion. No definite focal infiltrate, pleural effusion or pneumothorax. Dictated by: Riccardo Ramirez M.D. on 01/19/2025 at 21:[address] [address] [address] Scan Report Signed Patient: Anne Martini MR#: [id number] : 1955 Acct:[id number] Age/Sex: 69 / F Date of Service: 01/19/25 Loc: ED Accession Number: [id number] Procedure: CT head/brain wo con Ordering Provider: Mario Alex D.O. PROCEDURE: CT HEAD/BRAIN WO CON INDICATIONS: pain TECHNIQUE: Noncontrast 4.5 mm thick angled axial sections acquired from the foramen magnum to the vertex, with coronal and sagittal reformats. For radiation dose reduction, the following was used: automated exposure control, adjustment of mA and/or kV according to patient size. COMPARISON: [facility], CT, CT HEAD/BRAIN WO CON, 01/13/2025, 9:56. FINDINGS: Image quality: Diagnostic. CSF spaces: Basal cisterns are patent. No extra-axial fluid collections. Ventricles are normal in size and shape. Brain: No midline shift. No intracranial mass effect or hemorrhage. [place]- white matter interface is normal. Skull and face: Calvarium and visualized facial bones are intact, without suspicious lesions. Sinuses: Visualized sinuses and mastoids are clear. IMPRESSION: No acute intracranial pathology identified. Dictated by: Emil Florez M.D. on 01/19/2025 at 22:33 Approved by: Emil Florez M.D. on 01/19/2025 at 22:38 [place] [address] CT Scan Report Signed Patient: Anne Martini MR#: [id number] : 1955 Acct:[id number] Age/Sex: 69 / F Date of Service: 01/19/25 Loc: ED Accession Number: [id number] Procedure: CT abdomen pelvis wo con Ordering Provider: Mario Alex D.O. PROCEDURE: CT ABDOMEN PELVIS WO CON INDICATIONS: pain TECHNIQUE: Axial sections were acquired from the lung bases to the pubic symphysis. Coronal and sagittal reformats were performed. For radiation dose reduction, the following was used: automated exposure control, adjustment of mA and/or kV according to patient size. COMPARISON: [facility], CT, CT HEAD/BRAIN WO CON, 01/19/2025, 22:10. [facility], CR, XR CHEST 1V, 01/19/2025, 21:03. FINDINGS: Image quality: Diagnostic. Evaluation of the solid parenchymal organs is limited without IV contrast. Lower Chest: Multiple ribs demonstrate irregular appearance with callus formation. Small bilateral pleural effusions. ABDOMEN: Liver: Multiple small areas of hypodensity. Gallbladder: Absent. Biliary ducts: No biliary dilation. Pancreas: No ductal dilation. Spleen: Size is within normal limits. Adrenal Glands: Thickening about the left adrenal gland. Kidneys: Mild bilateral hydronephrosis. Stomach and Bowel: Normal colonic caliber, without significant wall thickening. The appendix is not seen. Peritoneum: Small volume of ascites in the lower abdomen and pelvis. No pneumoperitoneum. Ventral Wall: No hernia. Abdominal Nodes: No enlarged retroperitoneal or mesenteric lymph nodes. Vessels: Aorta and inferior vena cava are normal in size. PELVIS: Pelvic Organs: Anteverted uterus. Bladder: Thickening at the anterior bladder, (2/143). No stone. Pelvic Nodes: Unremarkable. Miscellaneous: No inguinal hernias are seen. Bones: Bones are diffusely heterogeneous with lytic areas. For example lesion at the left posterior acetabulum, (2/149). IMPRESSION: 1. Diffuse osseous metastatic disease. 2. Multiple ill-defined hepatic lesions. 3. Thickening at the anterior bladder is suspicious for malignancy. Mild bilateral hydronephrosis. 4. Small volume of ascites. Small bilateral pleural effusions. 5. Thickening of the left adrenal gland is indeterminate. Comment: Findings were discussed with Mario Alex at time of dictation. Dictated by: Emil Florez M.D. on 01/19/2025 at 22:38 Approved by: Emil Florez M.D. on 01/19/2025 at 22:54 MDM Narrative Medical decision making narrative: All lab work, vital signs, nurse triage note, medication list, and all previous ER visits all imaging modalities reviewed. I was notified by the radiologist of diffuse osseous metastatic lesion. Case discussed with Dr. Gomez hospitalist on-call who agree agreed graciously for hospital admission. Differential diagnosis includes hypercalcemia malignancy UTI sepsis STEMI NSTEMI CVA. 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 Prescriptions: No Action venlafaxine 75 mg capsule,extended release 24hr 225 mg PO DAILY baclofen 20 mg tablet 20 mg PO TID PRN (Reason: pain (scale score 4-6)) Qty: 20 0RF ondansetron 4 mg tablet,disintegrating 2 mg PO Q6-8H PRN (Reason: Nausea And Vomiting) pregabalin 50 mg capsule 50 mg PO 3XD buspirone 5 mg tablet 5 mg PO TID Patient Comments: [NO ORIGINAL SIG] magnesium hydroxide [Milk of Magnesia] 400 mg/5 mL suspension 30 ml PO DAILY PRN (Reason: No BM in 3 days) gabapentin 100 mg capsule 300 mg PO TID Patient Comments: [NO ORIGINAL SIG] losartan 100 mg tablet 100 mg PO DAILY clopidogrel 75 mg tablet 75 mg PO DAILY omeprazole 20 mg capsule,delayed release(DR/EC) 20 mg PO DAILY levothyroxine 25 mcg tablet 25 mcg PO DAILY trazodone 50 mg tablet 50 mg PO BEDTIME atorvastatin 40 mg tablet 40 mg PO BEDTIME tizanidine 4 mg tablet 8 mg PO Q8H PRN (Reason: Spasms) Patient Comments: [NO ORIGINAL SIG] acetaminophen 325 mg Tablet 650 mg PO Q6H PRN (Reason: Fever/Mild Pain (1-3)) Qty: 30 0RF Admit Date/Time: 01/20/25 00:19 Admit Provider: Larry Gomez
[2025-01-19 21:49] LABS: Ammonia (NH3) < 9 umol/L (9-30)
--- NOTE | 2025-01-19 21:50 | DI.CT.S_ITS ---
PROCEDURE: CT ABDOMEN PELVIS WO CON INDICATIONS: pain TECHNIQUE: Axial sections were acquired from the lung bases to the pubic symphysis. Coronal and sagittal reformats were performed. For radiation dose reduction, the following was used: automated exposure control, adjustment of mA and/or kV according to patient size. COMPARISON: [facility], CT, CT HEAD/BRAIN WO CON, 01/19/2025, 22:10. [facility], CR, XR CHEST 1V, 01/19/2025, 21:03. FINDINGS: Image quality: Diagnostic. Evaluation of the solid parenchymal organs is limited without IV contrast. Lower Chest: Multiple ribs demonstrate irregular appearance with callus formation. Small bilateral pleural effusions. ABDOMEN: Liver: Multiple small areas of hypodensity. Gallbladder: Absent. Biliary ducts: No biliary dilation. Pancreas: No ductal dilation. Spleen: Size is within normal limits. Adrenal Glands: Thickening about the left adrenal gland. Kidneys: Mild bilateral hydronephrosis. Stomach and Bowel: Normal colonic caliber, without significant wall thickening. The appendix is not seen. Peritoneum: Small volume of ascites in the lower abdomen and pelvis. No pneumoperitoneum. Ventral Wall: No hernia. Abdominal Nodes: No enlarged retroperitoneal or mesenteric lymph nodes. Vessels: Aorta and inferior vena cava are normal in size. PELVIS: Pelvic Organs: Anteverted uterus. Bladder: Thickening at the anterior bladder, (2/143). No stone. Pelvic Nodes: Unremarkable. Miscellaneous: No inguinal hernias are seen. Bones: Bones are diffusely heterogeneous with lytic areas. For example lesion at the left posterior acetabulum, (2/149). IMPRESSION: 1. Diffuse osseous metastatic disease. 2. Multiple ill-defined hepatic lesions. 3. Thickening at the anterior bladder is suspicious for malignancy. Mild bilateral hydronephrosis. 4. Small volume of ascites. Small bilateral pleural effusions. 5. Thickening of the left adrenal gland is indeterminate. Comment: Findings were discussed with Mario Alex at time of dictation. Dictated by: Emil Florez M.D. on 01/19/2025 at 22:38 Approved by: Emil Florez M.D. on 01/19/2025 at 22:54
--- NOTE | 2025-01-19 21:50 | DI.CT.S_ITS ---
PROCEDURE: CT HEAD/BRAIN WO CON INDICATIONS: pain TECHNIQUE: Noncontrast 4.5 mm thick angled axial sections acquired from the foramen magnum to the vertex, with coronal and sagittal reformats. For radiation dose reduction, the following was used: automated exposure control, adjustment of mA and/or kV according to patient size. COMPARISON: [facility], CT, CT HEAD/BRAIN WO CON, 01/13/2025, 9:56. FINDINGS: Image quality: Diagnostic. CSF spaces: Basal cisterns are patent. No extra-axial fluid collections. Ventricles are normal in size and shape. Brain: No midline shift. No intracranial mass effect or hemorrhage. [place]-white matter interface is normal. Skull and face: Calvarium and visualized facial bones are intact, without suspicious lesions. Sinuses: Visualized sinuses and mastoids are clear. IMPRESSION: No acute intracranial pathology identified. Dictated by: Emil Florez M.D. on 01/19/2025 at 22:33 Approved by: Emil Florez M.D. on 01/19/2025 at 22:38
[2025-01-19 21:51] LABS: Alanine Aminotransferase 30 IU/L (<35); Albumin 3.6 g/dL (3.5-5.0); Albumin Globulin Ratio 1.1 (1.0-2.8); Alkaline Phosphatase 297 U/L (38-126); Aspartate Aminotransferase 90 IU/L (14-36); BUN Creatinine Ratio 13.3 (6-22); Bilirubin Total 0.5 mg/dL (0.2-1.3); Blood Urea Nitrogen 28 mg/dL (7-17); Calcium 10.4 mg/dL (8.4-10.2); Carbon Dioxide 18 mmol/L (22-32); Chloride 116 mmol/L (98-107); Estimated Glomerular Filt Rate 25 mL/min (>60); Globulin 3.2 g/dL (1.7-4.1); Glucose 125 mg/dL (70-99); HEMOLYSIS < 15 (0-50); Potassium 3.8 mmol/L (3.4-5.1); Sodium 144 mmol/L (137-145); Total Protein 6.8 g/dL (6.3-8.2)
[2025-01-19 21:53] LABS: Hematocrit 26.4 % (36-46); Hemoglobin 9.3 g/dL (12.0-16.0); Mean Corpuscular HGB Conc 35.2 % (30-36); Mean Corpuscular Hemoglobin 30.2 PG (26-34); Mean Corpuscular Volume 85.8 fL (80-100); Platelet Count 143 X10^3/uL (150-400); Red Blood Cell Count 3.08 X10^6/uL (4.0-5.2); Red Cell Distribution Width 15.8 % (11.6-14.8); White Blood Cell Count 7.4 X10^3/uL (4.5-11.0)
[2025-01-19 21:54] LABS: Add Manual Diff / Slide Review YES
[2025-01-19 21:58] LABS: Lactate (Lactic Acid) 1.5 mmol/L (0.7-2.1)
[2025-01-19 22:03] LABS: Troponin I 0.012 ng/mL (0.01-0.034)
[2025-01-19 22:07] LABS: Procalcitonin 0.502 ng/mL (<0.5)
[2025-01-19 22:18] LABS: Neutrophils Absolute Manual 5402 /uL (3000-5900); Nucleated Red Blood Cells 1 #/Diff; RBC Morphology Normal Morphology; Total Cells Counted 100
[2025-01-20] VITALS (12 sets, daily range): BP systolic 130–182; BP diastolic 59–88; PULSE 50–98; RESP 12–20; TEMP 36.3–37; O2SAT 95–99
--- NOTE | 2025-01-20 00:27 | PM.HP.1 ---
History of Present Illness History of Present Illness Chief complaint: AMS Narrative: 69F with PMH of HTN, hyperlipidemia, hypothyroidism, CVA, OA was discharged 2 days ago for encephalopathy presumed to be due to recurrent hypercalcemia and MERCY. Pamidronate was given on 01/14 with apparent improvement in calcium values and encephalopathy. An SPEP & UPEP were reportedly negative for myeloma. Of note, patient also reported vivid dreams at night and morning hallucinations thought to be medication-related. She was sent back to SNF where she was found to have difficulty speaking and chewing food along with weakness. Calcium today in ED was 10.4 but with albumin of 3.6, this corrected to 10.7. The lab's upper limit of normal for Ca is 10.2. Patient has GFR in 20s. A CT abdomen/pelvis showed diffuse osseous metastatic disease with multiple hepatic lesions and suspected bladder malignancy. Recent spinal imaging studies returned no suspicion of malignancy. Patient will be admitted for treatment of hypercalcemia and evaluation of cancer. [facility] Medical History Acquired hypothyroidism H/O: stroke Chronic hip pain, bilateral Social History household members: none Smoking Status: Never smoker alcohol intake: current Meds Home Medications and Allergies Home Medications Medication Instructions Recorded Confirmed Type atorvastatin 40 mg tablet 40 mg PO BEDTIME primary HTN 12/01/24 01/13/25 History buspirone 5 mg tablet 5 mg PO TID anxiety 12/01/24 01/13/25 History clopidogrel 75 mg tablet 75 mg PO DAILY afib 12/01/24 01/13/25 History gabapentin 100 mg capsule 300 mg PO TID NEUROPATHY/PAIN 12/01/24 01/13/25 History levothyroxine 25 mcg tablet 25 mcg PO DAILY hypothyroidism 12/01/24 01/13/25 History losartan 100 mg tablet 100 mg PO DAILY HTN 12/01/24 01/13/25 History magnesium hydroxide 400 mg/5 mL 30 ml PO DAILY PRN No BM in 3 days 12/01/24 01/13/25 History oral suspension (Milk of Magnesia) omeprazole 20 mg capsule,delayed 20 mg PO DAILY GERD 12/01/24 01/13/25 History release tizanidine 4 mg tablet 8 mg PO Q8H PRN Spasms 12/01/24 01/13/25 History trazodone 50 mg tablet 50 mg PO BEDTIME 12/01/24 01/13/25 History acetaminophen 325 mg tablet 650 mg (2 x 325 mg) PO Q6H PRN 12/04/24 01/13/25 Rx Fever/Mild Pain (1-3) #30 tabs venlafaxine 75 mg capsule,extended 225 mg PO DAILY Depression 12/07/24 01/13/25 History release 24 hr baclofen 20 mg tablet 20 mg PO TID PRN pain (scale score 01/12/25 01/13/25 Rx 4-6) #20 tabs ondansetron 4 mg disintegrating 2 mg PO Q6-8H PRN Nausea And 01/13/25 01/13/25 History tablet Vomiting pregabalin 50 mg capsule 50 mg PO 3XD 01/13/25 01/13/25 History Allergies Allergy/AdvReac Type Severity Reaction Status Date / Time No Known Drug Allergies Allergy Verified 01/12/25 07:49 Review of Systems Review of Systems Narrative: as per HPI. Rest of 10-system review negative. Exam Vital Signs (past 8 hours): - 01/19/25 20:50 Temperature 98.3 F Pulse Rate 79 Respiratory Rate 14 Blood Pressure 149/76 H Pulse Oximetry 98 Oxygen Delivery Method Room Air Oxygen Delivery Method Room Air Narrative Exam Narrative: Patient was evaluated entirely through 2-way audio/video telemedicine with RN assistance in exam. Physician was not present at beside in person at any time for this evaluation. Const Other: awake but not oriented. no acute distress HENMT Other: NC/AT Resp Other: no wheezing heard Cardio Other: RRR GI Other: S/NT Skin Other: no evident rash Neuro Other: disoriented. no facial asymmetry appreciated Extrem Other: no edema Objective Imaging CT scan - abdomen: Radiologist's impression: 1. Diffuse osseous metastatic disease. 2. Multiple ill-defined hepatic lesions. 3. Thickening at the anterior bladder is suspicious for malignancy. Mild bilateral hydronephrosis. 4. Small volume of ascites. Small bilateral pleural effusions. 5. Thickening of the left adrenal gland is indeterminate. Labs 01/19/25 21:29 01/19/25 21:29 Labs: Laboratory Results - last 24 hr 01/19/25 21:29 WBC 7.4 RBC 3.08 L Hgb 9.3 L Hct 26.4 L MCV 85.8 MCH 30.2 MCHC 35.2 RDW 15.8 H Plt Count 143 L Neut % (Auto) Not Reportable Lymph % (Auto) Not Reportable [place] % (Auto) Not Reportable Eos % (Auto) Not Reportable Baso % (Auto) Not Reportable Lymph # (Auto) Not Reportable [place] # (Auto) Not Reportable Baso # (Auto) Not Reportable Total Counted 100 Seg Neutrophils % 72.0 H Band Neutrophils % 1.0 L Lymphocytes % (Manual) 23.0 L Monocytes % (Manual) 4.0 Neutrophils # (Manual) 5402 Nucleated RBCs 1 H RBC Morphology Normal morphology Sodium 144 Potassium 3.8 Chloride 116 H Carbon Dioxide 18 L BUN 28 H Creatinine 2.11 H Estimated GFR 25 L BUN/Creatinine Ratio 13.3 Glucose 125 H Lactate 1.5 Calcium 10.4 H Total Bilirubin 0.5 AST 90 H ALT 30 Alkaline Phosphatase 297 H Ammonia < 9 L Troponin I 0.012 Total Protein 6.8 Albumin 3.6 Globulin 3.2 Albumin/Globulin Ratio 1.1 Procalcitonin 0.502 H Assessment & Plan Assessment and plan (1) 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 Continue monitor Calcium and follow up on Ionized calcium, after IVF hydration. If Calcium level does not return to normal range, consider consulting Endocrine for additional investigation/ Stop Calcium supp Decrease Vit D or hold it. Continue hydration oral and IV prn Status: Acute (4) MERCY (acute kidney injury): Problem details: likely sec to Decreased oral intake/ dehydration, Continue IVF Monitor Renal Function Status: Acute Assessment & Plan narrative: 1. Newly diagnosed widely metastatic disease, possibly of bladder origin with bony metastases, POA 2. Hypercalcemia, recurrent, likely related to #1, POA 3. MERCY on CKD 4, POA 4. Generalized weakness, encephalopathy with normal ammonia level, POA 5. Hypothyroidism, chronic Plan: 1. Admit inpatient, telemetry 2. Due to severe renal insufficiency, cannot treat with IV fluids + loop diuretic. Will check Ca in AM. Bisphosphonates may also worsen renal function 3. Recommend day team to consult nephrology 4. Recommend day team to consult oncology or transfer to center with oncology 5. May need interventional radiology for biopsy for diagnosis 6. Gentle IV fluids 7. Assess continuation of home meds when verified. 8. Daily labs Code: Full DVT prophylaxis: UFH Diet/FEN: Regular diet, NSS @ 60 ml/h Dispo: TBD Time-Based Coding :: [TOTAL MINUTES] spent with patient and on the chart (including review of chart, obtaining history, exam, reviewing outside data, placing orders, documenting exam and treatment plan, and counseling patient) on [DATE].
--- NOTE | 2025-01-20 01:46 | PC.ADMIT ---
[email or web address] Ad[facility] Note: The patient,Anne Martini,69 y/o, was given written information regarding hospital policies, unit procedures and contact persons. Patient's smoking status: Never smoker. Vital Signs - 8 hr 01/19/25 20:50 01/19/25 21:06 01/19/25 21:30 Temperature 98.3 F Pulse Rate 79 81 Respiratory Rate 14 14 Blood Pressure 149/76 H 163/71 H Pulse Oximetry 98 98 Oxygen Delivery Method Room Air Oxygen Flow Rate 01/19/25 21:30 01/19/25 22:00 01/19/25 22:28 Temperature Pulse Rate 83 86 Respiratory Rate 14 14 Blood Pressure 165/78 H Pulse Oximetry 97 98 Oxygen Delivery Method Oxygen Flow Rate 01/19/25 22:28 01/19/25 22:30 01/19/25 23:00 Temperature Pulse Rate 86 85 Respiratory Rate 13 14 Blood Pressure 142/65 H Pulse Oximetry 98 98 Oxygen Delivery Method Oxygen Flow Rate 01/19/25 23:00 01/19/25 23:30 01/19/25 23:30 Temperature Pulse Rate 73 73 Respiratory Rate 12 11 L Blood Pressure 158/68 H Pulse Oximetry 98 98 Oxygen Delivery Method Oxygen Flow Rate 01/20/25 00:00 01/20/25 00:00 01/20/25 00:30 Temperature Pulse Rate 90 94 H Respiratory Rate 12 13 Blood Pressure 182/81 H Pulse Oximetry 99 98 Oxygen Delivery Method Oxygen Flow Rate 01/20/25 00:35 01/20/25 00:36 01/20/25 00:37 Temperature Pulse Rate 98 H 95 H Respiratory Rate 13 15 Blood Pressure 168/77 H Pulse Oximetry 98 97 Oxygen Delivery Method Oxygen Flow Rate 01/20/25 01:34 Temperature 97.4 F L Pulse Rate 50 L Respiratory Rate 20 Blood Pressure 157/69 H Pulse Oximetry 96 Oxygen Delivery Method Oxygen Flow Rate 0 Pt arrived to Acute Care floor at 0130, Pt alert to self only, denies pain, or N/V; VS taken, Pt on room air 97% and on cardiac telemetry box 9. NS going at 60mls/hr as per MD orders in right arm AC IV. MD notified. [facility] [place] cart in room awaiting MD telehealth visit.
[2025-01-20] MEDS: SODIUM CHLORIDE 0.9% 1,000 ML 60 ML IV ×2 (02:12→17:43)
[2025-01-20 04:51] LABS: Hematocrit 25.9 % (36-46); Hemoglobin 9.1 g/dL (12.0-16.0); Mean Corpuscular HGB Conc 35.2 % (30-36); Mean Corpuscular Hemoglobin 30.4 PG (26-34); Mean Corpuscular Volume 86.3 fL (80-100); Platelet Count 149 X10^3/uL (150-400); Red Cell Distribution Width 15.8 % (11.6-14.8); White Blood Cell Count 7.8 X10^3/uL (4.5-11.0)
[2025-01-20 04:54] LABS: Add Manual Diff / Slide Review YES
[2025-01-20 05:04] LABS: BUN Creatinine Ratio 14.2 (6-22); Blood Urea Nitrogen 27 mg/dL (7-17); Calcium 10.2 mg/dL (8.4-10.2); Carbon Dioxide 15 mmol/L (22-32); Chloride 118 mmol/L (98-107); Estimated Glomerular Filt Rate 28 mL/min (>60); Glucose 108 mg/dL (70-99); HEMOLYSIS 27 (0-50); Magnesium 1.6 mg/dL (1.6-2.3); Potassium 3.9 mmol/L (3.4-5.1); Sodium 143 mmol/L (137-145)
[2025-01-20 05:08] LABS: Neutrophils Absolute Manual 5538 /uL (3000-5900); Nucleated Red Blood Cells 3 #/Diff; Total Cells Counted 100
[2025-01-20 05:09] LABS: Anisocytosis 1+
[2025-01-20 08:10] LABS: Ur Creatinine Normal (Normal); Ur Specific Gravity Normal (Normal); Urine pH Normal (Normal)
[2025-01-20 08:11] LABS: UR Morphine/Opiate cutoff 300 Negative (Negative); Urine Amphetamines Negative (Negative); Urine Barbiturates Negative (Negative); Urine Benzodiazepines Negative (Negative); Urine Cocaine Negative (Negative); Urine MDMA Negative (Negative); Urine Methadone Negative (Negative); Urine Methamphetamines Negative (Negative); Urine Oxycodone Negative (Negative); Urine Phencyclidine Negative (Negative); Urine Tetrahydrocannabinol Negative (Negative); Urine Tricyclic Antidepressant Negative (Negative)
[2025-01-20] MEDS: LORazepam 1 MG TABLET PO ×2 (10:17→14:25)
--- NOTE | 2025-01-20 11:55 | PM.HP.1 ---
History of Present Illness History of Present Illness Chief complaint: AMS Narrative: From night doctor: 69F with PMH of HTN, hyperlipidemia, hypothyroidism, CVA, OA was discharged 2 days ago for encephalopathy presumed to be due to recurrent hypercalcemia and MERCY. Pamidronate was given on 01/14 with apparent improvement in calcium values and encephalopathy. An SPEP & UPEP were reportedly negative for myeloma. Of note, patient also reported vivid dreams at night and morning hallucinations thought to be medication-related. She was sent back to SNF where she was found to have difficulty speaking and chewing food along with weakness. Calcium today in ED was 10.4 but with albumin of 3.6, this corrected to 10.7. The lab's upper limit of normal for Ca is 10.2. Patient has GFR in 20s. A CT abdomen/pelvis showed diffuse osseous metastatic disease with multiple hepatic lesions and suspected bladder malignancy. Recent spinal imaging studies returned no suspicion of malignancy. Patient will be admitted for treatment of hypercalcemia and evaluation of cancer. Additional information: She was quite upset today. She did not recall the information regarding the CT scan. I did have the CT reviewed by radiology and compared with the previous x-rays and imaging. In fact, she appears to have new widespread osseous metastatic cancer as well as liver lesions. The patient also has abnormal appearance of her bladder. She denies a history of cancer. Her significant other, Michael, was in the room while we discussed this. Her calcium is mildly elevated, and she was still confused. The plan at this point will be to hydrate her and monitor mental status overnight. I will reach out to [facility] regional Oncology to see if they can review her images with initial recommendations. She will likely need a biopsy after encephalopathy with the is cleared, this may need to happen at [facility]. [facility] Medical History Acquired hypothyroidism H/O: stroke Chronic hip pain, bilateral Social History household members: none Smoking Status: Never smoker alcohol intake: current Meds Home Medications and Allergies Home Medications Medication Instructions Recorded Confirmed Type atorvastatin 40 mg tablet 40 mg PO BEDTIME primary HTN 12/01/24 01/20/25 History buspirone 5 mg tablet 5 mg PO TID anxiety 12/01/24 01/20/25 History clopidogrel 75 mg tablet 75 mg PO DAILY afib 12/01/24 01/20/25 History gabapentin 100 mg capsule 300 mg PO TID NEUROPATHY/PAIN 12/01/24 01/20/25 History levothyroxine 25 mcg tablet 25 mcg PO DAILY hypothyroidism 12/01/24 01/20/25 History losartan 100 mg tablet 100 mg PO DAILY HTN 12/01/24 01/20/25 History magnesium hydroxide 400 mg/5 mL 30 ml PO DAILY PRN No BM in 3 days 12/01/24 01/20/25 History oral suspension (Milk of Magnesia) omeprazole 20 mg capsule,delayed 20 mg PO DAILY GERD 12/01/24 01/20/25 History release tizanidine 4 mg tablet 8 mg PO Q8H PRN Spasms 12/01/24 01/20/25 History trazodone 50 mg tablet 50 mg PO BEDTIME 12/01/24 01/20/25 History acetaminophen 325 mg tablet 650 mg (2 x 325 mg) PO Q6H PRN 12/04/24 01/20/25 Rx Fever/Mild Pain (1-3) #30 tabs venlafaxine 75 mg capsule,extended 225 mg PO DAILY Depression 12/07/24 01/20/25 History release 24 hr baclofen 20 mg tablet 20 mg PO TID PRN pain (scale score 01/12/25 01/20/25 Rx 4-6) #20 tabs ondansetron 4 mg disintegrating 2 mg PO Q6-8H PRN Nausea And 01/13/25 01/20/25 History tablet Vomiting pregabalin 50 mg capsule 50 mg PO 3XD 01/13/25 01/20/25 History Allergies Allergy/AdvReac Type Severity Reaction Status Date / Time No Known Drug Allergies Allergy Verified 01/12/25 07:49 Review of Systems Review of Systems Narrative: All else reviewed and otherwise unremarkable except as noted in the history and physical. Exam Vital Signs (past 8 hours): - 01/20/25 05:00 01/20/25 08:00 Temperature 97.8 F 98.1 F Pulse Rate 96 H 80 Respiratory Rate 18 20 Blood Pressure 148/88 H 135/59 L Pulse Oximetry 96 95 Oxygen Flow Rate 0 0 Oxygen Delivery Method Room Air Oxygen Flow Rate 0 Narrative Exam Narrative: NAD, alert and oriented, fluent speech, calm. Normocephalic skull, EOMI, anicteric sclera, symmetric pupils. Oropharynx unremarkable, no droop. Neck supple, midline trachea, no adenopathy. Lungs clear, normal rate and effort. Heart regular, no murmur gallop or rub. Abdomen is soft, non distended and non tender. Extremities are free of edema. Skin is free of rash or lesions. Joints are not swollen or deformed. Judgment appears to be normal. Objective Imaging CT scan - abdomen: Radiologist's impression: 1. Diffuse osseous metastatic disease. 2. Multiple ill-defined hepatic lesions. 3. Thickening at the anterior bladder is suspicious for malignancy. Mild bilateral hydronephrosis. 4. Small volume of ascites. Small bilateral pleural effusions. 5. Thickening of the left adrenal gland is indeterminate. CT scan - head: Radiologist's impression: No acute intracranial pathology identified. Labs 01/20/25 04:30 01/20/25 04:30 Labs: Laboratory Results - last 24 hr 01/19/25 01/20/25 01/20/25 21:29 04:30 06:00 WBC 7.4 7.8 RBC 3.08 L 3.00 L Hgb 9.3 L 9.1 L Hct 26.4 L 25.9 L MCV 85.8 86.3 MCH 30.2 30.4 MCHC 35.2 35.2 RDW 15.8 H 15.8 H Plt Count 143 L 149 L Neut % (Auto) Not Reportable Not Reportable Lymph % (Auto) Not Reportable Not Reportable [place] % (Auto) Not Reportable Not Reportable Eos % (Auto) Not Reportable Not Reportable Baso % (Auto) Not Reportable Not Reportable Lymph # (Auto) Not Reportable Not Reportable [place] # (Auto) Not Reportable Not Reportable Baso # (Auto) Not Reportable Not Reportable Total Counted 100 100 Seg Neutrophils % 72.0 H 65.0 Band Neutrophils % 1.0 L 6.0 Lymphocytes % (Manual) 23.0 L 18.0 L Monocytes % (Manual) 4.0 8.0 Eosinophils % (Manual) 2.0 Basophils % (Manual) 1.0 Neutrophils # (Manual) [phone] Nucleated RBCs 1 H 3 H RBC Morphology Normal morphology See below Anisocytosis 1+ H Sodium 144 143 Potassium 3.8 3.9 Chloride 116 H 118 H Carbon Dioxide 18 L 15 L BUN 28 H 27 H Creatinine 2.11 H 1.90 H Estimated GFR 25 L 28 L BUN/Creatinine Ratio 13.3 14.2 Glucose 125 H 108 H Lactate 1.5 Calcium 10.4 H 10.2 Magnesium 1.6 Total Bilirubin 0.5 AST 90 H ALT 30 Alkaline Phosphatase 297 H Ammonia < 9 L Troponin I 0.012 Total Protein 6.8 Albumin 3.6 Globulin 3.2 Albumin/Globulin Ratio 1.1 Procalcitonin 0.502 H U Opiates 300ng/mL cut Negative Ur Oxycodone Screen Negative Urine Methadone Screen Negative Ur Barbiturates Screen Negative U Tricyclic Antidepress Negative Ur Phencyclidine Scrn Negative Ur Amphetamines Screen Negative U Methamphetamines Scrn Negative Ur MDMA Scrn (Ecstasy) Negative U Benzodiazepines Scrn Negative Urine Cocaine Screen Negative U Marijuana (THC) Screen Negative Urine pH Normal Urine Specific [place] Normal Ur Creatinine Normal Assessment & Plan Assessment & Plan narrative: 1. Newly diagnosed widely metastatic disease, possibly of bladder origin with bony metastases, present on admission. 2. Hypercalcemia, recurrent, likely related to #1, present on admission. 3. MERCY on CKD 4, present on admission. 4. Generalized weakness, encephalopathy with normal ammonia level, present on admission. 5. Hypothyroidism, chronic and stable. Plan: -we will give IV fluids and monitor volume status and creatinine today. -we will monitor calcium and mental status. -we will reach out to [facility] for their general impressions from her imaging and recommendations. Code: Full DVT prophylaxis: UFH Diet/FEN: Regular diet, NSS @ 60 ml/h Time-Based Coding :: [TOTAL MINUTES] spent with patient and on the chart (including review of chart, obtaining history, exam, reviewing outside data, placing orders, documenting exam and treatment plan, and counseling patient) on [DATE].
[2025-01-20] MEDS: HEPARIN 5,000 UNIT/ML VIAL 5000 UNIT SUBCUT ×2 (13:46→21:10)
[2025-01-20] MEDS: MAGNESIUM CHLORIDE 64 MG TABLET 128 MG PO (13:46)
[2025-01-20] MEDS: SODIUM CHLORIDE 0.9% FLUSH 10 ML IV ×3 (13:47→23:01)
[2025-01-20] MEDS: BUSPIRONE 5 MG TABLET PO ×2 (14:25→21:09)
[2025-01-20] MEDS: PREGABALIN 50 MG CAPSULE PO ×2 (14:25→21:09)
[2025-01-20] MEDS: GABAPENTIN 300 MG CAPSULE PO ×2 (14:25→21:09)
[2025-01-20] MEDS: VENLAFAXINE ER 75 MG CAP 225 MG PO (14:25)
--- NOTE | 2025-01-20 15:12 | CM.DANOTE ---
Initial DCP Assessment Note Patient is a 69 yo female, resident at [facility], admitted from 4.25-4. and discharged to [facility]. Patient readmits for management of Hypercalcemia- Now presumed secondary to newly diagnosed widely metastatic disease, possibly of bladder origin with bony metastases. PCP Daxa Correa INS MCR/LIBORIO Reviewed chart. According to staff, patient has been tearful throughout the day as she and SO Michael process patient's new dx of cancer. Met w/patient and SO. Both confirm that the choice for discharge would be return to [facility]. 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 Patient had been at [facility] initially before moving into [facility]. SO Michael still works as a therapist in [place]. Emailed Shannan at . Patient is welcome to return, cannot admit over the w/e related to staffing shortages. CM team will plan to update Shannan as medical plan of care unfolds. Patient remains Full Code. Plan: Discharge back to [facility] anticipated Thursday. No PASRR required for return. vs S for transport. CM team following clinical course closely. KARLIE Elder Discharge Planning/Care Management CM Discharge Assessment Start: 01/20/25 14:54 Freq: Status: Active Protocol: Document 01/20/25 14:55 SHYLA (Rec: 01/20/25 15:12 SHYLA [id number]) Discharge Planning Assessment Assigned Architect KARLIE Mcgarry DPOA/Assigned Designee Name Michael Correa MIRIAM Contact Information [phone] Advance Directives? No Advance Directives on File Yes History Provided By Family Member,Medical Record Has Patient been admitted in last 30 Yes days? Comment 11/30 - INPT 12/07 - OBS 01/12 - ER 01/13 - INPT 01/20 - INPT Prior Living Arrangements Assisted Living Household Members none Type of transporation used prior to Relies on Others admit Independent with ADL's No Is patient alert and oriented? No: Recent increase in altered mental status, typically A+O Needs Assistance With Bathing,Grooming,Meal Prep, Toileting,Managing Medications ,Home Chores / Shopping Caregiver for Another No Patient/Family Preference Usp Facility Barriers to Discharge No Comment Return to [facility] is anticipated Discharge Plan Usp Facility Transportation Arrangement wc van vs BLS Referrals Initiated None needed Medicare Choice List Provided No SNF/HH Preference Return to [facility] SNF is the preference Has Agency SNF been contacted Yes
[2025-01-20] MEDS: ACETAMINOPHEN 325 MG TABLET 650 MG PO (15:38)
[2025-01-20] MEDS: SODIUM BICARB 8.4% VIAL 100 MEQ in DEXTROSE 5% WATER 1,000 ML IV (19:00)
[2025-01-20] MEDS: ATORVASTATIN 20 MG TABLET 40 MG PO (21:09)
[2025-01-20] MEDS: TRAZODONE 50 MG TABLET PO (21:10)
[2025-01-21] MEDS: ACETAMINOPHEN 325 MG TABLET 650 MG PO ×3 (03:47→20:28)
[2025-01-21] MEDS: BACLOFEN 10 MG TABLET 20 MG PO ×2 (03:49→20:28)
[2025-01-21] MEDS: SODIUM BICARB 8.4% VIAL 100 MEQ in DEXTROSE 5% WATER 1,000 ML IV ×3 (04:01→23:34)
[2025-01-21 05:27] LABS: Alanine Aminotransferase 25 IU/L (<35); Albumin 3.1 g/dL (3.5-5.0); Albumin Globulin Ratio 1.1 (1.0-2.8); Alkaline Phosphatase 287 U/L (38-126); Aspartate Aminotransferase 62 IU/L (14-36); Bilirubin Total 0.5 mg/dL (0.2-1.3); Blood Urea Nitrogen 25 mg/dL (7-17); Calcium 9.4 mg/dL (8.4-10.2); Carbon Dioxide 18 mmol/L (22-32); Chloride 115 mmol/L (98-107); Estimated Glomerular Filt Rate 25 mL/min (>60); Globulin 2.9 g/dL (1.7-4.1); Glucose 115 mg/dL (70-99); HEMOLYSIS < 15 (0-50); Potassium 3.5 mmol/L (3.4-5.1); Sodium 143 mmol/L (137-145)
[2025-01-21 05:28] LABS: Magnesium 1.5 mg/dL (1.6-2.3)
[2025-01-21] MEDS: PANTOPRAZOLE DR 20 MG TABLET PO (06:45)
[2025-01-21] MEDS: LEVOTHYROXINE 25 MCG TABLET PO (06:45)
--- NOTE | 2025-01-21 07:22 | PM.PN.1 ---
Subjective Subjective Interval history: Summary: The patient was a 69-year-old female he was readmitted from senior care facility for recurrent weakness in his had recurrent hypercalcemia recently. Her evaluation for multiple myeloma was inconclusive. However, CT scan during this admission revealed evidence of diffuse metastatic cancer with many bone lesions and an abnormal bladder as well as liver lesions. She also had a hyperchloremic acidosis and mild MERCY. She initially received normal saline, this was changed to sodium bicarbonate infusion on January 20. She was encephalopathic, this is improving. Calcium was minimally elevated upon arrival. The case was reviewed with Oncology at [facility], their recommendations were for treatment of hypercalcemia and cystoscopy as a means to obtain a tissue biopsy. Recent imaging and current imaging was reviewed with Radiology on January 20 and was consistent with new evidence of metastatic cancer. S: She feels better today. She does have chronic pain. She denies nausea. Her confusion is improving. Exam Vital Signs (past 8 hours): Oxygen Delivery Method Room Air Oxygen Flow Rate 0 Narrative Exam Narrative: NAD, alert and oriented. Fluent speech. Lungs are clear, normal rate and effort. Heart is regular, no murmur gallop or rub. Abdomen is soft, non distended. Extremities are free of edema. Objective Imaging CT scan - abdomen: Radiologist's impression: 1. Diffuse osseous metastatic disease. 2. Multiple ill-defined hepatic lesions. 3. Thickening at the anterior bladder is suspicious for malignancy. Mild bilateral hydronephrosis. 4. Small volume of ascites. Small bilateral pleural effusions. 5. Thickening of the left adrenal gland is indeterminate. CT scan - head: Radiologist's impression: No acute intracranial pathology identified. Labs 01/20/25 04:30 01/21/25 04:48 Labs: Laboratory Results - last 24 hr 01/20/25 01/21/25 01/21/25 06:00 04:43 04:48 Sodium 143 Potassium 3.5 Chloride 115 H Carbon Dioxide 18 L BUN 25 H Creatinine 2.08 H Estimated GFR 25 L BUN/Creatinine Ratio 12.0 Glucose 115 H Calcium 9.4 Magnesium 1.5 L Total Bilirubin 0.5 AST 62 H ALT 25 Alkaline Phosphatase 287 H Total Protein 6.0 L Albumin 3.1 L Globulin 2.9 Albumin/Globulin Ratio 1.1 U Opiates 300ng/mL cut Negative Ur Oxycodone Screen Negative Urine Methadone Screen Negative Ur Barbiturates Screen Negative U Tricyclic Antidepress Negative Ur Phencyclidine Scrn Negative Ur Amphetamines Screen Negative U Methamphetamines Scrn Negative Ur MDMA Scrn (Ecstasy) Negative U Benzodiazepines Scrn Negative Urine Cocaine Screen Negative U Marijuana (THC) Screen Negative Urine pH Normal Urine Specific [place] Normal Ur Creatinine Normal [facility] Medical History Acquired hypothyroidism H/O: stroke Chronic hip pain, bilateral Social History household members: none Smoking Status: Never smoker alcohol intake: current Assessment & Plan Assessment & Plan narrative: 1. Newly diagnosed widely metastatic disease, possibly of bladder origin with bony metastases, present on admission. 2. Hypercalcemia, recurrent, likely related to #1, present on admission. 3. MERCY on CKD 4, present on admission. 4. Hyperchloremic acidosis, present on admission and active. 5. Generalized weakness, encephalopathy with normal ammonia level, present on admission. 6. Hypothyroidism, chronic and stable. Plan: -we will give IV fluids (NaHCO3) and monitor volume status and creatinine for another day. -we will monitor calcium and mental status. Improving. -Consider urology for cystoscopy and biopsy Thursday. ISAI: 01/23-. Time-Based Coding :: [TOTAL MINUTES] spent with patient and on the chart (including review of chart, obtaining history, exam, reviewing outside data, placing orders, documenting exam and treatment plan, and counseling patient) on [DATE].
[2025-01-21 08:00] VITALS: O2SAT 96
[2025-01-21] MEDS: SODIUM CHLORIDE 0.9% FLUSH 10 ML IV (09:00)
[2025-01-21] MEDS: VENLAFAXINE ER 75 MG CAP 225 MG PO (09:00)
[2025-01-21] MEDS: CLOPIDOGREL 75 MG TABLET PO (09:00)
[2025-01-21] MEDS: POTASSIUM CHLORIDE 20 MEQ TAB PO (09:00)
[2025-01-21] MEDS: GABAPENTIN 300 MG CAPSULE PO ×3 (09:00→20:28)
[2025-01-21] MEDS: PREGABALIN 50 MG CAPSULE PO ×3 (09:00→20:28)
[2025-01-21] MEDS: BUSPIRONE 5 MG TABLET PO ×3 (09:00→20:28)
[2025-01-21] MEDS: HEPARIN 5,000 UNIT/ML VIAL 5000 UNIT SUBCUT ×2 (09:00→20:28)
[2025-01-21] MEDS: MAGNESIUM CHLORIDE 64 MG TABLET 128 MG PO (09:01)
[2025-01-21] MEDS: LORazepam 1 MG TABLET PO (12:02)
--- NOTE | 2025-01-21 12:56 | CM.DPC ---
DCP Cont: Per MD, consulted with Oncologist and recommendation of cystoscopy since anticipated tumor in bladder and will consult Urologist for possible procedure Thursday before stable for discharge back to SNF. KARLIE Garcia
[2025-01-21 13:00] VITALS: BP 165/80; PULSE 87; RESP 19; TEMP 36.2; O2SAT 98
[2025-01-21 19:00] VITALS: O2SAT 98
[2025-01-21 20:00] VITALS: BP 150/68; PULSE 88; RESP 15; TEMP 36.6; O2SAT 98
[2025-01-21] MEDS: ATORVASTATIN 20 MG TABLET 40 MG PO (20:27)
[2025-01-21] MEDS: TRAZODONE 50 MG TABLET PO (21:01)
[2025-01-22] VITALS (8 sets, daily range): BP systolic 110–163; BP diastolic 47–81; PULSE 68–92; RESP 12–20; TEMP 36.1–36.6; O2SAT 95–99
[2025-01-22] MEDS: LEVOTHYROXINE 25 MCG TABLET PO (05:03)
[2025-01-22] MEDS: PANTOPRAZOLE DR 20 MG TABLET PO (05:03)
[2025-01-22] MEDS: BACLOFEN 10 MG TABLET 20 MG PO ×2 (05:11→09:32)
[2025-01-22] MEDS: ACETAMINOPHEN 325 MG TABLET 650 MG PO ×3 (05:12→19:19)
[2025-01-22 05:28] LABS: Alanine Aminotransferase 29 IU/L (<35); Albumin 3.4 g/dL (3.5-5.0); Alkaline Phosphatase 319 U/L (38-126); Aspartate Aminotransferase 65 IU/L (14-36); BUN Creatinine Ratio 12.9 (6-22); Bilirubin Total 0.8 mg/dL (0.2-1.3); Blood Urea Nitrogen 27 mg/dL (7-17); Calcium 9.5 mg/dL (8.4-10.2); Carbon Dioxide 23 mmol/L (22-32); Chloride 108 mmol/L (98-107); Estimated Glomerular Filt Rate 25 mL/min (>60); Globulin 3.4 g/dL (1.7-4.1); Glucose 96 mg/dL (70-99); Magnesium 1.6 mg/dL (1.6-2.3); Sodium 141 mmol/L (137-145); Total Protein 6.8 g/dL (6.3-8.2)
[2025-01-22 05:29] LABS: HEMOLYSIS 59 (0-50)
--- NOTE | 2025-01-22 08:47 | PM.PN.1 ---
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 Pamidronate was given on 01/14 with apparent improvement in calcium values and encephalopathy. An SPEP & UPEP were reportedly negative for myeloma. Of note, patient also reported vivid dreams at night and morning hallucinations thought to be medication-related. She was sent back to SNF where she was found to have difficulty speaking and chewing food along with weakness. Calcium today in ED was 10.4 but with albumin of 3.6, this corrected to 10.7. The lab's upper limit of normal for Ca is 10.2. Patient has GFR in 20s. A CT abdomen/pelvis showed diffuse osseous metastatic disease with multiple hepatic lesions and suspected bladder malignancy. Recent spinal imaging studies returned no suspicion of malignancy. Patient will be admitted for treatment of hypercalcemia and evaluation of cancer. Hospital course: 01/20: She was quite upset today. She did not recall the information regarding the CT scan. I did have the CT reviewed by radiology and compared with the previous x-rays and imaging. In fact, she appears to have new widespread osseous metastatic cancer as well as liver lesions. The patient also has abnormal appearance of her bladder. She denies a history of cancer. Her significant other, Michael, was in the room while we discussed this. Her calcium is mildly elevated, and she was still confused. The plan at this point will be to hydrate her and monitor mental status overnight. I will reach out to [facility] regional Oncology to see if they can review her images with initial recommendations. She will likely need a biopsy after encephalopathy with the is cleared, this may need to happen at [facility]. 01/21: She feels better today. She does have chronic pain. She denies nausea. Her confusion is improving. -we will give IV fluids (NaHCO3) and monitor volume status and creatinine for another day. -we will monitor calcium and mental status. Improving. -Consider urology for cystoscopy and biopsy Thursday. 01/22: Somewhat confused but answers questions oriented to place and month and time of day Hemoglobin 9 with 3% nucleated white blood cells BUN/creatinine 27/2.1 AST 65 alkaline phosphatase 319 1. Newly diagnosed widely metastatic disease, possibly of bladder origin with bony metastases, POA 2. Hypercalcemia, recurrent, likely related to #1, POA 3. MERCY on CKD 4, POA 4. Generalized weakness, encephalopathy with normal ammonia level, POA 5. Hypothyroidism, chronic Time-Based Coding 35 minutes spent with patient and on the chart (including review of chart, obtaining history, exam, reviewing outside data, placing orders, documenting exam and treatment plan, and counseling patient) Exam Vital Signs (past 8 hours): - 01/22/25 04:23 01/22/25 08:00 Temperature 97.1 F L 97.2 F L Pulse Rate 88 81 Respiratory Rate 16 Blood Pressure 163/77 H 158/81 H Pulse Oximetry 99 98 Oxygen Flow Rate 0 Oxygen Delivery Method Room Air Oxygen Flow Rate 0 Objective Labs 01/20/25 04:30 01/22/25 04:28 Labs: Laboratory Results - last 24 hr 01/22/25 04:28 Sodium 141 Potassium 4.0 Chloride 108 H Carbon Dioxide 23 BUN 27 H Creatinine 2.10 H Estimated GFR 25 L BUN/Creatinine Ratio 12.9 Glucose 96 Calcium 9.5 Magnesium 1.6 Total Bilirubin 0.8 AST 65 H ALT 29 Alkaline Phosphatase 319 H Total Protein 6.8 Albumin 3.4 L Globulin 3.4 Albumin/Globulin Ratio 1.0 PFSH Medical History Acquired hypothyroidism H/O: stroke Chronic hip pain, bilateral Social History household members: none Smoking Status: Never smoker alcohol intake: current Assessment & Plan Time-Based Coding :: [TOTAL MINUTES] spent with patient and on the chart (including review of chart, obtaining history, exam, reviewing outside data, placing orders, documenting exam and treatment plan, and counseling patient) on [DATE].
[2025-01-22] MEDS: BUSPIRONE 5 MG TABLET PO ×3 (09:25→21:36)
[2025-01-22] MEDS: VENLAFAXINE ER 75 MG CAP 225 MG PO (09:25)
[2025-01-22] MEDS: HEPARIN 5,000 UNIT/ML VIAL 5000 UNIT SUBCUT ×2 (09:26→21:36)
[2025-01-22] MEDS: GABAPENTIN 300 MG CAPSULE PO ×3 (09:26→21:36)
[2025-01-22] MEDS: PREGABALIN 50 MG CAPSULE PO ×3 (09:26→21:36)
[2025-01-22] MEDS: CLOPIDOGREL 75 MG TABLET PO (09:26)
--- NOTE | 2025-01-22 10:52 | PT-IP ANOTE ---
Pt discussed in rounds and readm after d/c to [facility] with liver CA. PT order received, PT reviewed chart and checked in on patient. First attempt, she is on the phone and unavailable. Second attempt, she is sleeping soundly. Will con't PT consult efforts next date.
[2025-01-22] MEDS: MAGNESIUM CHLORIDE 64 MG TABLET 128 MG PO (12:10)
[2025-01-22] MEDS: LORazepam 1 MG TABLET PO ×2 (14:31→19:19)
[2025-01-22 19:17] LABS: Cancer Antigen 125 65.8 U/mL (0-35); Carcinoembryonic Antigen 4.4 ng/mL (0.1-3.0)
[2025-01-22] MEDS: ATORVASTATIN 20 MG TABLET 40 MG PO (21:36)
[2025-01-22] MEDS: TRAZODONE 50 MG TABLET PO (21:36)
[2025-01-22] MEDS: SODIUM CHLORIDE 0.9% FLUSH 10 ML IV (21:39)
[2025-01-23 05:07] VITALS: BP 140/54; PULSE 76; RESP 12; TEMP 36.2; O2SAT 96
[2025-01-23 06:28] LABS: Alanine Aminotransferase 26 IU/L (<35); Albumin 3.1 g/dL (3.5-5.0); Albumin Globulin Ratio 1.1 (1.0-2.8); Alkaline Phosphatase 319 U/L (38-126); Aspartate Aminotransferase 55 IU/L (14-36); BUN Creatinine Ratio 12.5 (6-22); Bilirubin Total 0.5 mg/dL (0.2-1.3); Blood Urea Nitrogen 34 mg/dL (7-17); Calcium 8.7 mg/dL (8.4-10.2); Carbon Dioxide 23 mmol/L (22-32); Chloride 108 mmol/L (98-107); Estimated Glomerular Filt Rate 18 mL/min (>60); Globulin 2.9 g/dL (1.7-4.1); Glucose 79 mg/dL (70-99); HEMOLYSIS < 15 (0-50); Magnesium 1.6 mg/dL (1.6-2.3); Potassium 3.9 mmol/L (3.4-5.1); Sodium 140 mmol/L (137-145)
--- NOTE | 2025-01-23 06:50 | PC.NURSE ---
Pt too lethargic this am to take her pantoprazole and her levothyroxine. pt on tele SR and all vital signs are wnl.
[2025-01-23 07:00] VITALS: O2SAT 95
--- NOTE | 2025-01-23 07:19 | PT-IP ANOTE ---
PT checks in on patient who is sleeping and asks PT to come in and talk. PT provides encouragement as discusses new diagnosis. Pt awakens slightly during discussion. Will check back for PT consult later and PT asks MD for OT referral. Bed rest is written on the board and PT does not see this in the chart and PT also asks MD for OOB order. Con't efforts later this date.
[2025-01-23] MEDS: BACLOFEN 10 MG TABLET 20 MG PO (07:34)
[2025-01-23] MEDS: ACETAMINOPHEN 325 MG TABLET 650 MG PO (07:35)
[2025-01-23] MEDS: LEVOTHYROXINE 25 MCG TABLET PO (07:35)
[2025-01-23] MEDS: PREGABALIN 50 MG CAPSULE PO (07:35)
[2025-01-23] MEDS: PANTOPRAZOLE DR 20 MG TABLET PO (07:35)
[2025-01-23] MEDS: CLOPIDOGREL 75 MG TABLET PO (07:42)
[2025-01-23] MEDS: BUSPIRONE 5 MG TABLET PO (07:42)
[2025-01-23] MEDS: GABAPENTIN 300 MG CAPSULE PO (07:42)
[2025-01-23] MEDS: VENLAFAXINE ER 75 MG CAP 225 MG PO (07:42)
[2025-01-23] MEDS: HEPARIN 5,000 UNIT/ML VIAL 5000 UNIT SUBCUT ×2 (07:43→07:47)
--- NOTE | 2025-01-23 09:32 | PT-IP ANOTE ---
PT checks back with pt. begins to cry as they were given a 1 week prognosis. PT provides support. Will d/c PT order.
[2025-01-23] MEDS: LACTULOSE 20 GM/30 ML SOLUTION PO (09:53)
[2025-01-23] MEDS: SODIUM CHLORIDE 0.9% FLUSH 10 ML IV (09:58)
[2025-01-23 10:00] VITALS: BP 123/58; PULSE 80; RESP 12; TEMP 36.2; O2SAT 95
--- NOTE | 2025-01-23 10:53 | OT.IPNOTE ---
Ot eval and treat order received and chart reviewed. Discussed case with CM and PT and per MD, pt is likely immanent. Will discharge OT eval order at this time.
--- NOTE | 2025-01-23 11:09 | PM.PN.1 ---
Subjective Subjective Date Patient Seen: 01/23/25 Interval history: Chief complaint: Lethargy confusion encephalopathy secondary to hypercacemia and new finding of carcinomatosis of liver and bone History of present illness: 69F with PMH of HTN, hyperlipidemia, hypothyroidism, CVA, OA was discharged 2 days ago for encephalopathy presumed to be due to recurrent hypercalcemia and MERCY. Pamidronate was given on 01/14 with apparent improvement in calcium values and encephalopathy. An SPEP & UPEP were reportedly negative for myeloma. Of note, patient also reported vivid dreams at night and morning hallucinations thought to be medication-related. She was sent back to SNF where she was found to have difficulty speaking and chewing food along with weakness. Calcium today in ED was 10.4 but with albumin of 3.6, this corrected to 10.7. The lab's upper limit of normal for Ca is 10.2. Patient has GFR in 20s. A CT abdomen/pelvis showed diffuse osseous metastatic disease with multiple hepatic lesions and suspected bladder malignancy. Recent spinal imaging studies returned no suspicion of malignancy. Patient will be admitted for treatment of hypercalcemia and evaluation of cancer. Hospital course: 01/20: She was quite upset today. She did not recall the information regarding the CT scan. I did have the CT reviewed by radiology and compared with the previous x-rays and imaging. In fact, she appears to have new widespread osseous metastatic cancer as well as liver lesions. The patient also has abnormal appearance of her bladder. She denies a history of cancer. Her significant other, Michael, was in the room while we discussed this. Her calcium is mildly elevated, and she was still confused. The plan at this point will be to hydrate her and monitor mental status overnight. I will reach out to [facility] regional Oncology to see if they can review her images with initial recommendations. She will likely need a biopsy after encephalopathy with the is cleared, this may need to happen at [facility]. 01/21: She feels better today. She does have chronic pain. She denies nausea. Her confusion is improving. -we will give IV fluids (NaHCO3) and monitor volume status and creatinine for another day. -we will monitor calcium and mental status. Improving. -Consider urology for cystoscopy and biopsy Thursday. 01/22: Somewhat confused but answers questions oriented to place and month and time of day Hemoglobin 9 with 3% nucleated white blood cells BUN/creatinine 27/2.1 AST 65 alkaline phosphatase 319 5/5: Patient is increasingly encephalopathic agitated overnight received multiple doses of sedatives on admission ammonia level was less than 9 we will recheck level today Very poor p.o. intake The findings of extensive carcinomatosis and overwhelming-appearing tumor burden in the liver support suspicion of organ failure as the cause of encephalopathy. this was discussed with the patient's POAMichael. Decision was to make a do not resuscitate and pursue comfort measures not to pursue a tissue diagnosis, as treatment which is expected to be futile and not workable therefore not offered, was also not desired Will make referral to hospice goals of care are comfort control of agitation anticipating a setting with adequate support to accomplish 1. 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 Trial of lactulose to attempt to clear encephalopathy this was discussed with the patient's POAMichael. Decision was to make a do not resuscitate and pursue comfort measures not to pursue a tissue diagnosis, as treatment which is expected to be futile and not workable therefore not offered, was also not desired Will make referral to hospice goals of care are comfort control of agitation anticipating a setting with adequate support to accomplish 2. Hypercalcemia, recurrent, likely related to #1, POA 3. MERCY on CKD 4, POA 4. Generalized weakness, encephalopathy with normal ammonia level, POA 5. Hypothyroidism, chronic Time-Based Coding 35 minutes spent with patient and on the chart (including review of chart, obtaining history, exam, reviewing outside data, placing orders, documenting exam and treatment plan, and counseling patient) Exam Vital Signs (past 8 hours): - 01/23/25 05:07 01/23/25 10:00 Temperature 97.2 F L 97.1 F L Pulse Rate 76 80 Respiratory Rate 12 12 Blood Pressure 140/54 L 123/58 L Pulse Oximetry 96 95 Oxygen Flow Rate 0 Oxygen Delivery Method Room Air Oxygen Flow Rate 0 Objective Labs 01/20/25 04:30 01/23/25 05:40 Labs: Laboratory Results - last 24 hr 01/22/25 01/23/25 18:24 05:40 Sodium 140 Potassium 3.9 Chloride 108 H Carbon Dioxide 23 BUN 34 H Creatinine 2.71 H Estimated GFR 18 L BUN/Creatinine Ratio 12.5 Glucose 79 Calcium 8.7 Magnesium 1.6 Total Bilirubin 0.5 AST 55 H ALT 26 Alkaline Phosphatase 319 H Total Protein 6.0 L Albumin 3.1 L Globulin 2.9 Albumin/Globulin Ratio 1.1 Carcinoembryonic Ag 4.4 H CA 125 Antigen 65.8 H [facility] Medical History Acquired hypothyroidism H/O: stroke Chronic hip pain, bilateral Social History household members: none Smoking Status: Never smoker alcohol intake: current Assessment & Plan Time-Based Coding :: [TOTAL MINUTES] spent with patient and on the chart (including review of chart, obtaining history, exam, reviewing outside data, placing orders, documenting exam and treatment plan, and counseling patient) on [DATE].
[2025-01-23 11:44] LABS: Ammonia (NH3) < 9 umol/L (9-30)
[2025-01-23] MEDS: OXYCODONE IR 5 MG TABLET PO ×2 (13:34→18:35)
--- NOTE | 2025-01-23 13:42 | CM.DPC ---
DCP Comfort Care Per MD, had naima discussion bedside with pt and Sig Other Michael regarding pt's poor prognosis and decision made not to pursue tx or invasive procedures and to switch to Comfort Measures. Pt had been Full Code and now DNR. [facility] had been following for plan of pt return for SNF rehab at d/c and could accept pt for rehab today or tomorrow. PT/OT orders cancelled for comfort. CANDE met bedside with pt, who could answer a few questions but also confirming she is in pain and SW updated RN who is working to get comfort pain medications ordered, and her life partner/POA Michael and explained role. Michael states he and pt are both LICSWs and Michael is still working in [employer] and pt retired last year after her CVA. Michael confirms decision made for Comfort Care and he is hopeful pt will in the hospital but SW explained if pt remains stable and not imminent then discharge to a facility with Hospice would be needed. Michael acknowledges understanding and states if pt needs discharge plan then preference would be return to [facility] where pt is more familiar with the staff and environment. Michael states pt's Dtr will be arriving around midnight tonight and pt and Dtr have a very close relationship. CANDE secure emailed clinicals to Shannan at [facility] and Mary at [facility] requesting review as pt likely will need discharge plan of return to [facility] if she does not in the next day or two and updated Shannan that pt likely will not need SNF bed pending review. Faxed referral to [facility] to review for likely plan of return to [facility] in the next couple days. KARLIE Garcia
[2025-01-23 17:09] VITALS: BMI 31.7
[2025-01-23] MEDS: LORazepam 1 MG TABLET PO (18:34)
[2025-01-24 01:29] VITALS: BP 146/68; PULSE 87; RESP 18; O2SAT 95
[2025-01-24] MEDS: LORazepam 1 MG TABLET PO (04:24)
[2025-01-24] MEDS: TIZANIDINE 4 MG TABLET 8 MG PO (07:04)
[2025-01-24] MEDS: ACETAMINOPHEN 325 MG TABLET 650 MG PO (07:04)
[2025-01-24 07:08] LABS: Cancer (Carbohydrate) Ag 19-9 32 U/mL (0-35)
[2025-01-24] MEDS: SODIUM CHLORIDE 0.9% FLUSH 10 ML IV (10:00)
--- NOTE | 2025-01-24 12:47 | CM.DPC ---
DCP Cont. Reviewed EMR and team rounds for pt's status updates. Pt has been accepted to [facility] for comfort care under her Medicaid benefit. Called [facility] and left a message re: when they can open at [facility]. Pending return call.
[2025-01-24 16:28] VITALS: BP 142/66; PULSE 89; RESP 15; TEMP 36.7; O2SAT 95
[2025-01-24] MEDS: OXYCODONE IR 5 MG TABLET PO (16:40)
--- NOTE | 2025-01-24 18:37 | P.PN_ITS ---
Subjective Subjective Interval history: 69 F with recurrent hypercalcemia, found to have widely metastatic cancer. She is somnolent today, did not attempt to wake up as she appeared comfortable. Spouse at bedside with no complaints. Patient awaiting return to [facility] on hospice. Exam Vital Signs (past 8 hours): - 01/24/25 16:28 Temperature 98.0 F Pulse Rate 89 Respiratory Rate 15 Blood Pressure 142/66 H Pulse Oximetry 95 Oxygen Flow Rate 0 Oxygen Delivery Method Room Air Oxygen Flow Rate 0 Narrative Exam Narrative: Gen: sleeping, difficult to arouse but appears comfortable. Objective Labs 01/20/25 04:30 01/23/25 05:40 Labs: Laboratory Results - last 24 hr 01/22/25 05:40 CA 19-9 Antigen 32 PFSH Medical History Acquired hypothyroidism H/O: stroke Chronic hip pain, bilateral Social History household members: none Smoking Status: Never smoker alcohol intake: current Assessment & Plan Assessment & Plan narrative: 1. Newly diagnosed widely metastatic disease, possibly of bladder origin with hepatic and bony metastases, POA * The findings of extensive carcinomatosis and overwhelming-appearing tumor burden in the liver support suspicion of organ failure as the cause of encephalopathy. * Trial of lactulose to attempt to clear encephalopathy * this was discussed with the patient's POAMichael. Decision was to make a do not resuscitate and pursue comfort measures not to pursue a tissue diagnosis, as treatment which is expected to be futile and not workable therefore not offered, was also not desired * Will make referral to hospice goals of care are comfort control of agitation anticipating a setting with adequate support to accomplish 2. Hypercalcemia, recurrent, likely related to #1, POA 3. MERCY on CKD 4, POA 4. Generalized weakness, encephalopathy with normal ammonia level, POA 5. Hypothyroidism, chronic Plan: Likely discharge to SNF tomorrow on hospice. Time-Based Coding :: [TOTAL MINUTES] spent with patient and on the chart (including review of chart, obtaining history, exam, reviewing outside data, placing orders, documenting exam and treatment plan, and counseling patient) on [DATE]. Quality VTE Deep Vein Thrombosis/Pulmonary Embolism Present on Admission: No
--- NOTE | 2025-01-25 08:10 | P.DS_ITS ---
History of Present Illness History of Present Illness Date Patient Seen: 01/25/25 Time Patient Seen: 08:10 Chief complaint: AMS Narrative: Per admission H&P: From night doctor: 69F with PMH of HTN, hyperlipidemia, hypothyroidism, CVA, OA was discharged 2 days ago for encephalopathy presumed to be due to recurrent hypercalcemia and MERCY. Pamidronate was given on 01/14 with apparent improvement in calcium values and encephalopathy. An SPEP & UPEP were reportedly negative for myeloma. Of note, patient also reported vivid dreams at night and morning hallucinations thought to be medication-related. She was sent back to SNF where she was found to have difficulty speaking and chewing food along with weakness. Calcium today in ED was 10.4 but with albumin of 3.6, this corrected to 10.7. The lab's upper limit of normal for Ca is 10.2. Patient has GFR in 20s. A CT abdomen/pelvis showed diffuse osseous metastatic disease with multiple hepatic lesions and suspected bladder malignancy. Recent spinal imaging studies returned no suspicion of malignancy. Patient will be admitted for treatment of hypercalcemia and evaluation of cancer. Additional information: She was quite upset today. She did not recall the information regarding the CT scan. I did have the CT reviewed by radiology and compared with the previous x-rays and imaging. In fact, she appears to have new widespread osseous metastatic cancer as well as liver lesions. The patient also has abnormal appearance of her bladder. She denies a history of cancer. Her significant other, Michael, was in the room while we discussed this. Her calcium is mildly elevated, and she was still confused. The plan at this point will be to hydrate her and monitor mental status overnight. I will reach out to [facility] regional Oncology to see if they can review her images with initial recommendations. She will likely need a biopsy after encephalopathy with the is cleared, this may need to happen at [facility]. Discharge Providers Provider Date of admission: 01/20/25 00:19 Discharge Date: 01/25/25 Consults: 01/22/25 09:36 Consult to Physical Therapy Evaluate & Treat Comment: Physician Instructions: Evaluate and Treat 01/23/25 07:18 Consult to Occupational Therapy Evaluate & Treat Comment: Physician Instructions: Evaluate and treat 01/23/25 14:49 Consult to Discharge Planning Routine Comment: Discharge provider: Matias Cheung DO Summary Hospital Course Discharge Diagnosis: 1. 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 Hypercalcemia, recurrent, likely related to #1, POA 3. MERCY on CKD 4, POA 4. Generalized weakness, encephalopathy with normal ammonia level, POA 5. Hypothyroidism, chronic Hospital Course: This is a 69 year old female with recent history of recurrent hypercalcemia and encephalopathy who was sent back to the ER again for difficulty swallowing and weakness. Her calcium was mildly elevated, but imaging revealed new widely metastatic disease possibly of bony origin with hepatic and bony metastases. After initial goals of care discussions patient and family elected for proceeding with comfort measures only and hospice rather than diagnostic workup. She was transferred to assisted living with hospice to open shortly after arrival. Many chronic medications were stopped at the time of admission and discharge with goals focused on comfort. Time Spent with Patient Time spent: Greater than 30 minutes Exam Vital Signs (past 8 hours): Oxygen Delivery Method Room Air Oxygen Flow Rate 0 Narrative Exam Narrative: Gen: alert, talkative, pleasant, no acute distress. Objective Labs 01/20/25 04:30 01/23/25 05:40 [facility] Medical History Acquired hypothyroidism H/O: stroke Chronic hip pain, bilateral Social History household members: none Smoking Status: Never smoker alcohol intake: current Discharge Plan Discharge Plan Patient Disposition: Hospice - Home Transfer to: [facility] Living Provider Discharge Comment: See discharge summary Discharge orders & Medications Prescriptions: New TheraTears 0.25 % Drops 1 drp EYE-BOTH PRN PRN (Reason: Dry Eye(S)) Qty: 30 0RF morphine concentrate 10 mg/0.5 mL Syringe 10 mg PO Q1HR PRN (Reason: Pain, Severe (7-10)) Qty: 50 0RF scopolamine base [Transderm-Scop] 1 mg over 3 days Patch 3 Day 1 patch topical Q72H PRN (Reason: Secretions) 7 Days Qty: 3 0RF Continued venlafaxine 75 mg capsule,extended release 24hr 225 mg PO DAILY ondansetron 4 mg tablet,disintegrating 2 mg PO Q6-8H PRN (Reason: Nausea And Vomiting) pregabalin 50 mg capsule 50 mg PO 3XD magnesium hydroxide [Milk of Magnesia] 400 mg/5 mL suspension 30 ml PO DAILY PRN (Reason: No BM in 3 days) gabapentin 100 mg capsule 300 mg PO TID Patient Comments: [NO ORIGINAL SIG] omeprazole 20 mg capsule,delayed release(DR/EC) 20 mg PO DAILY levothyroxine 25 mcg tablet 25 mcg PO DAILY trazodone 50 mg tablet 50 mg PO BEDTIME tizanidine 4 mg tablet 8 mg PO Q8H PRN (Reason: Spasms) Patient Comments: [NO ORIGINAL SIG] acetaminophen 325 mg Tablet 650 mg PO Q6H PRN (Reason: Fever/Mild Pain (1-3)) Qty: 30 0RF Discontinued baclofen 20 mg tablet 20 mg PO TID PRN (Reason: pain (scale score 4-6)) Qty: 20 0RF buspirone 5 mg tablet 5 mg PO TID Patient Comments: [NO ORIGINAL SIG] losartan 100 mg tablet 100 mg PO DAILY clopidogrel 75 mg tablet 75 mg PO DAILY atorvastatin 40 mg tablet 40 mg PO BEDTIME Diet/Activity/Treatments Diet: Diet as Tolerated Activity: No restrictions Visit Report/Discharge Packet Stand Alone Forms: Patient Portal/API, Stroke Signs & Symptoms Quality VTE Deep Vein Thrombosis/Pulmonary Embolism Present on Admission: No
--- NOTE | 2025-01-25 08:47 | CM.DPC ---
DCP Discharge with Hospice Per MD, pt more alert today and was telling stories overnight to her step-Dtr bedside and stable for d/c to SNF with Hospice today. Orders placed. CANDE met bedside with pt and Dtr and they confirm that pt and Sig Other Michael exchanged wedding rings last night once pt was more alert and awake (no formal head charrer present) and pt very happy today with her vows they exchanged. Pt remains agreeable to d/c to [facility], hoping for a private room since family will be visiting and pt will start on Hospice. They would also be agreeable to return to apt at [facility] but per DCP from yesterday [facility] did not feel they could adequately meet her needs. Pt confirms she is very painful even with turning/repositioning in bed and does not feel she can tolerate w/c and preference is BLS transport and aware might not be fully covered by insurance. CECILY Car kindly called [facility] and scheduled 1300 transport to [facility]. BLS form completed and MD signed. CECILY Car kindly faxed d/c summary, signed med list, scripts, orders to [facility] to review. CANDE updated [facility] and they will inquire about private room and updated on BLS transport at 1300. CANDE updated adoption counselor, [employer] CRANE DRIVER, RN and provided number to call report. CECILY Car faxed d/c summary to Hospice to review and they called and confirmed that pt will d/c today and their RN will do SOC between [id number] today. KARLIE Garcia
[2025-01-25] MEDS: GABAPENTIN 300 MG CAPSULE PO (09:04)
[2025-01-25] MEDS: PREGABALIN 50 MG CAPSULE PO (09:04)
[2025-01-25] MEDS: VENLAFAXINE ER 75 MG CAP 225 MG PO (09:04)
[2025-01-25] MEDS: SODIUM CHLORIDE 0.9% FLUSH 10 ML IV (09:05)
--- NOTE | 2025-01-25 13:25 | PC.NURSE ---
IV removed. New DNR/POLST signed at bedside with hospitalist. Report given to Kortney at [facility]- no further questions. pt wheeled out via stretcher and BLS personnel.
== END 2025-01-25 13:27 | disposition hospice, home (50) | DRG 686 ==
LOC: ED 23:40 → AC 01-20 00:19
PROVIDERS: Hospitalist; Internal Medicine; Admitting Provider Internal Medicine; Emergency Provider Family Medicine; Referring Provider Family Medicine; Visit Provider Internal Medicine
DX: C67.9 Malignant neoplasm of bladder, unspecified (principal); G93.41 Metabolic encephalopathy; C78.7 Secondary malignant neoplasm of liver and intrahepatic bile duct; C79.51 Secondary malignant neoplasm of bone; N17.9 Acute kidney failure, unspecified; N18.4 Chronic kidney disease, stage 4 (severe); E87.29 Other acidosis; Z66 Do not resuscitate; Z51.5 Encounter for palliative care; E83.52 Hypercalcemia; R53.1 Weakness; Z86.73 Personal history of transient ischemic attack (TIA), and cerebral infarction without residual deficits; I12.9 Hypertensive chronic kidney disease with stage 1 through stage 4 chronic kidney disease, or unspecified chronic kidney disease; E78.5 Hyperlipidemia, unspecified; M19.90 Unspecified osteoarthritis, unspecified site; Z79.02 Long term (current) use of antithrombotics/antiplatelets; Z79.890 Hormone replacement therapy; E03.8 Other specified hypothyroidism
CPT/HCPCS: 36415; 70450; 71045; 74176; 80048; 80053; 80305; 82140; 82378; 82962; 83605; 83735; 84145; 84484; 85007; 85025; 86301; 86304; 87040; 93005; 99283; 99284; A9270; J1644